=== PATIENT | female | born 1945 | race Caucasian/White ===

== ENCOUNTER → 2018-04-15 08:44 | Outpatient (CLI) | payer MEDICARE, SELFPAY ==
[2018-04-15 10:09] LABS: AST(SGOT) 18 U/L (15-37); Alanine Aminotransfer ALT/SGPT 34 U/L (13-56); Albumin, Serum 3.8 g/dL (3.2-5.0); Alkaline Phosphatase 87 U/L (45-117); Anion Gap 9 (5-15); BUN 21 mg/dL (7-18); Calcium,Total 9.1 mg/dL (8.5-10.1); Chloride 105 mmol/L (98-107); Cholesterol 159 mg/dL (200); Creatinine, Serum 1.05 mg/dL (0.55-1.02); EST Glomerular Filtration Rate 55 mL/min (>60); Est Glom Filt Rate - Afr Amer 66 mL/min (>60); Glucose 161 mg/dL (74-106); High Density Lipoprotein 48 mg/dL; Potassium 4.4 mmol/L (3.5-5.1); Protein, Total 7.8 g/dL (6.4-8.2); Sodium Level 141 mmol/L (136-145); Triglycerides 140 mg/dL; Very Low Density Lipoprotein 28 mg/dL (5-40)
[2018-04-15 10:14] LABS: Microalbumin,Random Urine 51.5 mg/L (NO RANGE EST.); Microalbumin:Creatinine Ratio 32.2 mg/g CRE (<30 mg/g CRE)
== END ==
PROVIDERS: Family Provider Family Medicine; PCP Family Medicine; Visit Provider Family Medicine
DX: E11.9 Type 2 diabetes mellitus without complications (principal)
CPT/HCPCS: 36415; 80048; 80061; 80076; 82043; 82570

== ENCOUNTER → 2018-08-16 10:08 | Outpatient (CLI) | payer MEDICARE, SELFPAY ==
[2018-08-16 12:20] LABS: Anion Gap 8 (5-15); BUN 20 mg/dL (7-18); BUN/Creat Ratio 21.1 RATIO (10-20); Chloride 109 mmol/L (98-107); Creatinine, Serum 0.95 mg/dL (0.55-1.02); EST Glomerular Filtration Rate 62 mL/min (>60); Est Glom Filt Rate - Afr Amer 74 mL/min (>60); Glucose 174 mg/dL (74-106); Potassium 4.5 mmol/L (3.5-5.1); Sodium Level 141 mmol/L (136-145)
[2018-08-16 12:34] LABS: Vitamin D,25 Hydroxy 22.4 ng/mL (29.95-100.01)
== END ==
PROVIDERS: Family Provider Family Medicine; PCP Family Medicine; Visit Provider Family Medicine
DX: E11.9 Type 2 diabetes mellitus without complications (principal); E55.9 Vitamin D deficiency, unspecified
CPT/HCPCS: 36415; 80048; 82306

== ENCOUNTER 2019-01-10 22:03 | Emergency (ER) | payer MEDICARE, SELFPAY ==
[2019-01-10 22:04] VITALS: BP 162/73; PULSE 84; RESP 26; TEMP 36.3; O2SAT 98; BMI 38.7
--- NOTE | 2019-01-10 22:57 | ED.VISSUMM ---
- ER Visit Summary Date of Service: 01/10/19 Chief Complaint: [] Abdominal pain History of Present Illness: The patient is a 73 F complaining of abdominal pain since this afternoon early on. Gradual onset continuous cramping burning occasional sharp pains in her upper abdomen. Current severity is mild to moderate. Worsened by nothing. Relieved by nothing. She tried one [place] that was left over from previous abdominal pain workup at 8 PM. She vomited up however. She had 4 episodes of emesis today. She had a loose bowel movement early this afternoon but nothing since. She saw GI for this in the past remotely 3 years ago. She never had upper GI endoscopy. She did have her gallbladder taken out for similar type pain 2 years ago and has not had much exacerbation since then. She has had remote diverticulitis in 2006 is status post partial sigmoid resection. She has had no problems with this since her surgery. Physical Examination: [] Vital signs reviewed General: Well-nourished well-developed Head: Normocephalic atraumatic Eyes: Pupils equal round and reactive to light extraocular movements intact ENT: TMs clear no hemotympanum no trauma Neck: Nontender full range of motion Cardiovascular: Regular rate rhythm no murmurs normal S1-S2 Respiratory: No distress clear to auscultation bilaterally chest nontender Abdomen: Soft mild upper abdominal tenderness diffusely without guarding or rebound. Nondistended normal bowel sounds no masses Back: Nontender no CVA tenderness Extremities: Nontender active range of motion ?4 extremities no trauma Skin: Normal color no trauma Neuro alert oriented cranial nerves II through XII intact normal strength sensation reflexes Test Results: [] Emergency Department Course and Treatment: [] Patient given IV fluids, morphine Zofran. Lab work obtained. Lab work shows a slight leukocytosis of 15,000. Chemistries normal except glucose 274. Creatinine 1.0. Lipase normal. Liver function tests normal. Urinalysis shows nothing acute. CT abdomen pelvis shows a suspected right periumbilical Alexandre's hernia. This was discussed with the radiologist. However after looking at it closer he thinks there is not actually a hernia. I do not palpate any hernia in the periumbilical region. Patient stated she did have a chronic hernia in her right abdomen which she seen surgery for in the past. They are just watching it. At this time is unclear to me the exact cause of her symptoms. This could be gastritis related. Reevaluation she feels much better and is resting comfortably. She would like to be discharged. She will be given a short course of pain medicine for home as well as nausea medicine. She will follow-up as an outpatient with her family doctor. I do not think she has a surgical emergency or strangulated or incarcerated hernia. Treatment Plan: [] Disposition: [] Impression: [] Abdominal pain Nausea and vomiting This note was generated with [employer] dictation software. It may contain incorrect words, spelling, and punctuation that were not noted in review of the chart prior to signing ED Disposition - Plan for ED Patient: Referrals: Abraham aGlindo MD [Primary Care Provider] -
[2019-01-10 23:05] LABS: Bacteria 0 SEEN /hpf (None Seen)
[2019-01-10 23:09] LABS: Color, Urine Yellow (Yellow); Glucose, Dipstick 250 mg/dl (Normal); Ketone-Dipstick 50 mg/dl (Negative); Leukocyte Esterase-Dipstick 25 /ul (Negative); Nitrite-Dipstick Negative (Negative); Occult Blood-Urine 25 /ul (Negative); Protein-Dipstick 100 mg/dl (Negative); Urine Bilirubin Dipstick Negative (Negative); Urine Clarity Sl. Cloudy (Clear); Urine Urobilinogen Normal (Normal)
[2019-01-10] MEDS: Ondansetron 4 MG/2 ML Vial IV (23:09)
[2019-01-10] MEDS: 0.9% Normal Saline 1,000 ML 1000 ML IV (23:09)
[2019-01-10] MEDS: Morphine 4 MG/ML Syringe IV (23:10)
[2019-01-10 23:12] LABS: Absolute Lymphocyte Count 1.28 X10^3/ul (0.83-4.51); Absolute Neutrophil Count 13.1 X10^3/uL (2.0-7.7); Basophil# 0.03 X10^3/uL; Basophil% 0.2 % (0-1); Eosinophil# 0.05 X10^3/uL; Eosinophils% 0.3 % (0-5); Hematocrit 42.1 % (37-47); Hemoglobin 13.5 g/dl (12.0-15.0); Lymphocyte # 1.28 X10^3/ul (4.0); Lymphocyte % 8.5 % (19-41); Mean Corp Hgb Conc 32.1 g/gl (32-36); Mean Corpuscular Hgb 26.6 pg (27.0-32.0); Mean Platelet Vol. 11.4 fl (6.2-12.0); Monocyte# 0.61 X10^3/uL; Neutrophil # 13.09 X10^3/uL (2.7-7.7); Neutrophil % 86.7 % (47-70); POSITIVE COUNT NO; POSITIVE DIFFERENTIAL NO; POSITIVE MORPHOLOGY NO; Platelet Count 247 K/mm3 (150-450); RBC Distribution Width CV 15.2 % (11.6-14.6); RBC Distribution Width SD 45.7 fl (35.1-43.9); Red Blood Count 5.07 M/mm3 (4.2-5.4); White Blood Count 15.1 K/mm3 (4.4-11.0)
[2019-01-10 23:17] LABS: Mucous, Urine 1+ /hpf (<or=2+); Red Blood Cells-Urine 5-10 SEEN /hpf (0-5); Squamous Epithelial Cells - UA 0-5 SEEN /hpf (5-10); White Blood Cells 0-5 SEEN /hpf (0-5)
[2019-01-10 23:19] LABS: AST(SGOT) 23 U/L (15-37); Alanine Aminotransfer ALT/SGPT 41 U/L (13-56); Albumin, Serum 3.8 g/dL (3.2-5.0); Alkaline Phosphatase 106 U/L (45-117); Anion Gap 11 (5-15); BUN 15 mg/dL (7-18); BUN/Creat Ratio 14.4 RATIO (10-20); Bilirubin, Direct 0.14 mg/dL (0.00-0.30); Chloride 105 mmol/L (98-107); Creatinine, Serum 1.04 mg/dL (0.55-1.02); EST Glomerular Filtration Rate 55 mL/min (>60); Est Glom Filt Rate - Afr Amer 67 mL/min (>60); Estimated Creatinine Clearance 42.22 ml/min; Globulin 4.2 g/dL (2.2-4.2); Glucose 274 mg/dL (74-106); Lipase 90 U/L (73-393); Potassium 3.9 mmol/L (3.5-5.1); Sodium Level 137 mmol/L (136-145)
--- NOTE | 2019-01-10 23:48 | CT_ITS ---
STUDY: CT ABDOMEN AND PELVIS WITHOUT CONTRAST REASON FOR EXAM: Female, 73 years old. Abdominal pain RADIATION DOSAGE (If Supplied By Facility): CTDIvol = ( 20.25 ) mGy, DLP = ( 1017.03 ) mGycm TECHNIQUE: Transaxial images were obtained from the dome of the diaphragm to the symphysis pubis without oral contrast, and without intravenous contrast. Sagittal and coronal images were reconstructed. Individualized dose optimization techniques were used for this CT. COMPARISON: 08/17/2017 FINDINGS: The lung bases are clear. There is fatty infiltration of the liver.. No dilated intrahepatic biliary radicles. Previous cholecystectomy. The spleen is normal. The pancreas is normal. Both adrenals are normal. The kidneys are normal with no masses, calculi or hydronephrosis The stomach is normal. There is no bowel distention, acute appendicitis or diverticulitis. No constricting lesions are seen in large bowel. There is a 4.8 cm right periumbilical Alexandre's hernia 2There is no ascites or any free intraperitoneal air. No indication of epiploic appendagitis The vascular structures in the retroperitoneum are normal. There is no retrocrural, retroperitoneal or mesenteric adenopathy. Spondylolysis of L5 with a first-degree spondylolisthesis of L5 over S1 and intervertebral osteochondrosis at L5-S1 The urinary bladder is normal.--The uterus is normal. There is no inguinal or pelvic adenopathy. There is no inguinal hernia. . CT/Abdomen/Pelvis without Cont IMPRESSION: No acute findings in the abdomen or pelvis. Specifically there is no acute appendicitis or diverticulitis Right periumbilical Alexandre's hernia. Fatty infiltration of the liver with evidence of a previous cholecystectomy. 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 Electronically Signed: Jonathan Mena MD at 0:32 EST Tel , Service support ,
[2019-01-11 00:06] VITALS: BP 148/67; PULSE 78; RESP 16; TEMP 36.8; O2SAT 96
[2019-01-11 00:24] VITALS: RESP 16
--- NOTE | 2019-01-11 01:09 | ED.DEP ---
ED Disposition - Plan for ED Patient: Disposition: Home or Assisted Living Instructions: ED Abdominal Pain Unkn Cause Prescriptions: Ondansetron [Zofran Odt] 4 mg PO Q8H PRN PRN #10 tab PRN Reason: Nausea Referrals: Abraham Galindo MD [Primary Care Provider] -
[2019-01-11] MEDS: HYDROcodone Bitartrate/Apap 5/325 Tablet PO (01:17)
[2019-01-11 01:22] VITALS: BP 142/76; PULSE 76; RESP 16; O2SAT 95
== END 2019-01-11 01:23 | disposition home or self-care (01) ==
PROVIDERS: Emergency Provider Emergency Medicine; Family Provider Family Medicine; PCP Family Medicine
DX: R10.10 Upper abdominal pain, unspecified (principal); R11.2 Nausea with vomiting, unspecified; E66.9 Obesity, unspecified; E11.9 Type 2 diabetes mellitus without complications; I10 Essential (primary) hypertension; Z79.84 Long term (current) use of oral hypoglycemic drugs; Z79.899 Other long term (current) drug therapy
CPT/HCPCS: 74176; 80048; 80076; 81001; 83690; 85025; 96361; 96374; 96375; 99285; J7030; A4216; J2405

== ENCOUNTER → 2019-05-04 | Outpatient (CLI) | payer MEDICARE, SELFPAY | END | disposition home or self-care (01) | PROVIDERS: Family Provider Family Medicine; PCP Family Medicine; Referring Provider Family Medicine; Visit Provider Family Medicine | DX: N39.0 Urinary tract infection, site not specified (principal) | CPT/HCPCS: 87086 ==

== ENCOUNTER → 2019-05-19 | Outpatient (CLI) | payer MEDICARE, SELFPAY ==
[2019-05-19 10:25] LABS: Microalbumin,Random Urine 38.3 mg/L (NO RANGE EST.)
[2019-05-19 10:29] LABS: Anion Gap 5 (5-15); BUN 16 mg/dL (7-18); BUN/Creat Ratio 17.4 RATIO (10-20); Chloride 107 mmol/L (98-107); Cholesterol 174 mg/dL (200); Creatinine, Serum 0.92 mg/dL (0.55-1.02); EST Glomerular Filtration Rate 63 mL/min (>60); Est Glom Filt Rate - Afr Amer 77 mL/min (>60); Glucose 173 mg/dL (74-106); High Density Lipoprotein 48 mg/dL; Potassium 4.1 mmol/L (3.5-5.1); Sodium Level 136 mmol/L (136-145); Triglycerides 115 mg/dL; Very Low Density Lipoprotein 23 mg/dL (5-40)
== END | disposition home or self-care (01) ==
LOC: MFPLAB 09:01
PROVIDERS: Family Provider Family Medicine; PCP Family Medicine; Referring Provider Family Medicine; Visit Provider Family Medicine
DX: E11.65 Type 2 diabetes mellitus with hyperglycemia (principal)
CPT/HCPCS: 36415; 80048; 80061; 82043

== ENCOUNTER → 2019-06-21 | Outpatient (CLI) | payer MEDICARE, SELFPAY ==
[2019-06-21 14:24] VITALS: BMI 38.2
== END | disposition home or self-care (01) ==
LOC: LABSPEC 17:07
PROVIDERS: Family Provider Family Medicine; PCP Family Medicine; Referring Provider Nurse Practitioner Women's Health; Visit Provider Nurse Practitioner Women's Health
DX: N39.0 Urinary tract infection, site not specified (principal); R31.9 Hematuria, unspecified
CPT/HCPCS: 87077; 87086; 87088; 87186

== ENCOUNTER → 2019-06-27 | Outpatient (CLI) | payer MEDICARE, SELFPAY ==
[2019-06-21 14:24] VITALS: BMI 38.2
--- NOTE | 2019-06-27 12:04 | US_ITS ---
STUDY: ULTRASOUND OF THE FEMALE PELVIS - COMPLETE REASON FOR EXAM: Female, 74 years old. Postmenopausal bleeding. LMP: Patient is postmenopausal. TECHNIQUE: Transabdominal and Transvaginal TECHNICAL QUALITY: Adequate. COMPARISON: None. FINDINGS: The uterus is anteverted and is in a midline position. The uterus measures 6.3 cm x 4.5 cm x 3.1 cm. There is a Nabothian cyst of the cervix. The endometrium is thickened and measures 6 mm in thickness, and is fluid distended. The uterus is of heterogeneous echotexture. There is evidence of a fundal fibroid measuring 1.8 cm x 1.77 x 1.3 cm. There is no demonstrated myometrial mass. I.U.D. - The patient does not have an I.U.D. The right ovary is non-visualized. The left ovary is visualized. The left ovary measures 2.1 cm x 1.9 cm x 1.6 cm. There is no left ovarian cyst or ovarian mass. There is no visualized left adnexal mass or complex lesion. There is normal arterial and normal venous vascularity. There is no fluid in the cul-de-sac. The pre void volume of the bladder was 172 ml. Polycystic ovary disease: No. US/Pelvic (Non ) IMPRESSION: Thickened endometrium measuring 6 mm. Fibroid uterus. The patient is status post right oophorectomy. Electronically Signed: Nato Kelsey, at 15:27 EDT , Service support ,
--- NOTE | 2019-06-27 12:04 | US_ITS ---
STUDY: ULTRASOUND OF THE FEMALE PELVIS - COMPLETE REASON FOR EXAM: Female, 74 years old. Postmenopausal bleeding. LMP: Patient is postmenopausal. TECHNIQUE: Transabdominal and Transvaginal TECHNICAL QUALITY: Adequate. COMPARISON: None. FINDINGS: The uterus is anteverted and is in a midline position. The uterus measures 6.3 cm x 4.5 cm x 3.1 cm. There is a Nabothian cyst of the cervix. The endometrium is thickened and measures 6 mm in thickness, and is fluid distended. The uterus is of heterogeneous echotexture. There is evidence of a fundal fibroid measuring 1.8 cm x 1.77 x 1.3 cm. There is no demonstrated myometrial mass. I.U.D. - The patient does not have an I.U.D. The right ovary is non-visualized. The left ovary is visualized. The left ovary measures 2.1 cm x 1.9 cm x 1.6 cm. There is no left ovarian cyst or ovarian mass. There is no visualized left adnexal mass or complex lesion. There is normal arterial and normal venous vascularity. There is no fluid in the cul-de-sac. The pre void volume of the bladder was 172 ml. Polycystic ovary disease: No. US/Transvaginal Non- IMPRESSION: Thickened endometrium measuring 6 mm. Fibroid uterus. The patient is status post right oophorectomy. Electronically Signed: Nato Kelsey, at 15:27 EDT , Service support ,
--- NOTE | 2019-06-27 13:16 | EKG12_ITS ---
Test Reason : PRE-OP Blood Pressure : / mmHG Vent. Rate : 070 BPM Atrial Rate : 070 BPM P-R Int : 166 ms QRS Dur : 110 ms QT Int : 432 ms P-R-T Axes : 031 -26 -17 degrees QTc Int : 466 ms Sinus rhythm with frequent Premature ventricular complexes Incomplete right bundle branch block Moderate voltage criteria for LVH, may be normal variant Nonspecific ST and T wave abnormality Abnormal ECG Confirmed by DAVIN MINER, STARR ([id number]), copy editor BAM PAN ([id number]) on 06/29/2019 10:33:57 AM Referred By: Yu Rolon Confirmed By:STARR JIN MD
[2019-06-27 15:45] LABS: Absolute Lymphocyte Count 2.02 X10^3/uL (0.83-4.51); Absolute Neutrophil Count 5.4 X10^3/uL (2.0-7.7); Basophil# 0.08 X10^3/uL; Eosinophil# 0.05 X10^3/uL; Eosinophils% 0.6 % (0-5); Hematocrit 42.2 % (37-47); Hemoglobin 13.4 g/dL (12.0-15.0); Lymphocyte # 2.02 X10^3/ul (4.0); Lymphocyte % 24.4 % (19-41); Mean Corp Hgb Conc 31.8 g/dL (32-36); Mean Corpuscular Hgb 27.6 pg (27.0-32.0); Mean Corpuscular Volume 86.8 fL (81-99); Mean Platelet Vol. 12.2 fl (6.2-12.0); Monocyte% 8.5 % (0-10); NRBC Flagged by Analyzer 0 % (0-5); Neutrophil % 65.1 % (47-70); Platelet Count 248 K/mm3 (150-450); RBC Distribution Width CV 15.6 % (11.6-14.6); RBC Distribution Width SD 49.6 fl (35.1-43.9); Red Blood Count 4.86 M/mm3 (4.2-5.4); White Blood Count 8.3 K/mm3 (4.4-11.0)
[2019-06-27 16:26] LABS: ALB/GLOB Ratio 0.9 RATIO (0.9-2.4); AST(SGOT) 21 U/L (15-37); Alanine Aminotransfer ALT/SGPT 39 U/L (13-56); Albumin, Serum 3.8 g/dL (3.2-5.0); Alkaline Phosphatase 94 U/L (45-117); Anion Gap 5 (5-15); BUN 19 mg/dL (7-18); BUN/Creat Ratio 18.4 RATIO (10-20); Calcium,Total 9.6 mg/dL (8.5-10.1); Chloride 108 mmol/L (98-107); Creatinine, Serum 1.03 mg/dL (0.55-1.02); EST Glomerular Filtration Rate 56 mL/min (>60); Est Glom Filt Rate - Afr Amer 68 mL/min (>60); Globulin 4.2 g/dL (2.2-4.2); Glucose 73 mg/dL (74-106); Potassium 4.1 mmol/L (3.5-5.1); Sodium Level 138 mmol/L (136-145)
== END | disposition home or self-care (01) ==
PROVIDERS: Obstetrics & Gynecology; Family Provider Family Medicine; PCP Family Medicine; Referring Provider Nurse Practitioner Women's Health; Visit Provider Nurse Practitioner Women's Health
DX: Z01.818 Encounter for other preprocedural examination (principal); N95.0 Postmenopausal bleeding; N84.1 Polyp of cervix uteri
CPT/HCPCS: 36415; 76830; 76856; 80053; 85025; 93005

== ENCOUNTER → 2019-07-07 06:30 | Outpatient (CLI) | payer MEDICARE, SELFPAY ==
[2019-06-21 14:24] VITALS: BMI 38.2
--- NOTE | 2019-07-07 09:31 | STRESSREP_ITS ---
Stress Test Report Date: 07-07-19 Procedure: Exercise tolerance test/imaging study Indications: Shortness of breath/dyspnea; abnormal ECG Consent: Per the patient Procedure: The patient exercised on a Hudson protocol for 4 minutes completing Stage I and 1 minute of Stage II achieving a peak heart rate of 173 bpm (117 % predicted maximal heart rate) with a peak blood pressure 200/70 mmHg and a peak MET capacity of 5 METs. The baseline ECG demonstrated sinus rhythm. The peak exercise ECG demonstrated no obvious ECG changes. There were occasional PVCs pretest, during exercise, and recovery and a rare atrial couplets/ventricular couplet during exercise. The functional capacity was considered average. There was no complaint of chest discomfort during exercise or recovery. The examination was discontinued secondary to dyspnea. Impression: 1. Technically adequate (percent predicted maximal heart rate greater than 85%) exercise tolerance test 2. Peak exercise ECG with no obvious ECG changes 3. There were occasional PVCs pretest, during exercise, in recovery and a rare atrial couplets/ventricular couplet during exercise 4. Nuclear images pending Myocardial perfusion imaging study: Technique: The patient was injected with 12.0 mCi of technetium 99m Cardiolite and subsequently rest SPECT Cardiolite nuclear imaging was obtained in the horizontal long, vertical long, and short axis views. The patient exercised on a Hudson protocol for 4 minutes completing Stage I and 1 minute of Stage II achieving a peak heart rate of 173 bpm (117 % predicted maximal heart rate) with a peak blood pressure 200/70 mmHg and a peak MET capacity of 5 METs. The patient was injected with 35.6 mCi of technetium 99m Cardiolite and subsequently stress SPECT Cardiolite nuclear imaging was obtained in the horizontal long, vertical long, and short axis views. A gated Cardiolite study at peak stress was obtained. Interpretation: Rest and stress SPECT Cardiolite nuclear imaging status post realignment, normalization, and attenuation correction, demonstrates the appearance of relative uniform tracer uptake and myocardial perfusion appearing within normal limits. There is end systolic thickening and brightening. The gated Cardiolite study demonstrates myocardial thickening and inward wall motion. The reported LVEF is 77 %. Impression: 1. Rest and stress SPECT Cardiolite nuclear imaging demonstrate relative uniform tracer uptake and myocardial perfusion appearing within normal limits. 2. The gated Cardiolite study reports an LVEF of 77 %. This note was generated with [employer] software. It may contain incorrect words, spelling, and punctuation that were not noted in checking the note before signing.
== END ==
PROVIDERS: Family Provider Family Medicine; PCP Family Medicine; Referring Provider Family Medicine; Visit Provider Family Medicine
DX: R94.31 Abnormal electrocardiogram [ECG] [EKG] (principal)
CPT/HCPCS: 78452; 93017; A9500; A4216

== ENCOUNTER 2019-08-11 09:07 | Day surgery (SDC) | payer MEDICARE, SELFPAY ==
[2019-06-21 14:24] VITALS: BMI 38.2
[2019-07-27 15:50] VITALS: BMI 38.2
--- NOTE | 2019-08-04 00:50 | HP.PCM_ITS ---
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 Is patient in pain?: No Allergies ciprofloxacin [From Cipro] Allergy (Mild, Verified 07/27/19 15:18) nausea metronidazole [From Flagyl] Allergy (Mild, Verified 07/27/19 15:18) nausea adhesive Allergy (Verified 07/27/19 15:18) Other Iodinated Contrast Media [CONTRASTS] Allergy (Verified 07/27/19 15:18) Hives Medications Amlodipine Besylate/Benazepril [Amlodipine-Benazepril 5-20 mg] 1 ea PO DAILY 07/15/16 [History Confirmed 07/27/19] Bisoprolol Fumarate [Zebeta (Beta Kimberly)] 10 mg PO DAILY 07/15/16 [History Confirmed 07/27/19] Glimepiride [Amaryl] 4 mg PO DAILY 07/15/16 [History Confirmed 07/27/19] metFORMIN HCl [Glucophage] 500 mg PO DAILY 07/15/16 [History Confirmed 07/27/19] aspirin 81 mg tablet,delayed release 81 mg PO DAILY 06/20/19 [History Confirmed 07/27/19] cholecalciferol (vitamin D3) 1,000 unit capsule 1,000 unit PO DAILY 06/20/19 [History Confirmed 07/27/19] docusate sodium 100 mg capsule 100 mg PO DAILY 06/20/19 [History Confirmed 07/27/19] ranitidine 150 mg capsule 150 mg PO DAILY 06/20/19 [History Confirmed 07/27/19] triamcinolone acetonide 0.5 % topical cream 1 applic TOPICAL BID #15 g 06/21/19 [Rx Confirmed 07/27/19] [facility] Medical History (Updated 08/02/19 @ 06:11 by Princess Peterson MD) Hypertension (Chronic) Diabetes mellitus type 2, uncomplicated (Chronic) GERD (gastroesophageal reflux disease) (Chronic) IBS (irritable bowel syndrome) (Chronic) Obesity (Acute) Surgical History (Updated 06/21/19 @ 14:28 by Christiane Naranjo) H/O oophorectomy (Acute) S/P partial colectomy (Acute) Status post left foot surgery (Acute) Social History (Updated 08/02/19 @ 06:12 by Princess Peterson MD) Smoking Status: Never smoker alcohol intake: never substance use type: does not use seatbelt use: always HPI Pre op D&C: Details: JASON JONES is a 74 year old who presents for preop evaluation. she has an endocervical polyp and some postmenopausal bleeding. Pregancy History 2 Elective abortions Hx Para 2 Spontaneous abortions Hx # Term Pregnancies Ectopic pregnancies Hx # Pregnancies Multiple births # of living children 2 Past Pregnancies Del. Date Name GA/Weeks Outcome Route Bth Weight Infant Gen Labor Lgth Anesthesia Del [facility] Provider FOB Unknown 1964- Martha Unknown 1967- Thomas ROS Const Constitutional: Denies fatigue, fever(s), headache(s), increased appetite, poor appetite, weight gain or weight loss Cardio Card: Denies chest pain Resp Resp: Denies cough or dyspnea GI GI: Reports as per HPI; denies abdominal pain, constipation, nausea or vomiting : Reports as per HPI; denies nipple discharge Skin Skin/Breast: Denies change in hair, breast lump, breast pain, breast skin changes or nipple discharge Exam Const General: cooperative, no acute distress Nutritional Appearance: average body habitus Orientation: alert HENWV Head: normal to inspection, normocephalic Neck Neck: normal visual inspection, trachea midline Thyroid: thyroid normal Resp Effort & Inspection: normal respiratory effort GI Inspection: normal to inspection, non-distended Palpation: soft, no hepatosplenomegaly General: bladder normal to palpation External Female Exam: normal appearance of the urethra, erythema, other (excoriations, erythema to rectum, trauma from scratching) Urethra: normal appearance of the urethra Speculum Exam - Vagina: atrophic vaginal mucosa, other (silver whitening inner bilateral labia) Speculum Exam - Cervix: cervical os open (3cm X 1cm cervical protrusion. consistent w fibroid vs polyp. nonfriable) Bimanual Exam- Vagina & Uterus: bladder normal to palpation, uterus non-tender, uterus enlarged (8 wk) Bimanual Exam- Adnexa, other: normal adnexae, no adnexal masses, pelvic support normal, adnexae non-tender Pelvic Support: normal OB/External & Speculum: cervical os open (3cm X 1cm cervical protrusion. consistent w fibroid vs polyp. nonfriable) Speculum Exam: cervical os open (3cm X 1cm cervical protrusion. consistent w fibroid vs polyp. nonfriable) Skin General: no rashes or lesions noted Assessment & Plan Problems 1. Endocervical polyp N84.1 d and c hysteroscopy 2. Hypertension I10 3. Diabetes mellitus type 2, uncomplicated E11.9 Plan plan d and c hysteroscopy. discussed surgical risks including risks of anesthesia, infection, bleeding, injury to bowel, bladder or blood vessels, and patient wishes to proceed with surgery. Coding Level of Care Code No Charge Diagnoses Endocervical polyp N84.1 Hypertension I10 Diabetes mellitus type 2, uncomplicated E11.9
[2019-08-11] VITALS (7 sets, daily range): BP systolic 128–168; BP diastolic 73–90; PULSE 61–78; RESP 16; TEMP 36–36.3; O2SAT 93–99; BMI 38.3
--- NOTE | 2019-08-11 09:21 | EKG12_ITS ---
Test Reason : PREOP Blood Pressure : / mmHG Vent. Rate : 072 BPM Atrial Rate : 072 BPM P-R Int : 162 ms QRS Dur : 112 ms QT Int : 452 ms P-R-T Axes : 028 -25 -14 degrees QTc Int : 494 ms Sinus rhythm with frequent Premature ventricular complexes Prolonged QT Abnormal ECG When compared with ECG of 27-JUN-2019 13:33, No significant change was found Confirmed by JAKE MINER, TRISTA ([id number]), video tape editor FELIPE LYNCH ([id number]) on 08/15/2019 3:48:45 PM Referred By: Princess Peterson Confirmed By:LUIS JOSEPH MD
[2019-08-11 09:40] LABS: Hematocrit 42.4 % (37-47); Hemoglobin 13.5 g/dL (12.0-15.0); Mean Corp Hgb Conc 31.8 g/dL (32-36); Mean Corpuscular Hgb 27.4 pg (27.0-32.0); Mean Platelet Vol. 10.6 fl (6.2-12.0); Platelet Count 220 K/mm3 (150-450); RBC Distribution Width CV 14.8 % (11.6-14.6); RBC Distribution Width SD 46.7 fl (35.1-43.9); Red Blood Count 4.93 M/mm3 (4.2-5.4); White Blood Count 7.1 K/mm3 (4.4-11.0)
[2019-08-11] MEDS: Lactated Ringers 1,000 ML 125 ML IV (09:56)
[2019-08-11 10:01] LABS: Anion Gap 7 (5-15); BUN 16 mg/dL (7-18); BUN/Creat Ratio 19.3 RATIO (10-20); Calcium,Total 8.9 mg/dL (8.5-10.1); Chloride 112 mmol/L (98-107); Creatinine, Serum 0.83 mg/dL (0.55-1.02); EST Glomerular Filtration Rate 72 mL/min (>60); Est Glom Filt Rate - Afr Amer 87 mL/min (>60); Estimated Creatinine Clearance 49.94 ml/min; Glucose 130 mg/dL (74-106); Sodium Level 141 mmol/L (136-145)
[2019-08-11 10:40] LABS: Bedside Glucose 125 mg/dL (70-110)
--- NOTE | 2019-08-11 10:45 | EMB_PTH ---
PATIENT: JASON JONES LOC: [facility] U#:[id number] AGE/SX: 74/F ROOM: RE08/11/[address]: Dr. Princess Peterson MD : [id number] BED: DIS: 08/11/2019 SPEC #: [id number] RECD: 08/11/19 14:46 STATUS: IRAIS REKenneth #: [id number] SONYA: 08/11/19 10:[address]: Princess Peterson DEPT: SURGICAL PATHOLOGY RECD BY: Ab Ayala ENTERED: 08/12/19 08:24 SP TYPE: ENDOM BX/C OTHR DR: Dr. Abraham Galindo MD Tissues: A - Endometrium, NOS B - Vulva, NOS Procedures: Surgery Specimen Level IV HEADER OPERATION: Hysteroscopy, D & C Symphion, vulvar biopsy PRE-OP DIAGNOSIS: Endocervical polyp TISSUE SUBMITTED: A - Endometrial curettings, endometrial polyp, B - Vulvar biopsy MICROSCOPIC DIAGNOSIS A. Endometrial curettings and polyp, excision: Simple hyperplasia without atypia. B. Vulva, biopsy: Ulceration with associated acute and chronic inflammation and granulation. AM:chelle 08/15/19 COMMENT B. Clinical correlation is suggested.. MICROSCOPIC DESCRIPTION Slides are reviewed. GROSS DESCRIPTION A - Received in fixative is one container labeled with the patient's name and designated endometrial curettings, endometrial polyp. The specimen consists of multiple irregular fragments of brar-white soft tissue that in aggregate measure 5 x 3 x 0.3 cm. Also present in the container is a piece of brar-pink polyp measuring 5 x 1.5 x 0.6 cm. The entire specimen is submitted in five cassettes as follows: 1 & 2 - brar-white soft tissue, 3-5 - polyp. B - Received in fixative is one container labeled with the patient's name and designated vulvar biopsy. The specimen consists of a piece of brar-white skin measuring 0.3 x 0.3 x 0.1 cm. The specimen is totally submitted in one cassette. / SJ:chelle 08/12/19 TC:2 CPT: 17529 x2
[2019-08-11] MEDS: Silver Nitrate (BKC) 1 EACH (12:55)
--- NOTE | 2019-08-11 13:08 | PCM.OPRPT ---
Problem List (1) Endocervical polyp Status: Acute Comment: d and c hysteroscopy (2) Diabetes mellitus type 2, uncomplicated Status: Chronic (3) Hypertension Status: Chronic Report of Operation Date of Procedure: 08/11/19 Pre-Operative Diagnosis: vulvar lesions, postmenopausal bleeding Post-Operative Diagnosis: same endometrial and endocervical polyps Surgery/Procedure Performed:: vulvar biopsy d and c hysteroscopy symphion resection Description of Surgical Findings:: bilateral vulvar lichenification and redness Type of Anesthesia:: Local MAC Special Medications: silver nitrate Specimen's removed: [facility] polyp vulvar tissue Drains: none Estimated Blood Loss (mL): 50 Fluids Replaced: crystalloid Description of Procedure: Patient was prepped and draped in a normal sterile fashion under MAC anesthesia. The left vulva was injected with 1% lidocaine and a 3 mm punch used to take a biopsy of the tissue. Silver nitrate and a single stitch of 3-0 Vicryl Rapide was used to obtain hemostasis. A weighted speculum was placed in the vagina and the anterior lip of the cervix was grasped with a single-tooth tenaculum. A paracervical block was placed with 1% lidocaine. Large endocervical polyp was removed with ring forceps and 5 mm hysteroscope introduced into the lining of the uterus. It was difficult to maintain pressure due to the increased dilation of the cervical canal despite attempts to compress down the cervix with 2 tenacula. The lining was fully visualized and noted to have multiple polypoid appearance. Uterine sounded to 9 cm. Using the symphion device, the multiple areas of polypoid appearance and endometrial polyps were progressively removed without complications. Direct visual curettage was performed using the device , and all specimens were sent to pathology. All instruments were removed from the vagina and excellent hemostasis was noted. Patient was awoken and taken to recovery in stable condition. Grafts/Implants Used: none - Complications none
--- NOTE | 2019-08-11 13:12 | DCINST_ITS ---
Discharge Diet: No Restrictions Discharge Activity: Return to Normal Activity, May Shower, May Take a Tub Bath Allergies/Adverse Reactions: Allergies ciprofloxacin [From Cipro] Allergy (Mild, Verified 08/04/19 09:22) nausea metronidazole [From Flagyl] Allergy (Mild, Verified 08/04/19 09:22) nausea adhesive Allergy (Verified 08/04/19 09:22) Other Iodinated Contrast Media [CONTRASTS] Allergy (Verified 08/04/19 09:22) Hives Medications to take at Discharge Amlodipine Besylate/Benazepril [Amlodipine-Benazepril 5-20 mg] 1 ea PO DAILY 07/15/16 Bisoprolol Fumarate [Zebeta (Beta Kimberly)] 10 mg PO DAILY 07/15/16 Glimepiride [Amaryl] 4 mg PO DAILY 07/15/16 metFORMIN HCl [Glucophage] 500 mg PO BID 07/15/16 Empagliflozin [Jardiance] 10 mg PO DAILY 08/04/19 Primary Care Physician: Abraham Galindo MD [Primary Care Provider] - Test Results: Test results from this visit will be discussed in further detail at your follow- up appointment, if applicable. Please Follow Up With: Princess Peterson MD - [phone]
== END 2019-08-11 14:12 | disposition home or self-care (01) ==
LOC: SDC 09:10 → AC 09:11
PROVIDERS: Anesthesiology; Family Provider Family Medicine; PCP Family Medicine; Referring Provider Obstetrics & Gynecology; Visit Provider Obstetrics & Gynecology
PROC: 0UB98ZZ Excision of Uterus, Via Natural or Artificial Opening Endoscopic (ICD-10-PCS; CPT 58558; principal; 2019-08-11 10:30)
DX: N85.00 Endometrial hyperplasia, unspecified (principal); L28.0 Lichen simplex chronicus; I10 Essential (primary) hypertension; E11.9 Type 2 diabetes mellitus without complications; K21.9 Gastro-esophageal reflux disease without esophagitis; E66.9 Obesity, unspecified; Z68.38 Body mass index [BMI] 38.0-38.9, adult; Z79.82 Long term (current) use of aspirin; Z79.84 Long term (current) use of oral hypoglycemic drugs; Z79.899 Other long term (current) drug therapy
CPT/HCPCS: 00952; 56605; 58558; 36415; 80048; 82962; 85027; 86850; 86900; 86901; 88305; 93005; J7120; J2405

== ENCOUNTER 2019-10-13 10:52 | Day surgery (SDC) | payer MEDICARE, SELFPAY ==
[2019-08-25 16:57] VITALS: BMI 38.3
[2019-10-13 11:21] VITALS: BP 131/70; PULSE 66; RESP 15; TEMP 36.2; O2SAT 97; BMI 37.8
[2019-10-13] MEDS: Lactated Ringers 1,000 ML 30 ML IV (11:38)
[2019-10-13] MEDS: Povidone Iodine 30 ML Opthalmic Sol 1 DRP (13:05)
[2019-10-13 13:38] VITALS: BP 117/57; BP 131/70; PULSE 72; RESP 16; TEMP 36.1; O2SAT 95
--- NOTE | 2019-10-13 13:38 | DCINST_ITS ---
Allergies/Adverse Reactions: Allergies ciprofloxacin [From Cipro] Allergy (Mild, Verified 10/13/19 11:20) nausea metronidazole [From Flagyl] Allergy (Mild, Verified 10/13/19 11:20) nausea adhesive Allergy (Verified 10/13/19 11:20) Other Iodinated Contrast Media [CONTRASTS] Allergy (Verified 10/13/19 11:20) Hives Medications to take at Discharge Amlodipine Besylate/Benazepril [Amlodipine-Benazepril 5-20 mg] 1 ea PO DAILY 07/15/16 Bisoprolol Fumarate [Zebeta (Beta Kimberly)] 10 mg PO DAILY 07/15/16 Glimepiride [Amaryl] 4 mg PO DAILY 07/15/16 metFORMIN HCl [Glucophage] 500 mg PO BID 07/15/16 Empagliflozin [Jardiance] 10 mg PO DAILY 08/04/19 hydrocortisone 2.5 % topical ointment 1 applic TOPICAL BID #28.35 g 08/25/19 Magnesium Oxide [Magnesium] 400 mg PO DAILY 10/06/19 Cataract Instructions: -Take a pain reliever such as Tylenol, Aspirin or Ibuprofen if needed for eye aching or pain. If this is not enough relief for you pain, call your doctor (or the doctor otolaryngology surgeon), even at night. -You are scheduled for a follow-up appointment at [facility] the day after surgery. You should have someone drive you. -Transient pain and irritation are due to the incision that was made at the time of surgery and do not indicate any trouble. Our office numbers are . If there is no answer, or if it is after our normal business hours, call your surgeon. My home phone number is: Dr. Merlene Lebron INSTRUCTIONS FOLLOWING TOPICAL ANESTHETIC CATARACT SURGERY Protect operated eye with glasses or metal shield at all times. Instill one drop of Polytrim (or other antibiotic drop), one drop of Prednisolone and one drop of Acular in the operated eye four times a day (breakfast, lunch, dinner, and bedtime) until the doctor tells you to quit or decrease them. Wait 3-5 minutes between each drop. Please begin these immediately upon arriving at home. if your surgery is in t he afternoon, try to use the drops at least three more times the day of surgery and again the following morning before your appointment. INSTRUCTIONS FOLLOWING RETROBULBAR CATARACT SURGERY Keep the eye patch and metal shield on until you see your surgeon the day after surgery - these will be removed in the office that day. Do not drive while the patch is on your eye. You will be instructed about the use of drops for the operated eye at that visit. Primary Care Physician: Abraham Galindo MD [Primary Care Provider] -
--- NOTE | 2019-10-13 13:38 | PCM.OPRPT ---
Report of Operation Date of Procedure: 10/13/19 Pre-Operative Diagnosis: cataract left eye Post-Operative Diagnosis: same Surgery/Procedure Performed:: PEM IOL OS Description of Surgical Findings:: cataract Type of Anesthesia:: MAC and Topical Anesth Estimated Blood Loss (mL): none Description of Procedure: Indications for Procedure: 74 yo female with history of worsening vision in the left eye secondary to cataract. After discussion of the risks, benefit, alternatives, of cataract surgery the patient agreed to proceed. Description of Procedure: The patient was brought to the operating room where a time out was performed prior to the start of the procedure. Anesthesia team induced light sedation. The eye was prepped and draped in the normal sterile fashion for eye surgery. A froylan blade was used to create a paracentesis incision. Preservative free lidocaine, followed by viscoat was instilled into the anterior chamber. A keratome was used to create a clear corneal biplanar incision at the temporal limbus. A cystotome was used to begin the capsulorhexis which was completed in a continuous curvilenear fashion with forceps. BSS on a peña cannula was used to hydrate beneath the lens capsule until the lens was noted to be freely mobile in the capsular bag. Phacoemulsification was used to remove the lens in a divide and conquer technique. The remaining cortical material was removed using irrigation and aspiration. The capsular bag was noted to be intact. provisc was used to inflate the capsular bag and a tecnis 22.5 diopter lens was placed into the capsular bag and adjusted using a justyna hook. The remaining viscoelastic was removed. The wounds were hydrated and noted to be watertight with a weck cell sponge. The patient was taken to the recovery room with instructions to follow up in the clinic the following day. - Complications none - Admit VTE Documentation Reason prophylaxis not ordered:: Procedure Not Indicated - patient able to ambulate
[2019-10-13 13:45] VITALS: BP 115/62; BP 131/70; PULSE 63; RESP 16; O2SAT 93
[2019-10-13 13:50] VITALS: BP 116/61; BP 131/70; PULSE 62; RESP 16; O2SAT 97
[2019-10-13 13:55] VITALS: BP 122/58; BP 131/70; PULSE 68; RESP 16; TEMP 36.4; O2SAT 94
[2019-10-13 14:29] VITALS: BP 131/70
== END 2019-10-13 14:30 | disposition home or self-care (01) ==
LOC: SDC 10:53 → AC 10:54
PROVIDERS: Family Provider Family Medicine; PCP Family Medicine; Referring Provider Ophthalmology; Visit Provider Ophthalmology
PROC: (CPT 66984; principal; 2019-10-13 12:20)
DX: H25.813 Combined forms of age-related cataract, bilateral (principal); E11.9 Type 2 diabetes mellitus without complications; K21.9 Gastro-esophageal reflux disease without esophagitis; I10 Essential (primary) hypertension; Z79.84 Long term (current) use of oral hypoglycemic drugs; Z79.899 Other long term (current) drug therapy
CPT/HCPCS: 00142; 66984; J7120

== ENCOUNTER 2019-11-03 09:47 | Day surgery (SDC) | payer MEDICARE, SELFPAY ==
[2019-11-03] VITALS (7 sets, daily range): BP systolic 116–129; BP diastolic 50–66; PULSE 62–73; RESP 15–16; TEMP 36.1–36.4; O2SAT 92–98; BMI 38.0
[2019-11-03 10:10] LABS: Bedside Glucose 145 mg/dL (70-110)
[2019-11-03] MEDS: Lactated Ringers 1,000 ML 100 ML IV (10:27)
--- NOTE | 2019-11-03 11:32 | OP.PCM_ITS ---
Report of Operation Date of Procedure: 11/03/19 Pre-Operative Diagnosis: Retained Lens Fragment Right Eye Post-Operative Diagnosis: same Surgery/Procedure Performed:: Aspiration of retained lens fragment right eye Description of Surgical Findings:: Indications for procedure: 74 yo female with history of previous cataract surgery, noted to have a retained lens fragment in the anterior chamber post operatively. We attempted to continue topical steroid to dissolve fragment but it persistent. Risks, benefits, alternatives of removal of lens fragment was discussed with patient and she agreed to proceed. Description of procedure: The patient was brought to the operating room where a time out was performed prior to the start of the procedure. The eye was prepped and draped in the usual sterile fashion for eye surgery. The suture from the ma in incision was cut. A cyclodialysis spatula was used to open the main incision and paracentesis. Preservative free lidocaine was instilled into the anterior chamber and the fragment was irrigated from the inferior angle and aspirated. The main incision and paracentesis were hydrated and the main incision was sutured close. She was taken to the recovery room in a stable condition with instructions to follow up in the clinic. Type of Anesthesia:: MAC and Topical Anesth Estimated Blood Loss (mL): none - Complications none - Admit VTE Documentation Reason prophylaxis not ordered:: Treatment Not Indicated - patient can ambulate
[2019-11-03] MEDS: Povidone Iodine 30 ML Opthalmic Sol 1 DRP (11:40)
[2019-11-03] MEDS: Tetracaine 0.5% Ophthalmic Bottle 1 DRP OP (11:45)
--- NOTE | 2019-11-03 12:14 | SUR.OPER ---
PHACO TIME: 17.7@14.8%
--- NOTE | 2019-11-03 12:17 | PCM.DC.CATCL ---
Allergies/Adverse Reactions: Allergies ciprofloxacin [From Cipro] Allergy (Mild, Verified 11/03/19 10:15) nausea metronidazole [From Flagyl] Allergy (Mild, Verified 11/03/19 10:15) nausea adhesive Allergy (Verified 11/03/19 10:15) Other Iodinated Contrast Media [CONTRASTS] Allergy (Verified 11/03/19 10:15) Hives Medications to take at Discharge Amlodipine Besylate/Benazepril [Amlodipine-Benazepril 5-20 mg] 1 ea PO DAILY 07/15/16 Bisoprolol Fumarate [Zebeta (Beta Kimberly)] 10 mg PO DAILY 07/15/16 Glimepiride [Amaryl] 4 mg PO DAILY 07/15/16 metFORMIN HCl [Glucophage] 500 mg PO BID 07/15/16 Empagliflozin [Jardiance] 10 mg PO DAILY 08/04/19 hydrocortisone 2.5 % topical ointment 1 applic TOPICAL BID #28.35 g 08/25/19 Magnesium Oxide [Magnesium] 400 mg PO DAILY 10/06/19 Cataract Instructions: -Take a pain reliever such as Tylenol, Aspirin or Ibuprofen if needed for eye aching or pain. If this is not enough relief for you pain, call your doctor (or the doctor transportation broker), even at night. -You are scheduled for a follow-up appointment at [facility] the day after surgery. You should have someone drive you. -Transient pain and irritation are due to the incision that was made at the time of surgery and do not indicate any trouble. Our office numbers are . If there is no answer, or if it is after our normal business hours, call your surgeon. My home phone number is: Dr. Merlene Lebron INSTRUCTIONS FOLLOWING TOPICAL ANESTHETIC CATARACT SURGERY Protect operated eye with glasses or metal shield at all times. Instill one drop of Polytrim (or other antibiotic drop), one drop of Prednisolone and one drop of Acular in the operated eye four times a day (breakfast, lunch, dinner, and bedtime) until the doctor tells you to quit or decrease them. Wait 3-5 minutes between each drop. Please begin these immediately upon arriving at home. if your surgery is in t he afternoon, try to use the drops at least three more times the day of surgery and again the following morning before your appointment. INSTRUCTIONS FOLLOWING RETROBULBAR CATARACT SURGERY Keep the eye patch and metal shield on until you see your surgeon the day after surgery - these will be removed in the office that day. Do not drive while the patch is on your eye. You will be instructed about the use of drops for the operated eye at that visit. Primary Care Physician: Abraham Galindo MD [Primary Care Provider] -
--- NOTE | 2019-11-03 12:30 | PCM.OPRPT ---
Report of Operation Date of Procedure: 11/03/19 Pre-Operative Diagnosis: Cataract Right Eye Post-Operative Diagnosis: same Surgery/Procedure Performed:: PEM IOL OD Description of Surgical Findings:: Indications for Procedure: This is a 74 yo female with history of worsening vision in the right eye due to cataract. After discussion of risks, benefits, and alternatives of surgery the patient agreed to proceed with cataract extraction with intraocular lens implant. Description of Procedure: The patient was brought to the operating room where a time out was performed prior to the start of the procedure. Anesthesia team induced light sedation. The eye was prepped and draped in the usual sterile fashion for eye surgery. A froylan blade was used to create a paracentesis incision. Preservative free lidocaine, followed by viscoelastic. A keratome was used to create a clear corneal biplanar incision at the temporal limbus. A cystotome was used to begin the capsulorhexis which was completed in a continuous curvilinear fashion with forceps. BSS on peña cannula was used to hydrate beneath the lens capsule until it was noted to be freely mobile. Phacoemulsification was used to remove the lens in a divide and conquer technique. The remaining cortical material was removed using irrigation and aspiration. The capsular bag was intact and inflated with provisc. A tecnis PCBOO 22.5 diopter lens was placed into the capsular bag. The viscoelastic was removed using aspiration. The wounds were hydrated and noted to be watertight at the conclusion of the case. The patient was instructed to follow up in the clinic the following day. Type of Anesthesia:: MAC and Topical Anesth Estimated Blood Loss (mL): none - Complications none - Admit VTE Documentation Reason prophylaxis not ordered:: Treatment Not Indicated - patient able to ambulate
== END 2019-11-03 13:10 | disposition home or self-care (01) ==
LOC: SDC 09:48 → AC 09:49
PROVIDERS: Family Provider Family Medicine; PCP Family Medicine; Referring Provider Ophthalmology; Visit Provider Ophthalmology
PROC: (CPT 66984; principal; 2019-11-03 11:35)
DX: H25.811 Combined forms of age-related cataract, right eye (principal); E11.9 Type 2 diabetes mellitus without complications; I10 Essential (primary) hypertension; Z98.42 Cataract extraction status, left eye; Z79.84 Long term (current) use of oral hypoglycemic drugs; Z79.899 Other long term (current) drug therapy
CPT/HCPCS: 66984; 82962; J7120

== ENCOUNTER → 2020-03-12 | Outpatient (CLI) | payer MEDICARE, SELFPAY ==
[2019-11-03 10:18] VITALS: BMI 38.0
[2020-03-12 12:32] LABS: Anion Gap 6 (5-15); BUN 17 mg/dL (7-18); BUN/Creat Ratio 18.7 RATIO (10-20); Calcium,Total 9.3 mg/dL (8.5-10.1); Chloride 107 mmol/L (98-107); Cholesterol 157 mg/dL (200); Creatinine, Serum 0.91 mg/dL (0.55-1.02); EST Glomerular Filtration Rate 64 mL/min (>60); Est Glom Filt Rate - Afr Amer 78 mL/min (>60); Glucose 128 mg/dL (74-106); High Density Lipoprotein 46 mg/dL; Potassium 3.9 mmol/L (3.5-5.1); Sodium Level 139 mmol/L (136-145); Triglycerides 141 mg/dL; Very Low Density Lipoprotein 28 mg/dL (5-40)
[2020-03-12 12:36] LABS: Vitamin D,25 Hydroxy 18.2 ng/mL
== END | disposition home or self-care (01) ==
LOC: MTLAB 09:20
PROVIDERS: PCP Family Medicine; Referring Provider Family Medicine; Visit Provider Family Medicine
DX: E11.9 Type 2 diabetes mellitus without complications (principal); E55.9 Vitamin D deficiency, unspecified
CPT/HCPCS: 36415; 80048; 80061; 82306

== ENCOUNTER 2020-10-17 02:27 | Inpatient (IN) | payer MEDICARE, SELFPAY ==
[2019-11-03 10:18] VITALS: BMI 38.0
--- NOTE | 2020-10-17 02:22 | HP.PCM_ITS ---
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 use Qualified Code(s): E11.9 - Type 2 diabetes mellitus without complications (4) GERD (gastroesophageal reflux disease) Status: Chronic Qualifiers: Esophagitis presence: esophagitis presence not specified Qualified Code(s): K21.9 - Gastro-esophageal reflux disease without esophagitis (5) IBS (irritable bowel syndrome) Status: Chronic Qualifiers: Irritable bowel syndrome type: unspecified Qualified Code(s): K58.9 - Irritable bowel syndrome without diarrhea (6) Morbid obesity Status: Chronic History of Present Illness Date of Admission: 10/17/20 Chief Complaint: Abdominal pain The patient is a 75 y/o F w/ PMHx: Diabetes mellitus type II, GERD, HTN, HLD, IBS, Morbid Obesity who presents to the [facility] ED on 10/17/20 as a direct admission from OSH ED [place] with history of 2-3 days of abdominal pain primarily upper abdomen with cramping, fatigue, nausea and emesis, noted to be passing gas but no bowel movement x24 hours with last noted to be small and very mushy with prior to that no bowel movement x3 days with also associated abdominal distention. Patient does note that initially pain was 10 out of 10 in severity, improving upon current presentation [facility] following NG tube placement, more soft abdomen, rating discomfort minimally 1-2 out of 10. She denies any recent fever, chills, cough, dyspnea, body aches, alteration to sense of taste or smell. She did have a niece who was diagnosed with COVID. In the ED patient with evidence SBO with eventual NGT placement. ED discussed case also with Dr. Lancaster who was amenable to patient transition to [facility]. Work-up in the OSH ED included: VS: BP 153/70, T 37, HR 83, RR 20, 97% on RA CBC: WBC 13.9, Hgb 13.8, Plts 237 with L shift CMP: Na 135, K 3.7, Chl 97, Bicarb 22, BUN/Cr 12/0.7, glucose 260, CA 7.6, ALT/AST 32/24, lipase 20 CT A/P without contrast (iodine allergy): SBO with transition in the lower abdominal region with panus folded over versus in hernia outpouching, lower suspicion for hernia, mild mesenteric edema around dilated loops of bowel, no free air or free fluid. LA: 2.7 COVID rapid negative Medications: Morphine 2 mg, zofran 4 mg x 1, pepcid 20 mg, 1L NS. Interventions: NGT placement with KUB follow-up pending. Reviewed patient imaging with surgeon, Dr. Lancaster who discussed case and concerns with outside facility and she noted no concerns regarding hernia. Past Medical History Past Medical History (Chronic Problems): Chronic Problems (Last Reviewed 08/25/19 @ 16:33 by Angelina Fields) Morbid obesity (Chronic) Hypertension (Chronic) Diabetes mellitus type 2, uncomplicated (Chronic) GERD (gastroesophageal reflux disease) (Chronic) IBS (irritable bowel syndrome) (Chronic) Medical History: Medical History (Last Reviewed 08/25/19 @ 16:33 by Angelina Fields) Hypertension (Chronic) I10 Diabetes mellitus type 2, uncomplicated (Chronic) E11.9 GERD (gastroesophageal reflux disease) (Chronic) K21.9 IBS (irritable bowel syndrome) (Chronic) K58.9 Obesity E66.9 Allergies ciprofloxacin [From Cipro] Allergy (Mild, Verified 11/03/19 10:15) nausea metronidazole [From Flagyl] Allergy (Mild, Verified 11/03/19 10:15) nausea adhesive Allergy (Verified 11/03/19 10:15) Other Iodinated Contrast Media [CONTRASTS] Allergy (Verified 11/03/19 10:15) Hives Home Medications: Ambulatory Orders Medication Instructions Recorded Amlodipine Besylate/Benazepril 1 ea PO DAILY 07/15/16 [Amlodipine-Benazepril 5-20 mg] Bisoprolol Fumarate [Zebeta (Beta 10 mg PO DAILY 07/15/16 Kimberly)] Glimepiride [Amaryl] 4 mg PO DAILY 07/15/16 metFORMIN HCl [Glucophage] 500 mg PO BID 07/15/16 Empagliflozin [Jardiance] 10 mg PO DAILY 08/04/19 Magnesium Oxide [Magnesium] 400 mg PO DAILY 10/06/19 hydrocortisone 2.5 % topical 1 applic TOPICAL BID #28.35 g 12/08/19 ointment Surgical History: Surgical History (Last Updated 08/25/19 @ 16:33 by Angelina Fields) H/O dilation and curettage Z98.890 H/O oophorectomy Left side- cyst behind ovary. Patient was in her 30's when it was removed. S/P partial colectomy Z90.49 Status post left foot surgery Z98.890 Surgical History: - - Sigmoid colectomy, D&C hysteroscopy, left oophorectomy, left foot surgery, cholecystectomy, bilateral cataract surgery. Psychiatric History: No pertinent psych hx HEALTH CARE AIDE History: No pertinent HEALTH CARE AIDE history Lives: With Family - Patient lives with her daughter and son-in-law. Smoking Status: Never smoker Tobacco Use: Non-smoker Alcohol: None Drugs: None - *Family History Paternal History Items: Heart Disease Maternal History Items: - - Mother with a history of multiple sclerosis. Review of Systems Constitutional: Reports: Anorexia, Malaise, Weakness, Fatigue. Denies: Chills, Fever, Weight Change HEENT: Denies: Head Aches, Sinus Congestion, Sinus Drainage Cardiovascular: Denies: Chest Pain, Palpitations Respiratory: Denies: Cough, Shortness of breath at rest, Sputum production Gastrointestinal: Reports: Abdominal Pain, Constipation, Nausea, Vomiting Genitourinary: Denies: Dysuria Musculoskeletal: Denies: Joint Pain, Joint Tenderness Skin: Denies: Rash, Wounds Neurological: Denies: Numbness, Tingling, Focal weakness Psychiatric: Reports: Anxiety, Depression. Denies: Homicidal Ideations, Suicidal Ideations Hematologic/ Lymphatic: Denies: Easy Bruising, Easy Bleeding VTE Information - Inpt Only VTE Present on Admission: No VTE Mechan Device Prophylaxis: SCD's VTE Pharm Prophylaxis ordered?: Yes Patient Problems: Active and Suspected Problems (Last Reviewed 08/25/19 @ 16:33 by Angelina Fields) SBO (small bowel obstruction) (Acute) Subjective: Patient laying in the medical surgical bed, no acute distress, being hooked up to suction, recent transfer. Objective: Physical Examination: General: awake, alert, oriented x 3 and cooperative, seated upright in the medical surgical bed, notes significantly improved since initial presentation to outside ED, NG tube being placed back to suction. Skin: normal color, turgor, no icterus, cyanosis. HEENT: AT/NC, EOMI, PERRLA, dry MM, NG tube in place, no carotid bruits or JVD noted. Lungs: CTA bilaterally, moderate effort, moderate, decrease BL bases, no rales, ronchi or wheezing. Heart: Regular rate and rhythm; no gallop, rub audible. Abdomen: soft, morbidly obese, mild discomfort with palpation bilateral upper quadrants but significantly likely improved per her report from initial presentation, currently nondistended, still absent bowel sounds BS, no HSM; however, habitus makes examination difficult. Extremities: no cyanosis, clubbing, or edema. Neurological: patient awake, alert, oriented as noted; cognitive function intact; pupils equally reactive to light and accomodation; cranial nerves II-XII grossly normal, moving all 4 extremities, no focal deficits, strength m oderately global decrease secondary to acute presentation. Psychiatric: affect appears mildly fatigued otherwise normal, notes pain significantly improved, no acute evidence of depressive or anxiety feelings. - Physical Exam Vitals/I&O's: Body Mass Index (BMI) 38.0 Finger Stick Blood Glucose 156 Current Medications Acetaminophen (Acetaminophen 650 Mg Suppository) 650 mg RECTAL Q4H PRN PRN PRN Reason: Pain Score 1-10/Temp > 100.7 F Albuterol Sulfate (Albuterol 2.5 Mg/3 Ml Vial.Neb.) 2.5 mg INHALATION Q2H PRN PRN PRN Reason: Dyspnea, wheezing Enoxaparin Sodium (Enoxaparin 40 Mg/0.4 Ml Syringe) 40 mg SC DAILY [facility] Hydralazine HCl (Hydralazine 20 Mg/Ml Vial) 10 mg IV Q4H PRN PRN PRN Reason: SBP > 160 Sodium Chloride () 1,000 mls @ 125 mls/hr IV .Q8H ELIER Famotidine 20 mg/ Sodium (Chloride) 10 mls @ 300 mls/hr IV Q12 [facility] Insulin Human Lispro (Insulin Lispro 100 Unit/Ml Insuln.Pen) 0 unit SC Q6 ELIER; Protocol Morphine Sulfate (Morphine 2 Mg/Ml Syringe) 2 mg IV Q3H PRN PRN PRN Reason: Pain Score 6-10 Ondansetron HCl (Ondansetron 4 Mg/2 Ml Vial) 4 mg IV Q8H PRN PRN PRN Reason: NAUSEA/VOMITING Prochlorperazine Edisylate (Prochlorperazine 10 Mg/2 Ml Vial) 5 mg IV Q4H PRN PRN PRN Reason: Breakthrough nausea/vomiting Assessment/Plan All Active Problems (Last Reviewed 08/25/19 @ 16:33 by Angelina Fields) SBO (small bowel obstruction) (Acute) Simple endometrial hyperplasia without atypia (Acute) Endocervical polyp (Acute) Cholelithiasis and acute cholecystitis without obstruction (Acute) Right upper quadrant abdominal pain (Acute) The patient is a 75 y/o F w/ PMHx: Diabetes mellitus type II, GERD, HTN, HLD, IBS, Morbid Obesity who presents to the [facility] ED on 10/17/20 as a direct admission from OSH ED [place] with history of 2-3 days of abdominal pain primarily upper abdomen with cramping, fatigue, nausea and emesis, noted to be passing gas but no bowel movement over the last 24 hours. 1. Abdominal pain, nausea, emesis w/ SBO: In the ED work-up included CT A/P w/ evidence of SBO with noted transition in the lower abdomen however surgery review of imaging and prior images with noted patient to have a folded over pannus thus likely not a component in a hernia per discussions with Dr. Lancaster. Will admit to [facility], maintain on IVFs, continue NGT to suction, strict I&Os, IV pain/anti-emetics PRN, serial KUB as needed to montior bowel function, Famotidine IV, maintain NPO on bowel rest. General surgery Dr. Lancaster following. 2. Diabetes mellitus type II: Hold oral home regimen, n.p.o. status, will maintain on every 6 hour accu checks w/ ISS. 3. Hypertension: Holding patient amlodipine, benazepril, bisoprolol while n.p.o. status, will have as needed IV hydralazine and may add labetalol additionally if ongoing difficulty controlling pressures, add back oral regimen once resolved SBO. 4. Hyperlipidemia: Not on regimen, defer to outpatient especially given acute presentation. 5. Morbid Obesity: Weight loss and lifestyle changes encouraged, nutrition consulted. 6. IBS: Noted history, not on regimen, given acute presentation defer any addition. Dominantly constipation. Given SBO may require bowel regimen at discharge but will defer to general surgery pending their further evaluation but likely would benefit from bowel regiment discharge. 7. GERD: We will maintain on IV famotidine. 8. DVT prophylaxis: SCDs, Lovenox. 9. CODE status: Patient does not have healthcare power of prosecuting attorney nor living will set up. Encouraged her to do so and discussed the benefits of arranging this in advance. Noted if she was interested she could discuss obtaining information with case management. Discussed CODE status at length including difference between FULL code, DNR-CCA and DNR-CC status. Following discussions about the differences in these status, requested Full Code status. Advanced Care Planning Face to Face Time: 16 minutes. Inpatient E&M: 38221 Init Hosp L3 Procedures: 53744 Advncd Care Plan 30 Min
[2020-10-17 02:29] VITALS: BMI 39.3
[2020-10-17 02:30] VITALS: BP 163/66; PULSE 84; RESP 16; TEMP 35.8; O2SAT 96
[2020-10-17 02:42] VITALS: BMI 39.4
[2020-10-17] MEDS: 0.9% Normal Saline 1,000 ML 125 ML IV (02:55)
[2020-10-17] MEDS: Famotidine 200 MG/20 ML MDV 20 MG in 0.9% Normal Saline (Pres. free 8 ML 300 MG IV ×2 (03:07→10:21)
[2020-10-17 03:29] LABS: Absolute Lymphocyte Count 1.01 X10^3/uL (0.83-4.51); Basophil# 0.03 X10^3/uL; Basophil% 0.3 % (0-1); Eosinophil# 0.01 X10^3/uL; Eosinophils% 0.1 % (0-5); Hematocrit 39.2 % (37-47); Hemoglobin 12.1 g/dL (12.0-15.0); Lymphocyte # 1.01 X10^3/ul (4.0); Lymphocyte % 9.3 % (19-41); Mean Corp Hgb Conc 30.9 g/dL (32-36); Mean Corpuscular Hgb 30.2 pg (27.0-32.0); Mean Corpuscular Volume 97.8 fL (81-99); Mean Platelet Vol. 9.9 fl (6.2-12.0); Monocyte# 0.73 X10^3/uL; Monocyte% 6.7 % (0-10); NRBC Flagged by Analyzer 0 % (0-5); Neutrophil # 9.04 X10^3/uL (2.7-7.7); Neutrophil % 83.1 % (47-70); POSITIVE MORPHOLOGY YES; Platelet Count 199 K/mm3 (150-450); RBC Distribution Width CV 18.8 % (11.6-14.6); RBC Distribution Width SD 66.8 fl (35.1-43.9); Red Blood Count 4.01 M/mm3 (4.2-5.4); White Blood Count 10.9 K/mm3 (4.4-11.0)
[2020-10-17 03:30] LABS: Differential Indicated SCAN CRITERIA MET
[2020-10-17 03:45] LABS: Differential Comment SCANNED; Polychromasia RARE
[2020-10-17 03:46] LABS: Ovalocyte RARE
[2020-10-17 03:57] LABS: AST(SGOT) 22 U/L (15-37); Alanine Aminotransfer ALT/SGPT 38 U/L (13-56); Albumin, Serum 3.3 g/dL (3.2-5.0); Alkaline Phosphatase 84 U/L (45-117); Anion Gap 10 (5-15); BUN 12 mg/dL (7-18); BUN/Creat Ratio 14.5 RATIO (10-20); Calcium,Total 8.7 mg/dL (8.5-10.1); Chloride 106 mmol/L (98-107); Creatinine, Serum 0.83 mg/dL (0.55-1.02); EST Glomerular Filtration Rate 72 mL/min (>60); Est Glom Filt Rate - Afr Amer 87 mL/min (>60); Estimated Creatinine Clearance 49.19 ml/min; Globulin 3.3 g/dL (2.2-4.2); Glucose 206 mg/dL (74-106); Protein, Total 6.6 g/dL (6.4-8.2); Sodium Level 136 mmol/L (136-145)
[2020-10-17] MEDS: Insulin Lispro 100 UNIT/ML INSULN.PEN SC ×2 (05:41→12:11)
--- NOTE | 2020-10-17 05:55 | RAD_ITS ---
HISTORY: Small bowel obstruction. Most recent comparison study is a CT scan of the abdomen and pelvis from January 11, 2019 Exam is for images of the abdomen. Findings: Esophagogastric tube tip and its proximalmost side hole both terminate below the diaphragm within the left upper quadrant, likely within the stomach. Bowel gas pattern is normal. Multilevel degenerative disc disease. Facet arthritis. Hip arthritis. No pneumatosis. No free air. Lung bases are clear. RAD/Abd Decub and/or Erect(Portabl IMPRESSION: Adequate position of esophagogastric tube. No acute intra-abdominal disease perceived. at 0554 Reported and signed by: Shaw Wyatt MD Electronically Signed: Shaw Wyatt MD at 5:53 EST Tel , Service support ,
[2020-10-17 06:05] LABS: Bedside Glucose 185 mg/dL (70-110)
--- NOTE | 2020-10-17 06:55 | PCM.CONS.GEN ---
Reason for Consult Date of Consultation: 10/17/20 History of Present Illness: The patient is a 75 year old F presents to the [place] ER due to abdominal pain nausea and vomiting. Patient states the pain is across her upper abdomen started about 1 PM yesterday. Prior to that states she has been eating normally. Patient states she had a small bowel movement yesterday and did have some gas decrease gas this morning but she does have some burping. Patient states her abdominal pain has resolved after NG was placed in ER. Patient's previous abdominal surgeries include a laparoscopic cholecystectomy by Dr. Nicholson in 2016, sigmoidectomy for diverticulitis in [place] previously. Patient states her last colonoscopy was 5-10 years ago in [place]. Patient only has about 200 cc in the canister this morning. Patient states she previously had a small bowel obstruction in 2016 and was sent to [facility], [place] and it resolved with conservative management and NG. Past Medical History Past Medical History (Chronic Problems): Chronic Problems (Last Reviewed 08/25/19 @ 16:33 by Angelina Fields) Morbid obesity (Chronic) Hypertension (Chronic) Diabetes mellitus type 2, uncomplicated (Chronic) GERD (gastroesophageal reflux disease) (Chronic) IBS (irritable bowel syndrome) (Chronic) Medical History: Medical History (Last Reviewed 08/25/19 @ 16:33 by Angelina Fields) Hypertension (Chronic) I10 Diabetes mellitus type 2, uncomplicated (Chronic) E11.9 GERD (gastroesophageal reflux disease) (Chronic) K21.9 IBS (irritable bowel syndrome) (Chronic) K58.9 Obesity E66.9 Allergies ciprofloxacin [From Cipro] Allergy (Mild, Verified 10/17/20 02:35) nausea metronidazole [From Flagyl] Allergy (Mild, Verified 10/17/20 02:35) nausea adhesive Allergy (Verified 10/17/20 02:35) Other Iodinated Contrast Media [CONTRASTS] Allergy (Verified 10/17/20 02:35) Hives Home Medications: Ambulatory Orders Medication Instructions Recorded Amlodipine Besylate/Benazepril 1 ea PO DAILY 07/15/16 [Amlodipine-Benazepril 5-20 mg] Bisoprolol Fumarate [Zebeta (Beta 10 mg PO DAILY 07/15/16 Kimberly)] Glimepiride [Amaryl] 4 mg PO DAILY 07/15/16 metFORMIN HCl [Glucophage] 500 mg PO BID 07/15/16 Empagliflozin [Jardiance] 10 mg PO DAILY 08/04/19 Magnesium Oxide [Magnesium] 400 mg PO DAILY 10/06/19 Cholecalciferol (Vitamin D3) 2,000 unit PO DAILY 10/17/20 [Vitamin D3] Surgical History: Surgical History (Last Updated 08/25/19 @ 16:33 by Angelina Fields) H/O dilation and curettage Z98.890 H/O oophorectomy Left side- cyst behind ovary. Patient was in her 30's when it was removed. S/P partial colectomy Z90.49 Status post left foot surgery Z98.890 Surgical History: - - Sigmoid colectomy, D&C hysteroscopy, left oophorectomy, left foot surgery, cholecystectomy, bilateral cataract surgery. Psychiatric History: No pertinent psych hx CHART CALCULATOR History: No pertinent CHART CALCULATOR history Lives: With Family - Patient lives with her daughter and son-in-law. Smoking Status: Never smoker Tobacco Use: Non-smoker Alcohol: None Drugs: None - *Family History Paternal History Items: Heart Disease Maternal History Items: - - Mother with a history of multiple sclerosis. Review of Systems Constitutional: Reports: Anorexia Eyes: Denies: Blurred vision HEENT: Denies: Difficulty Swallowing Cardiovascular: Denies: Chest Pain Respiratory: Denies: Cough Gastrointestinal: Reports: Abdominal Pain, Nausea, Vomiting. Denies: Diarrhea Genitourinary: Denies: Dysuria Skin: Denies: Jaundice Neurological: Denies: Balance problems Psychiatric: Denies: Depression Hematologic/ Lymphatic: Denies: Easy Bruising Patient Problems: Active and Suspected Problems (Last Reviewed 08/25/19 @ 16:33 by Angelina Fields) SBO (small bowel obstruction) (Acute) - Physical Exam Vitals/I&O's: Vital Signs Temp Pulse Resp BP Pulse Ox 96.4 F L 84 16 163/66 H 96 10/17/20 02:30 10/17/20 02:30 10/17/20 02:30 10/17/20 02:30 10/17/20 02:30 Oxygen Delivery Method Room Air Weight: 221 lb 12.56 oz Body Mass Index (BMI) 39.3 Finger Stick Blood Glucose 156 Intake and Output for Last 24 Hours 10/15/20 10/16/20 10/17/20 23:59 23:59 23:59 Intake Total 260 / 260 Output Total 100 / 100 Balance 160 / 160 General: Alert, Oriented x3, Cooperative, No apparent distress HEENT: Atraumatic Lungs: Normal air movement Cardiovascular: Regular rate Abdomen: Soft, Non Tender, Non-Distended Extremities: No clubbing, No cyanosis, No edema Neurological: Cranial nerves II-XII grossly intact Psych/Mental Status: Normal Affect Laboratory Results 10/17/20 03:12: WBC 10.9, RBC 4.01 L, Hgb 12.1, Hct 39.2, MCV 97.8, MCH 30.2, MCHC 30.9 L, RDW Std Deviation 66.8 H, RDW Coeff of Raf 18.8 H, Plt Count 199, MPV 9.9, Immature Gran % (Auto) 0.500, Neut % (Auto) 83.1 H, Lymph % (Auto) 9.3 L, Coles % (Auto) 6.7, Eos % (Auto) 0.1, Baso % (Auto) 0.3, Absolute Neuts (auto) 9.0 H, Absolute Lymphs (auto) 1.01, Nucleated RBC % 0, Differential Comment SCANNED, Polychromasia RARE, Ovalocytes RARE 10/17/20 03:12: Sodium 136, Potassium 4.0, Chloride 106, Carbon Dioxide 20.0 L, Anion Gap 10, BUN 12, Creatinine 0.83, Estim Creat Clear Calc 49.19, Est GFR (MDRD) Af Amer 87, Est GFR (MDRD) Non-Af 72, BUN/Creatinine Ratio 14.5, Glucose 206 H, Calcium 8.7, Magnesium 2.0, Total Bilirubin 0.50, AST 22, ALT 38, Alkaline Phosphatase 84, Total Protein 6.6, Albumin 3.3, Globulin 3.3, Albumin/Globulin Ratio 1.0 10/17/20 05:38: POC Glucose 185 H Current Medications Acetaminophen (Acetaminophen 650 Mg Suppository) 650 mg RECTAL Q4H PRN PRN PRN Reason: Pain Score 1-10/Temp > 100.7 F Albuterol Sulfate (Albuterol 2.5 Mg/3 Ml Vial.Neb.) 2.5 mg INHALATION Q2H PRN PRN PRN Reason: Dyspnea, wheezing Enoxaparin Sodium (Enoxaparin 40 Mg/0.4 Ml Syringe) 40 mg SC DAILY [facility] Hydralazine HCl (Hydralazine 20 Mg/Ml Vial) 10 mg IV Q4H PRN PRN PRN Reason: SBP > 160 Sodium Chloride () 1,000 mls @ 125 mls/hr IV .Q8H [facility] Last Admin: 10/17/20 02:55 Dose: 125 mls/hr Documented by: Famotidine 20 mg/ Sodium (Chloride) 10 mls @ 300 mls/hr IV Q12 [facility] Last Infusion: 10/17/20 03:10 Dose: Infused Documented by: Insulin Human Lispro (Insulin Lispro 100 Unit/Ml Insuln.Pen) 0 unit SC Q6 [facility]; Protocol Last Admin: 10/17/20 05:41 Dose: 1 u Documented by: Morphine Sulfate (Morphine 2 Mg/Ml Syringe) 2 mg IV Q3H PRN PRN PRN Reason: Pain Score 6-10 Ondansetron HCl (Ondansetron 4 Mg/2 Ml Vial) 4 mg IV Q8H PRN PRN PRN Reason: NAUSEA/VOMITING Prochlorperazine Edisylate (Prochlorperazine 10 Mg/2 Ml Vial) 5 mg IV Q4H PRN PRN PRN Reason: Breakthrough nausea/vomiting Assessment/Plan All Active Problems (Last Reviewed 08/25/19 @ 16:33 by Angelina Fields) SBO (small bowel obstruction) (Acute) Simple endometrial hyperplasia without atypia (Acute) Endocervical polyp (Acute) Cholelithiasis and acute cholecystitis without obstruction (Acute) Right upper quadrant abdominal pain (Acute) 75-year-old female with partial small bowel obstruction 1. We will reviewed the CT from [place] as well as acute abdominal series from this morning pending. Continue NG to low intermittent suction. Will get small bowel follow-through with Gastrografin this morning. Addendum: Patient small bowel follow-through showed contrast in the colon under an hour, patient did have multiple bowel movements. NG was removed patient was started on diet able to be DC'd home. Oma Lancaster M.D. Pager: [phone] [facility] [address] [place] [address], Outpatient [facility], [address] [place] [address] Office: [phone] Inpatient E&M: 34347 Init Hosp L3
--- NOTE | 2020-10-17 07:35 | RAD_ITS ---
PROCEDURE: SMALL BOWEL SERIES DATE OF EXAMINATION: 10/17/2020. INDICATION: Female, 75 years old. Possible small bowel obstruction. PHYSICIAN: Nato Kelsey M.D. TECHNIQUE: Radiographic and fluoroscopic images were taken of the small intestine following the ingestion of barium through the NG tube. COMPARISON: None. FINDINGS: A preliminary supine KUB was obtained. There is an unremarkable bowel gas pattern. Fecal material is present throughout the colon. Phleboliths are present within the pelvis. The lung bases are unremarkable. A nasogastric tube is seen with the tip in the body of the stomach. Degenerative changes are seen in the lumbar spine. 120 mL of GASTROGRAFIN was inserted into the indwelling nasogastric tube. Normal visualized fundus, body, and antrum of the stomach. There is evidence of a 2.9 cm x 3.3 cm diverticulum in the third portion of the duodenum. Normal visualized mucosal folds of the jejunum and ileum. There are no demonstrated dilatations, strictures, or masses of the small intestine. There is no mass displacement of the loops of small intestine. There is a normal motor pattern with barium reaching the colon within approximately 30 minutes. Spot films under fluoroscopic observation demonstrated a normal terminal ileum and ileocecal valve. RAD/Small Bowel Series Only IMPRESSION: No evidence of a small bowel obstruction. 2.9 cm x 3.3 cm diverticulum in the third portion of the duodenum. Electronically Signed: Nato Kelsey, at 9:38 EST , Service support ,
[2020-10-17 07:55] VITALS: O2SAT 94
--- NOTE | 2020-10-17 08:08 | PN_ITS ---
Patient Problems: Active and Suspected Problems (Last Reviewed 08/25/19 @ 16:33 by Angelina Fields) SBO (small bowel obstruction) (Acute) Reason for Visit: Admitted for small bowel obstruction. Objective: No fever or chills. No tachycardia. Blood pressure is controlled. No hypoxia. NG aspirate 100 mL milliliter bilious Patient had small bowel series with Gastrografin. Patient moved semisolid brownish stool in the radiology while having x-ray series. She also passed gas. Small bowel series independently reviewed and Gastrografin seen in jejunum and ileum all the way up to transverse colon, 30 minutes post contrast. Fecal matter present throughout the colon. Physical exam General: Alert, Oriented x3, Cooperative HEENT: Atraumatic, PERRLA, EOMI, Normocephalic Oral: No Gingival or Mucosal Lesions/ Ulcerations Neck: Supple, No JVD, Negative Carotid Bruits Lungs: Air entry diminished in bilateral lung bases. No crepitation/rhonchi. No hypoxia Cardiovascular: Regular rate, Regular Rhythm, Normal S1, Normal S2, No murmurs Abdomen: NG tube bowel Sounds Present, Soft, Non Tender, Non-Distended. : No renal angle tenderness. No suprapubic tenderness. Extremities: No edema, Capillary Refill Less than 3 Seconds Skin: No rashes, No breakdown Musculoskeletal: No Tenderness to Palpation of Joints or Extremities Neurological: Cranial nerves II-XII grossly intact, Deep Tendon Reflexes 2+/4 and Symmetrical, Neuro grossly intact Psych/Mental Status: Normal Affect, Appropriate. Vitals/I&O's: Vital Signs Temp Pulse Resp BP Pulse Ox 96.4 F L 84 16 163/66 H 96 10/17/20 02:30 10/17/20 02:30 10/17/20 02:30 10/17/20 02:30 10/17/20 02:30 Oxygen Delivery Method Room Air Weight: 221 lb 12.56 oz Body Mass Index (BMI) 39.3 Finger Stick Blood Glucose 156 Intake and Output for Last 24 Hours 10/15/20 10/16/20 10/17/20 23:59 23:59 23:59 Intake Total 260 / 260 Output Total 100 / 100 Balance 160 / 160 Laboratory Results 10/17/20 03:12: WBC 10.9, RBC 4.01 L, Hgb 12.1, Hct 39.2, MCV 97.8, MCH 30.2, MCHC 30.9 L, RDW Std Deviation 66.8 H, RDW Coeff of Raf 18.8 H, Plt Count 199, MPV 9.9, Immature Gran % (Auto) 0.500, Neut % (Auto) 83.1 H, Lymph % (Auto) 9.3 L, Pettis % (Auto) 6.7, Eos % (Auto) 0.1, Baso % (Auto) 0.3, Absolute Neuts (auto) 9.0 H, Absolute Lymphs (auto) 1.01, Nucleated RBC % 0, Differential Comment SCANNED, Polychromasia RARE, Ovalocytes RARE 10/17/20 03:12: Sodium 136, Potassium 4.0, Chloride 106, Carbon Dioxide 20.0 L, Anion Gap 10, BUN 12, Creatinine 0.83, Estim Creat Clear Calc 49.19, Est GFR (MDRD) Af Amer 87, Est GFR (MDRD) Non-Af 72, BUN/Creatinine Ratio 14.5, Glucose 206 H, Calcium 8.7, Magnesium 2.0, Total Bilirubin 0.50, AST 22, ALT 38, Alkaline Phosphatase 84, Total Protein 6.6, Albumin 3.3, Globulin 3.3, Albumin/Globulin Ratio 1.0 10/17/20 05:38: POC Glucose 185 H Current Medications Acetaminophen (Acetaminophen 650 Mg Suppository) 650 mg RECTAL Q4H PRN PRN PRN Reason: Pain Score 1-10/Temp > 100.7 F Albuterol Sulfate (Albuterol 2.5 Mg/3 Ml Vial.Neb.) 2.5 mg INHALATION Q2H PRN PRN PRN Reason: Dyspnea, wheezing Enoxaparin Sodium (Enoxaparin 40 Mg/0.4 Ml Syringe) 40 mg SC DAILY [facility] Hydralazine HCl (Hydralazine 20 Mg/Ml Vial) 10 mg IV Q4H PRN PRN PRN Reason: SBP > 160 Sodium Chloride () 1,000 mls @ 125 mls/hr IV .Q8H [facility] Last Admin: 10/17/20 02:55 Dose: 125 mls/hr Documented by: Famotidine 20 mg/ Sodium (Chloride) 10 mls @ 300 mls/hr IV Q12 [facility] Last Infusion: 10/17/20 03:10 Dose: Infused Documented by: Insulin Human Lispro (Insulin Lispro 100 Unit/Ml Insuln.Pen) 0 unit SC Q6 [facility]; Protocol Last Admin: 10/17/20 05:41 Dose: 1 u Documented by: Morphine Sulfate (Morphine 2 Mg/Ml Syringe) 2 mg IV Q3H PRN PRN PRN Reason: Pain Score 6-10 Ondansetron HCl (Ondansetron 4 Mg/2 Ml Vial) 4 mg IV Q8H PRN PRN PRN Reason: NAUSEA/VOMITING Prochlorperazine Edisylate (Prochlorperazine 10 Mg/2 Ml Vial) 5 mg IV Q4H PRN PRN PRN Reason: Breakthrough nausea/vomiting Throat Lozenges (Benzocaine/Menthol 1 Lozenge) 1 - 2 lozenge MUCOUS MEM Q2H PRN PRN PRN Reason: SORE THROAT Medical Necessity - Tobacco Use Smoking Status: Never smoker Tobacco Use: Non-smoker Assessment/Plan All Active Problems (Last Reviewed 08/25/19 @ 16:33 by Angelina Fields) SBO (small bowel obstruction) (Acute) Simple endometrial hyperplasia without atypia (Acute) Endocervical polyp (Acute) Cholelithiasis and acute cholecystitis without obstruction (Acute) Right upper quadrant abdominal pain (Acute) The patient is a 75 y/o F history of diabetes mellitus type 2 and other comorbidities was admitted from [place] ER for 2 to 3 days abdominal pain, cramping in nature with fatigue, nausea and vomiting and no bowel movement for more than 24 hours. Patient passing small amount of flatus. Clinical diagnosis partial small bowel obstruction 1. Partial small bowel obstruction: [facility] NG aspirate about 100 mL bilious.Patient had small bowel series with Gastrografin. Small bowel series independently reviewed and Gastrografin seen in jejunum and ileum all the way up to transverse colon, 30 minutes post contrast. Fecal matter present throughout the colon. Clear liquid diet started. NG tube out. 2- 3 bowel movements on the floor. Patient had last colonoscopy about 5 to 10 years ago in [place]. Patient had small bowel obstruction 2015 and resolved by conservative management then. Continue IV fluid. Other supportive medications as needed antiemetics. 2. Diabetes mellitus type II: Accu-Cheks before meals and at bedtime and cover with Humalog sliding scale 3. Hypertension: Continue patient home medications; amlodipine, benazepril, bisoprolol 4. Hyperlipidemia: Outpatient evaluation with fasting profile with PCP. 5. Morbid Obesity: Weight loss and lifestyle changes encouraged, nutrition consulted. 6. IBS: It is predominantly constipation type. Small bowel series x-ray also shows colonic feces. 7. GERD: on IV famotidine. 8. DVT prophylaxis: SCDs, Lovenox. Inpatient E&M: 72526 Subs Hosp L2
[2020-10-17 08:30] VITALS: BP 147/79; PULSE 80; RESP 18; TEMP 36.8; O2SAT 98
[2020-10-17 08:50] VITALS: RESP 18
--- NOTE | 2020-10-17 09:55 | CASEMGMT ---
RN DAVIDE Face to Face with patient for initial transition planning/care coordination assessment. RN CM introduced self and role at [facility]. Patient lying in bed, alert and oriented. Patient willing to participate in assessment and is able to answer all questions appropriately. Care providers, pharmacy, and demographics verified. Patient wishes to discharge home, denies need for home health at this time. Patient states she has no further needs or concerns at this time. CM to follow for discharge planning needs that may arise. PCP: Mateo Specialists: ARCELIA Seay Preferred Pharmacy: [facility] Insurance: [employer] Prescription Benefit: yes Living Will/HPOA: none LNOK: daughter Living Arrangements: Patient lives with daughter in 2 story home with bed and bath on first floor. Patient has 4-6 steps with railing to enter the home. Patient states she is independent at home. Transportation: self/daughter DME/HHC: Patient denies DME or previous HHC Disposition Plan: Patient to discharge home with family support and follow-up plans in place. Birdie HAAS, RN, CM
[2020-10-17] MEDS: Enoxaparin 40 MG/0.4 ML Syringe SC (10:24)
[2020-10-17 11:45] LABS: Bedside Glucose 174 mg/dL (70-110)
[2020-10-17] MEDS: 0.9% Normal Saline 1,000 ML 75 ML IV (12:13)
--- NOTE | 2020-10-17 12:58 | DCINST_ITS ---
- Discharge Diagnoses Current Active Problems: Current Active and Chronic Problems (Last Reviewed 08/25/19 @ 16:33 by Angelina Fields) SBO (small bowel obstruction) (Acute) Morbid obesity (Chronic) Hypertension (Chronic) Diabetes mellitus type 2, uncomplicated (Chronic) GERD (gastroesophageal reflux disease) (Chronic) IBS (irritable bowel syndrome) (Chronic) You will use the following diet at home:: Calorie/Carbohydrate Controlled (specify 1200, 1400, etc) - Carb controlled soft diet for next 3 days like mashed potato, rice, soft chicken and boiled vegetables. Your food should be the consistency of: Regular Discharge Activity: May Not Drive Call your doctor if you observe: Fever of 101 or Higher, Coldness, Increased Pain, Numbness or Tingling, Change in Color, Inability to urinate, Inability to have a bowel movement, Shortness of breath, Dizziness, Fainting spells, Swelling in the ankles, Chest pain, Prolonged hiccoughing, Increased palpitations (irregular heartbeat), Calf discomfort, Uncontrolled pain Allergies/Adverse Reactions: Allergies ciprofloxacin [From Cipro] Allergy (Mild, Verified 10/17/20 02:35) nausea metronidazole [From Flagyl] Allergy (Mild, Verified 10/17/20 02:35) nausea adhesive Allergy (Verified 10/17/20 02:35) Other Iodinated Contrast Media [CONTRASTS] Allergy (Verified 10/17/20 02:35) Hives Medications to take at Discharge Amlodipine Besylate/Benazepril [Amlodipine-Benazepril 5-20 mg] 1 ea PO DAILY 07/15/16 Bisoprolol Fumarate [Zebeta (Beta Kimberly)] 10 mg PO DAILY 07/15/16 Glimepiride [Amaryl] 4 mg PO DAILY 07/15/16 metFORMIN HCl [Glucophage] 500 mg PO BID 07/15/16 Empagliflozin [Jardiance] 10 mg PO DAILY 08/04/19 Magnesium Oxide [Magnesium] 400 mg PO DAILY 10/06/19 Cholecalciferol (Vitamin D3) [Vitamin D3] 2,000 unit PO DAILY 10/17/20 Primary Care Physician: Abraham Galindo MD [Primary Care Provider] - Please follow up with your Primary Care Physician in: in 2 weeks Test Results: Test results from this visit will be discussed in further detail at your follow- up appointment, if applicable. Please Follow Up With: Oma Lancaster MD When: Due for colonoscopy this year. Partial SBO. in 4-6 weeks
--- NOTE | 2020-10-17 13:01 | DS.PCM_ITS ---
Discharge Date and Diagnosis - Problem List Patient Problems: Active and Suspected Problems (Last Reviewed 08/25/19 @ 16:33 by Angelina Fields) SBO (small bowel obstruction) (Acute) Date of Admission: 10/17/20 Date of Discharge: 10/17/20 - Primary Discharge Diagnosis Acute Problems: Active Problems (Last Reviewed 08/25/19 @ 16:33 by Angelina Fields) Partial SBO (small bowel obstruction) (Acute) - Secondary Discharge Diagnosis Chronic Problems: Chronic Problems (Last Reviewed 08/25/19 @ 16:33 by Angelina Fields) Morbid obesity (Chronic) Hypertension (Chronic) Diabetes mellitus type 2, uncomplicated (Chronic) GERD (gastroesophageal reflux disease) (Chronic) IBS (irritable bowel syndrome) (Chronic) Hospital Course and Treatment Imaging Results: 10/17/20 05:55 KUB [Abd Decub and/or Erect(Portabl] [RAD] AM (NON MEDS) 10/17/20 07:35 Small Bowel Series Only [RAD] Timed 10/18/20 05:55 KUB [Abd Decub and/or Erect(Portabl] [RAD] AM (NON MEDS) Operations: cholecystecomy Summary of Care Provided: [] The patient is a 75 y/o F history of diabetes mellitus type 2 and other comorbidities was admitted from [facility] for 2 to 3 days abdominal pain, cramping in nature with fatigue, nausea and vomiting and no bowel movement for more than 24 hours. Patient passing small amount of flatus. Clinical diagnosis partial small bowel obstruction. Patient was managed conservatively with NG tube aspiration. She had Gastrografin small bowel series which showed Gastrografin in jejunum and ileum all the way up to transverse colon, 30 minutes post contrast. Fecal matter present throughout the colon. Patient was started on clear liquid diet which advanced to regular soft consistency carb controlled diet and she tolerated. Patient had last colonoscopy about 5 to 10 years ago in [place]. Patient had small bowel obstruction 2015 and resolved by conservative management then. Rest of the comorbidities: Diabetes mellitus type 2, hypertension, dyslipidemia managed as mentioned in progress note on the same date. Discharge medication reconciliation done. Discharge follow-up instructions completed. Discharge process discussed with the patient and all questions were answered to patient's satisfaction. Total time spent, exact 35 minutes on discharge meds reconciliation, examination, coordination of care with nurses and ancillary staff, review of imaging and blood test and discussion with the patient on follow-up instructions Patient Problems: Active and Suspected Problems (Last Reviewed 08/25/19 @ 16:33 by Angelina Fields) SBO (small bowel obstruction) (Acute) Objective: Patient further had to 3 bowel movements on the floor. Discussed with the surgeon Dr. Lancaster. Her abdomen is soft, nontender. She advised to advance her diet to regular consistency, carb controlled diet. She recommended discharge. Rest of physical finding as mentioned in progress note today. - Physical Exam Vitals/I&O's: Vital Signs Temp Pulse Resp BP Pulse Ox 98.3 F 80 18 147/79 H 98 10/17/20 08:30 10/17/20 08:30 10/17/20 08:50 10/17/20 08:30 10/17/20 08:30 Oxygen Delivery Method Room Air Weight: 221 lb 12.56 oz Body Mass Index (BMI) 39.3 Finger Stick Blood Glucose 156 Intake and Output for Last 24 Hours 10/15/20 10/16/20 10/17/20 23:59 23:59 23:59 Intake Total 1395.00 / 1395.00 Output Total 100 / 100 Balance 1295.00 / 1295.00 Laboratory Results 10/17/20 03:12: WBC 10.9, RBC 4.01 L, Hgb 12.1, Hct 39.2, MCV 97.8, MCH 30.2, MCHC 30.9 L, RDW Std Deviation 66.8 H, RDW Coeff of Raf 18.8 H, Plt Count 199, MPV 9.9, Immature Gran % (Auto) 0.500, Neut % (Auto) 83.1 H, Lymph % (Auto) 9.3 L, Garrett % (Auto) 6.7, Eos % (Auto) 0.1, Baso % (Auto) 0.3, Absolute Neuts (auto) 9.0 H, Absolute Lymphs (auto) 1.01, Nucleated RBC % 0, Differential Comment SCANNED, Polychromasia RARE, Ovalocytes RARE 10/17/20 03:12: Sodium 136, Potassium 4.0, Chloride 106, Carbon Dioxide 20.0 L, Anion Gap 10, BUN 12, Creatinine 0.83, Estim Creat Clear Calc 49.19, Est GFR (MDRD) Af Amer 87, Est GFR (MDRD) Non-Af 72, BUN/Creatinine Ratio 14.5, Glucose 206 H, Calcium 8.7, Magnesium 2.0, Total Bilirubin 0.50, AST 22, ALT 38, Alkaline Phosphatase 84, Total Protein 6.6, Albumin 3.3, Globulin 3.3, Albumin/Globulin Ratio 1.0 10/17/20 05:38: POC Glucose 185 H 10/17/20 11:35: POC Glucose 174 H Current Medications Acetaminophen (Acetaminophen 650 Mg Suppository) 650 mg RECTAL Q4H PRN PRN PRN Reason: Pain Score 1-10/Temp > 100.7 F Albuterol Sulfate (Albuterol 2.5 Mg/3 Ml Vial.Neb.) 2.5 mg INHALATION Q2H PRN PRN PRN Reason: Dyspnea, wheezing Enoxaparin Sodium (Enoxaparin 40 Mg/0.4 Ml Syringe) 40 mg SC DAILY [facility] Last Admin: 10/17/20 10:24 Dose: 40 mg Documented by: Hydralazine HCl (Hydralazine 20 Mg/Ml Vial) 10 mg IV Q4H PRN PRN PRN Reason: SBP > 180 Famotidine 20 mg/ Sodium (Chloride) 10 mls @ 300 mls/hr IV Q12 [facility] Last Infusion: 10/17/20 10:23 Dose: Infused Documented by: Sodium Chloride () 1,000 mls @ 75 mls/hr IV .[id number] [facility] Last Admin: 10/17/20 12:13 Dose: 75 mls/hr Documented by: Insulin Human Lispro (Insulin Lispro 100 Unit/Ml Insuln.Pen) 0 unit SC Q6 [facility]; Protocol Last Admin: 10/17/20 12:11 Dose: 1 u Documented by: Morphine Sulfate (Morphine 2 Mg/Ml Syringe) 2 mg IV Q3H PRN PRN PRN Reason: Pain Score 6-10 Ondansetron HCl (Ondansetron 4 Mg/2 Ml Vial) 4 mg IV Q8H PRN PRN PRN Reason: NAUSEA/VOMITING Prochlorperazine Edisylate (Prochlorperazine 10 Mg/2 Ml Vial) 5 mg IV Q4H PRN PRN PRN Reason: Breakthrough nausea/vomiting Throat Lozenges (Benzocaine/Menthol 1 Lozenge) 1 - 2 lozenge MUCOUS MEM Q2H PRN PRN PRN Reason: SORE THROAT Discharge Activity: May Not Drive Call your doctor if you observe: Fever of 101 or Higher, Coldness, Increased Pain, Numbness or Tingling, Change in Color, Inability to urinate, Inability to have a bowel movement, Shortness of breath, Dizziness, Fainting spells, Swelling in the ankles, Chest pain, Prolonged hiccoughing, Increased palpitations (irregular heartbeat), Calf discomfort, Uncontrolled pain Home Medications: Medications to take at Discharge Amlodipine Besylate/Benazepril [Amlodipine-Benazepril 5-20 mg] 1 ea PO DAILY 07/15/16 Bisoprolol Fumarate [Zebeta (Beta Kimberly)] 10 mg PO DAILY 07/15/16 Glimepiride [Amaryl] 4 mg PO DAILY 07/15/16 metFORMIN HCl [Glucophage] 500 mg PO BID 07/15/16 Empagliflozin [Jardiance] 10 mg PO DAILY 08/04/19 Magnesium Oxide [Magnesium] 400 mg PO DAILY 10/06/19 Cholecalciferol (Vitamin D3) [Vitamin D3] 2,000 unit PO DAILY 10/17/20 Primary Care Physician: Abraham Galindo MD [Primary Care Provider] - Please follow up with your Primary Care Physician in: in 2 weeks Please Follow Up With: Oma Lancaster MD When: Due for colonoscopy this year. Partial SBO. in 4-6 weeks Medical Necessity - Tobacco Use Smoking Status: Never smoker Tobacco Use: Non-smoker Meaningful Use Info Meaningful Use Diagnoses (Choose all that apply): None applicable Please cancel the billing charge of progress note on the same date. Inpatient E&M: [id number] Disch Hosp
--- NOTE | 2020-10-17 13:09 | CHAPLAIN ---
Type of Pastoral Visit _x__ Initial Visit ___ Follow-up Visit ___ On-call Visit ___ General Patient Visit ___ Spiritual Assessment ___ Family Conference ___ Bereavement ___ Rapid Response ___ Code Blue ___ Other (describe below) Pastoral Care Referral From _x__ Patient ___ Family ___ Nurse ___ Physician ___ Hot Header Operator ___ Container Washer ___ Other (describe below) Sacrament/Intervention _x__ Active listening ___ Anointing ___ Congregation ___ Bereavement ___ Communion ___ Stephanie exploration ___ _x__ Life review _x__ Prayer ___ Reconciliation ___ Sacrament of Sick _x__ Supportive presence ___ Wedding ___ Other (describe below) Pastoral Comments patient reports a difficult year with a few family deaths, the Virus, etc.; pt daughter and family live with her; pt is of the Judaism stephanie but is not currently active in services
--- NOTE | 2020-10-17 14:43 | PHA.DC.MR ---
Pharmacy Service has performed discharge medication reconciliation for this patient. The patient's discharge medication list was reviewed for discrepancies and discrepancies were resolved. Home Medications Amlodipine Besylate/Benazepril [Amlodipine-Benazepril 5-20 mg] 1 ea PO DAILY 07/15/16 Bisoprolol Fumarate [Zebeta (Beta Kimberly)] 10 mg PO DAILY 07/15/16 Glimepiride [Amaryl] 4 mg PO DAILY 07/15/16 metFORMIN HCl [Glucophage] 500 mg PO BID 07/15/16 Empagliflozin [Jardiance] 10 mg PO DAILY 08/04/19 Magnesium Oxide [Magnesium] 400 mg PO DAILY 10/06/19 Cholecalciferol (Vitamin D3) [Vitamin D3] 2,000 unit PO DAILY 10/17/20
[2020-10-17 15:40] VITALS: BP 149/69; PULSE 74; RESP 18; TEMP 36.8; O2SAT 98
== END 2020-10-17 16:00 | disposition home or self-care (01) | DRG 389 ==
PROVIDERS: Admitting Provider Family Medicine; PCP Family Medicine; Visit Provider Internal Medicine
DX: K56.600 Partial intestinal obstruction, unspecified as to cause (principal); K80.00 Calculus of gallbladder with acute cholecystitis without obstruction; E66.01 Morbid (severe) obesity due to excess calories; I10 Essential (primary) hypertension; E78.5 Hyperlipidemia, unspecified; K21.9 Gastro-esophageal reflux disease without esophagitis; K58.9 Irritable bowel syndrome, unspecified; E11.9 Type 2 diabetes mellitus without complications; Z68.39 Body mass index [BMI] 39.0-39.9, adult; Z90.49 Acquired absence of other specified parts of digestive tract; Z87.19 Personal history of other diseases of the digestive system; Z79.84 Long term (current) use of oral hypoglycemic drugs; Z79.899 Other long term (current) drug therapy
CPT/HCPCS: 74019; 74250; 80053; 82962; 83735; 85025; 97802; J7030; J3490

== ENCOUNTER → 2020-12-10 08:47 | Outpatient (CLI) | payer MEDICARE, SELFPAY ==
[2020-12-10 10:08] LABS: Erythrocyte Sedimentation Rate 16 mm/hr (0-30)
[2020-12-10 10:12] LABS: Anion Gap 5 (5-15); BUN 14 mg/dL (7-18); Chloride 111 mmol/L (98-107); Cholesterol 155 mg/dL (200); Creatinine, Serum 0.87 mg/dL (0.55-1.02); EST Glomerular Filtration Rate 67 mL/min (>60); Est Glom Filt Rate - Afr Amer 81 mL/min (>60); Glucose 175 mg/dL (74-106); High Density Lipoprotein 49 mg/dL; Potassium 4.1 mmol/L (3.5-5.1); Sodium Level 140 mmol/L (136-145); Triglycerides 107 mg/dL; Very Low Density Lipoprotein 21 mg/dL (5-40)
[2020-12-11 15:20] LABS: ANTINUCLEAR ANTIBODIES DIRECT Negative (Negative)
== END ==
PROVIDERS: PCP Family Medicine; Referring Provider Family Medicine; Visit Provider Family Medicine
DX: E11.65 Type 2 diabetes mellitus with hyperglycemia (principal); M19.90 Unspecified osteoarthritis, unspecified site
CPT/HCPCS: 36415; 80048; 80061; 85652; 86038

== ENCOUNTER → 2021-02-08 16:02 | Outpatient (CLI) | payer MEDICARE, SELFPAY ==
--- NOTE | 2021-02-08 16:05 | RAD_ITS ---
STUDY: X-RAY - LEFT KNEE REASON FOR EXAM: Female, 75 years old. KNEE PAIN TECHNIQUE: 5 view(s) of the knee. COMPARISON: None. FINDINGS: Normal visualized distal femur. Normal visualized proximal tibia and fibula. Normal proximal tibiofibular articulation. There is mild degenerative arthrosis of the medial femorotibial compartment. There is mild degenerative arthrosis of the lateral femorotibial compartment. There is mild degenerative arthrosis of the patellofemoral articulation. The soft tissue structures are unremarkable. RAD/Knee 4 or More Views IMPRESSION: Degenerative arthrosis. Electronically Signed: Isaias Drake MD at 7:00 EST Tel , Service support ,
--- NOTE | 2021-02-08 16:05 | RAD_ITS ---
STUDY: X-RAY - RIGHT KNEE REASON FOR EXAM: Female, 75 years old. KNEE PAIN TECHNIQUE: 4 view(s) of the knee. COMPARISON: None. FINDINGS: Normal visualized distal femur. Normal visualized proximal tibia and fibula. Normal proximal tibiofibular articulation. There is no demonstrated fracture. There is moderate to severe degenerative arthrosis of the medial femorotibial compartment with moderate joint space narrowing. Normal lateral femorotibial compartment. There is mild degenerative arthrosis of the patellofemoral articulation. The soft tissue structures are unremarkable. RAD/Knee 4 or More Views IMPRESSION: Moderate to severe narrowing in the medial compartment Electronically Signed: Michael Johnson MD at 20:54 EST , Service support ,
== END ==
LOC: MTRAD 16:03
PROVIDERS: PCP Family Medicine; Referring Provider Family Medicine; Visit Provider Family Medicine
DX: M25.561 Pain in right knee (principal); M25.562 Pain in left knee
CPT/HCPCS: 73564

== ENCOUNTER → 2021-04-23 11:53 | Outpatient (CLI) | payer MEDICARE, SELFPAY ==
[2021-04-23 16:17] LABS: Absolute Lymphocyte Count 1.19 X10^3/uL (0.83-4.51); Absolute Neutrophil Count 8.1 X10^3/uL (2.0-7.7); Basophil# 0.06 X10^3/uL; Basophil% 0.6 % (0-1); Eosinophil# 0.02 X10^3/uL; Eosinophils% 0.2 % (0-5); Hematocrit 42.2 % (37-47); Hemoglobin 13.5 g/dL (12.0-15.0); Lymphocyte # 1.19 X10^3/ul (0.83-4.51); Lymphocyte % 11.6 % (19-41); Mean Corpuscular Hgb 26.7 pg (27.0-32.0); Mean Corpuscular Volume 83.6 fL (81-99); Mean Platelet Vol. 13.2 fl (6.2-12.0); Monocyte% 7.8 % (0-10); NRBC Flagged by Analyzer 0 % (0-5); Neutrophil # 8.12 X10^3/uL (2.7-7.7); Neutrophil % 79.5 % (47-70); Platelet Count 247 K/mm3 (150-450); RBC Distribution Width CV 15.3 % (11.6-14.6); RBC Distribution Width SD 45.8 fl (35.1-43.9); Red Blood Count 5.05 M/mm3 (4.2-5.4); White Blood Count 10.2 K/mm3 (4.4-11.0)
[2021-04-23 16:24] LABS: ALB/GLOB Ratio 0.9 RATIO (0.9-2.4); AST(SGOT) 42 U/L (15-37); Alanine Aminotransfer ALT/SGPT 75 U/L (13-56); Albumin, Serum 3.5 g/dL (3.2-5.0); Alkaline Phosphatase 79 U/L (45-117); Amylase 27 U/L (25-115); Anion Gap 7 (5-15); BUN 13 mg/dL (7-18); BUN/Creat Ratio 12.6 RATIO (10-20); CRP 8.03 mg/L (0.0-3.0); Calcium,Total 9.2 mg/dL (8.5-10.1); Chloride 105 mmol/L (98-107); Creatinine, Serum 1.03 mg/dL (0.55-1.02); EST Glomerular Filtration Rate 56 mL/min (>60); Est Glom Filt Rate - Afr Amer 67 mL/min (>60); Globulin 3.8 g/dL (2.2-4.2); Glucose 233 mg/dL (74-106); Lipase 77 U/L (73-393); Potassium 3.9 mmol/L (3.5-5.1); Protein, Total 7.3 g/dL (6.4-8.2); Sodium Level 135 mmol/L (136-145)
[2021-04-23 16:37] LABS: Erythrocyte Sedimentation Rate 24 mm/hr (0-30)
== END ==
PROVIDERS: PCP Family Medicine; Referring Provider Family Medicine; Visit Provider Registered Nurse
DX: R10.9 Unspecified abdominal pain (principal)
CPT/HCPCS: 36415; 80053; 82150; 83690; 85025; 85652; 86140

== ENCOUNTER 2021-05-29 04:34 | Inpatient (IN) | payer MEDICARE, SELFPAY ==
[2021-05-29] VITALS (8 sets, daily range): BP systolic 153–182; BP diastolic 65–89; PULSE 79–97; RESP 18; TEMP 36–36.7; O2SAT 94–97; BMI 39.2; BMI 38.6
--- NOTE | 2021-05-29 04:51 | CT_ITS ---
We are attempting to reach an attending provider to discuss findings. An addendum with communication details will be sent when the communication is complete. STUDY: CT ABDOMEN AND PELVIS WITHOUT CONTRAST REASON FOR EXAM: Female, 76 years old. Pain RADIATION DOSAGE (If Supplied By Facility): CTDIvol = ( 19.65 ) mGy, DLP = ( 1006.53 ) mGycm TECHNIQUE: Transaxial images were obtained from the dome of the diaphragm to the symphysis pubis without oral contrast, and without intravenous contrast. Sagittal and coronal images were reconstructed. Individualized dose optimization techniques were used for this CT. COMPARISON: 01/11/2019 CT scan abdomen and pelvis FINDINGS: The visualized lung bases are unremarkable. The visualized portions of the heart are within normal limits. The liver is borderline enlarged fatty infiltrated. The liver is mildly lobulated within the right hepatic lobe. Normal gallbladder and extrahepatic biliary system. Normal spleen. Normal pancreas. Normal bilateral adrenal glands. Normal right kidney. Normal left kidney. There is a small hiatal hernia. There are distended loops of small bowel measuring up to 3.8 cm greater than the prior study. These bowel loops are extending into the midline lower abdominal wall herniation extending down the anterior aspect of the abdomen within the pannus. This is similar to prior study there is greater distention. There is a decompressed appearance of the distal small bowel there are a few diverticula present without visualized diverticulitis. There is non-visualization of the appendix. There is diffuse atherosclerotic calcification of the abdominal aorta, without a demonstrated aneurysm. Normal inferior vena cava. Normal retroperitoneum. Normal urinary bladder. Normal visualized uterus. There is a lower midline diastases of the rectus muscle below the pelvis into which fat and small bowel herniate. This is worsening in distention over time. The distended small bowel loops within this herniation measure up to 3.3 cm. The focal area measures approximately 6 x 14.6 x 6.5 cm per there is anterolisthesis of L4-L5 with spondylolisthesis. There is disc space narrowing and vacuum phenomenon. Moderate neural foramina narrowing mild central stenosis. CT/Abdomen/Pelvis without Cont IMPRESSION: Worsening distended small bowel loops associated with a large lower abdominal wall hernia consider partial versus small bowel obstruction secondary to a large abdominal wall hernia. Enlarged multilobulated fatty infiltrated liver consider cirrhosis. No visualized hydronephrosis. Electronically Signed: Mary Thomas MD at 5:44 EDT Tel , Service support ,
[2021-05-29 04:57] LABS: Absolute Neutrophil Count 8.6 X10^3/uL (2.0-7.7); Basophil# 0.06 X10^3/uL; Basophil% 0.5 % (0-1); Eosinophil# 0.62 X10^3/uL; Eosinophils% 5.6 % (0-5); Hemoglobin 14.7 g/dL (12.0-15.0); Lymphocyte % 11.6 % (19-41); Mean Corp Hgb Conc 32.7 g/dL (32-36); Mean Corpuscular Hgb 26.7 pg (27.0-32.0); Mean Corpuscular Volume 81.8 fL (81-99); Mean Platelet Vol. 11.2 fl (6.2-12.0); Monocyte# 0.51 X10^3/uL; Monocyte% 4.6 % (0-10); NRBC Flagged by Analyzer 0 % (0-5); POSITIVE MORPHOLOGY YES; Platelet Count 237 K/mm3 (150-450); RBC Distribution Width CV 14.6 % (11.6-14.6); RBC Distribution Width SD 43.9 fl (35.1-43.9); White Blood Count 11.2 K/mm3 (4.4-11.0)
[2021-05-29 04:58] LABS: Differential Indicated SCAN CRITERIA MET
--- NOTE | 2021-05-29 05:02 | EDS_ITS ---
HPI HPI - GI History of Present Illness Chief Complaint: Abd Pain Narrative Narrative: Patient complaining of upper abdominal pain. It started this evening. She has had multiple episodes of emesis. She describes a burning sensation. History of frequent pain in the past per patient and family member. She has a history of small bowel obstruction remotely as well as diverticulitis. She stated she was feeling well up until just recently this evening when it came on. She had a small bowel movement yesterday. She is only had 1 partial small bowel obstruction that was relieved with NG tube. History of cholecystectomy. History of abdominal hernia. No home treatment [facility] Medical History Diabetes mellitus type 2, uncomplicated GERD (gastroesophageal reflux disease) Hypertension IBS (irritable bowel syndrome) Obesity Home Medications amlodipine-benazepril 1 ea PO DAILY 07/15/16 [History Last Taken 10/16/20] bisoprolol fumarate 10 mg PO DAILY 07/15/16 [History Last Taken 10/16/20] glimepiride 4 mg PO DAILY 07/15/16 [History Last Taken 10/16/20] metformin 500 mg PO BID 07/15/16 [History Last Taken 10/16/20] empagliflozin 10 mg PO DAILY 08/04/19 [History Last Taken 10/16/20] magnesium oxide 400 mg PO DAILY 10/06/19 [History Last Taken 10/16/20] cholecalciferol (vitamin D3) 2,000 unit PO DAILY 10/17/20 [History Last Taken 10/16/20] Allergy/AdvReac Type Severity Reaction Status Date / Time ciprofloxacin [From Cipro] Allergy Mild nausea Verified 10/17/20 02:35 metronidazole [From Flagyl] Allergy Mild nausea Verified 10/17/20 02:35 adhesive Allergy Other Verified 10/17/20 02:35 Iodinated Contrast Media Allergy Hives Verified 10/17/20 02:35 [CONTRASTS] Surgical History H/O dilation and curettage H/O oophorectomy S/P partial colectomy Status post left foot surgery Social History Smoking Status: Never smoker alcohol intake: never substance use type: does not use seatbelt use: always ROS ROS ED ROS Narrative ROS General: Denies fever, chills, sweats Eyes: Denies visual changes, blurred vision, double vision ENT: Denies ear pain, rhinorrhea, sore throat Cardiovascular: Denies chest pain, palpitations, heart racing Respiratory: Denies dyspnea, cough, sputum, dyspnea on exertion, orthopnea,PND GI: See HPI : Denies dysuria, hematuria, frequency Musculoskeletal: Denies myalgias, arthralgias, neck pain, back pain Skin: Denies rash, abscess, abrasions Neuro: Denies headache, weakness, paresthesia Psych: Denies depression, anxiety Endo: Denies polyuria, polydipsia, polyphagia Heme: Denies easy bruising, easy bleeding, lymphadenopathy Allergy: Denies hives, swelling EXAM Physical Exam Narrative Exam Narrative: Vital signs reviewed General: Well-nourished well-developed Head: Normocephalic atraumatic Eyes: Pupils equal round and reactive to light extraocular movements intact ENT: TMs clear no hemotympanum no trauma Neck: Nontender full range of motion Cardiovascular: Regular rate rhythm no murmurs normal S1-S2 Respiratory: No distress clear to auscultation bilaterally chest nontender Abdomen: Soft mild diffuse upper abdominal tenderness nondistended normal bowel sounds no masses Back: Nontender no CVA tenderness Extremities: Nontender active range of motion ?4 extremities no trauma Skin: Normal color no trauma Neuro alert oriented cranial nerves II through XII intact normal strength sensation reflexes Const Vital Signs: 05/29/21 04:34 Temperature 96.8 F L Temperature Source Temporal Pulse Rate 90 Respiratory Rate 18 Blood Pressure 182/84 H Blood Pressure Mean 116 Pulse Ox 97 Oxygen Delivery Method Room Air MDM MDM MDM Narrative Medical decision making narrative: Given morphine Zofran IV fluids. Lab work CT abdomen pelvis obtained. Lab work shows a leukocytosis of 11.2. Creatinine 1.2. Liver function test show a AST and ALT mildly elevated unchanged from prior. CT abdomen pelvis shows what appears to be a small bowel obstruction. This was discussed with surgery Dr. Lancaster. She feels this is not a complete obstruction. The patient has a chronic hernia and there is no transition point. Recommends NG tube placement. This was done. Discussed with the hospitalist at the request of surgery for a medical admission Lab Data Labs: Laboratory Results - last 24 hr 05/29/21 05/29/21 04:45 04:45 WBC 11.2 H RBC 5.50 H Hgb 14.7 Hct 45.0 MCV 81.8 MCH 26.7 L MCHC 32.7 RDW Std Deviation 43.9 RDW Coeff of Raf 14.6 Plt Count 237 MPV 11.2 Immature Gran % (Auto) 0.700 Neut % (Auto) 77.0 H Lymph % (Auto) 11.6 L Antelope % (Auto) 4.6 Eos % (Auto) 5.6 H Baso % (Auto) 0.5 Absolute Neuts (auto) 8.6 H Absolute Lymphs (auto) 1.30 Nucleated RBC % 0 Sodium 136 Potassium 4.1 Chloride 101 Carbon Dioxide 22.0 Anion Gap 13 BUN 15 Creatinine 1.20 H Estim Creat Clear Calc 33.51 Est GFR (MDRD) Af Amer 56 L Est GFR (MDRD) Non-Af 47 L BUN/Creatinine Ratio 12.5 Glucose 340 H Calcium 9.5 Total Bilirubin 0.60 AST 45 H ALT 87 H Alkaline Phosphatase 116 Total Protein 7.9 Albumin 3.8 Globulin 4.1 Albumin/Globulin Ratio 0.9 Lipase 76 Radiography Diagnostic Testing: Radiology Impression Abdomen/Pelvis CT 05/29/21 04:51 IMPRESSION: Worsening distended small bowel loops associated with a large lower abdominal wall hernia consider partial versus small bowel obstruction secondary to a large abdominal wall hernia. Enlarged multilobulated fatty infiltrated liver consider cirrhosis. No visualized hydronephrosis. Electronically Signed: Mary Thomas MD at 5:44 EDT Tel , Service support , ADDENDUM: 05/29/21 0554 IMPRESSION: Worsening distended small bowel loops associated with a large lower abdominal wall hernia consider partial versus small bowel obstruction secondary to a large abdominal wall hernia. Enlarged multilobulated fatty infiltrated liver consider cirrhosis. No visualized hydronephrosis. N.B. : The above Results were Read Back by Mary Thomas MD to Aj Dykes MD, and understanding confirmed on 05/29/2021 05:47:54 (ET). Electronically Signed: Mary Thomas MD at 5:44 EDT Tel , Service support , Discharge Plan Triage Chief Complaint: Abd Pain ED Provider: Aj Dykes Dx/Rx/DC Orders Clinical Impression: Partial small bowel obstruction Prescriptions: No Action metformin 500 MG tablet 500 mg PO BID RF: 0 glimepiride 2 MG tablet 4 mg PO DAILY RF: 0 bisoprolol fumarate 10 MG tablet 10 mg PO DAILY RF: 0 amlodipine-benazepril 1 EACH capsule 1 ea PO DAILY RF: 0 empagliflozin 10 MG tablet 10 mg PO DAILY RF: 0 magnesium oxide 400 MG tablet 400 mg PO DAILY RF: 0 cholecalciferol (vitamin D3) 2,000 UNIT capsule 2,000 unit PO DAILY RF: 0 Primary Care Provider: Abraham Galindo Referrals: Abraham Galindo MD [Primary Care Provider] - Disposition Disposition: Acute Care Hospital [facility]
[2021-05-29] MEDS: Ondansetron 4 MG/2 ML Vial IV ×2 (05:03→06:57)
[2021-05-29] MEDS: 0.9% Normal Saline 1,000 ML 1000 ML IV (05:03)
[2021-05-29] MEDS: Morphine 4 MG/ML Syringe IV (05:03)
[2021-05-29 05:10] LABS: ALB/GLOB Ratio 0.9 RATIO (0.9-2.4); AST(SGOT) 45 U/L (15-37); Alanine Aminotransfer ALT/SGPT 87 U/L (13-56); Albumin, Serum 3.8 g/dL (3.2-5.0); Alkaline Phosphatase 116 U/L (45-117); Anion Gap 13 (5-15); BUN 15 mg/dL (7-18); BUN/Creat Ratio 12.5 RATIO (10-20); Calcium,Total 9.5 mg/dL (8.5-10.1); Chloride 101 mmol/L (98-107); EST Glomerular Filtration Rate 47 mL/min (>60); Est Glom Filt Rate - Afr Amer 56 mL/min (>60); Estimated Creatinine Clearance 33.51 ml/min; Globulin 4.1 g/dL (2.2-4.2); Glucose 340 mg/dL (74-106); Lipase 76 U/L (73-393); Potassium 4.1 mmol/L (3.5-5.1); Protein, Total 7.9 g/dL (6.4-8.2); Sodium Level 136 mmol/L (136-145)
--- NOTE | 2021-05-29 05:48 | RAD_ITS ---
STUDY: X-RAY - ABDOMEN/PELVIS REASON FOR EXAM: Female, 76 years old. NG Insertion TECHNIQUE: Single AP view of the upper abdomen COMPARISON: None. FINDINGS: There is an NG tube present the tip is in the stomach. There is mild cardiac enlargement. The partially visualized is mildly distended loops of small bowel. There is degenerative change of the thoracolumbar spine. RAD/Abdomen Single View (Portable) IMPRESSION: NG tube tip in satisfactory position. Electronically Signed: Mary Thomas MD at 6:54 EDT Tel , Service support ,
--- NOTE | 2021-05-29 06:16 | HP.PCM.HOS_ITS ---
HPI - General General Date of Service: 05/29/21 Chief Complaint: Abdominal pain, nausea, emesis. HPI Narrative The patient is a 76 y/o F w/ PMHx: HTN, HLD, Morbid Obesity, Hx SBO, GERD, Hx Diverticulitis s/p partial colectomy who presents to the [facility] ED on 05/29/21 with history of onset abdominal discomfort with last bowel movement the day prior with onset at ~ 11 pm the evening prior onset abdominal distention, pain described as a burning sensation, rated 8-10 out of 10 in severity at its worse as well as nausea and emesis with dyspepsia prompting ED evaluation. Patient noted that prior small bowel obstruction resolved with NG tube placement with conservative intervention. She notes this is similar to her prior SBO presentation. Patient currently having NG tube placed in the ED. Work-up in the ED included T 96.8, heart rate 90, BP 182/84, respiratory rate 18, 97% on room air, CBC with WC 11.2, hemoglobin 14.7, platelet 237 with left shift, CMP with BUN/creatinine 15/1.20, glucose 340, AST/ALT 45/87, lipase 76, CT abdomen pelvis without contrast with worsening distended small bowel loops associate with a large lower abdominal wall hernia consistent with partial versus small bowel obstruction secondary to the large abdominal wall hernia, enlarged multilobulated fatty liver. [facility] Medical History Diabetes mellitus type 2, uncomplicated GERD (gastroesophageal reflux disease) Hypertension IBS (irritable bowel syndrome) Obesity Home Medications amlodipine-benazepril 1 ea PO DAILY 07/15/16 [History Last Taken 10/16/20] bisoprolol fumarate 10 mg PO DAILY 07/15/16 [History Last Taken 10/16/20] glimepiride 4 mg PO DAILY 07/15/16 [History Last Taken 10/16/20] metformin 500 mg PO BID 07/15/16 [History Last Taken 10/16/20] empagliflozin 10 mg PO DAILY 08/04/19 [History Last Taken 10/16/20] magnesium oxide 400 mg PO DAILY 10/06/19 [History Last Taken 10/16/20] cholecalciferol (vitamin D3) 2,000 unit PO DAILY 10/17/20 [History Last Taken 10/16/20] Allergy/AdvReac Type Severity Reaction Status Date / Time ciprofloxacin [From Cipro] Allergy Mild nausea Verified 10/17/20 02:35 metronidazole [From Flagyl] Allergy Mild nausea Verified 10/17/20 02:35 adhesive Allergy Other Verified 10/17/20 02:35 Iodinated Contrast Media Allergy Hives Verified 10/17/20 02:35 [CONTRASTS] Family History (Updated 05/29/21 @ 06:[address] Manaas Lima MD) Mother Multiple sclerosis Father Heart disease Diabetes Surgical History H/O dilation and curettage H/O oophorectomy S/P partial colectomy Status post left foot surgery Social History (Updated 05/29/21 @ 06:[address] Manasa Lima MD) household members: family and other details: Patient lives with her daughter, son in law. Smoking Status: Never smoker alcohol intake: never substance use type: does not use seatbelt use: always ROS ROS Narrative Admission Review of Systems: CONSTITUTIONAL: No weight loss, fever, chills, + weakness or fatigue. HEENT: Eyes: No visual loss, blurred vision, double vision or yellow sclerae. Ears, Nose, Throat: No hearing loss, sneezing, congestion, runny nose or sore throat. SKIN: No rash or itching, lesions, wounds. CARDIOVASCULAR: No chest pain, chest pressure or chest discomfort, palpitations, edema, orthopnea, syncopal events. RESPIRATORY: No shortness of breath, cough or sputum, wheezing, hemoptysis. GASTROINTESTINAL: + anorexia, nausea, vomiting, abdominal pain, No diarrhea, melena, BRBPR. GENITOURINARY: No dysuria, frequency, urgency or retention. NEUROLOGICAL: No headache, dizziness, syncope, paralysis, ataxia, numbness or tingling in the extremities, focal weakness, change in bowel or bladder control, seizure. MUSCULOSKELETAL: + muscle, back pain, joint pain or stiffness. HEMATOLOGIC: No anemia, bleeding or bruising. LYMPHATICS: No enlarged nodes. No history of splenectomy. PSYCHIATRIC: No history of depression or anxiety. ENDOCRINOLOGIC: No reports of sweating, cold or heat intolerance. No polyuria or polydipsia. ALLERGIES: No history of asthma, hives, eczema or rhinitis. Vital Signs Vital Signs Vital Signs: 05/29/21 04:34 Temperature 96.8 F L Temperature Source Temporal Pulse Rate 90 Respiratory Rate 18 Blood Pressure 182/84 H Blood Pressure Mean 116 Pulse Ox 97 Oxygen Delivery Method Room Air Weight Weight: 221 lb 12.56 oz Body Mass Index (BMI) 39.2 Physical Exam Narrative Physical Examination: General: Awake, alert, oriented x 3 and cooperative, seated upright in the ED bed, uncomfortable appearing, NG tube being placed. Skin: Normal color, normal turgor, no icterus, no cyanosis. HEENT: AT/NC, EOMI, PERRLA, dry MM, NG tube being placed, no carotid bruits or JVD noted. Lungs: CTA bilaterally, moderate effort, mild decrease BL bases, no rales, ronchi or wheezing. Heart: Regular rate and rhythm; no gallop, rub audible. Abdomen: Soft, obese, generalized discomfort with palpation, mildly distended, absent bowel sounds, no obvious HSM but difficult exam given acute presentation. Extremities: No cyanosis, clubbing, or edema. Neurological: Patient awake, alert, oriented as noted, cognitive function intact; pupils equally reactive to light and accommodation, cranial nerves II- XII grossly normal, moving all 4 extremities, no focal deficits, strength moderately to severely global decrease secondary to acute presentation and complaints. Psychiatric: Affect appears fatigued, uncomfortable, no acute evidence of de pressive or anxiety feelings. Results Lab / Micro Data Result Diagrams: 05/29/21 04:45 05/29/21 04:45 Labs: Laboratory Results - last 24 hr 05/29/21 05/29/21 04:45 04:45 WBC 11.2 H RBC 5.50 H Hgb 14.7 Hct 45.0 MCV 81.8 MCH 26.7 L MCHC 32.7 RDW Std Deviation 43.9 RDW Coeff of Raf 14.6 Plt Count 237 MPV 11.2 Immature Gran % (Auto) 0.700 Neut % (Auto) 77.0 H Lymph % (Auto) 11.6 L [place] % (Auto) 4.6 Eos % (Auto) 5.6 H Baso % (Auto) 0.5 Absolute Neuts (auto) 8.6 H Absolute Lymphs (auto) 1.30 Nucleated RBC % 0 Sodium 136 Potassium 4.1 Chloride 101 Carbon Dioxide 22.0 Anion Gap 13 BUN 15 Creatinine 1.20 H Estim Creat Clear Calc 33.51 Est GFR (MDRD) Af Amer 56 L Est GFR (MDRD) Non-Af 47 L BUN/Creatinine Ratio 12.5 Glucose 340 H Calcium 9.5 Total Bilirubin 0.60 AST 45 H ALT 87 H Alkaline Phosphatase 116 Total Protein 7.9 Albumin 3.8 Globulin 4.1 Albumin/Globulin Ratio 0.9 Lipase 76 Radiology Impression Abdomen/Pelvis CT 05/29/21 04:51 IMPRESSION: Worsening distended small bowel loops associated with a large lower abdominal wall hernia consider partial versus small bowel obstruction secondary to a large abdominal wall hernia. Enlarged multilobulated fatty infiltrated liver consider cirrhosis. No visualized hydronephrosis. Electronically Signed: Mary Thomas MD at 5:44 EDT Tel , Service support , ADDENDUM: 05/29/21 0554 IMPRESSION: Worsening distended small bowel loops associated with a large lower abdominal wall hernia consider partial versus small bowel obstruction secondary to a large abdominal wall hernia. Enlarged multilobulated fatty infiltrated liver consider cirrhosis. No visualized hydronephrosis. N.B. : The above Results were Read Back by Mary Thomas MD to Aj Dykes MD, and understanding confirmed on 05/29/2021 05:47:54 (ET). Electronically Signed: Mary Thomas MD at 5:44 EDT Tel , Service support , Assessment & Plan Assessment/Plan (1) SBO (small bowel obstruction): PLAN: The patient is a 76 y/o F w/ PMHx: HTN, HLD, Morbid Obesity, Hx SBO, GERD who presents to the [facility] ED on 05/29/21 with history of onset abdominal discomfort with last bowel movement the day prior with abdominal distention, pain as well as nausea and emesis with dyspepsia prompting ED evaluation. 1. Abdominal pain, nausea, emesis w/ SBO: Will admit to MS, maintain on IVFs, continue NGT to suction, strict I&Os, IV pain/anti-emetics PRN, serial KUB as needed to monitor bowel function, Protonix IV, maintain NPO on bowel rest. General surgery consulted and will evaluate. 2. Diabetes mellitus type II: Hold oral home regimen, n.p.o. status, maintain on every 6 hours accu checks w/ ISS. 3. Hypertension: Holding oral regimen, as needed IV hydralazine in interim. 4. Hyperlipidemia: Not on statin therapy, defer to outpatient. 5. Morbid Obesity: Weight loss and lifestyle changes encouraged. 6. GERD: Maintained on IV PPI as noted. 7. History of diverticulitis: Patient with significant partial colectomy secondary to recurrent diverticulitis episodes. 8. DVT prophylaxis: SCDs, Lovenox. 9. CODE status: Patient does not have healthcare power of housesmith nor living will set up but it is interested in discussions with case management/social work for assistance in setting up. Discussed CODE status at length including differ ence between FULL code, DNR-CCA and DNR-CC status. Following discussions about the differences in these status, requested Full Code. Advanced Care Planning Face to Face Time: 16 minutes. Charges/Coding Visit Charges Inpatient E&M: 28870 Init Hosp L3 Procedures Hospitalists Procedures: 07539 Advncd Care Plan 30 Min
[2021-05-29] MEDS: Oxymetazoline 0.05% 1 SPRAY SPRAY.BTL 2 SPRAY NASAL (06:36)
[2021-05-29] MEDS: Lidocaine 4% 5 ML Ampul 2 ML INHALATION (06:36)
[2021-05-29 06:38] LABS: Magnesium 1.8 mg/dL (1.6-2.6)
--- NOTE | 2021-05-29 06:40 | NURSING ---
med surg agustina sbo
--- NOTE | 2021-05-29 07:26 | NURSING ---
PT DOES NOT KNOW HOME MEDICATION LIST. RECOMMENDS CONTACTING DR WEBER'S OFFICE TO OBTAIN A CURRENT LIST.
[2021-05-29 07:36] LABS: Bedside Glucose 306 mg/dL (70-110)
--- NOTE | 2021-05-29 07:48 | CON.PCM_ITS ---
Assessment & Plan Assessment/Plan (1) Partial small bowel obstruction: PLAN: Patient's NG only has about 200 in the canister. We will plan for small bowel follow-through today. Oma Lancaster M.D. Pager: [phone] [facility] [address] [place] [address], Outpatient Pavilion, [address] [place] [address] Office: [phone] HPI Consult Data Date of Consult: 05/30/21 HPI Narrative HPI Narrative: JASON JONES, is a 76 F who presents due to abdominal pain starting last night about 11 PM. Patient states she was having a lot of flatus and burping last night denies any flatus this morning. Patient states her abdominal pain is improved since NG was placed unsure exactly how much was out initially. Patient CT abdomen pelvis show some dilated small bowel consistent with small bowel obstruction. Last September patient was seen with similar picture small bowel follow-through showed contrast in the colon and 30 minutes. Patient does have a large chronic inferior abdominal wall hernia however does not appear to be causing obstruction at is quite broad-based. [facility] Medical History (Updated 05/29/21 @ 07:21 by Martha Graves) Asthma Diabetes mellitus type 2, uncomplicated GERD (gastroesophageal reflux disease) Hypertension IBS (irritable bowel syndrome) Non-smoker Obesity Home Medications amlodipine-benazepril 5 - 20 ea PO DAILY 07/15/16 [History Last Taken 10/16/20] bisoprolol fumarate 10 mg PO DAILY 07/15/16 [History Last Taken 10/16/20] glimepiride 4 mg PO BID 07/15/16 [History Last Taken 10/16/20] metformin 750 mg PO DAILY 07/15/16 [History Last Taken 10/16/20] magnesium oxide 400 mg PO DAILY 10/06/19 [History Last Taken 10/16/20] cholecalciferol (vitamin D3) 2,000 unit PO DAILY 10/17/20 [History Last Taken 10/16/20] sitagliptin [Januvia] 100 mg PO 05/29/21 [History Last Taken Unknown] Allergy/AdvReac Type Severity Reaction Status Date / Time ciprofloxacin [From Cipro] Allergy Mild nausea Verified 10/17/20 02:35 metronidazole [From Flagyl] Allergy Mild nausea Verified 10/17/20 02:35 adhesive Allergy Other Verified 10/17/20 02:35 Iodinated Contrast Media Allergy Hives Verified 10/17/20 02:35 [CONTRASTS] Family History (Updated 05/29/21 @ 06:[address] Manasa Lima MD) Mother Multiple sclerosis Father Heart disease Diabetes Surgical History (Updated 05/29/21 @ 07:21 by Martha Graves) H/O dilation and curettage H/O oophorectomy History of cholecystectomy S/P partial colectomy Status post left foot surgery Social History (Updated 05/29/21 @ 06:[address] Manasa Lima MD) household members: family and other details: Patient lives with her daughter, son in law. Smoking Status: Never smoker alcohol intake: never substance use type: does not use seatbelt use: always ROS Constitutional Constitutional: Reports anorexia; Denies fever(s) ENT HEENT: Denies dizziness Cardiovascular Cardiovascular: Denies chest pain Respiratory/Chest Respiratory/Chest: Denies shortness of breath at rest Gastrointestinal Gastrointestinal: Reports abdominal pain and vomiting; Denies diarrhea, heartburn or hematemesis Genitourinary Genitourinary: Denies burning urination Musculoskeletal Musculoskeletal: Denies joint pain Integumentary Integumentary: Denies rash Neurologic Neurologic: Denies focal weakness Endocrine Endocrinology: Denies palpitations Hematologic/Lymphatic Hematologic/Lymphatic: Reports easy bruising; Denies easy bleeding Physical Exam Const alert, oriented x3 and no apparent distress HEENT normocephalic and head/scalp atraumatic Resp normal respiratory effort Cardio regular rate GI soft to palpation and non-distended Palpation: tender RUQ (No rebound) and hernia other (Chronic lower midline incisional hernia unable to appreciate well exam due to body habitus seen in CT); Negative for guarding Extremity General Extremity: Negative for clubbing or cyanosis Neuro CN's II-XII intact bilaterally Psych mental status grossly normal Lab / Micro Data Result Diagrams: 05/30/21 05:45 05/30/21 05:45 Labs: Laboratory Results - last 24 hr 05/29/21 05/29/21 05/29/21 04:45 04:45 04:45 WBC 11.2 H RBC 5.50 H Hgb 14.7 Hct 45.0 MCV 81.8 MCH 26.7 L MCHC 32.7 RDW Std Deviation 43.9 RDW Coeff of Raf 14.6 Plt Count 237 MPV 11.2 Immature Gran % (Auto) 0.700 Neut % (Auto) 77.0 H Lymph % (Auto) 11.6 L [place] % (Auto) 4.6 Eos % (Auto) 5.6 H Baso % (Auto) 0.5 Absolute Neuts (auto) 8.6 H Absolute Lymphs (auto) 1.30 Nucleated RBC % 0 Sodium 136 Potassium 4.1 Chloride 101 Carbon Dioxide 22.0 Anion Gap 13 BUN 15 Creatinine 1.20 H Estim Creat Clear Calc 33.51 Est GFR (MDRD) Af Amer 56 L Est GFR (MDRD) Non-Af 47 L BUN/Creatinine Ratio 12.5 Glucose 340 H Calcium 9.5 Magnesium 1.8 Total Bilirubin 0.60 AST 45 H ALT 87 H Alkaline Phosphatase 116 Total Protein 7.9 Albumin 3.8 Globulin 4.1 Albumin/Globulin Ratio 0.9 Lipase 76 POC Glucose 05/29/21 07:30 WBC RBC Hgb Hct MCV MCH MCHC RDW Std Deviation RDW Coeff of Raf Plt Count MPV Immature Gran % (Auto) Neut % (Auto) Lymph % (Auto) [place] % (Auto) Eos % (Auto) Baso % (Auto) Absolute Neuts (auto) Absolute Lymphs (auto) Nucleated RBC % Sodium Potassium Chloride Carbon Dioxide Anion Gap BUN Creatinine Estim Creat Clear Calc Est GFR (MDRD) Af Amer Est GFR (MDRD) Non-Af BUN/Creatinine Ratio Glucose Calcium Magnesium Total Bilirubin AST ALT Alkaline Phosphatase Total Protein Albumin Globulin Albumin/Globulin Ratio Lipase POC Glucose 306 H Radiology Impression Abdomen/Pelvis CT 05/29/21 04:51 IMPRESSION: Worsening distended small bowel loops associated with a large lower abdominal wall hernia consider partial versus small bowel obstruction secondary to a large abdominal wall hernia. Enlarged multilobulated fatty infiltrated liver consider cirrhosis. No visualized hydronephrosis. Electronically Signed: Mary Thomas MD at 5:44 EDT Tel , Service support , ADDENDUM: 05/29/21 0548 IMPRESSION: Worsening distended small bowel loops associated with a large lower abdominal wall hernia consider partial versus small bowel obstruction secondary to a large abdominal wall hernia. Enlarged multilobulated fatty infiltrated liver consider cirrhosis. No visualized hydronephrosis. N.B. : The above Results were Read Back by Mary Thomas MD to Aj Dykes MD, and understanding confirmed on 05/29/2021 05:47:54 (ET). Electronically Signed: Mary Thomas MD at 5:44 EDT Tel , Service support , KUB X-Ray 05/29/21 05:48 IMPRESSION: NG tube tip in satisfactory position. Electronically Signed: Mary Thomas MD at 6:54 EDT Tel , Service support , Charges/Coding Visit Charges Inpatient E&M: 76089 Init Hosp L3
--- NOTE | 2021-05-29 08:01 | RAD_ITS ---
STUDY: GASTROGRAFIN SMALL BOWEL FOLLOW-THROUGH EXAMINATION. REASON FOR EXAM: Female, 76 years old. psbo -- Gastrografin down NG. Prior localized on the resection due to diverticulitis. FLUOROSCOPY TIME (if supplied): ( 1 second ) minutes/seconds. 14 images were obtained. TECHNIQUE: Dilute GASTROGRAFIN was introduced through the indwelling nasogastric tube. Imaging was obtained. COMPARISON: Comparison is made with prior study dated 10/17/2020. FINDINGS: On the hospitality housekeeper film, there is evidence of a mild degree of small bowel dilatation. Fecal material is seen in the colon. Contrast is seen within the colon at 150 minutes following the introduction of GASTROGRAFIN. Mild residual dilated small bowel loops. This may represent either a partial small bowel obstruction or ileus. Once again, there is a 2.97 x 3.3 cm diverticulum in the third portion of the duodenum. RAD/Small Bowel Series Only IMPRESSION: Findings suggestive of partial small bowel obstruction. Electronically Signed: Nato Kelsey MD at 12:28 EDT , Service support ,
[2021-05-29] MEDS: 0.9% Normal Saline 1,000 ML 100 ML IV ×2 (08:05→21:33)
--- NOTE | 2021-05-29 08:12 | NURSING ---
to x ray via bed for small bowel follow thru
[2021-05-29] MEDS: proCHLORPERazine 10 MG/2 ML Vial 5 MG IV (08:58)
[2021-05-29] MEDS: Morphine 2 MG/ML Syringe IV (08:59)
--- NOTE | 2021-05-29 09:06 | NURSING ---
pt meedicated in x ray for sharp, burning abdominal pain and dry heaves-see mar
--- NOTE | 2021-05-29 09:26 | NURSING ---
pt remains off unit for testing
--- NOTE | 2021-05-29 10:29 | NURSING ---
pt remains off unit in radiology
[2021-05-29] MEDS: Enoxaparin 40 MG/0.4 ML Syringe SC (11:47)
[2021-05-29 13:41] LABS: Bedside Glucose 310 mg/dL (70-110)
--- NOTE | 2021-05-29 14:23 | CASEMGMT ---
Social Work Note SW reviewed H+P that pt wanted to complete advanced directives. SW in to speak with pt. SW introduced self and role at [facility]. Pt states she doesn't want complete documents at this time, asked for SW to check back in at a later time. SW informed pt that this worker will check back in tomorrow. Pt states understanding. Birdie Loaiza NURSERY TECHNICIAN, [employer]
[2021-05-29] MEDS: Insulin Lispro 100 UNIT/ML INSULN.PEN SC ×3 (14:24→22:32)
--- NOTE | 2021-05-29 15:21 | CASEMGMT ---
JUDE AUGUSTINE Assessment: Face to Face with pt for initial transition planning/care coordination assessment. RN DAVIDE introduced self and role at [facility], pt voices understanding and consents to assessment. Pt is A/O x4 and answers all questions appropriately at this time. Pt lying in bed with NG in place in no distress. Care providers, pharmacy, and demographics verified/updated. Admitting Dx: SBO PCP: Mateo Specialists: ARCELIA Peterson Preferred Pharmacy: [facility] Ever Insurance: [facility] Prescription Benefit: yes LW/HPOA: Pt state she does not have a LW/DPOA. She would be interested in completing these forms but not today. Araceli WYATT made aware. LNOK: Martha Theresa, dtr Living Arrangements: Pt lives with dtr in a two story home with bedroom and bathroom on the main floor. Pt has 4 steps to enter with a rail. Pt reports being I with ADL's and denies concerns at home. Transportation: Pt states she drives self and her dtr is also able to transport to medical appts. DME/HHC/SNF: Pt denies DME at home, denies hx of HHC or SNF stays. Pt states no concerns with going home at time of dc. Currently pt states she does not feel she would need any therapy as she feels she has good strength. Pt states no further concerns/needs. CM to follow. Advised pt to ask CM if any further question/concerns/needs arise, voices understanding. Pt Goal: Home Plan: Home with dtr support.
--- NOTE | 2021-05-29 17:46 | PCM.HOSP.N ---
Hospitalist Note Patient was seen and examined briefly, she has no bowel sounds on auscultation today, patient underwent a small bowel series today but the results are not back at the time of this dictation. General surgery is participating in her care.
[2021-05-29 19:01] LABS: Bedside Glucose 295 mg/dL (70-110)
--- NOTE | 2021-05-29 19:49 | NURSING ---
Dr Baum called and asked about NG residual, day shift had 15 cc residual and no N/V. Remove NG and advance to clears.
[2021-05-29] MEDS: Pantoprazole Sodium 20 MG Tablet PO (22:29)
[2021-05-29 22:45] LABS: Bedside Glucose 191 mg/dL (70-110)
[2021-05-30 02:43] VITALS: BP 127/66; PULSE 76; RESP 18; TEMP 36.9; O2SAT 98
--- NOTE | 2021-05-30 05:55 | RAD_ITS ---
STUDY: X-RAY - ABDOMEN/PELVIS REASON FOR EXAM: Female, 76 years old. SBO TECHNIQUE: Two AP supine views of the abdomen and pelvis. COMPARISON: 05/29/2021 KUB FINDINGS: Normal visualized lung bases. There is a normal contrasted appearance of the large bowel. the liver spleen and kidneys are obscured. There is mild degenerative change in the thoracolumbar spine. RAD/Abdomen Single View (Portable) IMPRESSION: Normal contrasted appearance of the large bowel. Electronically Signed: Mary Thomas MD at 5:30 EDT Tel , Service support ,
[2021-05-30] MEDS: Insulin Lispro 100 UNIT/ML INSULN.PEN SC ×2 (06:39→11:27)
[2021-05-30 06:45] LABS: Bedside Glucose 163 mg/dL (70-110)
[2021-05-30 06:55] LABS: Absolute Lymphocyte Count 1.48 X10^3/uL (0.83-4.51); Absolute Neutrophil Count 3.9 X10^3/uL (2.0-7.7); Basophil# 0.05 X10^3/uL; Basophil% 0.8 % (0-1); Eosinophil# 0.05 X10^3/uL; Eosinophils% 0.8 % (0-5); Hematocrit 38.9 % (37-47); Hemoglobin 12.2 g/dL (12.0-15.0); Lymphocyte # 1.48 X10^3/ul (0.83-4.51); Lymphocyte % 24.1 % (19-41); Mean Corp Hgb Conc 31.4 g/dL (32-36); Mean Corpuscular Hgb 26.7 pg (27.0-32.0); Mean Corpuscular Volume 85.1 fL (81-99); Mean Platelet Vol. 12.2 fl (6.2-12.0); Monocyte# 0.66 X10^3/uL; Monocyte% 10.7 % (0-10); NRBC Flagged by Analyzer 0 % (0-5); Neutrophil # 3.89 X10^3/uL (2.7-7.7); Neutrophil % 63.4 % (47-70); Platelet Count 200 K/mm3 (150-450); RBC Distribution Width CV 15.2 % (11.6-14.6); RBC Distribution Width SD 46.7 fl (35.1-43.9); Red Blood Count 4.57 M/mm3 (4.2-5.4); White Blood Count 6.1 K/mm3 (4.4-11.0)
[2021-05-30 07:15] VITALS: O2SAT 92
[2021-05-30 07:32] LABS: AST(SGOT) 37 U/L (15-37); Alanine Aminotransfer ALT/SGPT 70 U/L (13-56); Alkaline Phosphatase 69 U/L (45-117); Anion Gap 5 (5-15); BUN 12 mg/dL (7-18); BUN/Creat Ratio 14.4 RATIO (10-20); Calcium,Total 8.3 mg/dL (8.5-10.1); Chloride 110 mmol/L (98-107); Creatinine, Serum 0.83 mg/dL (0.55-1.02); EST Glomerular Filtration Rate 71 mL/min (>60); Est Glom Filt Rate - Afr Amer 86 mL/min (>60); Estimated Creatinine Clearance 48.45 ml/min; Globulin 3.1 g/dL (2.2-4.2); Glucose 158 mg/dL (74-106); Potassium 3.3 mmol/L (3.5-5.1); Protein, Total 6.1 g/dL (6.4-8.2); Sodium Level 139 mmol/L (136-145)
[2021-05-30] MEDS: 0.9% Normal Saline 1,000 ML 100 ML IV (08:32)
[2021-05-30 08:34] VITALS: BP 147/82; PULSE 75; RESP 18; TEMP 36.3; O2SAT 94
[2021-05-30] MEDS: Enoxaparin 40 MG/0.4 ML Syringe SC (08:44)
[2021-05-30] MEDS: amLODIPine 5 MG Tablet PO (08:45)
[2021-05-30] MEDS: Lisinopril 20 MG Tablet PO (08:45)
[2021-05-30] MEDS: Bisoprolol Fumarate 5 MG Tablet 10 MG PO (08:45)
[2021-05-30] MEDS: Pantoprazole Sodium 20 MG Tablet PO (08:48)
--- NOTE | 2021-05-30 08:53 | PCM.PN.SRG ---
Subjective Subjective Patient small bowel follow-through did did make it to the colon. Patient did have multiple bowel movements yesterday. Denies any abdominal pain, tolerated clears no nausea or vomiting. Objective Data Objective Data Vital Signs: Vital Signs Temp Pulse Resp BP Pulse Ox 97.4 F L 75 18 147/82 H 94 05/30/21 08:34 05/30/21 08:34 05/30/21 08:34 05/30/21 08:34 05/30/21 08:34 Oxygen Delivery Method Room Air Weight: 220 lb 0.341 oz Body Mass Index (BMI) 38.6 Intake & Output: Intake and Output for Last 24 Hours 05/28/21 05/29/21 05/30/21 23:59 23:59 23:59 Intake Total 2681.67 / 2681.67 1228.33 / 1228.33 Output Total 800 / 800 400 / 400 Balance 1881.67 / 1881.67 828.33 / 828.33 Lab / Micro Data Result Diagrams: 05/30/21 05:45 05/30/21 05:45 Labs: Laboratory Results - last 24 hr 05/29/21 05/29/21 05/29/21 13:34 17:57 22:31 WBC RBC Hgb Hct MCV MCH MCHC RDW Std Deviation RDW Coeff of Raf Plt Count MPV Immature Gran % (Auto) Neut % (Auto) Lymph % (Auto) [place] % (Auto) Eos % (Auto) Baso % (Auto) Absolute Neuts (auto) Absolute Lymphs (auto) Nucleated RBC % Sodium Potassium Chloride Carbon Dioxide Anion Gap BUN Creatinine Estim Creat Clear Calc Est GFR (MDRD) Af Amer Est GFR (MDRD) Non-Af BUN/Creatinine Ratio Glucose Calcium Total Bilirubin AST ALT Alkaline Phosphatase Total Protein Albumin Globulin Albumin/Globulin Ratio POC Glucose 310 H 295 H 191 H 05/30/21 05/30/21 05/30/21 05:45 05:45 06:38 WBC 6.1 RBC 4.57 Hgb 12.2 Hct 38.9 MCV 85.1 MCH 26.7 L MCHC 31.4 L RDW Std Deviation 46.7 H RDW Coeff of Raf 15.2 H Plt Count 200 MPV 12.2 H Immature Gran % (Auto) 0.200 Neut % (Auto) 63.4 Lymph % (Auto) 24.1 [place] % (Auto) 10.7 H Eos % (Auto) 0.8 Baso % (Auto) 0.8 Absolute Neuts (auto) 3.9 Absolute Lymphs (auto) 1.48 Nucleated RBC % 0 Sodium 139 Potassium 3.3 L Chloride 110 H Carbon Dioxide 24.0 Anion Gap 5 BUN 12 Creatinine 0.83 Estim Creat Clear Calc 48.45 Est GFR (MDRD) Af Amer 86 Est GFR (MDRD) Non-Af 71 BUN/Creatinine Ratio 14.4 Glucose 158 H Calcium 8.3 L Total Bilirubin 0.60 AST 37 ALT 70 H Alkaline Phosphatase 69 Total Protein 6.1 L Albumin 3.0 L Globulin 3.1 Albumin/Globulin Ratio 1.0 POC Glucose 163 H Radiography Diagnostic Testing: Radiology Impression KUB X-Ray 05/30/21 05:55 IMPRESSION: Normal contrasted appearance of the large bowel. Electronically Signed: Mary Thomas MD at 5:30 EDT Tel , Service support , Physical Exam GI GI Narrative: Abdomen: Soft, nondistended, nontender, no peritoneal signs. Assessment & Plan Assessment/Plan (1) Partial small bowel obstruction: PLAN: Patient's contrast did make it to the colon. Patient's had multiple bowel movements does tolerate clears. Will advance to regular diabetic diet if tolerating okay to DC Oma Lancaster M.D. Pager: [phone] [facility] [address] [place] [address], Outpatient [place], [address] [place] [id number] Office: [phone] Charges/Coding Visit Charges Inpatient E&M: 56793 Subs Hosp L2
--- NOTE | 2021-05-30 10:52 | CASEMGMT ---
SW assisted pt in completing LW/POA forms, SW gave pt originals and copies, and copies placed on the chart. JOZEF Hyatt
[2021-05-30 13:49] VITALS: BP 149/79; PULSE 76; RESP 18; TEMP 36.4; O2SAT 94
--- NOTE | 2021-05-30 14:07 | PCM.DC ---
Discharge Instructions Diet Discharge Diet: 1800 Calorie Control Diet Activity Discharge Activity: Return to Normal Activity Weight Bearing Status: Full weight bearing Follow Up Care Test Results: Test results from this visit will be discussed in further detail at your follow-up appointment, if applicable. Discharge Plan Admission Admit Date/Time: 05/29/21 06:24 Primary Reason for Your Visit: small bowel obstruction Attending Provider: Jose Massey Primary Care Provider: Abraham Galindo Consulting Providers: Oma Lancaster Discharge Orders/Prescriptions Prescriptions: Continued metformin 500 MG tablet 750 mg PO DAILY RF: 0 glimepiride 2 MG tablet 4 mg PO BID RF: 0 bisoprolol fumarate 10 MG tablet 10 mg PO DAILY RF: 0 amlodipine-benazepril 1 EACH capsule 5 - 20 ea PO DAILY RF: 0 magnesium oxide 400 MG tablet 400 mg PO DAILY RF: 0 cholecalciferol (vitamin D3) 2,000 UNIT capsule 2,000 unit PO DAILY RF: 0 Januvia 100 mg Tablet 100 mg PO RF: 0 Referrals / Follow Up: Abraham Galindo MD [Primary Care Provider] - Within 2 Weeks Oma Lancaster MD [STAFF PHYSICIAN] - Within 2 Weeks Disposition Disposition (needs filled in before D/C Order can be placed): Home, Self Care
[2021-05-30 22:55] LABS: Bedside Glucose 254 mg/dL (70-110)
--- NOTE | 2021-05-31 08:23 | DS.PCM_ITS ---
Providers Date of Admission: 05/29/21 Date of Discharge: 05/30/21 Primary Care Physician: Dr. Abraham Galindo MD Consultations 05/29/21 07:08 Consult: General Surgery Routine Consulting Provider: Oma Lancaster Reason for Consult: ? SBO EMERGENT Consult: No MD Notified: Yes Date Notified: 05/29/21 Time Notified: 06:21 Method of Notification: called per ED. Reason For Visit: SBO Diagnosis Discharge Diagnosis (1) Partial small bowel obstruction: Status: Acute Code(s): K56.600 - Partial intestinal obstruction, unspecified as to cause Plan: Discharge diagnosis: #1 partial small bowel obstruction #2 type 2 diabetes #3 essential hypertension #4 GERD #5 hypokalemia Medications at Discharge Home Medications amlodipine-benazepril 5 - 20 ea PO DAILY 07/15/16 bisoprolol fumarate 10 mg PO DAILY 07/15/16 glimepiride 4 mg PO BID 07/15/16 metformin 750 mg PO DAILY 07/15/16 magnesium oxide 400 mg PO DAILY 10/06/19 cholecalciferol (vitamin D3) 2,000 unit PO DAILY 10/17/20 Januvia 100 mg PO 05/29/21 Hospital Course Operations None Procedures None Summary of Care Provided Minutes Spent on Discharge: 31 Hospital Course: This 76-year-old white female was seen in the emergency room at [facility] with complaints of upper abdominal pain, she also had multiple episodes of emesis. Work-up in the emergency room included a CT of the abdomen and pelvis which showed a partial small bowel obstruction, labs were remarkable for a potassium of 3.3. Patient was admitted to [place] [address], and NG tu be was inserted and she was seen in consultation by general surgery. Her hospital stay was uneventful however and the NG was able to be removed and she was able to tolerate a diet. On 05/30/2021, patient was seen and examined: On examination she appeared in good health and spirits, she does not appear to be in any distress. Vital signs as documented. Skin warm and dry and without overt rashes. Neck without JVD, thyroid appears normal, trachea is midline, neck is supple. Lungs clear, normal air movement was noted. Heart exam notable for regular rhythm, normal sounds and absence of murmurs, rubs or gallops. Abdomen unremarkable and without evidence of organomegaly, masses, or abdominal aortic enlargement, bowel sounds are present in all 4 quadrants, no abdominal tenderness was noted. Extremities nonedematous, no cyanosis was noted, no clubbing was noted. Neuro: Cranial nerves II through XII are grossly intact, no focal motor deficits were noted, sensation to light touch and pinprick is intact, motor exam 5/5 throughout. Psych: Patient is alert and oriented x3, she does not appear anxious or depressed, she does not appear agitated. Patient was felt to be in stable condition for discharge home on 05/30/2021. Weight / BMI Weight Weight: 99.8 kg Body Mass Index (BMI) 38.6 ABG / Lab / Microbiology Data Result Diagrams: 05/30/21 05:45 05/30/21 05:45 Laboratory: Laboratory Results - last 24 hr 05/30/21 11:26 POC Glucose 254 H Radiography Diagnostic Testing: Radiology Impression Small Bowel X-Ray 05/29/21 08:01 IMPRESSION: Findings suggestive of partial small bowel obstruction. Electronically Signed: Nato Kelsey MD at 12:28 EDT , Service support , D/C Instructions Discharge Diet: 1800 Calorie Control Diet Weight Bearing Status: Full weight bearing Meaningful Use Info Meaningful Use Diagnoses (Choose all that apply): None applicable Discharge Plan Admission Admit Date/Time: 05/29/21 06:24 Primary Reason for Your Visit: small bowel obstruction Attending Provider: Jose Massey Primary Care Provider: Abraham Galindo Consulting Providers: Oma Lancaster Discharge Orders/Prescriptions Prescriptions: Continued metformin 500 MG tablet 750 mg PO DAILY RF: 0 glimepiride 2 MG tablet 4 mg PO BID RF: 0 bisoprolol fumarate 10 MG tablet 10 mg PO DAILY RF: 0 amlodipine-benazepril 1 EACH capsule 5 - 20 ea PO DAILY RF: 0 magnesium oxide 400 MG tablet 400 mg PO DAILY RF: 0 cholecalciferol (vitamin D3) 2,000 UNIT capsule 2,000 unit PO DAILY RF: 0 Januvia 100 mg Tablet 100 mg PO RF: 0 Referrals / Follow Up: Abraham Galindo MD [Primary Care Provider] - Within 2 Weeks Oma Lancaster MD [STAFF PHYSICIAN] - Within 2 Weeks Disposition Disposition (needs filled in before D/C Order can be placed): Home, Self Care Charges/Coding Visit Charges Inpatient E&M: 88086 Disch Hosp
== END 2021-05-30 14:45 | disposition home or self-care (01) | DRG 390 ==
LOC: ED 06:15 → MS3 07:09
PROVIDERS: Admitting Provider Family Medicine; Emergency Provider Emergency Medicine; PCP Family Medicine; Visit Provider Internal Medicine
DX: K56.600 Partial intestinal obstruction, unspecified as to cause (principal); E11.9 Type 2 diabetes mellitus without complications; I10 Essential (primary) hypertension; K21.9 Gastro-esophageal reflux disease without esophagitis; E87.6 Hypokalemia; Z79.84 Long term (current) use of oral hypoglycemic drugs; Z79.899 Other long term (current) drug therapy; K76.0 Fatty (change of) liver, not elsewhere classified; E78.5 Hyperlipidemia, unspecified; E66.01 Morbid (severe) obesity due to excess calories; Z90.49 Acquired absence of other specified parts of digestive tract; Z68.39 Body mass index [BMI] 39.0-39.9, adult
CPT/HCPCS: 36415; 74018; 74176; 74250; 80053; 82962; 83690; 83735; 85025; 99251; 99284; J7030; A4216; G0463; J2405

== ENCOUNTER 2021-06-12 08:51 | Inpatient (IN) | payer MEDICARE, SELFPAY ==
[2021-05-29 07:16] VITALS: BMI 38.6
[2021-06-12] VITALS (14 sets, daily range): BP systolic 139–181; BP diastolic 71–127; PULSE 65–94; RESP 14–22; TEMP 36.1–36.6; O2SAT 9–99; BMI 38.2
--- NOTE | 2021-06-12 09:16 | CT_ITS ---
STUDY: CT ABDOMEN AND PELVIS WITHOUT CONTRAST REASON FOR EXAM: Female, 76 years old. Abdominal pain. RADIATION DOSAGE (If Supplied By Facility): CTDIvol = ( 21.42 ) mGy, DLP = ( 1123.70 ) mGycm TECHNIQUE: Transaxial images were obtained from the dome of the diaphragm to the symphysis pubis without oral contrast, and without intravenous contrast. Sagittal and coronal images were reconstructed. Individualized dose optimization techniques were used for this CT. COMPARISON: Comparison is made with prior study dated 05/29/2021. FINDINGS: The visualized lung bases are unremarkable. The visualized portions of the heart are within normal limits. There is decreased attenuation of the liver consistent with steatosis. Mild hepatomegaly. The patient is status post cholecystectomy. Normal spleen. Normal pancreas. Normal bilateral adrenal glands. Normal right kidney. Normal left kidney. Normal visualized stomach. Normal small intestine. There are scattered colonic diverticula consistent with diverticulosis. The appendix is visualized and appears normal. There is diffuse atherosclerotic calcification of the abdominal aorta and its major visceral branches, without a demonstrated aneurysm. Normal inferior vena cava. Normal retroperitoneum. Normal urinary bladder. There is a right-sided paraumbilical hernia containing fat. The neck of the hernia measures 5.2 cm. Once again, there is evidence of a diastases of the rectus muscles along the anterior lower pelvis containing fatThere are diffuse degenerative changes of the visualized lumbar spine. Grade 1 anterolisthesis of L5 on S1 with spondylolysis of the pars interarticularis of the L5 vertebrae. CT/Abdomen/Pelvis without Cont IMPRESSION: Stable diastases of the rectus muscles in the lower abdomen and upper pelvis containing small bowel loops with air-fluid levels. Increased markings are seen within the mesenteric fat. Early entrapment should be ruled out. Electronically Signed: Nato Kelsey MD at 10:26 EDT , Service support ,
[2021-06-12 09:38] LABS: Absolute Lymphocyte Count 1.49 X10^3/uL (0.83-4.51); Absolute Neutrophil Count 4.7 X10^3/uL (2.0-7.7); Basophil# 0.04 X10^3/uL; Basophil% 0.6 % (0-1); Eosinophil# 0.05 X10^3/uL; Eosinophils% 0.7 % (0-5); Hematocrit 43.9 % (37-47); Hemoglobin 14.2 g/dL (12.0-15.0); Lymphocyte # 1.49 X10^3/ul (0.83-4.51); Lymphocyte % 21.7 % (19-41); Mean Corp Hgb Conc 32.3 g/dL (32-36); Mean Corpuscular Hgb 26.2 pg (27.0-32.0); Mean Platelet Vol. 10.8 fl (6.2-12.0); Monocyte# 0.54 X10^3/uL; Monocyte% 7.9 % (0-10); NRBC Flagged by Analyzer 0 % (0-5); Neutrophil # 4.73 X10^3/uL (2.7-7.7); Platelet Count 238 K/mm3 (150-450); RBC Distribution Width CV 15.3 % (11.6-14.6); RBC Distribution Width SD 44.4 fl (35.1-43.9); Red Blood Count 5.42 M/mm3 (4.2-5.4); White Blood Count 6.9 K/mm3 (4.4-11.0)
[2021-06-12 09:39] LABS: Bacteria 0 SEEN /hpf (None Seen); Mucous, Urine 0 SEEN /hpf (<or=2+); Red Blood Cells-Urine 0 SEEN /hpf (0-5); White Blood Cells 0 SEEN /hpf (0-5)
[2021-06-12] MEDS: Ondansetron 4 MG/2 ML Vial IV (09:47)
[2021-06-12] MEDS: Morphine 4 MG/ML Syringe IV ×2 (09:47→12:26)
[2021-06-12] MEDS: 0.9% Normal Saline 1,000 ML 1000 ML IV (09:47)
[2021-06-12 09:56] LABS: ALB/GLOB Ratio 0.9 RATIO (0.9-2.4); AST(SGOT) 75 U/L (15-37); Alanine Aminotransfer ALT/SGPT 95 U/L (13-56); Albumin, Serum 3.5 g/dL (3.2-5.0); Alkaline Phosphatase 89 U/L (45-117); Anion Gap 8 (5-15); BUN 13 mg/dL (7-18); Calcium,Total 9.5 mg/dL (8.5-10.1); Chloride 99 mmol/L (98-107); Creatinine, Serum 1.18 mg/dL (0.55-1.02); EST Glomerular Filtration Rate 47 mL/min (>60); Est Glom Filt Rate - Afr Amer 57 mL/min (>60); Estimated Creatinine Clearance 34.08 ml/min; Globulin 3.9 g/dL (2.2-4.2); Glucose 290 mg/dL (74-106); Lipase 92 U/L (73-393); Potassium 3.9 mmol/L (3.5-5.1); Protein, Total 7.4 g/dL (6.4-8.2); Sodium Level 134 mmol/L (136-145)
[2021-06-12 09:58] LABS: Color, Urine Yellow (Yellow); Glucose, Dipstick 250 mg/dl (Normal); Ketone-Dipstick Negative (Negative); Leukocyte Esterase-Dipstick Negative /ul (Negative); Nitrite-Dipstick Negative (Negative); Occult Blood-Urine Negative /ul (Negative); Protein-Dipstick Negative (Negative); Urine Bilirubin Dipstick Negative (Negative); Urine Clarity Clear (Clear); Urine Urobilinogen 1 mg/dl (Normal)
[2021-06-12 10:11] LABS: Squamous Epithelial Cells - UA 0-5 SEEN /hpf (5-10)
[2021-06-12] MEDS: Lidocaine 4% 5 ML Ampul 2 ML INHALATION (11:57)
[2021-06-12] MEDS: Oxymetazoline 0.05% 1 SPRAY SPRAY.BTL 2 SPRAY NASAL (12:26)
--- NOTE | 2021-06-12 13:27 | NURSING ---
OR BETSY SMALL BOWEL OBSTRUCTION
--- NOTE | 2021-06-12 13:46 | EDS_ITS ---
HPI HPI - GI History of Present Illness Chief Complaint: Abd Pain Informant: patient Abdominal Pain/Flank Pain Onset: Weeks (2) Context: Gradual Onset Timing: Waxes and wanes Quality: Burning and Cramping Location: Epigastric, RUQ and LUQ Nausea/Vomiting/Emesis GI Symptom: Positive for Nausea and Vomiting Diarrhea/Melena/Hematochezia GI Symptom: Negative for Diarrhea, Melena and Hematochezia Associated Symptoms Associated Symptoms: Negative for Dysuria and Hematuria Narrative Narrative: Patient presents with nausea and vomiting that became worse today. Patient states she was recently admitted for bowel obstruction but did not have surgery. Patient states she was feeling better once discharged home. Patient states that her nausea and vomiting has been getting worse over the past couple days. Patient admits to some abdominal pain that is worse today. Patient st ates the pain is worse over her upper abdomen. Patient describes it as aching and burning. Patient saw her primary care physician today who referred her to the emergency department for evaluation of possible bowel obstruction. [facility] Medical History Asthma Diabetes mellitus type 2, uncomplicated GERD (gastroesophageal reflux disease) Hypertension IBS (irritable bowel syndrome) Non-smoker Obesity Home Medications amlodipine-benazepril 1 cap PO DAILY 07/15/16 [History Last Taken 06/12/21] bisoprolol fumarate 10 mg PO DAILY 07/15/16 [History Last Taken 06/12/21] Januvia 100 mg PO DAILY 05/29/21 [History Last Taken 06/12/21] dicyclomine 20 mg PO BID 06/12/21 [History Last Taken 06/12/21] glimepiride 4 mg PO BID 06/12/21 [History Last Taken 06/12/21] metformin 750 mg PO BID 06/12/21 [History Last Taken 06/12/21] omeprazole 20 mg PO DAILY 06/12/21 [History Last Taken 06/12/21] Allergy/AdvReac Type Severity Reaction Status Date / Time ciprofloxacin [From Cipro] Allergy Mild nausea Verified 06/12/21 08:52 metronidazole [From Flagyl] Allergy Mild nausea Verified 06/12/21 08:52 adhesive Allergy Other Verified 06/12/21 08:52 Iodinated Contrast Media Allergy Hives Verified 06/12/21 08:52 [CONTRASTS] Family History (Updated 05/29/21 @ 06:[address] Manasa Lima MD) Mother Multiple sclerosis Father Heart disease Diabetes Surgical History H/O dilation and curettage H/O oophorectomy History of cholecystectomy S/P partial colectomy Status post left foot surgery Social History household members: family and other details: Patient lives with her daughter, son in law. Smoking Status: Never smoker alcohol intake: never substance use type: does not use seatbelt use: always ROS ROS ED Constitutional Constitutional ED: Denies chills or fever(s) Eyes Eyes: Denies blurry vision or change in vision ENT ENT ED: Denies rhinorrhea or sore throat Cardiovascular Cardiovascular: Denies chest pain or palpitations Respiratory/Chest Respiratory/Chest: Denies cough or dyspnea Gastrointestinal Gastrointestinal: Reports abdominal pain, nausea and vomiting Genitourinary Genitourinary ED: Denies dysuria or hematuria Musculoskeletal Musculoskeletal: Denies back pain or neck pain Integumentary Denies abscess or rash Neurologic Neurologic: Denies headache(s) or weakness Allergic/Immunologic Allergic/Immunologic ED: Denies mouth swelling or urticaria EXAM Physical Exam Const Vital Signs: 06/12/21 08:53 06/12/21 11:07 06/12/21 13:38 Temperature 96.9 F L 97.8 F Temperature Source Temporal Oral Pulse Rate 76 68 65 Respiratory Rate 14 16 22 H Blood Pressure 161/81 H 158/72 H 142/127 H Blood Pressure Mean 107 100 132 Pulse Ox 98 98 99 Oxygen Delivery Method Room Air Room Air Room Air Positive well nourished and well developed General Appearance ED: well developed HEENT Reports moist mucous membranes Neck supple and no JVD Resp normal respiratory effort and clear to auscultation bilaterally Cardio regular rate, regular rhythm and no murmurs GI normal to inspection, nondistended, normoactive bowel sounds Auscultation: hypoactive bowel sounds Palpation: soft and tender epigastric, LLQ, RLQ, LUQ, RUQ, periumbilical and suprapubic; Negative for guarding or rebound tenderness present Extremity normal to inspection General Extremety ED: Negative for edema or tenderness General Extremity: Negative for edema Neuro oriented x3, CN's II-XII intact bilaterally and no sensory deficits noted Sensorium / Orientation: alert Motor Exam: strength 5/5 throughout Psych mental status grossly normal Skin no rashes or lesions noted MDM MDM MDM Narrative Medical decision making narrative: Patient was given IV fluids and morphine. CBC and comprehensive metabolic profile were obtained and were essentially within normal limits. Urinalysis does not show any evidence of urinary tract infection. CT scan of the abdomen and pelvis was obtained. There is stable diastases of the rectus muscles in the lower abdomen and upper pelvis containing small bowel loops with air-fluid levels. There are increased markings seen within the mesenteric fat. This was interpreted by the radiologist and reviewed by myself. Case was discussed with Dr. Luque. He was in to evaluate the patient he will take the patient to the operating room today. Patient and family understood and were agreeable with the plan. All questions were answered. Lab Data Attestation: I reviewed the patient's lab results. Labs: Laboratory Results - last 24 hr 06/12/21 06/12/21 06/12/21 09:30 09:30 09:33 WBC 6.9 RBC 5.42 H Hgb 14.2 Hct 43.9 MCV 81.0 MCH 26.2 L MCHC 32.3 RDW Std Deviation 44.4 H RDW Coeff of Raf 15.3 H Plt Count 238 MPV 10.8 Immature Gran % (Auto) 0.100 Neut % (Auto) 69.0 Lymph % (Auto) 21.7 Taliaferro % (Auto) 7.9 Eos % (Auto) 0.7 Baso % (Auto) 0.6 Absolute Neuts (auto) 4.7 Absolute Lymphs (auto) 1.49 Nucleated RBC % 0 Sodium 134 L Potassium 3.9 Chloride 99 Carbon Dioxide 27.0 Anion Gap 8 BUN 13 Creatinine 1.18 H Estim Creat Clear Calc 34.08 Est GFR (MDRD) Af Amer 57 L Est GFR (MDRD) Non-Af 47 L BUN/Creatinine Ratio 11.0 Glucose 290 H Calcium 9.5 Total Bilirubin 0.90 AST 75 H ALT 95 H Alkaline Phosphatase 89 Total Protein 7.4 Albumin 3.5 Globulin 3.9 Albumin/Globulin Ratio 0.9 Lipase 92 Urine Color Yellow Urine Clarity Clear Urine pH 7.0 Ur Specific [place] 1.010 Urine Protein Negative Urine Glucose (UA) 250 H Urine Ketones Negative Urine Occult Blood Negative Urine Nitrite Negative Urine Bilirubin Negative Urine Urobilinogen 1 H Ur Leukocyte Esterase Negative Urine RBC 0 SEEN Urine WBC 0 SEEN Ur Squamous Epith Cells 0-5 SEEN Urine Bacteria 0 SEEN Urine Mucus 0 SEEN Radiography Diagnostic Testing: Radiology Impression Abdomen/Pelvis CT 06/12/21 09:16 IMPRESSION: Stable diastases of the rectus muscles in the lower abdomen and upper pelvis containing small bowel loops with air-fluid levels. Increased markings are seen within the mesenteric fat. Early entrapment should be ruled out. Electronically Signed: Nato Kelsey MD at 10:26 EDT , Service support , Treatment and Re-Evaluation Vital Sign Attestation:: Vital signs were reviewed prior to admission. They are stable. Discharge Plan Dx/Rx/DC Orders Clinical Impression: SBO (small bowel obstruction) Disposition Disposition: Acute Care Hospital [facility] Discharge Date/Time: 06/12/21 13:54
--- NOTE | 2021-06-12 13:50 | LIVB_PTH ---
PATIENT: JASON JONES LOC: MS3 U#:[id number] AGE/SX: 76/F [place] [facility] [place]: Dr. Mychal Luque MD : 1945 BED: 1 DIS: 06/14/2021 SPEC #: [id number] RECD: 06/13/21 06:33 STATUS: IRAIS MARSHALL #: [id number] SONYA: 06/12/21 13:[address]: Mychal Luque DEPT: SURGICAL PATHOLOGY RECD BY: Fern Olivera ENTERED: 06/13/21 08:28 SP TYPE: LIVER BX OTHR DR: Dr. Abraham Galindo MD Tissues: Liver, NOS Procedures: PAS with Diastase (control) Trichrome (control) Special Stain Group II PAS Stain (control) Surgery Specimen Level V Retic (control) Iron Stain (control) HEADER OPERATION: Exploratory laparoscopy, lysis of adhesions, Ham-Cut liver biopsy PRE-OP DIAGNOSIS: Small bowel obstruction TISSUE SUBMITTED: Ham-Cut liver biopsy MICROSCOPIC DIAGNOSIS Ham-Cut liver, core biopsy: Liver parenchymal tissue with extensive macro- and microvascular steatosis. See microscopic description and comment. SJ:chelle 06/14/2021 COMMENT Changes consistent with cirrhosis are not seen. Correlation with clinical findings and appropriate follow up are necessary. Case has been reviewed in consultation with Dr. Nguyen who concurs with the above diagnosis. IDC:BOSSMAN MICROSCOPIC DESCRIPTION Slides are reviewed. The specimen shows fragments of liver parenchymal tissue. The hepatocytes show extensive macro- and microvascular steatosis. Significant lobular inflammation is not seen. Portal area shows mild chronic inflammation. Focal mild to moderate chronic inflammation is noted underneath the capsular surface. Trichrome stain does not show increase of portal, periportal fibrosis or nodule formation. Iron stain shows absent iron. PAS stain with and without diastase and reticulin stain are also used in the evaluation of the specimen. All stains are performed with appropriate matched control. GROSS DESCRIPTION Received in fixative is one container labeled with the patient's name and designated Ham-Cut liver biopsy. The specimen consists of multiple irregular fragments of brar soft tissue that in aggregate measure 1 x 0.1 x 0.1 cm. The specimen is totally submitted in one cassette. / LUCY:chelle 06/13/21 TC:5 CPT: 14982, 67235 x5
--- NOTE | 2021-06-12 13:57 | HP.PCM_ITS ---
HPI - General HPI Narrative JASON JONES, is a 76 F who presents with abdominal pain, nausea, vomiting. She noted her abdominal pain started approximately 2 nights ago. She denies diet change. She notes chronic history of loose stools and constipation. She notes nausea, vomiting started yesterday. She noted she was hospitalized for a small bowel obstruction approximately 2 weeks ago. She started she is unsure if the previous bowel obstruction has ever resolved. Patient notes having these symptoms for approximately 5 years intermittently. She notes her daughter has had colon cancer approximately at the age of 3535 years old. She has never had a colonoscopy. She notes a history of bowel resection for diverticulitis in [address] Stevens in [place]. She notes her bowel changes were since that time. She denies cardiac history. She notes a history of asthma however this is well controlled. She denies history of smoking or alcohol consumption. Patient has completed her COVID vaccines in January. CT scan of the abdomen/pelvis was completed and demonstrated Stable diastases of the rectus muscles in the lower abdomen and upper pelvis containing small bowel loops with air-fluid levels. Increased markings are seen within the me senteric fat. Early entrapment should be ruled out. [facility] Medical History Asthma Diabetes mellitus type 2, uncomplicated GERD (gastroesophageal reflux disease) Hypertension IBS (irritable bowel syndrome) Non-smoker Obesity Home Medications amlodipine-benazepril 1 cap PO DAILY 07/15/16 [History Last Taken 06/12/21] bisoprolol fumarate 10 mg PO DAILY 07/15/16 [History Last Taken 06/12/21] Januvia 100 mg PO DAILY 05/29/21 [History Last Taken 06/12/21] dicyclomine 20 mg PO BID 06/12/21 [History Last Taken 06/12/21] glimepiride 4 mg PO BID 06/12/21 [History Last Taken 06/12/21] metformin 750 mg PO BID 06/12/21 [History Last Taken 06/12/21] omeprazole 20 mg PO DAILY 06/12/21 [History Last Taken 06/12/21] Allergy/AdvReac Type Severity Reaction Status Date / Time ciprofloxacin [From Cipro] Allergy Mild nausea Verified 06/12/21 08:52 metronidazole [From Flagyl] Allergy Mild nausea Verified 06/12/21 08:52 adhesive Allergy Other Verified 06/12/21 08:52 Iodinated Contrast Media Allergy Hives Verified 06/12/21 08:52 [CONTRASTS] Family History (Updated 05/29/21 @ 06:[address] Manasa Lima MD) Mother Multiple sclerosis Father Heart disease Diabetes Surgical History H/O dilation and curettage H/O oophorectomy History of cholecystectomy S/P partial colectomy Status post left foot surgery Social History household members: family and other details: Patient lives with her daughter, son in law. Smoking Status: Never smoker alcohol intake: never substance use type: does not use seatbelt use: always ROS Constitutional Constitutional: Reports systems reviewed and no addt'l complaints, except as documented Eyes Eyes: Reports systems reviewed and no addt'l complaints, except as documented ENT HEENT: Reports systems reviewed and no addt'l complaints, except as documented Cardiovascular Cardiovascular: Reports systems reviewed and no addt'l complaints, except as documented Respiratory/Chest Respiratory/Chest: Reports systems reviewed and no addt'l complaints, except as documented Gastrointestinal Gastrointestinal: Reports systems reviewed and no addt'l complaints, except as documented Genitourinary Genitourinary: Reports systems reviewed and no addt'l complaints, except as documented Musculoskeletal Musculoskeletal: Reports systems reviewed and no addt'l complaints, except as documented Integumentary Integumentary: Reports systems reviewed and no addt'l complaints, except as documented Neurologic Neurologic: Reports systems reviewed and no addt'l complaints, except as documented Psychiatric Psychiatric: Reports systems reviewed and no addt'l complaints, except as documented Endocrine Endocrinology: Reports systems reviewed and no addt'l complaints, except as documented Hematologic/Lymphatic Hematologic/Lymphatic: Reports systems reviewed and no addt'l complaints, except as documented Allergic/Immunologic Allergic/Immunologic: Reports systems reviewed and no addt'l complaints, except as documented Vital Signs Vital Signs Vital Signs: 06/12/21 08:53 06/12/21 11:07 06/12/21 13:38 Temperature 96.9 F L 97.8 F Temperature Source Temporal Oral Pulse Rate 76 68 65 Respiratory Rate 14 16 22 H Blood Pressure 161/81 H 158/72 H 142/127 H Blood Pressure Mean 107 100 132 Pulse Ox 98 98 99 Oxygen Delivery Method Room Air Room Air Room Air Weight Weight: 216 lb Body Mass Index (BMI) 38.2 Physical Exam Const alert and oriented x3 General Appearance: anxious HEENT normocephalic and head/scalp atraumatic Eyes PERRL and EOMs intact bilaterally Neck full ROM Lymph Lymphatic: no lymphadenopathy noted Chest inspection of chest normal Resp normal respiratory effort and normal air movement Cardio regular rate and regular rhythm GI Auscultation: hypoactive bowel sounds Palpation: tender other (generalized) and guarding no CVA tenderness Back/Spine no CVA tenderness and normal ROM Extremity normal to inspection Skin no rashes or lesions noted Skin Narrative: Nicely healed abdominal incision Neuro oriented x3 and CN's II-XII intact bilaterally Psych mental status grossly normal Results Lab / Micro Data Result Diagrams: 06/12/21 09:30 06/12/21 09:30 Labs: Laboratory Results - last 24 hr 06/12/21 09:30: WBC 6.9, RBC 5.42 H, Hgb 14.2, Hct 43.9, MCV 81.0, MCH 26.2 L, MCHC 32.3, RDW Std Deviation 44.4 H, RDW Coeff of Raf 15.3 H, Plt Count 238, MPV 10.8, Immature Gran % (Auto) 0.100, Neut % (Auto) 69.0, Lymph % (Auto) 21.7, [place] % (Auto) 7.9, Eos % (Auto) 0.7, Baso % (Auto) 0.6, Absolute Neuts (auto) 4.7, Absolute Lymphs (auto) 1.49, Nucleated RBC % 0 06/12/21 09:30: Sodium 134 L, Potassium 3.9, Chloride 99, Carbon Dioxide 27.0, Anion Gap 8, BUN 13, Creatinine 1.18 H, Estim Creat Clear Calc 34.08, Est GFR (MDRD) Af Amer 57 L, Est GFR (MDRD) Non-Af 47 L, BUN/Creatinine Ratio 11.0, Glucose 290 H, Calcium 9.5, Total Bilirubin 0.90, AST 75 H, ALT 95 H, Alkaline Phosphatase 89, Total Protein 7.4, Albumin 3.5, Globulin 3.9, Albumin/Globulin Ratio 0.9, Lipase 92 06/12/21 09:33: Urine Color Yellow, Urine Clarity Clear, Urine pH 7.0, Ur Specific [place] 1.010, Urine Protein Negative, Urine Glucose (UA) 250 H, Urine Ketones Negative, Urine Occult Blood Negative, Urine Nitrite Negative, Urine Bilirubin Negative, Urine Urobilinogen 1 H, Ur Leukocyte Esterase Negative, Urine RBC 0 SEEN, Urine WBC 0 SEEN, Ur Squamous Epith Cells 0-5 SEEN, Urine Bacteria 0 SEEN, Urine Mucus 0 SEEN Radiology Impression Abdomen/Pelvis CT 06/12/21 09:16 IMPRESSION: Stable diastases of the rectus muscles in the lower abdomen and upper pelvis containing small bowel loops with air-fluid levels. Increased markings are seen within the mesenteric fat. Early entrapment should be ruled out. Electronically Signed: Nato Kelsey MD at 10:26 EDT , Service support , Assessment & Plan Assessment/Plan (1) SBO (small bowel obstruction): PLAN: I have discussed this patient in conjunction with Dr. Luque. Dr. Luque will plan to perform an exploratory laparoscopy, possible conversion to laparotomy, possible bowel resection, possible lysis of adhesions. Procedure details, risks and benefits have been explained to the patient and daughter. Patient and her daughter have had the opportunity to ask and have questions answered. Patient verbally understands and agrees with the plan. Patient will plan to proceed to the operating room today pending timing. Thank you for allowing us to participate in this patient's care. Charges/Coding Visit Charges Office Visits / Consults: [id number] IP Consult L3
[2021-06-12] MEDS: Bupivacaine Mpf 0.5% 30 ML VIAL (15:50)
--- NOTE | 2021-06-12 16:48 | PCM.OPRPT ---
Problems Associated Problem List Diagnoses (1) Partial small bowel obstruction: Report of Operation Date of Procedure: 06/12/21 Pre-Operative Diagnosis: Partial small bowel obstruction Post-Operative Diagnosis: Same Surgery/Procedure Performed:: 1. Exploratory laparoscopy with lysis of adhesions 2. Liver biopsy Specimen's removed: Liver biopsy Description of Procedure: Patient was brought back to the operating room and general anesthesia was induced. A Joseph catheter was placed into the bladder. The abdomen was prepped and draped in usual sterile fashion. A small midline incision was made superior to the umbilicus deep to the fascia. The fascia was elevated and incised. Port was placed into the abdomen is insufflated 15 mmHg. The abdomen was inspected and the omentum was adherent to the anterior abdominal wall. Left lower quadrant and left upper quadrant 5 mm ports were placed under direct visualization. The omentum was taken down off of the anterior abdominal wall using Enseal. Next the omentum was reflected anteriorly and the patient was placed in Trendelenburg position. The ileocecal valve was identified and appeared decompressed. This was traced back to the right lower quadrant where there were adhesions causing partial obstruction of the small bowel. The small bowel was dilated proximal to this. Using scissors the adhesions were taken down in the right lower quadrant and freeing up the distal small bowel. The bowel was then run from distal to proximal and was completely free of adhesions. The omentum was draped over the small bowel and the abdomen was inspected. The liver appeared possibly cirrhotic and a Ham-Cut biopsy was taken of the liver tissue and hemostasis was obtained using electrocautery. Next the ports were removed and the air was allowed to desufflate from the abdomen. The midline fascia was closed with a [id number] 0 Vicryl suture. The skin incisions were injected with local anesthetic and closed with interrupted 4-0 Monocryl suture and Steri-Strips and bandages. Patient tolerated the procedure well was brought to PACU with Joseph catheter in place for urine output monitoring. Admit VTE Documentation VTE Mechan Device Prophylaxis: SCD's
[2021-06-12] MEDS: Insulin Lispro 100 UNIT/ML INSULN.PEN SC ×2 (18:38→23:04)
[2021-06-12 18:41] LABS: Bedside Glucose 211 mg/dL (70-110)
[2021-06-12] MEDS: Morphine 2 MG/ML Syringe IV (20:26)
[2021-06-12] MEDS: 0.9% Normal Saline 1,000 ML 100 ML IV (23:04)
[2021-06-12 23:16] LABS: Bedside Glucose 214 mg/dL (70-110)
[2021-06-13] VITALS (8 sets, daily range): BP systolic 136–158; BP diastolic 64–97; PULSE 60–83; RESP 16–18; TEMP 36.5–37.2; O2SAT 93–95
[2021-06-13 05:58] LABS: Absolute Lymphocyte Count 1.03 X10^3/uL (0.83-4.51); Absolute Neutrophil Count 5.4 X10^3/uL (2.0-7.7); Basophil# 0.03 X10^3/uL; Basophil% 0.4 % (0-1); Eosinophil# 0.03 X10^3/uL; Eosinophils% 0.4 % (0-5); Hematocrit 40.1 % (37-47); Hemoglobin 12.6 g/dL (12.0-15.0); Lymphocyte # 1.03 X10^3/ul (0.83-4.51); Lymphocyte % 14.1 % (19-41); Mean Corp Hgb Conc 31.4 g/dL (32-36); Mean Corpuscular Hgb 26.6 pg (27.0-32.0); Mean Corpuscular Volume 84.6 fL (81-99); Mean Platelet Vol. 10.8 fl (6.2-12.0); Monocyte# 0.79 X10^3/uL; Monocyte% 10.9 % (0-10); NRBC Flagged by Analyzer 0 % (0-5); Neutrophil # 5.37 X10^3/uL (2.7-7.7); Neutrophil % 73.8 % (47-70); Platelet Count 209 K/mm3 (150-450); RBC Distribution Width CV 15.3 % (11.6-14.6); Red Blood Count 4.74 M/mm3 (4.2-5.4); White Blood Count 7.3 K/mm3 (4.4-11.0)
[2021-06-13] MEDS: Dicyclomine 10 MG Capsule 20 MG PO ×2 (05:59→16:14)
[2021-06-13] MEDS: Morphine 2 MG/ML Syringe IV (06:09)
[2021-06-13] MEDS: Insulin Lispro 100 UNIT/ML INSULN.PEN SC ×3 (06:12→17:02)
[2021-06-13 06:21] LABS: Bedside Glucose 207 mg/dL (70-110)
[2021-06-13 06:46] LABS: Anion Gap 7 (5-15); BUN 8 mg/dL (7-18); BUN/Creat Ratio 7.6 RATIO (10-20); Calcium,Total 8.1 mg/dL (8.5-10.1); Chloride 108 mmol/L (98-107); Creatinine, Serum 1.05 mg/dL (0.55-1.02); EST Glomerular Filtration Rate 54 mL/min (>60); Est Glom Filt Rate - Afr Amer 66 mL/min (>60); Estimated Creatinine Clearance 38.29 ml/min; Glucose 208 mg/dL (74-106); Potassium 4.2 mmol/L (3.5-5.1); Sodium Level 140 mmol/L (136-145)
--- NOTE | 2021-06-13 07:37 | PCM.PN.SRG ---
Subjective Subjective Patient has been belching but not really having any flatus yet. Abdominal pain is well controlled and she is in less abdominal pain now than before surgery. No nausea or vomiting. Objective Data Objective Data Vital Signs: Vital Signs Temp Pulse Resp BP Pulse Ox 97.9 F 69 18 147/64 H 94 06/13/21 03:40 06/13/21 03:40 06/13/21 03:40 06/13/21 03:40 06/13/21 06:56 Oxygen Flow Rate (L/min) 1 Oxygen Delivery Method Room Air Weight: 216 lb Body Mass Index (BMI) 38.2 Intake & Output: Intake and Output for Last 24 Hours 06/11/21 06/12/21 06/13/21 23:59 23:59 23:59 Intake Total 1100 / 1100 0 / 0 Output Total 180 / 430 650 / 650 Balance 920 / 670 -650 / -650 Lab / Micro Data Result Diagrams: 06/13/21 05:41 06/13/21 05:41 Labs: Laboratory Results - last 24 hr 06/12/21 09:30: WBC 6.9, RBC 5.42 H, Hgb 14.2, Hct 43.9, MCV 81.0, MCH 26.2 L, MCHC 32.3, RDW Std Deviation 44.4 H, RDW Coeff of Raf 15.3 H, Plt Count 238, MPV 10.8, Immature Gran % (Auto) 0.100, Neut % (Auto) 69.0, Lymph % (Auto) 21.7, [place] % (Auto) 7.9, Eos % (Auto) 0.7, Baso % (Auto) 0.6, Absolute Neuts (auto) 4.7, Absolute Lymphs (auto) 1.49, Nucleated RBC % 0 06/12/21 09:30: Sodium 134 L, Potassium 3.9, Chloride 99, Carbon Dioxide 27.0, Anion Gap 8, BUN 13, Creatinine 1.18 H, Estim Creat Clear Calc 34.08, Est GFR (MDRD) Af Amer 57 L, Est GFR (MDRD) Non-Af 47 L, BUN/Creatinine Ratio 11.0, Glucose 290 H, Calcium 9.5, Total Bilirubin 0.90, AST 75 H, ALT 95 H, Alkaline Phosphatase 89, Total Protein 7.4, Albumin 3.5, Globulin 3.9, Albumin/Globulin Ratio 0.9, Lipase 92 06/12/21 09:33: Urine Color Yellow, Urine Clarity Clear, Urine pH 7.0, Ur Specific [place] 1.010, Urine Protein Negative, Urine Glucose (UA) 250 H, Urine Ketones Negative, Urine Occult Blood Negative, Urine Nitrite Negative, Urine Bilirubin Negative, Urine Urobilinogen 1 H, Ur Leukocyte Esterase Negative, Urine RBC 0 SEEN, Urine WBC 0 SEEN, Ur Squamous Epith Cells 0-5 SEEN, Urine Bacteria 0 SEEN, Urine Mucus 0 SEEN 06/12/21 18:33: POC Glucose 211 H 06/12/21 23:01: POC Glucose 214 H 06/13/21 05:41: WBC 7.3, RBC 4.74, Hgb 12.6, Hct 40.1, MCV 84.6, MCH 26.6 L, MCHC 31.4 L, RDW Std Deviation 46.0 H, RDW Coeff of Raf 15.3 H, Plt Count 209, MPV 10.8, Immature Gran % (Auto) 0.400, Neut % (Auto) 73.8 H, Lymph % (Auto) 14.1 L, [place] % (Auto) 10.9 H, Eos % (Auto) 0.4, Baso % (Auto) 0.4, Absolute Neuts (auto) 5.4, Absolute Lymphs (auto) 1.03, Nucleated RBC % 0 06/13/21 05:41: Sodium 140, Potassium 4.2, Chloride 108 H, Carbon Dioxide 25.0, Anion Gap 7, BUN 8, Creatinine 1.05 H, Estim Creat Clear Calc 38.29, Est GFR (MDRD) Af Amer 66, Est GFR (MDRD) Non-Af 54 L, BUN/Creatinine Ratio 7.6 L, Glucose 208 H, Calcium 8.1 L 06/13/21 05:58: POC Glucose 207 H Radiography Diagnostic Testing: Radiology Impression Abdomen/Pelvis CT 06/12/21 09:16 IMPRESSION: Stable diastases of the rectus muscles in the lower abdomen and upper pelvis containing small bowel loops with air-fluid levels. Increased markings are seen within the mesenteric fat. Early entrapment should be ruled out. Electronically Signed: Nato Kelsey MD at 10:26 EDT , Service support , Physical Exam Const oriented x3 and no apparent distress Resp normal respiratory effort Cardio regular rate and regular rhythm GI soft to palpation Inspection: Negative for abdominal distention Palpation: tender RLQ Assessment & Plan Assessment/Plan (1) Partial small bowel obstruction: PLAN: Patient is not passing flatus yet. I recommend that she chew gum and ambulate and use incentive spirometer. Once the patient starts passing flatus I will start her diet. Pain is well controlled. I have ordered a PPI and Lovenox. Mychal Luque MD Pager: [facility] [address] [place] [address], [address] [place] [address] Office:
[2021-06-13] MEDS: 0.9% Normal Saline 1,000 ML 100 ML IV ×2 (08:10→17:58)
[2021-06-13] MEDS: Lisinopril 20 MG Tablet PO (09:03)
[2021-06-13] MEDS: Pantoprazole Sodium 20 MG Tablet PO (09:03)
[2021-06-13] MEDS: amLODIPine 5 MG Tablet PO (09:03)
[2021-06-13] MEDS: Bisoprolol Fumarate 5 MG Tablet 10 MG PO (09:03)
--- NOTE | 2021-06-13 10:35 | NURSING ---
Pt wanted to perform hygiene protocol after nap.
[2021-06-13 12:10] LABS: Bedside Glucose 165 mg/dL (70-110)
--- NOTE | 2021-06-13 12:10 | CASEMGMT ---
RN CM Face to Face with patient for initial transition planning/care coordination assessment. RN CM introduced self and role at [facility]. Patient lying in bed, alert and oriented. Patient willing to participate in assessment and is able to answer all questions appropriately. Care providers, pharmacy, and demographics verified. Patient wishes to discharge home, denies need for home health at this time. Patient states she has no further needs or concerns at this time. CM to follow for discharge planning needs that may arise. PCP: aMteo Specialists: none Preferred Pharmacy: [facility] Insurance: [employer] [facility] Prescription Benefit: yes Living Will/HPOA: yes, daughter Martha Cardenas LNOK: daughter Living Arrangements: Patient lives with daughter in a 2 story home with bed and bath on first floor. 6 steps and railing to enter the home. Patient states she is independent at home. Transportation: self/daughter DME/HHC: Patient denies DME at home. Patient denies previous HHC or SNF. Disposition Plan: Patient to discharge home with family support and follow-up plans in place. Birdie HAAS, RN, CM
--- NOTE | 2021-06-13 13:31 | NURSING ---
Upon palpation of LLQ patient was able to pass a small flatulent. Notified RN.
--- NOTE | 2021-06-13 15:51 | CHAPLAIN ---
Type of Pastoral Visit _x__ Initial Visit ___ Follow-up Visit ___ On-call Visit ___ General Patient Visit ___ Spiritual Assessment ___ Family Conference ___ Bereavement ___ Rapid Response ___ Code Blue ___ Other (describe below) Pastoral Care Referral From _x__ Patient ___ Family ___ Nurse ___ Physician ___ Lingo Cleaner ___ Customer Advisor ___ Other (describe below) Sacrament/Intervention _x__ Active listening ___ Anointing ___ Islam ___ Bereavement ___ Communion ___ Stephanie exploration ___ ___ Life review _x__ Prayer ___ Reconciliation ___ Sacrament of Sick _x__ Supportive presence ___ Wedding ___ Other (describe below) Pastoral Comments
--- NOTE | 2021-06-13 16:08 | NURSING ---
This RN reviewed SN charting
[2021-06-13 17:40] LABS: Bedside Glucose 178 mg/dL (70-110)
[2021-06-14 00:05] LABS: Bedside Glucose 129 mg/dL (70-110)
[2021-06-14 02:27] VITALS: BP 160/69; PULSE 79; RESP 16; TEMP 36.9; O2SAT 95
[2021-06-14] MEDS: 0.9% Normal Saline 1,000 ML 100 ML IV (03:48)
--- NOTE | 2021-06-14 06:22 | NURSING ---
Pt ambulated in hallway x3 laps around unit.
[2021-06-14] MEDS: Dicyclomine 10 MG Capsule 20 MG PO (06:23)
[2021-06-14] MEDS: Insulin Lispro 100 UNIT/ML INSULN.PEN SC (06:24)
[2021-06-14 06:56] LABS: Bedside Glucose 155 mg/dL (70-110)
--- NOTE | 2021-06-14 07:41 | PCM.PN.SRG ---
Subjective Subjective Patient reports she is passing flatus. Abdominal pain is well controlled. Patient tolerated clears. Objective Data Objective Data Vital Signs: Vital Signs Temp Pulse Resp BP Pulse Ox 98.4 F 79 16 160/69 H 95 06/14/21 02:27 06/14/21 02:27 06/14/21 02:27 06/14/21 02:27 06/14/21 02:27 Oxygen Flow Rate (L/min) 1 Oxygen Delivery Method Room Air Weight: 216 lb 0.002 oz Body Mass Index (BMI) 38.2 Intake & Output: Intake and Output for Last 24 Hours 06/12/21 06/13/21 06/14/21 23:59 23:59 23:59 Intake Total 1100 / 1100 2810 / 2810 1283.33 / 1283.33 Output Total 180 / 430 1900 / 1900 1350 / 1350 Balance 920 / 670 910 / 910 -66.67 / -66.67 Lab / Micro Data Result Diagrams: 06/13/21 05:41 06/13/21 05:41 Labs: Laboratory Results - last 24 hr 06/13/21 11:59: POC Glucose 165 H 06/13/21 17:00: POC Glucose 178 H 06/14/21 00:00: POC Glucose 129 H 06/14/21 06:24: POC Glucose 155 H Physical Exam Const oriented x3 and no apparent distress Cardio regular rate and regular rhythm GI soft to palpation Inspection: Negative for abdominal distention Assessment & Plan Assessment/Plan (1) Partial small bowel obstruction: PLAN: Patient is doing well this morning. She is tolerating clears and passing flatus. I will advance her diet. If she tolerates a diet and her pain is well controlled she may be discharged this afternoon. Mychal Luque MD Pager: [facility] [address] [place] [address], [address] [place] [address] Office:
--- NOTE | 2021-06-14 07:43 | DS.PCM_ITS ---
Providers Date of Admission: 06/12/21 Primary Care Physician: Dr. Abraham Galindo MD Reason For Visit: SMALL BOWEL OBSTRUCTION Diagnosis Discharge Diagnosis (1) Partial small bowel obstruction: Status: Acute Code(s): K56.600 - Partial intestinal obstruction, unspecified as to cause Medications at Discharge Home Medications amlodipine-benazepril 1 cap PO DAILY 07/15/16 bisoprolol fumarate 10 mg PO DAILY 07/15/16 Januvia 100 mg PO DAILY 05/29/21 dicyclomine 20 mg PO BID 06/12/21 glimepiride 4 mg PO BID 06/12/21 metformin 750 mg PO BID 06/12/21 omeprazole 20 mg PO DAILY 06/12/21 acetaminophen [Tylenol] 650 mg PO Q4H PRN PRN #0 tab 06/14/21 oxycodone 5 - 10 mg PO Q4H PRN PRN 5 Days #20 tab 06/14/21 Hospital Course Operations - (Laparoscopic lysis of adhesions) Summary of Care Provided Hospital Course: Patient was admitted to the hospital with a partial small bowel obstruction. She has had multiple partial bowel obstructions in the past. She was taken for laparoscopic lysis of adhesions. Following day she started passing flatus and was started on a clear liquid diet. She was advanced to regular diet once tolerating she was discharged home. Weight / BMI Weight Weight: 216 lb 0.002 oz Body Mass Index (BMI) 38.2 ABG / Lab / Microbiology Data Result Diagrams: 06/13/21 05:41 06/13/21 05:41 Laboratory: Laboratory Results - last 24 hr 06/13/21 11:59: POC Glucose 165 H 06/13/21 17:00: POC Glucose 178 H 06/14/21 00:00: POC Glucose 129 H 06/14/21 06:24: POC Glucose 155 H D/C Instructions Discharge Diet: Light diet - advance as tolerated Discharge Activity: May Shower Lifting Restrictions: 20 lbs for 2 weeks Call your doctor if your incision/area has: Continuous Slow Oozing, Sudden Incre ased Bleeding, Increased Pain/ Swelling, Increased Redness, Foul Smelling Discharge and Swelling at the incision site Call your doctor if you observe: Fever of 101 or Higher Cleanse incision/area with: Soap & Water Additional Dressing/Incision Instructions: Remove clear dressings tomorrow. Remove steri strips in 7-10 days Please Follow Up With: Mychal Luque MD When: Please call to schedule 2 week follow up appointment. [phone] Meaningful Use Info Meaningful Use Diagnoses (Choose all that apply): None applicable Discharge Plan Admission Admit Date/Time: 06/12/21 16:58 Attending Provider: Mychal Luque Primary Care Provider: Abraham Galindo Discharge Orders/Prescriptions Prescriptions: New acetaminophen [Tylenol] 325 mg Tablet 650 mg PO Q4H PRN PRN (Reason: PAIN 1-10/ FEVER) Qty: 0 RF: 0 oxycodone 5 mg Tablet 5 - 10 mg PO Q4H PRN PRN (Reason: Pain Score 4-10) 5 Days Qty: 20 RF: 0 Continued bisoprolol fumarate 10 MG tablet 10 mg PO DAILY RF: 0 amlodipine-benazepril 1 EACH capsule 1 cap PO DAILY RF: 0 Januvia 100 mg Tablet 100 mg PO DAILY RF: 0 dicyclomine 20 mg tablet 20 mg PO BID RF: 0 glimepiride 4 mg tablet 4 mg PO BID RF: 0 omeprazole 20 mg capsule,delayed release(DR/EC) 20 mg PO DAILY RF: 0 metformin 750 mg tablet extended release 24 hr 750 mg PO BID RF: 0 Referrals / Follow Up: Abraham Galindo MD [Primary Care Provider] - Disposition Disposition (needs filled in before D/C Order can be placed): Home, Self Care
[2021-06-14 08:30] VITALS: BP 133/69; PULSE 78; RESP 16; TEMP 36.4; O2SAT 95
[2021-06-14] MEDS: Bisoprolol Fumarate 5 MG Tablet 10 MG PO (10:10)
[2021-06-14] MEDS: Lisinopril 20 MG Tablet PO (10:11)
[2021-06-14] MEDS: amLODIPine 5 MG Tablet PO (10:11)
[2021-06-14] MEDS: Pantoprazole Sodium 20 MG Tablet PO (10:11)
[2021-06-14] MEDS: Enoxaparin 40 MG/0.4 ML Syringe SC (10:11)
[2021-06-14] MEDS: Docusate Sodium 100 MG Capsule PO (10:22)
--- NOTE | 2021-06-14 11:00 | CASEMGMT ---
Palliative screening tool completed for L[facility]/Str[facility] 3. Patient does not qualify for palliative consult.
[2021-06-14 12:46] LABS: Bedside Glucose 183 mg/dL (70-110)
--- NOTE | 2021-06-14 12:46 | PHA.DC.MC ---
Pharmacy Service has performed discharge medication reconciliation and counseling for this patient. 1. OXYCODONE 5-10MG PO Q4H PRN PAIN X 5 DAYS The patient's discharge medication list was reviewed for discrepancies and discrepancies were resolved. Patient would like medication delivered to her room. Spoke with retail, they will deliver. Home Medications amlodipine-benazepril 1 cap PO DAILY 07/15/16 bisoprolol fumarate 10 mg PO DAILY 07/15/16 Januvia 100 mg PO DAILY 05/29/21 dicyclomine 20 mg PO BID 06/12/21 glimepiride 4 mg PO BID 06/12/21 metformin 750 mg PO BID 06/12/21 omeprazole 20 mg PO DAILY 06/12/21 acetaminophen [Tylenol] 650 mg PO Q4H PRN PRN #0 tab 06/14/21 oxycodone 5 - 10 mg PO Q4H PRN PRN 5 Days #20 tab 06/14/21 The patient was counseled on the following discharge medications and changes in medications for homegoing were reviewed. The Reason for Use, instructions for use, and potential side effects were reviewed for all new medications. The patient's questions regarding all of their medications were answered. The patient was able to verbally demonstrate an understanding of their discharge medications.
--- NOTE | 2021-06-17 15:40 | CASEMGMT ---
JUDE AUGUSTINE Discharge Follow Up Phone Call: ALEN: Isaias Strata: 3 Call Date: 06/17/21 Discharge Date: 06/14/21 Time of Call:1540 Duration:<1 min Admitting Dx:SBO JUDE AUGUSTINE attempted to complete follow up phone call after recent hospitalization. No answer and reveiced an unidentified voicemail. No message left.
== END 2021-06-14 13:42 | disposition home or self-care (01) | DRG 337 ==
LOC: ED 13:26 → SDC 13:32 → MS3 17:50
PROVIDERS: Admitting Provider Surgery; Emergency Provider Emergency Medicine; PCP Family Medicine; Visit Provider Surgery
PROC: 0DN84ZZ Release Small Intestine, Percutaneous Endoscopic Approach (ICD-10-PCS; CPT 44202; principal; 2021-06-12 13:30)
DX: K56.600 Partial intestinal obstruction, unspecified as to cause (principal)
CPT/HCPCS: 36415; 74176; 80048; 80053; 81001; 82962; 83690; 85025; 88307; 88313; 94640; 99251; 99283; J7030; A4216; C1760; G0463; J2405

== ENCOUNTER → 2021-09-25 10:22 | Outpatient (CLI) | payer MEDICARE, SELFPAY ==
[2021-09-25 12:01] LABS: Absolute Lymphocyte Count 0.88 X10^3/uL (0.83-4.51); Absolute Neutrophil Count 3.5 X10^3/uL (2.0-7.7); Basophil# 0.07 X10^3/uL; Basophil% 1.4 % (0-1); Eosinophil# 0.07 X10^3/uL; Eosinophils% 1.4 % (0-5); Hematocrit 41.2 % (37-47); Hemoglobin 13.2 g/dL (12.0-15.0); Lymphocyte # 0.88 X10^3/ul (0.83-4.51); Lymphocyte % 17.9 % (19-41); Mean Corpuscular Hgb 26.8 pg (27.0-32.0); Mean Corpuscular Volume 83.6 fL (81-99); Mean Platelet Vol. 12.4 fl (6.2-12.0); Monocyte# 0.38 X10^3/uL; Monocyte% 7.7 % (0-10); NRBC Flagged by Analyzer 0 % (0-5); Neutrophil # 3.49 X10^3/uL (2.7-7.7); Neutrophil % 71.2 % (47-70); Platelet Count 195 K/mm3 (150-450); RBC Distribution Width CV 15.6 % (11.6-14.6); RBC Distribution Width SD 47.2 fl (35.1-43.9); Red Blood Count 4.93 M/mm3 (4.2-5.4); White Blood Count 4.9 K/mm3 (4.4-11.0)
[2021-09-25 13:13] LABS: AST(SGOT) 122 U/L (15-37); Alanine Aminotransfer ALT/SGPT 134 U/L (13-56); Albumin, Serum 3.1 g/dL (3.2-5.0); Alkaline Phosphatase 113 U/L (45-117); Anion Gap 10 (5-15); BUN 15 mg/dL (7-18); BUN/Creat Ratio 15.5 RATIO (10-20); Bilirubin, Direct 0.17 mg/dL (0.00-0.30); CPK Total, Creatine Kinase 160 U/L (26-192); Calcium,Total 9.1 mg/dL (8.5-10.1); Chloride 105 mmol/L (98-107); Cholesterol 150 mg/dL (200); Creatinine, Serum 0.97 mg/dL (0.55-1.02); EST Glomerular Filtration Rate 59 mL/min (>60); Est Glom Filt Rate - Afr Amer 72 mL/min (>60); Globulin 4.2 g/dL (2.2-4.2); Glucose 257 mg/dL (74-106); High Density Lipoprotein 45 mg/dL; Protein, Total 7.3 g/dL (6.4-8.2); Sodium Level 137 mmol/L (136-145); Triglycerides 128 mg/dL; Very Low Density Lipoprotein 26 mg/dL (5-40)
[2021-09-25 13:24] LABS: Microalbumin,Random Urine 12.3 mg/L (NO RANGE EST.); Microalbumin:Creatinine Ratio 8.6 mg/g CRE (<30 mg/g CRE)
== END ==
PROVIDERS: PCP Family Medicine; Referring Provider Family Medicine; Visit Provider Family Medicine
DX: E11.9 Type 2 diabetes mellitus without complications (principal); R25.2 Cramp and spasm
CPT/HCPCS: 36415; 80048; 80061; 80076; 82043; 82550; 82570; 85025

== ENCOUNTER 2021-11-19 11:53 | Emergency (ER) | payer MEDICARE, SELFPAY ==
[2021-11-19 11:53] VITALS: BP 172/84; PULSE 82; RESP 28; TEMP 36.9; O2SAT 98; BMI 37.3
--- NOTE | 2021-11-19 12:15 | CT_ITS ---
STUDY: CT ABDOMEN AND PELVIS WITHOUT CONTRAST REASON FOR EXAM: Female, 76 years old. Lower abdominal pain. History of diverticulitis. Prior partial colonic resection. RADIATION DOSAGE (If Supplied By Facility): CTDIvol = ( 19.82 ) mGy, DLP = ( 1014.99 ) mGycm TECHNIQUE: Transaxial images were obtained from the dome of the diaphragm to the symphysis pubis without oral contrast, and without intravenous contrast. Sagittal and coronal images were reconstructed. Individualized dose optimization techniques were used for this CT. COMPARISON: Comparison is made with prior study dated 06/12/2021. FINDINGS: The visualized lung bases are unremarkable. Coronary artery calcification. There is decreased attenuation of the liver consistent with steatosis. The patient is status post cholecystectomy. Normal spleen. Normal pancreas. Normal bilateral adrenal glands. Normal right kidney. Normal left kidney. Normal visualized stomach. Normal small intestine. Surgical anastomosis at the rectosigmoid junction. The appendix is visualized and appears normal. There is diffuse atherosclerotic calcification of the abdominal aorta and its major visceral branches, without a demonstrated aneurysm. Normal inferior vena cava. Normal retroperitoneum. Normal urinary bladder. There is a small umbilical hernia containing fat. Once again, there is evidence of a diastases of the rectus abdominal musculature along the anterior lower pelvis containing fat. There are diffuse degenerative changes of the visualized lumbar spine. Grade 1 anterolisthesis of L5 on S1 with spondylolysis of the pars interarticularis of the L5 vertebrae. CT/Abdomen/Pelvis without Cont IMPRESSION: Stable examination. No acute abnormality is seen. Electronically Signed: Nato Kelsey MD at 13:12 EST , Service support ,
[2021-11-19 12:22] VITALS: BP 159/96; PULSE 61; RESP 24; O2SAT 97
[2021-11-19 12:25] LABS: Absolute Lymphocyte Count 0.57 X10^3/uL (0.83-4.51); Absolute Neutrophil Count 4.8 X10^3/uL (2.0-7.7); Basophil# 0.04 X10^3/uL; Basophil% 0.7 % (0-1); Eosinophil# 0.02 X10^3/uL; Eosinophils% 0.3 % (0-5); Hematocrit 42.9 % (37-47); Lymphocyte # 0.57 X10^3/ul (0.83-4.51); Lymphocyte % 9.8 % (19-41); Mean Corp Hgb Conc 32.6 g/dL (32-36); Mean Corpuscular Hgb 26.9 pg (27.0-32.0); Mean Corpuscular Volume 82.3 fL (81-99); Mean Platelet Vol. 11.3 fl (6.2-12.0); Monocyte# 0.38 X10^3/uL; Monocyte% 6.5 % (0-10); NRBC Flagged by Analyzer 0 % (0-5); Neutrophil # 4.81 X10^3/uL (2.7-7.7); Neutrophil % 82.4 % (47-70); POSITIVE DIFFERENTIAL YES; Platelet Count 196 K/mm3 (150-450); RBC Distribution Width CV 14.8 % (11.6-14.6); RBC Distribution Width SD 44.4 fl (35.1-43.9); Red Blood Count 5.21 M/mm3 (4.2-5.4); White Blood Count 5.8 K/mm3 (4.4-11.0)
[2021-11-19 12:26] LABS: Differential Indicated SCAN CRITERIA MET
[2021-11-19] MEDS: Morphine 4 MG/ML Syringe IV (12:30)
[2021-11-19] MEDS: 0.9% Normal Saline 1,000 ML 1000 ML IV (12:30)
[2021-11-19] MEDS: Ondansetron 4 MG/2 ML Vial IV (12:30)
[2021-11-19 12:41] LABS: ALB/GLOB Ratio 0.8 RATIO (0.9-2.4); AST(SGOT) 197 U/L (15-37); Alanine Aminotransfer ALT/SGPT 192 U/L (13-56); Albumin, Serum 3.3 g/dL (3.2-5.0); Alkaline Phosphatase 106 U/L (45-117); Anion Gap 9 (5-15); BUN 13 mg/dL (7-18); BUN/Creat Ratio 11.6 RATIO (10-20); Calcium,Total 9.3 mg/dL (8.5-10.1); Chloride 100 mmol/L (98-107); Creatinine, Serum 1.12 mg/dL (0.55-1.02); EST Glomerular Filtration Rate 50 mL/min (>60); Est Glom Filt Rate - Afr Amer 61 mL/min (>60); Globulin 4.1 g/dL (2.2-4.2); Glucose 298 mg/dL (74-106); Potassium 3.4 mmol/L (3.5-5.1); Protein, Total 7.4 g/dL (6.4-8.2); Sodium Level 133 mmol/L (136-145)
[2021-11-19 12:46] LABS: Differential Comment SCANNED
--- NOTE | 2021-11-19 13:23 | ED.VIS.GI ---
HPI HPI - GI History of Present Illness Chief Complaint: Abd Pain Informant: patient Abdominal Pain/Flank Pain Onset: Days (3) Context: Gradual Onset Timing: Continuous Quality: Aching and Sharp Location: LLQ Worsened by: Nothing Relieved by: Nothing Nausea/Vomiting/Emesis GI Symptom: Positive for Nausea and Vomiting Quality: Negative for Coffee ground and Hematemesis Diarrhea/Melena/Hematochezia GI Symptom: Positive for Diarrhea; Negative for Melena and Hematochezia Stool Quality: Positive for Loose; Negative for Black, Maroon and BRB per rectum Associated Symptoms Associated Symptoms: Negative for Dysuria, Frequency and Hematuria Narrative Narrative: Patient presents with left-sided abdominal pain that has been getting worse over the last 3 days. Patient states it has been constant. Patient states it is sharp and aching. Patient states it feels similar to prior episodes of diverticulitis. Patient states nothing makes it better nothing makes it worse. Patient states it is worse over the left lower quadrant. Patient admits to some nausea and vomiting. Patient denies any hematemesis or coffee-ground emesis. Patient admits to some loose diarrhea. Patient denies any melena or hematochezia. Patient denies any dysuria or frequency or hematuria. [facility] Medical History Asthma Cholelithiasis and acute cholecystitis without obstruction Diabetes mellitus type 2, uncomplicated GERD (gastroesophageal reflux disease) Hypertension IBS (irritable bowel syndrome) Non-smoker Obesity Small bowel obstruction due to postoperative adhesions Home Medications amlodipine-benazepril 1 cap PO DAILY 07/15/16 [History Last Taken 06/12/21] bisoprolol fumarate 10 mg PO DAILY 07/15/16 [History Last Taken 06/12/21] Januvia 100 mg PO DAILY 05/29/21 [History Last Taken 06/12/21] dicyclomine 20 mg PO BID 06/12/21 [History Last Taken 06/12/21] glimepiride 4 mg PO BID 06/12/21 [History Last Taken 06/12/21] metformin 750 mg PO BID 06/12/21 [History Last Taken 06/12/21] omeprazole 20 mg PO DAILY 06/12/21 [History Last Taken 06/12/21] acetaminophen [Tylenol] 650 mg PO Q4H PRN PRN #0 tab 06/14/21 [Rx Last Taken Unknown] oxycodone 5 - 10 mg PO Q4H PRN PRN 5 Days #20 tab 06/14/21 [Rx Last Taken Unknown] hydrocodone-acetaminophen 1 tab PO Q6H PRN PRN 3 Days #10 tablet 11/19/21 [Rx Last Taken Unknown] ondansetron 4 mg PO Q8H PRN PRN #10 tab 11/19/21 [Rx Last Taken Unknown] Allergy/AdvReac Type Severity Reaction Status Date / Time adhesive Allergy Other Verified 11/19/21 12:24 Iodinated Contrast Media Allergy Hives Verified 11/19/21 12:24 [CONTRASTS] ciprofloxacin [From Cipro] AdvReac Mild nausea Verified 11/19/21 12:24 metronidazole [From Flagyl] AdvReac Mild nausea Verified 11/19/21 12:24 Family History Mother Multiple sclerosis Father Heart disease Diabetes Surgical History H/O dilation and curettage H/O oophorectomy History of cholecystectomy S/P partial colectomy Status post left foot surgery Social History household members: family and other details: Patient lives with her daughter, son in law. Smoking Status: Never smoker alcohol intake: never substance use type: does not use seatbelt use: always ROS ROS ED Constitutional Constitutional ED: Denies chills or fever(s) Eyes Eyes: Denies blurry vision or change in vision ENT ENT ED: Denies rhinorrhea or sore throat Cardiovascular Cardiovascular: Denies chest pain or palpitations Respiratory/Chest Respiratory/Chest: Reports cough; Denies dyspnea Gastrointestinal Gastrointestinal: Reports abdominal pain, diarrhea, nausea and vomiting; Denies melena Genitourinary Genitourinary ED: Denies dysuria or hematuria Musculoskeletal Musculoskeletal: Reports back pain; Denies neck pain Integumentary Denies abscess or rash Neurologic Neurologic: Denies headache(s) or weakness Allergic/Immunologic Allergic/Immunologic ED: Denies mouth swelling or urticaria EXAM Physical Exam Const Vital Signs: 11/19/21 11:53 11/19/21 12:22 11/19/21 13:56 Temperature 98.4 F Temperature Source Temporal Pulse Rate 82 61 89 Respiratory Rate 28 H 24 H 24 H Blood Pressure 172/84 H 159/96 H 175/86 H Blood Pressure Mean 113 117 115 Pulse Ox 98 97 96 Oxygen Delivery Method Room Air Room Air Room Air Positive well nourished and well developed General Appearance ED: well developed HEENT Reports moist mucous membranes Neck supple and no JVD Resp normal respiratory effort and clear to auscultation bilaterally Cardio regular rate, regular rhythm and no murmurs GI normal to inspection, nondistended, normoactive bowel sounds and non-distended Palpation: soft and tender LLQ; Negative for guarding or rebound tenderness present Extremity normal to inspection General Extremety ED: Negative for edema or tenderness General Extremity: Negative for edema Neuro oriented x3, CN's II-XII intact bilaterally and no sensory deficits noted Sensorium / Orientation: alert Motor Exam: strength 5/5 throughout Psych mental status grossly normal Skin no rashes or lesions noted MDM MDM MDM Narrative Medical decision making narrative: Patient was given IV fluids, morphine, and Zofran here. CBC was normal. Comprehensive metabolic profile showed an elevated glucose of 298. Anion gap was normal. CO2 was normal. CT scan of the abdomen and pelvis was obtained. There is no evidence of diverticulitis. There is no acute abnormality noted. This was interpreted by the radiologist and reviewed by myself. Patient was advised of her findings. Patient was given prescriptions for Zofran and [place]. Patient was instructed to follow-up with her primary care physician in 3 to 5 days. Patient understood and was agreeable with the plan. All questions were answered. Lab Data Attestation: I reviewed the patient's lab results. Labs: Laboratory Results - last 24 hr 11/19/21 11/19/21 12:19 12:19 WBC 5.8 RBC 5.21 Hgb 14.0 Hct 42.9 MCV 82.3 MCH 26.9 L MCHC 32.6 RDW Std Deviation 44.4 H RDW Coeff of Raf 14.8 H Plt Count 196 MPV 11.3 Immature Gran % (Auto) 0.300 Neut % (Auto) 82.4 H Lymph % (Auto) 9.8 L [place] % (Auto) 6.5 Eos % (Auto) 0.3 Baso % (Auto) 0.7 Absolute Neuts (auto) 4.8 Absolute Lymphs (auto) 0.57 L Nucleated RBC % 0 Differential Comment SCANNED Sodium 133 L Potassium 3.4 L Chloride 100 Carbon Dioxide 24.0 Anion Gap 9 BUN 13 Creatinine 1.12 H Estim Creat Clear Calc 35.90 Est GFR (MDRD) Af Amer 61 Est GFR (MDRD) Non-Af 50 L BUN/Creatinine Ratio 11.6 Glucose 298 H Calcium 9.3 Total Bilirubin 1.10 H AST 197 H ALT 192 H Alkaline Phosphatase 106 Total Protein 7.4 Albumin 3.3 Globulin 4.1 Albumin/Globulin Ratio 0.8 L Radiography Diagnostic Testing: Clinical Impression(s) from Imaging Studies Abdomen/Pelvis CT 11/19/21 12:15 IMPRESSION: Stable examination. No acute abnormality is seen. Electronically Signed: Nato Kelsey MD at 13:12 EST , Service support , Discharge Plan Triage Chief Complaint: Abd Pain ED Provider: Bill Aguilar Dx/Rx/DC Orders Clinical Impression: Abdominal pain Instructions: ED Abdominal Pain Unkn Cause Fem Prescriptions: New hydrocodone-acetaminophen [hydrocodone-acetaminophen] 1 TABLET tablet 1 tab PO Q6H PRN PRN (Reason: Pain) 3 Days Qty: 10 RF: 0 ondansetron [ondansetron] 4 MG tablet 4 mg PO Q8H PRN PRN (Reason: Nausea) Qty: 10 RF: 0 No Action bisoprolol fumarate 10 MG tablet 10 mg PO DAILY RF: 0 amlodipine-benazepril 1 EACH capsule 1 cap PO DAILY RF: 0 Januvia 100 mg Tablet 100 mg PO DAILY RF: 0 dicyclomine 20 mg tablet 20 mg PO BID RF: 0 glimepiride 4 mg tablet 4 mg PO BID RF: 0 omeprazole 20 mg capsule,delayed release(DR/EC) 20 mg PO DAILY RF: 0 metformin 750 mg tablet extended release 24 hr 750 mg PO BID RF: 0 acetaminophen [Tylenol] 325 mg Tablet 650 mg PO Q4H PRN PRN (Reason: PAIN 1-10/ FEVER) Qty: 0 RF: 0 oxycodone 5 mg Tablet 5 - 10 mg PO Q4H PRN PRN (Reason: Pain Score 4-10) 5 Days Qty: 20 RF: 0 Primary Care Provider: Abraham Galindo Referrals: Abraham Galindo MD [Primary Care Provider] - 3-5 Days Disposition Disposition: Home, Self Care
[2021-11-19 13:56] VITALS: BP 175/86; PULSE 89; RESP 24; O2SAT 96
[2021-11-19 15:19] VITALS: BP 162/57; PULSE 82; RESP 16; O2SAT 95
== END 2021-11-19 15:29 | disposition home or self-care (01) ==
PROVIDERS: Emergency Provider Emergency Medicine; PCP Family Medicine
DX: R10.9 Unspecified abdominal pain (principal); R11.2 Nausea with vomiting, unspecified; R19.7 Diarrhea, unspecified; E11.65 Type 2 diabetes mellitus with hyperglycemia; I10 Essential (primary) hypertension; K58.9 Irritable bowel syndrome, unspecified; J45.909 Unspecified asthma, uncomplicated; K21.9 Gastro-esophageal reflux disease without esophagitis; E66.9 Obesity, unspecified; Z79.84 Long term (current) use of oral hypoglycemic drugs; Z79.899 Other long term (current) drug therapy; Z87.19 Personal history of other diseases of the digestive system; Z90.49 Acquired absence of other specified parts of digestive tract
CPT/HCPCS: 74176; 80053; 85025; 96361; 96374; 96375; 99283; J7030; A4216; J2405

== ENCOUNTER 2021-12-31 22:22 | Inpatient (IN) | payer MEDICARE, SELFPAY ==
[2021-12-31 21:05] VITALS: BMI 34.6
[2021-12-31 21:41] VITALS: BP 148/94; PULSE 94; RESP 18; TEMP 36.4; O2SAT 96
--- NOTE | 2021-12-31 21:49 | RAD_ITS ---
STUDY: X-RAY - ABDOMEN/PELVIS REASON FOR EXAM: Female, 76 years old. Confirm NG placement TECHNIQUE: Two AP supine views of the abdomen and pelvis. COMPARISON: 11/19/2021 CT FINDINGS: There is an unremarkable bowel gas pattern. There is no demonstrated free abdominal air. The visualized liver, spleen and kidneys are grossly normal in size and morphology. Splenic artery calcifications redemonstrated. There are calcified phleboliths in the pelvis. RAD/Abdomen Single View IMPRESSION: NG tube terminates over the gastric body with sidehole below the diaphragm. Nonobstructive bowel gas pattern. Electronically Signed: Abraham Negrete MD at 23:18 EST ,
[2021-12-31] MEDS: HYDROmorphone 1 MG/ML Syringe IV (22:12)
--- NOTE | 2021-12-31 22:15 | EX.PCM.CON.S ---
Assessment & Plan Assessment/Plan (1) Partial small bowel obstruction: PLAN: Plan we will keep the NG tube start IV hydration. HPI Consult Data Date of Consult: 12/31/21 HPI Narrative HPI Narrative: JASON JONES, Patient is a 76-year-old female presenting today with complaint of nausea vomiting abdominal pain. Patient states that she woke up about 1 AM this morning. She had abdominal pain described as a pressure sensation in her epigastrium. States she went to the bathroom and urinated normally without any issues of distress. About an hour later she started having nausea and vomited. She vomited several times throughout the day. The pain in her abdomen has increased. She states it now feels like it is a cramping sensation along with the pressure. She feels as if she could just vomits she would feel better but states that when she is vomiting is mostly just bile and dry heaves. She has not eaten anything all day. No fevers or chills. She does feel as if her abdomen is distended. She had a history of similar symptoms in the past and was diagnosed with a small bowel obstruction. She has had cholecystectomy, a right hemicolectomy, oophorectomy, hysterectomy, and 4 months ago had a exploratory laparotomy to take down adhesions. Currently rates her pain an 8 out of 10 on the pain scale. She describes nausea. She denies fevers or chills. She did have a bowel movement early this morning and states initially started off as solid but ended up being slightly soft towards the end. She does take MiraLAX daily to help keep her regular. She has not passed gas since the onset of symptoms. COUNTS INCLUDE 234 BEDS AT THE [facility] Medical History Asthma Cholelithiasis and acute cholecystitis without obstruction Diabetes mellitus type 2, uncomplicated GERD (gastroesophageal reflux disease) Hypertension IBS (irritable bowel syndrome) Non-smoker Obesity Small bowel obstruction due to postoperative adhesions Home Medications amlodipine-benazepril 1 cap PO DAILY 07/15/16 [History Last Taken 06/12/21] bisoprolol fumarate 10 mg PO DAILY 07/15/16 [History Last Taken 06/12/21] glimepiride 4 mg PO BID 06/12/21 [History Last Taken 06/12/21] metformin 750 mg PO BID 06/12/21 [History Last Taken 06/12/21] omeprazole 20 mg PO DAILY 06/12/21 [History Last Taken 06/12/21] acetaminophen [Tylenol] 650 mg PO Q4H PRN PRN #0 tab 06/14/21 [Rx Last Taken Unknown] ondansetron 4 mg PO Q8H PRN PRN #10 tab 11/19/21 [Rx Last Taken Unknown] cholecalciferol (vitamin D3) [Vitamin D3] 50 mcg PO DAILY PRN PRN 12/31/21 [History Last Taken Unknown] empagliflozin [Jardiance] 10 mg PO DAILY 12/31/21 [History Last Taken Unknown] magnesium oxide 400 mg PO DAILY 12/31/21 [History Last Taken Unknown] Allergy/AdvReac Type Severity Reaction Status Date / Time adhesive Allergy Other Verified 11/21/21 07:50 Iodinated Contrast Media Allergy Hives Verified 11/21/21 07:50 [CONTRASTS] ciprofloxacin [From Cipro] AdvReac Mild nausea Verified 11/21/21 07:50 metronidazole [From Flagyl] AdvReac Mild nausea Verified 11/21/21 07:50 Family History Mother Multiple sclerosis Father Heart disease Diabetes Surgical History H/O dilation and curettage H/O oophorectomy History of cholecystectomy S/P partial colectomy Status post left foot surgery Social History household members: family and other details: Patient lives with her daughter, son in law. Smoking Status: Never smoker alcohol intake: never substance use type: does not use seatbelt use: always ROS Constitutional Constitutional: Denies chills, fatigue or fever(s) Cardiovascular Cardiovascular: Denies chest pain Respiratory/Chest Respiratory/Chest: Denies shortness of breath at rest Gastrointestinal Gastrointestinal: Reports abdominal pain, bloating, nausea and vomiting Physical Exam Const alert, oriented x3 and no apparent distress General Appearance: cooperative HEENT normocephalic and head/scalp atraumatic Eyes PERRL and EOMs intact bilaterally Resp clear to auscultation bilaterally Cardio Rate: regular rate Rhythm: regular rhythm GI soft to palpation Inspection: abdominal distention Auscultation: hypoactive bowel sounds Palpation: tender White count at [facility] was 7.2 hemoglobin was 14.6 hematocrit 44.1 platelet count was 286,000 Lipase was normal AST elevated at 155, ALT elevated at 202, alkaline phosphatase normal at 99 total bilirubin was 1 BUN 13 creatinine 8.71 sodium 137 potassium 4.3 chloride 97 CO2 at 19 Covid test was negative
[2021-12-31 22:54] VITALS: O2SAT 96
[2021-12-31] MEDS: 0.9% Normal Saline 1,000 ML 85 ML IV (23:10)
--- NOTE | 2021-12-31 23:18 | PCM.PN.HOSP ---
Documented by User: DANIEL Ware 01/01/22 00:40 Subjective Subjective Patient seen and examined. Patient lying in bed no distress noted. NG intact and draining. Requested by Dr. Nicholson of general surgery to be on consult for medical management of patient. Patient admitted with small bowel obstruction. Patient reports a medical history that includes hypertension, diabetes, GERD. Objective Data Objective Data Vital Signs: Vital Signs Temp Pulse Resp BP Pulse Ox 97.5 F L 94 18 148/94 H 96 12/31/21 21:41 12/31/21 21:41 12/31/21 21:41 12/31/21 21:41 12/31/21 21:41 Oxygen Flow Rate (L/min) 1.5 Weight: 202 lb 13.204 oz Body Mass Index (BMI) 34.6 Physical Exam Const alert, oriented x3 and no apparent distress HEENT head/scalp atraumatic Head and Scalp: normocephalic Eyes conjunctivae normal and no scleral icterus Neck full ROM, no lymphadenopathy and supple Resp normal respiratory effort, normal air movement and clear to auscultation bilaterally Effort and Inspection: able to speak in complete sentences and symmetric chest movement Cardio regular rate, regular rhythm, S1 normal heart sound, S2 normal heart sound and peripheral pulses 2+ throughout GI soft to palpation Inspection: abdominal distention Auscultation: hypoactive bowel sounds Palpation: tender Extremity normal to inspection, full ROM and no clubbing, cyanosis or edema Peripheral Pulses: Yes pulses 2+ throughout Skin no rashes or lesions noted, no wounds and skin turgor normal Neuro oriented x3, moves all extremities, no focal motor deficits and no sensory deficits noted Sensorium / Orientation: awake and alert Speech: speech normal Psych affect normal Assessment & Plan Assessment/Plan (1) Partial small bowel obstruction: (2) GERD (gastroesophageal reflux disease): QUALIFIERS: Esophagitis presence: esophagitis presence not specified Qualified Code(s): K21.9 - Gastro-esophageal reflux disease without esophagitis (3) Diabetes mellitus type 2, uncomplicated: QUALIFIERS: Diabetes mellitus mcfp insulin use: without intermediate designer use Qualified Code(s): E11.9 - Type 2 diabetes mellitus without complications (4) Hypertension: QUALIFIERS: Hypertension type: essential hypertension Qualified Code(s): I10 - Essential (primary) hypertension PLAN: 1. Partial small bowel obstruction -NG tube in place -General surgery to manage, admitted by Dr. Nicholson -Pain management and antiemetics ordered per surgery 2. Diabetes mellitus type 2 -Due to patient small bowel obstruction we will hold all p.o. medications at this time -Every 6 hours blood sugars with sliding scale insulin ordered -Hypoglycemia protocol ordered 3. Elevated AST, ALT -BMP ordered daily -Reviewed patient's past labs, appears patient has chronically elevated AST and ALT. 4. Hypertension -Due to patient small bowel obstruction we will hold all p.o. medications at this time -Metoprolol 5 mg IV every 6 hours scheduled -Vital signs per protocol, currently stable 5. GERD -Patient on omeprazole at home, will transition to IV pantoprazole while n.p.o. DVT prophylaxis-SCDs This patient was seen by DANIEL Ware under the supervision of Dr. Adan. 14 minutes spent in clinical coordination of patient's plan of care. Documented by User: Dr. Julius Guallpa MD 01/01/22 01:12 Charges/Coding Addendum Addendum: Patient was seen and examined independently. I agree with assessment and plan by DANIEL Ware In summary patient is 76-year-old lady that internal medicine service has been consulted for management of chronic medical conditions which include hypertension and diabetes in the setting of small bowel obstruction. Consulting physician is Dr. Nicholson, general surgery. Patient is alert and oriented x3. Heart sounds S1-S2 present. Abdomen soft nontender nondistended. NG tube present. Extremities no edema. Hypertension Blood pressure is not within goal Patient is n.p.o. with G-tube. Hold home p.o. antihypertensive medication. Scheduled metoprolol IV ordered. As needed hydralazine IV ordered. Trend blood pressure and adjust blood pressure medications. Diabetes mellitus Review of Accu-Chek showed blood glucose of 163, mild hyperglycemia. Patient is currently n.p.o. because of partial small bowel obstruction. Hold home Jardiance; glimepiride and Metformin. Accu-Chek with correction scale insulin ordered. Partial small bowel obstruction: KUB was independently visualized. NG tube in the gastric body. Management by primary. DVT Prophylaxis: SCD Visit Charges Inpatient E&M: 58850 Subs Hosp L2
[2021-12-31 23:30] VITALS: PULSE 94
[2021-12-31 23:31] LABS: Bedside Glucose 163 mg/dL (70-110)
[2021-12-31 23:35] VITALS: BP 148/94; PULSE 94
[2021-12-31] MEDS: Metoprolol Tartrate 5 MG/5 ML Vial IV (23:35)
[2021-12-31] MEDS: Insulin Lispro 100 UNIT/ML INSULN.PEN SC (23:35)
[2022-01-01] VITALS (16 sets, daily range): BP systolic 147–163; BP diastolic 71–84; PULSE 60–91; RESP 16–18; TEMP 36.2–36.9; O2SAT 95–97
--- NOTE | 2022-01-01 00:19 | PCS.PANDOC ---
PANDEMIC DOCUMENTATION INITIATED: Date: 12/31/2020 Time: 2300
--- NOTE | 2022-01-01 05:55 | RAD_ITS ---
STUDY: X-RAY - ABDOMEN/PELVIS REASON FOR EXAM: Female, 76 years old. Partial small bowel obstruction TECHNIQUE: Two AP supine views of the abdomen and pelvis. COMPARISON: 12/31/2021 FINDINGS: Enteric catheter again terminates over the gastric body. There is a nonobstructive bowel gas pattern. There is no demonstrated free abdominal air. The visualized liver, spleen and kidneys are grossly normal in size and morphology. Normal soft tissue structures. RAD/Abdomen Single View (Portable) IMPRESSION: No acute abnormal finding in the abdomen or pelvis. Electronically Signed: Abraham Negrete MD at 7:41 EST ,
[2022-01-01] MEDS: Insulin Lispro 100 UNIT/ML INSULN.PEN SC ×2 (06:13→21:43)
[2022-01-01] MEDS: Metoprolol Tartrate 5 MG/5 ML Vial IV ×2 (06:13→11:45)
[2022-01-01 06:21] LABS: Bedside Glucose 156 mg/dL (70-110)
[2022-01-01 06:26] LABS: Absolute Lymphocyte Count 1.25 X10^3/uL (0.83-4.51); Basophil# 0.06 X10^3/uL; Eosinophil# 0.03 X10^3/uL; Eosinophils% 0.5 % (0-5); Hematocrit 41.1 % (37-47); Hemoglobin 13.5 g/dL (12.0-15.0); Lymphocyte # 1.25 X10^3/ul (0.83-4.51); Lymphocyte % 20.6 % (19-41); Mean Corp Hgb Conc 32.8 g/dL (32-36); Mean Corpuscular Hgb 28.6 pg (27.0-32.0); Mean Corpuscular Volume 87.1 fL (81-99); Mean Platelet Vol. 11.6 fl (6.2-12.0); Monocyte# 0.71 X10^3/uL; Monocyte% 11.7 % (0-10); NRBC Flagged by Analyzer 0 % (0-5); Neutrophil # 4.01 X10^3/uL (2.7-7.7); Neutrophil % 65.9 % (47-70); Platelet Count 246 K/mm3 (150-450); RBC Distribution Width CV 17.2 % (11.6-14.6); RBC Distribution Width SD 54.5 fl (35.1-43.9); Red Blood Count 4.72 M/mm3 (4.2-5.4); White Blood Count 6.1 K/mm3 (4.4-11.0)
[2022-01-01 06:45] LABS: Anion Gap 7 (5-15); BUN 16 mg/dL (7-18); BUN/Creat Ratio 18.9 RATIO (10-20); Chloride 108 mmol/L (98-107); Creatinine, Serum 0.85 mg/dL (0.55-1.02); EST Glomerular Filtration Rate 69 mL/min (>60); Est Glom Filt Rate - Afr Amer 84 mL/min (>60); Estimated Creatinine Clearance 49.38 ml/min; Glucose 159 mg/dL (74-106); Potassium 3.8 mmol/L (3.5-5.1); Sodium Level 140 mmol/L (136-145)
--- NOTE | 2022-01-01 07:39 | RAD_ITS ---
CLINICAL HISTORY: Female, 76 years old. Partial small bowel obstruction. PROCEDURE: GASTROGRAFIN small bowel follow-through examination. TECHNIQUE: (All elements of maximal sterile barrier technique followed, including US elements as applicable) A mixture of 120 cc of GASTROGRAFIN with the 120 cc of water was injected through the indwelling nasogastric tube. A small bowel follow-through examination was then obtained. 14 images were obtained. Gas and moderate amount of fecal material are seen throughout the colon. The gas pattern is otherwise unremarkable. GASTROGRAFIN was introduced through the indwelling nasogastric tube. There is no evidence of small bowel obstruction. Findings suggestive of a 4.5 cm x 4.6 cm diverticulum in the medial aspect of the second portion of the duodenum. RAD/Small Bowel Series Only IMPRESSION: No evidence of a small bowel obstruction. Findings suggestive of a diverticulum in the medial second portion of the duodenum. Electronically Signed: Nato Kelsey MD at 12:20 EST ,
--- NOTE | 2022-01-01 07:42 | PCM.PN.SRG ---
Subjective Subjective Patient by having abdominal pain this morning. She does report a small amount of flatus. Objective Data Objective Data Vital Signs: Vital Signs Temp Pulse Resp BP Pulse Ox 97.9 F 73 18 159/76 H 95 01/01/22 07:38 01/01/22 07:38 01/01/22 07:38 01/01/22 07:38 01/01/22 07:38 Oxygen Flow Rate (L/min) 2 Oxygen Delivery Method Room Air Weight: 202 lb 13.204 oz Body Mass Index (BMI) 34.6 Intake & Output: Intake and Output for Last 24 Hours 12/30/21 12/31/21 01/01/22 23:59 23:59 23:59 Intake Total 70 / 70 Output Total 600 / 600 Balance -530 / -530 Lab / Micro Data Result Diagrams: 01/01/22 05:35 01/01/22 05:35 Labs: Laboratory Results - last 24 hr 12/31/21 23:24: POC Glucose 163 H 01/01/22 05:35: WBC 6.1, RBC 4.72, Hgb 13.5, Hct 41.1, MCV 87.1, MCH 28.6, MCHC 32.8, RDW Std Deviation 54.5 H, RDW Coeff of Raf 17.2 H, Plt Count 246, MPV 11.6, Immature Gran % (Auto) 0.300, Neut % (Auto) 65.9, Lymph % (Auto) 20.6, Green % (Auto) 11.7 H, Eos % (Auto) 0.5, Baso % (Auto) 1.0, Absolute Neuts (auto) 4.0, Absolute Lymphs (auto) 1.25, Nucleated RBC % 0 01/01/22 05:35: Sodium 140, Potassium 3.8, Chloride 108 H, Carbon Dioxide 25.0, Anion Gap 7, BUN 16, Creatinine 0.85, Estim Creat Clear Calc 49.38, Est GFR (MDRD) Af Amer 84, Est GFR (MDRD) Non-Af 69, BUN/Creatinine Ratio 18.9, Glucose 159 H, Calcium 9.0 01/01/22 06:12: POC Glucose 156 H Radiography Diagnostic Testing: Radiology Impression KUB X-Ray 12/31/21 21:49 IMPRESSION: NG tube terminates over the gastric body with sidehole below the diaphragm. Nonobstructive bowel gas pattern. Electronically Signed: Abraham Negrete MD at 23:18 EST , Physical Exam Const oriented x3 and no apparent distress Resp normal respiratory effort GI soft to palpation Inspection: Negative for abdominal distention Assessment & Plan Assessment/Plan (1) Partial small bowel obstruction: PLAN: The patient has NG tube in which is having a large amount of bilious drainage. He does report a small bowel flatus and her x-ray this morning shows a nonobstructive pattern. I will order a small bowel follow-through with Gastrografin today. Mychal Luque MD Pager: [facility] [address] [place] [address], [address] [place] [address] Office:
--- NOTE | 2022-01-01 08:29 | NURSING ---
Pt ambulatory to the restroom independently. Pt reports urine output and flatulence. Primary RN notified.
[2022-01-01] MEDS: NYSTATIN 500,000 UNIT/5 ML UDC 500000 UNIT PO ×4 (10:04→21:43)
[2022-01-01] MEDS: Ondansetron 4 MG/2 ML Vial IV (10:07)
[2022-01-01] MEDS: 0.9% Saline Lock 10 ML Syringe IV ×2 (10:07→11:45)
--- NOTE | 2022-01-01 12:49 | CHAPLAIN ---
Type of Pastoral Visit _x__ Initial Visit ___ Follow-up Visit ___ On-call Visit ___ General Patient Visit ___ Spiritual Assessment ___ Family Conference ___ Bereavement ___ Rapid Response ___ Code Blue ___ Other (describe below) Pastoral Care Referral From _x__ Patient ___ Family ___ Nurse ___ Physician ___ Masking Machine Operator ___ Buffing Machine Operator Semiautomatic ___ Other (describe below) Sacrament/Intervention _x__ Active listening ___ Anointing ___ Alevism ___ Bereavement ___ Communion ___ Stephanie exploration ___ _x__ Life review _x__ Prayer ___ Reconciliation ___ Sacrament of Sick _x__ Supportive presence ___ Wedding ___ Other (describe below) Pastoral Comments patient remembers this cell tuber hand from a previous admission; pt reports improvement this morning and hopeful; pt family is out of town but she states that she feels safe and well cared for at the hospital
--- NOTE | 2022-01-01 13:15 | CASEMGMT ---
RN CM INSPECTOR EXHAUST EMISSIONS CM to room to meet with patient for initial transition planning/care coordination assessment. JUDE AUGUSTINE introduced self and role at [facility]. Pt voices understanding and consents to assessment at this time. Pt resting in bed in no distress at this time. Pt is A/O at this time and answers all questions appropriately. Care providers, pharmacy, and demographics verified/updated at this time. PCP: Dr Galindo Specialists:none Preferred Pharmacy: [facility] Retail Insurance: [employer] Prescription Benefit: Yes Living Will/HPOA: Pt does not currently have LW/HCPOA and declines info at this time. LNOK: Daughter, Martha. Son who lives in [place] Living Arrangements: Lives w/dtr, Martha, and son-in-law in 2-story home w/5-6 steps to enter. FFSU. Independent w/ADL's and IADL's. Transportation: Pt states drives self and states no transportation concerns at this time. Dtr and BRIAN also drive. Dtr and BRIAN are in [place] currently and will be returning home Thursday. Pt has 2 granddaughters that live in [place], [place], and can take pt home when d/c'd from the hospital if it is before Thursday. DME: Has a functioning glucometer and supplies. Pt states no need for further DME at this time. HHC/SNF: No hx of either. Denies need of HHC. Pt wishes to return home and states has no concerns with going home at time of discharge. CM to follow for any discharge planning/needs. Pt voices no concerns/needs at this time. Advised pt to ask for CM if any questions/concerns/needs arise. Voices understanding. PLAN: Home w/family support and discharge plans in place. Reina HAAS RN, CM
[2022-01-01] MEDS: 0.9% Normal Saline 1,000 ML 85 ML IV (13:22)
--- NOTE | 2022-01-01 13:22 | PCM.PN.HOSP ---
Documented by User: Shaina Mitchell NP, MATERIAL YARD CLERK-C 01/01/22 13:29 Subjective Subjective Patient seen and examined. NG in place. Denies further abdominal pain. Reports 3 episodes of stool. Requesting water. Objective Data Objective Data Vital Signs: Vital Signs Temp Pulse Resp BP Pulse Ox 97.2 F L 80 18 156/75 H 97 01/01/22 11:44 01/01/22 11:45 01/01/22 11:44 01/01/22 11:44 01/01/22 11:44 Oxygen Flow Rate (L/min) 2 Oxygen Delivery Method Room Air Weight: 202 lb 13.204 oz Body Mass Index (BMI) 34.6 Intake & Output: Intake and Output for Last 24 Hours 12/30/21 12/31/21 01/01/22 23:59 23:59 23:59 Intake Total 310 / 310 Output Total 1000 / 1000 Balance -690 / -690 Lab / Micro Data Result Diagrams: 01/01/22 05:35 01/01/22 05:35 Labs: Laboratory Results - last 24 hr 12/31/21 23:24: POC Glucose 163 H 01/01/22 05:35: WBC 6.1, RBC 4.72, Hgb 13.5, Hct 41.1, MCV 87.1, MCH 28.6, MCHC 32.8, RDW Std Deviation 54.5 H, RDW Coeff of Raf 17.2 H, Plt Count 246, MPV 11.6, Immature Gran % (Auto) 0.300, Neut % (Auto) 65.9, Lymph % (Auto) 20.6, [place] % (Auto) 11.7 H, Eos % (Auto) 0.5, Baso % (Auto) 1.0, Absolute Neuts (auto) 4.0, Absolute Lymphs (auto) 1.25, Nucleated RBC % 0 01/01/22 05:35: Sodium 140, Potassium 3.8, Chloride 108 H, Carbon Dioxide 25.0, Anion Gap 7, BUN 16, Creatinine 0.85, Estim Creat Clear Calc 49.38, Est GFR (MDRD) Af Amer 84, Est GFR (MDRD) Non-Af 69, BUN/Creatinine Ratio 18.9, Glucose 159 H, Calcium 9.0 01/01/22 06:12: POC Glucose 156 H Radiography Diagnostic Testing: Radiology Impression KUB X-Ray 12/31/21 21:49 IMPRESSION: NG tube terminates over the gastric body with sidehole below the diaphragm. Nonobstructive bowel gas pattern. Electronically Signed: Abraham Negrete MD at 23:18 EST , KUB X-Ray 01/01/22 05:55 IMPRESSION: No acute abnormal finding in the abdomen or pelvis. Electronically Signed: Abraham Negrete MD at 7:41 EST , Small Bowel X-Ray 01/01/22 07:39 IMPRESSION: No evidence of a small bowel obstruction. Findings suggestive of a diverticulum in the medial second portion of the duodenum. Electronically Signed: Nato Kelsey MD at 12:20 EST , Physical Exam Const alert, oriented x3 and no apparent distress Orientation / Consciousness: awake, oriented to person, oriented to place and oriented to time HEENT normocephalic Mouth: dry mucous membranes Eyes PERRL, EOMs intact bilaterally and conjunctivae normal Neck no lymphadenopathy Resp normal respiratory effort and clear to auscultation bilaterally Cardio regular rate, regular rhythm and no murmurs Peripheral Pulses: pulses 2+ throughout GI normal to inspection, nondistended, normoactive bowel sounds, non-tender and non-distended Extremity normal to inspection Skin no rashes or lesions noted Lesions: no lesions Rashes: no rashes Trauma: no lacerations or abrasions Neuro CN's II-XII intact bilaterally, no focal motor deficits, no sensory deficits noted and deep tendon reflexes 2+ bilaterally Psych mental status grossly normal and affect normal Assessment & Plan Assessment/Plan (1) Partial small bowel obstruction: PLAN: 1. Partial small bowel obstruction-management per surgery. NG in place. Patient has had several bowel movements. Denies nausea, vomiting, abdominal pain. Repeat x-ray this morning showed no bowel obstruction. 2. Type 2 diabetes mellitus-oral regimen on hold. Accu-Cheks with sliding scale insulin. 3. Hypertension-stable, continue home regimen. 4. GERD-continue PPI. DVT prophylaxis- SCDs This patient was seen by DANIEL Escalante under the supervision of Dr. Escobedo. Time spent examining patient, reviewing data and subsequent management of care: 11 Minutes Documented by User: Dr. Aj Escobedo MD 01/01/22 17:02 Objective Data Lab / Micro Data Result Diagrams: 01/01/22 05:35 01/01/22 05:35 Charges/Coding Addendum Addendum: Dr. Escobedo: I personally reviewed the chart and examined the patient, and agree with the above findings. 76-year-old female with a history of a cholecystectomy and new neurectomy presents with recurrent small bowel obstruction. She states that she had a small bowel obstruction back in May and had an exploratory laparotomy with lysis of adhesions. This time around it appears that her small bowel obstruction is resolving with conservative management she says that she has had 3 bowel movements. General surgery was removed her NG tube and she is currently on a clear liquid diet. Small bowel follow-through obtained today does not show any signs of a small bowel obstruction. Would recommend advancing diet as able and plan for possible discharge in the next 24 to hours. From a medical standpoint is when she is able to eat and drink she can resume her home blood pressure medications. Would hold her diabetic medications until discharge and would continue with a sliding scale insulin. Clinical care time and all aspects patient care: 15 minutes Visit Charges Inpatient E&M: 72586 [facility] Hosp L2
[2022-01-01 14:01] LABS: Bedside Glucose 137 mg/dL (70-110)
[2022-01-01] MEDS: BENZOCAINE/MENTHOL 1 LOZENGE MUCOUS MEM (14:59)
[2022-01-01 15:16] LABS: Bacteria 0 SEEN /hpf (None Seen); Mucous, Urine 0 SEEN /hpf (<or=2+); Red Blood Cells-Urine 0 SEEN /hpf (0-5)
[2022-01-01 15:54] LABS: Color, Urine Yellow (Yellow); Glucose, Dipstick 1000 mg/dl (Normal); Leukocyte Esterase-Dipstick 25 /ul (Negative); Nitrite-Dipstick Negative (Negative); Occult Blood-Urine Negative /ul (Negative); Protein-Dipstick Negative (Negative); Specific Gravity, Urine 1.025 (1.002-1.030); Urine Bilirubin Dipstick Negative (Negative); Urine Clarity Clear (Clear); Urine Urobilinogen Normal (Normal)
[2022-01-01 16:22] LABS: Ketone-Dipstick 150 mg/dl (Negative)
[2022-01-01 16:26] LABS: Squamous Epithelial Cells - UA 0-5 SEEN /hpf (5-10); White Blood Cells 0-5 SEEN /hpf (0-5)
[2022-01-01 17:16] LABS: Bedside Glucose 115 mg/dL (70-110)
[2022-01-01] MEDS: Bisoprolol Fumarate 5 MG Tablet 10 MG PO (18:17)
[2022-01-01 23:40] LABS: Bedside Glucose 150 mg/dL (70-110)
[2022-01-02 02:02] VITALS: PULSE 66
[2022-01-02 02:20] VITALS: BP 116/68; PULSE 66; RESP 16; TEMP 36.6; O2SAT 96
[2022-01-02 05:04] VITALS: PULSE 68
[2022-01-02] MEDS: Insulin Lispro 100 UNIT/ML INSULN.PEN SC (06:28)
--- NOTE | 2022-01-02 06:40 | DS.PCM_ITS ---
Providers Date of Admission: 12/31/21 Primary Care Physician: Dr. Abraham Galindo MD Reason For Visit: SMALL BOWEL OBSTRUCTION Diagnosis Discharge Diagnosis (1) Partial small bowel obstruction: Status: Acute Code(s): K56.600 - Partial intestinal obstruction, unspecified as to cause Medications at Discharge Home Medications amlodipine-benazepril 1 cap PO DAILY 07/15/16 bisoprolol fumarate 10 mg PO DAILY 07/15/16 glimepiride 4 mg PO BID 06/12/21 metformin 750 mg PO BID 06/12/21 omeprazole 20 mg PO DAILY 06/12/21 acetaminophen [Tylenol] 650 mg PO Q4H PRN PRN #0 tab 06/14/21 ondansetron 4 mg PO Q8H PRN PRN #10 tab 11/19/21 Jardiance 10 mg PO DAILY 12/31/21 cholecalciferol (vitamin D3) [Vitamin D3] 50 mcg PO DAILY PRN PRN 12/31/21 magnesium oxide 400 mg PO DAILY 12/31/21 Hospital Course Summary of Care Provided Hospital Course: patient was admitted with partial bowel obstruction which resolved quickly with NG decompression. Patient had small bowel follow though which showed passage of conrast to colon. following morning after tolerating clears her diet was advanced Physical Exam Const no apparent distress Resp normal respiratory effort Cardio regular rate and regular rhythm GI soft to palpation and non-tender Weight / BMI Weight Weight: 202 lb 13.204 oz Body Mass Index (BMI) 34.6 ABG / Lab / Microbiology Data Result Diagrams: 01/01/22 05:35 01/01/22 05:35 Laboratory: Laboratory Results - last 24 hr 01/01/22 05:35: Sodium 140, Potassium 3.8, Chloride 108 H, Carbon Dioxide 25.0, Anion Gap 7, BUN 16, Creatinine 0.85, Estim Creat Clear Calc 49.38, Est GFR (MDR D) Af Amer 84, Est GFR (MDRD) Non-Af 69, BUN/Creatinine Ratio 18.9, Glucose 159 H, Calcium 9.0 01/01/22 11:37: POC Glucose 137 H 01/01/22 15:00: Urine Color Yellow, Urine Clarity Clear, Urine pH 5.0, Ur Speci fic [place] 1.025, Urine Protein Negative, Urine Glucose (UA) 1000 H, Urine Ketones 150 A*, Urine Occult Blood Negative, Urine Nitrite Negative, Urine Dereck irubin Negative, Urine Urobilinogen Normal, Ur Leukocyte Esterase 25 H, Urine RBC 0 SEEN, Urine WBC 0-5 SEEN, Ur Squamous Epith Cells 0-5 SEEN, Urine Bacteria 0 SEEN, Urine Mucus 0 SEEN 01/01/22 16:40: POC Glucose 115 H 01/01/22 21:42: POC Glucose 150 H Radiography Diagnostic Testing: Radiology Impression KUB X-Ray 01/01/22 05:55 IMPRESSION: No acute abnormal finding in the abdomen or pelvis. Electronically Signed: Abraham Negrete MD at 7:41 EST , Small Bowel X-Ray 01/01/22 07:39 IMPRESSION: No evidence of a small bowel obstruction. Findings suggestive of a diverticulum in the medial second portion of the duodenum. Electronically Signed: Nato Kelsey MD at 12:20 EST , D/C Instructions Discharge Diet: Light diet - advance as tolerated Discharge Activity: Return to Normal Activity Call your doctor if you observe: Fever of 101 or Higher Please Follow Up With: Mychal Luque MD When: as needed, call for appt if abdominal pain returns [phone] Meaningful Use Info Meaningful Use Diagnoses (Choose all that apply): None applicable Discharge Plan Admission Admit Date/Time: 12/31/21 22:22 Attending Provider: Aj Escobedo Primary Care Provider: Abraham Galindo Discharge Orders/Prescriptions Prescriptions: Continued bisoprolol fumarate 10 MG tablet 10 mg PO DAILY RF: 0 amlodipine-benazepril 1 EACH capsule 1 cap PO DAILY RF: 0 glimepiride 4 mg tablet 4 mg PO BID RF: 0 omeprazole 20 mg capsule,delayed release(DR/EC) 20 mg PO DAILY RF: 0 metformin 750 mg tablet extended release 24 hr 750 mg PO BID RF: 0 acetaminophen [Tylenol] 325 mg Tablet 650 mg PO Q4H PRN PRN (Reason: PAIN 1-10/ FEVER) Qty: 0 RF: 0 ondansetron 4 MG tablet 4 mg PO Q8H PRN PRN (Reason: Nausea) Qty: 10 RF: 0 Jardiance 10 mg tablet 10 mg PO DAILY RF: 0 cholecalciferol (vitamin D3) [Vitamin D3] 50 mcg (2,000 unit) Capsule 50 mcg PO DAILY PRN PRN (Reason: supplement) RF: 0 magnesium oxide 400 mg magnesium Capsule 400 mg PO DAILY RF: 0 Referrals / Follow Up: Abraham Galindo MD [Primary Care Provider] - Disposition Disposition (needs filled in before D/C Order can be placed): Home, Self Care
[2022-01-02 06:50] LABS: Bedside Glucose 163 mg/dL (70-110)
[2022-01-02 07:46] VITALS: O2SAT 95
[2022-01-02 08:01] VITALS: PULSE 80
[2022-01-02 08:05] VITALS: BP 135/70; PULSE 80; RESP 16; TEMP 36.4; O2SAT 95
[2022-01-02] MEDS: Bisoprolol Fumarate 5 MG Tablet 10 MG PO (08:06)
[2022-01-02] MEDS: Lisinopril 20 MG Tablet PO (08:06)
[2022-01-02] MEDS: NYSTATIN 500,000 UNIT/5 ML UDC 500000 UNIT PO (08:06)
[2022-01-02] MEDS: amLODIPine 5 MG Tablet PO (08:06)
[2022-01-02] MEDS: Glimepiride 4 MG Tablet PO (08:10)
[2022-01-02] MEDS: Magnesium Chloride 64 MG Delay Rel.Tablet 128 MG PO (08:10)
[2022-01-02] MEDS: Pantoprazole Sodium 20 MG Tablet PO (09:10)
[2022-01-02] MEDS: Empagliflozin 10 MG Tablet PO (09:10)
[2022-01-02] MEDS: METFORMIN HCL 750 MG TAB.ER.24H PO (09:17)
--- NOTE | 2022-01-02 09:31 | PN.HOSP_ITS ---
Subjective Subjective Feels much better today, still having bowel movements and denies any nausea or abdominal pain. She did tolerate a regular breakfast. She will need to continue to advance her diet slowly at home and have outpatient follow-up with general surgery Objective Data Objective Data Vital Signs: Vital Signs Temp Pulse Resp BP Pulse Ox 97.8 F 68 16 116/68 95 01/02/22 02:20 01/02/22 05:04 01/02/22 02:20 01/02/22 02:20 01/02/22 07:46 Oxygen Flow Rate (L/min) 2 Oxygen Delivery Method Room Air Weight: 202 lb 13.204 oz Body Mass Index (BMI) 34.6 Intake & Output: Intake and Output for Last 24 Hours 01/01/22 01/02/22 01/03/22 03:59 03:59 03:59 Intake Total 1896.17 / 1896.17 Output Total 1000 / 1000 Balance 896.17 / 896.17 Lab / Micro Data Result Diagrams: 01/01/22 05:35 01/01/22 05:35 Labs: Laboratory Results - last 24 hr 01/01/22 11:37: POC Glucose 137 H 01/01/22 15:00: Urine Color Yellow, Urine Clarity Clear, Urine pH 5.0, Ur Specific [place] 1.025, Urine Protein Negative, Urine Glucose (UA) 1000 H, Urine Ketones 150 A*, Urine Occult Blood Negative, Urine Nitrite Negative, Urine Bilirubin Negative, Urine Urobilinogen Normal, Ur Leukocyte Esterase 25 H, Urine RBC 0 SEEN, Urine WBC 0-5 SEEN, Ur Squamous Epith Cells 0-5 SEEN, Urine Bacteria 0 SEEN, Urine Mucus 0 SEEN 01/01/22 16:40: POC Glucose 115 H 01/01/22 21:42: POC Glucose 150 H 01/02/22 06:26: POC Glucose 163 H Radiography Diagnostic Testing: Radiology Impression Small Bowel X-Ray 01/01/22 07:39 IMPRESSION: No evidence of a small bowel obstruction. Findings suggestive of a diverticulum in the medial second portion of the duodenum. Electronically Signed: Nato Kelsey MD at 12:20 EST , Physical Exam Const alert, oriented x3 and no apparent distress General Appearance: cooperative HEENT normocephalic and moist oral mucous membranes Eyes PERRL, EOMs intact bilaterally and conjunctivae normal Neck supple and no JVD Resp normal respiratory effort, no retractions, no use of accessory muscles and clear to auscultation bilaterally Auscultation: Negative for crackles, rales, rhonchi or wheezes Cardio regular rate, regular rhythm, S1 normal heart sound, S2 normal heart sound and no murmurs GI soft to palpation, non-tender and non-distended; Negative for hepatosplenomegaly Extremity no clubbing, cyanosis or edema Skin no rashes or lesions noted Neuro no focal motor deficits and no sensory deficits noted Psych affect normal Appearance: appropriate Assessment & Plan Assessment/Plan (1) Partial small bowel obstruction: PLAN: 1. Partial small bowel obstruction -management per surgery. ?NG has been removed and she was advancing her diet. ?She is had bowel movements today and is tolerating regular diet ?From medical standpoint she is okay for discharge ?Small bowel follow-through did not show any obstruction 2. Type 2 diabetes mellitus ?Renal function is stable, she can resume her home diabetic medications on discharge ?I did discuss with her the need to check her blood sugars as her diet will be modified she may be running a little bit low at which point I do recommend that she talk to her PCP as an outpatient for management 3. Hypertension ?Blood pressures are stable ?Continue with her home blood pressure medications 4. GERD ?Stable -continue PPI. DVT: SCDs Charges/Coding Visit Charges Inpatient E&M: 55733 Subs Hosp L2
== END 2022-01-02 09:20 | disposition home or self-care (01) | DRG 390 ==
PROVIDERS: Surgery; Admitting Provider Surgery; PCP Family Medicine; Visit Provider Family Medicine
DX: K56.600 Partial intestinal obstruction, unspecified as to cause (principal); E11.65 Type 2 diabetes mellitus with hyperglycemia; Z93.1 Gastrostomy status; I10 Essential (primary) hypertension; K21.9 Gastro-esophageal reflux disease without esophagitis; J45.909 Unspecified asthma, uncomplicated; K58.9 Irritable bowel syndrome, unspecified; Z79.84 Long term (current) use of oral hypoglycemic drugs; Z90.49 Acquired absence of other specified parts of digestive tract; E66.9 Obesity, unspecified; Z79.899 Other long term (current) drug therapy; Z68.34 Body mass index [BMI] 34.0-34.9, adult
CPT/HCPCS: 36415; 74018; 74250; 80048; 81001; 82962; 85025; 99251; J7030; A4216; G0463; J2405

== ENCOUNTER 2022-01-22 11:59 | Outpatient (CLI) | payer MEDICARE, SELFPAY ==
[2022-01-22 12:30] LABS: Erythrocyte Sedimentation Rate 34 mm/hr (0-30)
[2022-01-22 12:34] LABS: International Normalized Ratio 1.1; Prothrombin Time (Protime)PT. 13.6 SECONDS (11.7-14.9)
[2022-01-22 12:40] LABS: Absolute Lymphocyte Count 1.37 X10^3/uL (0.83-4.51); Absolute Neutrophil Count 4.2 X10^3/uL (2.0-7.7); Basophil# 0.07 X10^3/uL; Basophil% 1.1 % (0-1); Eosinophil# 0.14 X10^3/uL; Eosinophils% 2.2 % (0-5); Hematocrit 42.9 % (37-47); Hemoglobin 13.8 g/dL (12.0-15.0); Lymphocyte # 1.37 X10^3/ul (0.83-4.51); Lymphocyte % 21.7 % (19-41); Mean Corp Hgb Conc 32.2 g/dL (32-36); Mean Corpuscular Hgb 27.7 pg (27.0-32.0); Mean Corpuscular Volume 86.1 fL (81-99); Mean Platelet Vol. 11.8 fl (6.2-12.0); Monocyte# 0.53 X10^3/uL; Monocyte% 8.4 % (0-10); NRBC Flagged by Analyzer 0 % (0-5); Neutrophil # 4.17 X10^3/uL (2.7-7.7); Neutrophil % 66.3 % (47-70); Platelet Count 227 K/mm3 (150-450); RBC Distribution Width CV 15.9 % (11.6-14.6); RBC Distribution Width SD 50.2 fl (35.1-43.9); Red Blood Count 4.98 M/mm3 (4.2-5.4); White Blood Count 6.3 K/mm3 (4.4-11.0)
[2022-01-22 12:56] LABS: ALB/GLOB Ratio 0.8 RATIO (0.9-2.4); AST(SGOT) 106 U/L (15-37); Alanine Aminotransfer ALT/SGPT 165 U/L (13-56); Albumin, Serum 3.5 g/dL (3.2-5.0); Alkaline Phosphatase 90 U/L (45-117); Anion Gap 7 (5-15); BUN 13 mg/dL (7-18); BUN/Creat Ratio 14.1 RATIO (10-20); Calcium,Total 9.1 mg/dL (8.5-10.1); Chloride 107 mmol/L (98-107); Creatinine, Serum 0.92 mg/dL (0.55-1.02); EST Glomerular Filtration Rate 63 mL/min (>60); Est Glom Filt Rate - Afr Amer 76 mL/min (>60); Ferritin 54 ng/mL (8-252); Globulin 4.4 g/dL (2.2-4.2); Glucose 138 mg/dL (74-106); LDH 207 U/L (84-246); Potassium 3.7 mmol/L (3.5-5.1); Protein, Total 7.9 g/dL (6.4-8.2); Sodium Level 138 mmol/L (136-145)
[2022-01-22 12:59] LABS: Hemoglobin A1c 8.5 % (3.8-5.6)
[2022-01-23 16:09] LABS: Anti-Centromere B Ab <0.2 AI (0.0-0.9); Anti-Chromatin <0.2 AI (0.0-0.9); Anti-Jo <0.2 AI (0.0-0.9); Anti-Scleroderma-70 AB <0.2 AI (0.0-0.9); Anti-ribosomal P Antibodies <0.2 AI (0.0-0.9); RNP Ab <0.2 AI (0.0-0.9); SJOGREN'S Anti-SS-A test < 0.2 AI (0.0-0.9); SJOGREN'S Anti-SS-B test < 0.2 AI (0.0-0.9); Smith Ab <0.2 AI (0.0-0.9); Smith/RNP Ab <0.2 AI (0.0-0.9)
[2022-01-24 07:08] LABS: Angiotensin Convert Enzyme < 15 U/L (14-82); Ceruloplasmin 26.4 mg/dL (19.0-39.0); Cytoplasmic Ab (C-ANCA) <1:20 titer (Neg:<1:20)
[2022-01-24 11:25] LABS: Anti-Smooth Muscle ABS 8 Units (0-19); Copper, Serum or Plasma 119 ug/dL (80-158); Haptoglobin 134 mg/dL (42-346); Perinuclear Ab (P-ANCA) <1:20 titer (Neg:<1:20)
[2022-01-24 12:42] LABS: Anti-Mitochondrial AB <20.0 Units (0.0-20.0); Anti-dsDNA Ab 2 IU/mL (0-9)
== END 2022-01-22 23:59 | disposition home or self-care (01) ==
LOC: LAB 12:01
PROVIDERS: PCP Family Medicine; Visit Provider Internal Medicine Gastroenterology
DX: K76.0 Fatty (change of) liver, not elsewhere classified (principal); E11.9 Type 2 diabetes mellitus without complications; K80.00 Calculus of gallbladder with acute cholecystitis without obstruction; K91.30 Postprocedural intestinal obstruction, unspecified as to partial versus complete
CPT/HCPCS: 80053; 82164; 82390; 82525; 82728; 83010; 83036; 83516; 83615; 85025; 85610; 85652; 86038; 86140; 86225; 86235; 86256

== ENCOUNTER 2022-02-03 08:07 | Outpatient (CLI) | payer MEDICARE, SELFPAY ==
--- NOTE | 2022-02-03 08:09 | US_ITS ---
STUDY: ABDOMINAL ULTRASOUND - RIGHT UPPER QUADRANT REASON FOR VISIT: Female, 76 years old liver steatosis TECHNIQUE: Ultrasound evaluation of the right upper quadrant was performed with real-time and static borjas-scale imaging. TECHNICAL QUALITY: Adequate. COMPARISON: None. FINDINGS: Liver: The liver is enlarged and measures 18.6 cm. There is increased echogenicity consistent with fatty infiltration. The bile ducts are within normal limits. There is hepatic color flow. The direction of portal flow is hepatopetal. There is no demonstrated mass lesion. Gallbladder: The patient is status post cholecystectomy. Common Bile Duct (C.B.D.): The common bile duct measures 8 mm. Pancreas: Normal size of the head, body and tail of the pancreas. There is increased echogenicity of the pancreas. There is no demonstrated pancreatic mass or cyst. Right Kidney: Normal size of the right kidney. The right kidney measures 10.8 cm x 5.5 cm x 4.5 cm. Normal renal cortex. The right cortex measures 1.2 cm. There is no demonstrated renal mass or cyst. There is no right hydronephrosis. US/Abdomen Limited IMPRESSION: Mild hepatomegaly and fatty infiltration of the liver. Electronically Signed: Nato Kelsey MD at 15:24 EST ,
--- NOTE | 2022-02-03 08:09 | US_ITS ---
STUDY: ABDOMINAL ULTRASOUND - ELASTOGRAPHY REASON FOR VISIT: Female, 76 years old. Fatty infiltration of the liver. TECHNIQUE: Liver stiffness measurements were obtained on a [employer] RS 85 ultrasound machine using a [place] 1-7 probe following the SRU guidelines. 3 measurements were obtained using a 2-D-SWE method. The IQR/M was 118% suggesting a quality data set. TECHNICAL QUALITY: Adequate. COMPARISON: None. FINDINGS: Liver: Fatty infiltration of the liver. Median liver stiffness measured 9 kPa. US/Elastography Parenchyma/Organ IMPRESSION: Liver stiffness measures 9 kPa compatible with F2-F3 (Mild to moderate liver fibrosis) Metavir score. Electronically Signed: Nato Kelsey MD at 9:50 EST ,
== END 2022-02-03 23:59 | disposition home or self-care (01) ==
LOC: US 08:08
PROVIDERS: PCP Family Medicine; Referring Provider Internal Medicine Gastroenterology; Visit Provider Internal Medicine Gastroenterology
DX: K76.0 Fatty (change of) liver, not elsewhere classified (principal)
CPT/HCPCS: 76705; 76981

== ENCOUNTER 2022-02-12 05:56 | Day surgery (SDC) | payer MEDICARE, SELFPAY ==
--- NOTE | 2022-02-12 | COLBX_PTH ---
PATIENT: JASON JONES LOC: EN U#:[id number] AGE/SX: 76/F ROOM: RE02/12/[address]: Dr. Josh Patel DO : 1945 BED: DIS: 02/12/2022 SPEC #: [id number] RECD: 02/12/22 12:35 STATUS: IRAIS REKenneth #: [id number] SONYA: 02/12/22 00:[address]: Josh Patel DEPT: SURGICAL PATHOLOGY RECD BY: Mark Garcia ENTERED: 02/12/22 12:35 SP TYPE: COLON BX OTHR DR: Dr. Abraham Galindo MD Tissues: A - Duodenum, NOS B - Gastric mucous membrane Procedures: Surgery Specimen Level IV HEADER OPERATION: EGD ([facility] [place]) PRE-OP DIAGNOSIS: Liver steatosis, abdominal pain TISSUE SUBMITTED: A ? Duodenum biopsy, B ? Gastric body biopsy MICROSCOPIC DIAGNOSIS A. Duodenum, biopsy: Gastric metaplasia and mild chronic inflammation. B. Gastric body, biopsy: Chronic gastritis. See comment. AM:chelle 02/13/2022 COMMENT B. The results of immunohistochemistry for Helicobacter pylori will be reported separately ([id number]). MICROSCOPIC DESCRIPTION Slides are reviewed. GROSS DESCRIPTION A - Received in fixative is one container labeled with the patient's name and designated duodenum biopsy. The specimen consists of multiple irregular fragments of light brar soft tissue that in aggregate measure 1.5 x 0.5 x 0.1 cm. The specimen is totally submitted in one cassette. B - Received in fixative is one container labeled with the patient's name and designated gastric body biopsy. The specimen consists of multiple irregular fragments of light brar soft tissue that in aggregate measure 1 x 0.8 x 0.1 cm. The specimen is totally submitted in one cassette. / AM:chelle 02/12/2022 TC:3 CPT: 74600 x2
[2022-02-12 06:23] VITALS: BP 160/71; PULSE 67; RESP 16; O2SAT 95; BMI 35.4
[2022-02-12] MEDS: Lactated Ringers 1,000 ML 30 ML IV (06:42)
[2022-02-12 06:51] LABS: Bedside Glucose 135 mg/dL (74-106)
--- NOTE | 2022-02-12 07:00 | IMM_PTH ---
PATIENT: JASON JONES LOC: EN U#:[id number] AGE/SX: 76/F ROOM: RE02/12/[address]: Dr. Josh Patel DO : 1945 BED: DIS: 02/12/2022 SPEC #: [id number] RECD: 02/12/22 14:08 STATUS: IRAIS REKenneth #: [id number] SONYA: 02/12/22 07:[address]: Josh Patel DEPT: IMMUNOHISTOCHEMISTRY RECD BY: Marsha Drew ENTERED: 02/12/22 14:09 SP TYPE: IMMUNO OTHR DR: Dr. Abraham Galindo MD Tissues: B - Stomach, NOS Procedures: H Pylori (initial) PHYSICIAN & INSTITUTION [place] [id number] SPECIMEN INFORMATION: Tissue Source: B ? Gastric body biopsy Clinical Info: Liver steatosis, abdominal pain Specimen Number: [id number] CPT code: 13654 METHODOLOGY: Deparaffinized sections of prefer/formalin-fixed tissue or PAP/DQ stained slides are incubated with monoclonal/polyclonal antibodies/oligonucleotide probes. Localization is made via biotin free immunoperoxidase method. Appropriate controls are performed and reacted as expected. Results on target cell population are indicated in the following table: RESULTS: ANTIBODY / CLONE RESULT Block B H Pylori (polyclonal) negative These tests were developed and their performance characteristics determined by [facility]. They may not have been cleared or approved by the U.S. Food and Drug Administration. The FDA has determined that such clearance or approval is not necessary. INTERPRETATION: B. Gastric body, biopsy: Negative for Helicobacter pylori organisms. AM:chelle 02/14/2022
--- NOTE | 2022-02-12 07:12 | HP.PCM_ITS ---
History and Physical Date of Admission: 02/12/22 76 F who presents to the office today for For evaluation of history of small bowel obstruction and IBS diagnoses from PCP. [facility] ED presentation 05.29.21 for upper abdominal pain with emesis. She was admitted and resolution of issue without surgical intervention with discharge 05.30.21. She presented to [facility] ED06/12/21 with nausea and vomiting and was again admitted. With surgery performed to remove scar tissue. Presented to [facility] ED 11.19.21 for left abdominal pain and was discharged with Zofran and pain medication following imaging and biochemical workup. She was again admitted .01.21 ? 01.02.22 for small bowel obstruction. Liver biopsy 06.12.21 finding extensive macro and microvascular steatosis not consistent with cirrhosis. CT abd/pel 11.19.21 finding liver steatosis; surgical anastomosis at rectosigmoid junction; atherosclerotic calcification of abdominal aorta; small umbilical hernia; evidence of diastases of rectus abdominal musculature along anterior lower pelvic containing fat. Small bowel Xray 01.01.22 gas and moderate amount of fecal material seen throughout colon without finding of small bowel obstruction; suggestive of diverticulum in medial second portion of duodenum. 2006 she had an additional 18 inches of her colon removed r/t bowel obstruction. She is having issues with constipation alternating with diarrhea. Constipation is worse than the loose stool with stomach cramps; averages about 3 bowel movements a week. Currently taking miralax QD and this is helpful. Additional medical history includes DM II, diverticulitis. ROS Const Constitutional: No anorexia, fatigue, fever(s), weight change or sleep problems Eyes Eyes: No change in vision ENT ENT: No abnormal hearing, difficulty swallowing, mouth lesions, tongue swelling or throat swelling Resp Respiratory: No cough or shortness of breath Cardio Cardiology: No chest pain at rest, chest pain with exertion, shortness of breath or dyspnea on exertion Gastro GI: No difficulty swallowing Genitourinary-Female: No difficulty urinating or burning urination Musc Musculoskeletal: No joint pain, joint swelling, muscle weakness or decreased muscle mass Skin Skin: No hair loss in leg, yellowing of the eye, itchy eyes, rash, skin ulcer or skin swelling Neuro Neurology: No abnormal hearing, abnormal movements, confusion, unsteady gait/balance or memory loss Psych Psychiatric: No anxiety, No confusion and No memory loss Endo Endocrine: No fatigue or weight change Aller/Imm Allergy/Immunologic: No itchy eyes, throat swelling or tongue swelling Alexys/Lymp Hematologic/Lymphatic: No easy bleeding, easy bruising or enlarged lymph nodes Exam Const General: cooperative and comfortable Nutritional Appearance: average body habitus and well nourished [facility] Head: normal to inspection Ears: hearing grossly normal bilaterally Nose: external nose normal Face and sinus: normal facial exam Mouth: oral mucosae normal Throat: posterior oropharynx normal Eyes General: appearance normal, both eyes and all related structures Neck Neck: normal visual inspection Chest Chest palpation & inspection: normal inspection of the chest and normal palpation of entire chest wall Resp Effort & Inspection: normal respiratory effort Auscultation: Bilateral: Clear to Auscultation Cardio Palpation: normal PMI Rate: regular rate Rhythm: regular rhythm GI Inspection: normal to inspection Auscultation: normal bowel sounds Percussion: normal to percussion Palpation: no hepatosplenomegaly Skin General: no rashes or lesions noted Neuro General: patient alert Extrem General: normal to inspection Psych Affect: normal affect Quality Reporting Tobacco Screening ([facility] 138) Smoking Status: Never smoker Assessment and Plan Assessment and Plan (1) Steatosis, liver: Status: Acute Orders: Orders: Comprehensive Metabolic Profil Today CRP Today CBC W/Diff, Automated Today Erythrocyte Sed Rate Today Anti-Mitochondrial AB Today Angiotensin Convert Enzyme Today ANCA Today Anti-Smooth Muscle ABS Today Ceruloplasmin Today Copper, Serum or Plasma Today Ferritin Today LDH Today Hemoglobin A1c Today Prothrombin Time w/INR Today Haptoglobin Today Abdomen Limited Today Elastography Parenchyma/Organ Today Plan - Dr. Moreno Friend, DO: She was identified as having steatosis in the liver. Her risk factors are obesity, diabetes and lack of estrogen. We will get a biochemical work-up including LFTs, antibodies for autoimmune hepatitis, antibodies for copper abundance, hemochromatosis, hemoglobin A1c and we will get an elastography to evaluate her liver for liver scarring. (2) Abdominal pain: Status: Acute Plan - Dr. Moreno Friend, DO: We will also evaluate her upper GI tract for any cause of abdominal pain including peptic ulcer disease, gastritis, duodenitis, functional disease of the duodenum. I have re-examined the patient. There are no clinical changes since date of exam.
[2022-02-12 07:30] VITALS: BP 158/95; BP 160/71; PULSE 81; RESP 15; TEMP 36.3; O2SAT 90
[2022-02-12 07:35] VITALS: BP 160/71; BP 170/73; PULSE 88; RESP 16; O2SAT 92
--- NOTE | 2022-02-12 07:36 | OP.EGD_ITS ---
Patient Name: Dasia Osborne Procedure Date: 02/12/2022 7:07 AM Date of : 1945 Age: 76 Procedure: Upper GI endoscopy Indications: Epigastric abdominal pain Providers: Josh Patel DO Medicines: See the Anesthesia note for documentation of the administered medications Patient Profile: This is a 76 year old female. Refer to note in patient chart for documentation of history and physical. Patient has symptoms of acute abdominal cramping, chronic abdominal distention and chronic epigastric abdominal pain. Complications: No immediate complications. Procedure: Pre-Anesthesia Assessment: - Prior to the procedure, a History and Physical was performed, and patient medications and allergies were reviewed. The patient is competent. The risks and benefits of the procedure and the sedation options and risks were discussed with the patient. All questions were answered and informed consent was obtained. Patient identification and proposed procedure were verified by the physician in the pre-procedure area. Mental Status Examination: alert and oriented. Airway Examination: normal oropharyngeal airway and neck mobility. Respiratory Examination: clear to auscultation. CV Examination: normal. Prophylactic Antibiotics: The patient does not require prophylactic antibiotics. Prior Anticoagulants: The patient has taken no previous anticoagulant or antiplatelet agents. ASA Grade Assessment: II - A patient with mild systemic disease. After reviewing the risks and benefits, the patient was deemed in satisfactory condition to undergo the procedure. The anesthesia plan was to use moderate sedation / analgesia (conscious sedation). Immediately prior to administration of medications, the patient was re-assessed for adequacy to receive sedatives. The heart rate, respiratory rate, oxygen saturations, blood pressure, adequacy of pulmonary ventilation, and response to care were monitored throughout the procedure. The physical status of the patient was re-assessed after the procedure. After obtaining informed consent, the endoscope was passed under direct vision. Throughout the procedure, the patient's blood pressure, pulse, and oxygen saturations were monitored continuously. The gastroscope was introduced through the mouth, and advanced to the second part of duodenum. The upper GI endoscopy was accomplished without difficulty. The patient tolerated the procedure well. Moderate Sedation: Moderate (conscious) sedation was administered by the endoscopy nurse and supervised by the endoscopist. The patient's oxygen saturation, heart rate, blood pressure and response to care were monitored. Total physician intraservice time was 15 minutes. Scope In: 7:19:03 AM Scope Out: 7:26:49 AM Total Procedure Duration Time 0 hours 7 minutes 46 seconds Findings: Grade I varices were found in the upper third of the esophagus. They were 5 mm in largest diameter. There was also a small 5 mm isolated gastric inlet patch in the proximal esophagus Diffuse severely erythematous mucosa with stigmata of recent bleeding was found in the entire examined stomach. Biopsies were taken with a cold forceps for histology. Verification of patient identification for the specimen was done. Estimated blood loss was minimal. Few oozing cratered duodenal ulcers were found in the duodenal bulb, in the first portion of the duodenum and in the second portion of the duodenum. The largest lesion was 6 mm in largest dimension. Biopsies were taken with a cold forceps for histology. Verification of patient identification for the specimen was done. A medium-sized hiatal hernia was present. Impression: - Grade I esophageal varices. Likely secondary to cardiopulmonary disease. - Erythematous mucosa in the stomach. Biopsied. - Multiple oozing duodenal ulcers. Biopsied. - Medium-sized hiatal hernia. -Severe duodenal gastric reflux possibly secondary to underlying motility disorder causing ulcerations in the duodenum and stomach. Recommendation: - Await pathology results. - Use Protonix (pantoprazole) 40 mg PO BID for 8 days. - Use sucralfate suspension 1 gram PO QID for 4 weeks. - Continue present medications. Procedure Code(s): --- Professional --- 88869, Esophagogastroduodenoscopy, flexible, transoral; with biopsy, single or multiple 78199, 59, Moderate sedation services provided by the same physician or other qualified health child care performing the diagnostic or therapeutic service that the sedation supports, requiring the presence of an independent trained observer to assist in the monitoring of the patient's level of consciousness and physiological status; initial 15 minutes of intraservice time, patient age 5 years or older CPT copyright 2017 [employer] [employer]. All rights reserved. The codes documented in this report are preliminary and upon cash accounting clerk review may be revised to meet current compliance requirements. Josh Patel DO 02/12/2022 7:36:00 AM This report has been signed electronically. Number of Addenda: 1 Note Initiated On: 02/12/2022 7:07 AM Addendum Number: 1 Addendum Date: 08/27/2022 6:28:54 AM MAC was used as sedation for this procedure. Josh Patel DO 08/27/2022 6:28:59 AM This report has been signed electronically.
--- NOTE | 2022-02-12 07:37 | OP.CCLET_ITS ---
08/27/2022 Abraham Galindo MD [address] [place] [address] Re : Upper GI endoscopy procedure for Dasia Osborne Dear Dr. Galindo This procedure was performed on Saturday, February 12, 2022. My impressions and recommendations are as follows: Impressions : - Grade I esophageal varices. Likely secondary to cardiopulmonary disease. - Erythematous mucosa in the stomach. Biopsied. - Multiple oozing duodenal ulcers. Biopsied. - Medium-sized hiatal hernia. -Severe duodenal gastric reflux possibly secondary to underlying motility disorder causing ulcerations in the duodenum and stomach. Recommendations : - Await pathology results. - Use Protonix (pantoprazole) 40 mg PO BID for 8 days. - Use sucralfate suspension 1 gram PO QID for 4 weeks. - Continue present medications. My findings are described in the full procedure note, which is enclosed. If I can be of further assistance, please feel free to contact me at . Sincerely, Josh Patel, 02/12/2022 7:36:00 AM This report has been signed electronically.
[2022-02-12 07:40] VITALS: BP 143/69; BP 160/71; PULSE 78; RESP 18; O2SAT 91
[2022-02-12 07:45] VITALS: BP 138/63; BP 160/71; PULSE 75; RESP 18; TEMP 36.6; O2SAT 92
[2022-02-12 08:00] VITALS: BP 160/71
== END 2022-02-12 23:59 | disposition home or self-care (01) ==
LOC: EN 05:58 → AC 05:58
PROVIDERS: PCP Family Medicine; Referring Provider Family Medicine; Visit Provider Internal Medicine Gastroenterology
PROC: 0DJ08ZZ Inspection of Upper Intestinal Tract, Via Natural or Artificial Opening Endoscopic (ICD-10-PCS; CPT 43235; principal; 2022-02-12 06:55)
DX: K29.50 Unspecified chronic gastritis without bleeding (principal); I85.00 Esophageal varices without bleeding; E11.9 Type 2 diabetes mellitus without complications; K26.9 Duodenal ulcer, unspecified as acute or chronic, without hemorrhage or perforation; K21.00 Gastro-esophageal reflux disease with esophagitis, without bleeding; K44.9 Diaphragmatic hernia without obstruction or gangrene; K58.9 Irritable bowel syndrome, unspecified; K76.0 Fatty (change of) liver, not elsewhere classified; I10 Essential (primary) hypertension; E66.9 Obesity, unspecified; Z79.84 Long term (current) use of oral hypoglycemic drugs; Z79.899 Other long term (current) drug therapy
CPT/HCPCS: 43239; 82962; 88305; 88342; J7120; J2405

== ENCOUNTER 2022-02-22 17:01 | Inpatient (IN) | payer MEDICARE, SELFPAY ==
[2022-02-22 17:03] VITALS: BP 156/72; PULSE 73; RESP 14; TEMP 36.1; O2SAT 99; BMI 36.3
--- NOTE | 2022-02-22 17:23 | CT_ITS ---
STUDY: CT ABDOMEN AND PELVIS WITHOUT CONTRAST REASON FOR EXAM: Female, 76 years old. ABD PAIN,N/V HX-PARTIAL COLON RESECTION S/T DIVERTICULITIS, SBO,IBS,DIAB,HTN, LEFT OOPHRECTOMY RADIATION DOSAGE (If Supplied By Facility): CTDIvol = ( 18.06 ) mGy, DLP = ( 915.98 ) mGycm TECHNIQUE: Transaxial images were obtained from the dome of the diaphragm to the symphysis pubis without oral contrast, and without intravenous contrast. Sagittal and coronal images were reconstructed. Individualized dose optimization techniques were used for this CT. COMPARISON: 11/19/2021 FINDINGS: The visualized lung bases are unremarkable. The visualized portions of the heart are within normal limits. Normal liver. Normal gallbladder and extrahepatic biliary system. Normal spleen. Normal pancreas. Normal bilateral adrenal glands. Normal right kidney. Normal left kidney. Normal visualized stomach. Dilated small bowel in the lower abdomen extending into anterior abdominal wall eventration (image 100 series 602). There is transition point in the left lower quadrant (image 56 series 601, image 121 series 2). Partial colectomy. There is fecal residue in the colon. The appendix is visualized and appears normal. There is diffuse atherosclerotic calcification of the abdominal aorta, without a demonstrated aneurysm. Normal inferior vena cava. Normal retroperitoneum. Normal urinary bladder. Small right paracentral fat containing hernia, stable. Normal osseous structures. CT/Abdomen/Pelvis without Cont IMPRESSION: Early or partial small bowel obstruction with transition point in the left lower quadrant. Electronically Signed: Mehdi Slaughter MD ([place]) at 18:01 EDT ,
--- NOTE | 2022-02-22 17:23 | ED.VIS.GI ---
HPI HPI - GI History of Present Illness Chief Complaint: Abd Pain Narrative Narrative: 76-year-old female with abdominal pain for a day or so. Patient describes it is all over. Patient states the worst of it is in the epigastric region in the left lower quadrant. Patient admits to vomiting. She is not had a fever. She denies urinary or vaginal complaints. Patient states she has history of small bowel obstructions and partial small bowel obstructions. Patient did have a bowel movement that was small today. Patient does state that she has been a little bit constipated. She is taking laxatives. [facility] Medical History Arthritis Asthma Cholelithiasis and acute cholecystitis without obstruction Diabetes Diabetes mellitus type 2, uncomplicated Gastric reflux GERD (gastroesophageal reflux disease) History of diverticulitis History of steroid therapy History of stress test Hypertension IBS (irritable bowel syndrome) Leg cramps Non-smoker Obesity Small bowel obstruction due to postoperative adhesions Wears contact lenses Wears glasses Home Medications amlodipine-benazepril 1 cap PO DAILY 07/15/16 [History Last Taken 02/12/22] bisoprolol fumarate 10 mg PO DAILY 07/15/16 [History Last Taken 06/12/21] glimepiride 4 mg PO BID 06/12/21 [History Last Taken 06/12/21] metformin 750 mg PO BID 06/12/21 [History Last Taken 06/12/21] acetaminophen [Tylenol] 650 mg PO Q4H PRN PRN #0 tab 06/14/21 [Rx Last Taken Unknown] ondansetron 4 mg PO Q8H PRN PRN #10 tab 11/19/21 [Rx Last Taken Unknown] Jardiance 10 mg PO DAILY 12/31/21 [History Last Taken Unknown] cholecalciferol (vitamin D3) [Vitamin D3] 50 mcg PO DAILY 12/31/21 [History Last Taken Unknown] Lactobacillus acidophilus [Probiotic] 10,000 mmu cells PO DAILY 02/07/22 [History Last Taken Unknown] dicyclomine 20 mg PO DAILY 02/07/22 [History Last Taken Unknown] pantoprazole 40 mg tablet,delayed release 40 mg PO DAILY #60 tab 02/12/22 [Rx Last Taken Unknown] sucralfate 1 gram tablet 1 g PO Q6H 30 Days #120 tab 02/12/22 [Rx Last Taken Unknown] ursodiol 300 mg capsule 300 mg PO BID #60 cap 02/13/22 [Rx Last Taken Unknown] vitamin E 400 unit capsule 800 unit PO DAILY #60 cap 02/13/22 [Rx Last Taken Unknown] Allergy/AdvReac Type Severity Reaction Status Date / Time adhesive Allergy Other Verified 02/22/22 17:03 Iodinated Contrast Media Allergy Hives Verified 02/22/22 17:03 [CONTRASTS] ciprofloxacin [From Cipro] AdvReac Mild nausea Verified 02/22/22 17:03 metronidazole [From Flagyl] AdvReac Mild nausea Verified 02/22/22 17:03 IVORY SOAP Allergy Rash Uncoded 02/22/22 17:03 Family History Mother Multiple sclerosis Father Heart disease Diabetes Surgical History H/O dilation and curettage H/O oophorectomy History of cardiac catheterization History of cholecystectomy S/P partial colectomy Status post left foot surgery Social History household members: family and other details: Patient lives with her daughter, son in law. Smoking Status: Never smoker alcohol intake: never substance use type: does not use seatbelt use: always ROS ROS ED Constitutional Constitutional ED: Denies chills, fever(s) or sweats ENT ENT ED: Denies rhinorrhea or sore throat Cardiovascular Cardiovascular: Denies chest pain or palpitations Respiratory/Chest Respiratory/Chest: Denies dyspnea Gastrointestinal Gastrointestinal: Reports abdominal pain, constipation, nausea and vomiting Genitourinary Genitourinary ED: Denies dysuria or hematuria Musculoskeletal Musculoskeletal: Denies myalgias Integumentary Denies rash Neurologic Neurologic: Denies headache(s) or paresthesias Psychiatric Psychiatric: Denies anxiety or depression EXAM Physical Exam Const Vital Signs: 02/22/22 17:03 Temperature 96.9 F L Temperature Source Temporal Pulse Rate 73 Respiratory Rate 14 Blood Pressure 156/72 H Blood Pressure Mean 100 Pulse Ox 99 Oxygen Delivery Method Room Air Positive well nourished General Appearance ED: NAD; Negative for pallor HEENT Reports moist mucous membranes normocephalic Eyes PERRL and EOMs intact bilaterally General Eye ED: Negative for pale conjunctiva or scleral icterus Resp normal respiratory effort and clear to auscultation bilaterally Cardio regular rate and regular rhythm GI Palpation: tender epigastric and LLQ Back/Spine no CVA tenderness Neuro Sensorium / Orientation: alert, oriented to person, oriented to place and oriented to time Psych mental status grossly normal and thought process normal Skin General Skin Exam: Negative for jaundice or pallor Lesions: no lesions Rashes: no rashes MDM MDM MDM Narrative Medical decision making narrative: Patient presenting for abdominal pain. She has a history of bowel obstruction in the past. She previously had adhesion lysis distantly. She was admitted last month for a partial small bowel obstruction and was able to be discharged home. She did require an NG tube at that time. Patient's pain does appear to be improved with morphine and Zofran. She is having some burning epigastrically and I do believe this is likely from her gastric and duodenal ulcers she was given IV Pepcid. She takes Protonix at home. She feels much better currently. CBC shows a slight leukocytosis of 11.6, hemoglobin 15, platelets 240. Renal function electrolytes within normal limits. AST slightly elevated at 111 and ALT slightly elevated at 148 otherwise liver function testing is normal. Urinalysis negative for infection. CT of the abdomen pelvis without contrast does show early small bowel obstruction/partial small bowel obstruction. Patient was discussed with Dr. Lancaster who felt that since the patient had significant improvement with medication we can hold off on NG tube currently. Patient will be admitted to medicine. Patient stable on transfer. Impression: 1. Nausea/vomiting 2. History of gastric/duodenal ulcers 3. Possible small bowel obstruction 4. Abdominal pain 5. Leukocytosis Lab Data Attestation: I reviewed the patient's lab results. Labs: Laboratory Results - last 24 hr 02/22/22 02/22/22 02/22/22 17:20 17:20 18:19 WBC 11.6 H RBC 5.23 Hgb 15.0 Hct 44.8 MCV 85.7 MCH 28.7 MCHC 33.5 RDW Std Deviation 45.3 H RDW Coeff of Raf 14.6 Plt Count 240 MPV 11.2 Immature Gran % (Auto) 0.600 Neut % (Auto) 87.6 H Lymph % (Auto) 7.4 L Burt % (Auto) 3.7 Eos % (Auto) 0.1 Baso % (Auto) 0.6 Absolute Neuts (auto) 10.1 H Absolute Lymphs (auto) 0.85 Nucleated RBC % 0 Sodium 139 Potassium 3.7 Chloride 107 Carbon Dioxide 21.0 Anion Gap 11 BUN 15 Creatinine 1.00 Estim Creat Clear Calc 40.21 Est GFR (MDRD) Af Amer 69 Est GFR (MDRD) Non-Af 57 L BUN/Creatinine Ratio 15.0 Glucose 194 H Calcium 9.7 Total Bilirubin 0.60 AST 111 H ALT 148 H Alkaline Phosphatase 99 Total Protein 7.7 Albumin 3.6 Globulin 4.1 Albumin/Globulin Ratio 0.9 Lipase 77 Urine Color Yellow Urine Clarity Clear Urine pH 5.0 Ur Specific [place] 1.015 Urine Protein Negative Urine Glucose (UA) 1000 H Urine Ketones 50 H Urine Occult Blood Negative Urine Nitrite Negative Urine Bilirubin Negative Urine Urobilinogen Normal Ur Leukocyte Esterase Negative Urine RBC 0 SEEN Urine WBC 0 SEEN Ur Squamous Epith Cells 0-5 SEEN Urine Bacteria 0 SEEN Urine Mucus 0 SEEN Radiography Diagnostic Testing: Clinical Impression(s) from Imaging Studies Abdomen/Pelvis CT 02/22/22 17:23 IMPRESSION: Early or partial small bowel obstruction with transition point in the left lower quadrant. Electronically Signed: Mehdi Slaughter MD ([place]) at 18:01 EDT , Discharge Plan Triage Chief Complaint: Abd Pain ED Provider: Tres Mejía Dx/Rx/DC Orders Prescriptions: No Action bisoprolol fumarate 10 MG tablet 10 mg PO DAILY RF: 0 amlodipine-benazepril 1 EACH capsule 1 cap PO DAILY RF: 0 glimepiride 4 mg tablet 4 mg PO BID RF: 0 metformin 750 mg tablet extended release 24 hr 750 mg PO BID RF: 0 acetaminophen [Tylenol] 325 mg Tablet 650 mg PO Q4H PRN PRN (Reason: PAIN 1-10/ FEVER) Qty: 0 RF: 0 ondansetron 4 MG tablet 4 mg PO Q8H PRN PRN (Reason: Nausea) Qty: 10 RF: 0 Jardiance 10 mg tablet 10 mg PO DAILY RF: 0 cholecalciferol (vitamin D3) [Vitamin D3] 50 mcg (2,000 unit) Capsule 50 mcg PO DAILY RF: 0 dicyclomine 20 mg tablet 20 mg PO DAILY RF: 0 Probiotic 10 billion cell Capsule 10,000 mmu cells PO DAILY RF: 0 sucralfate 1 gram tablet 1 g PO Q6H 30 Days Qty: 120 RF: 0 pantoprazole 40 mg tablet,delayed release (DR/EC) 40 mg PO DAILY Qty: 60 RF: 3 vitamin E 400 unit capsule 800 unit PO DAILY Qty: 60 RF: 6 ursodiol 300 mg capsule 300 mg PO BID Qty: 60 RF: 5 Primary Care Provider: Abraham Galindo
[2022-02-22] MEDS: Morphine 4 MG/ML Syringe IV (17:42)
[2022-02-22] MEDS: Ondansetron 4 MG/2 ML Vial IV (17:42)
[2022-02-22] MEDS: 0.9% Normal Saline 1,000 ML 1000 ML IV (17:43)
[2022-02-22 17:48] LABS: Absolute Lymphocyte Count 0.85 X10^3/uL (0.83-4.51); Absolute Neutrophil Count 10.1 X10^3/uL (2.0-7.7); Basophil# 0.07 X10^3/uL; Basophil% 0.6 % (0-1); Eosinophil# 0.01 X10^3/uL; Eosinophils% 0.1 % (0-5); Hematocrit 44.8 % (37-47); Lymphocyte # 0.85 X10^3/ul (0.83-4.51); Lymphocyte % 7.4 % (19-41); Mean Corp Hgb Conc 33.5 g/dL (32-36); Mean Corpuscular Hgb 28.7 pg (27.0-32.0); Mean Corpuscular Volume 85.7 fL (81-99); Mean Platelet Vol. 11.2 fl (6.2-12.0); Monocyte# 0.43 X10^3/uL; Monocyte% 3.7 % (0-10); NRBC Flagged by Analyzer 0 % (0-5); Neutrophil # 10.12 X10^3/uL (2.7-7.7); Neutrophil % 87.6 % (47-70); Platelet Count 240 K/mm3 (150-450); RBC Distribution Width CV 14.6 % (11.6-14.6); RBC Distribution Width SD 45.3 fl (35.1-43.9); Red Blood Count 5.23 M/mm3 (4.2-5.4); White Blood Count 11.6 K/mm3 (4.4-11.0)
[2022-02-22 18:07] LABS: ALB/GLOB Ratio 0.9 RATIO (0.9-2.4); AST(SGOT) 111 U/L (15-37); Alanine Aminotransfer ALT/SGPT 148 U/L (13-56); Albumin, Serum 3.6 g/dL (3.2-5.0); Alkaline Phosphatase 99 U/L (45-117); Anion Gap 11 (5-15); BUN 15 mg/dL (7-18); Calcium,Total 9.7 mg/dL (8.5-10.1); Chloride 107 mmol/L (98-107); EST Glomerular Filtration Rate 57 mL/min (>60); Est Glom Filt Rate - Afr Amer 69 mL/min (>60); Estimated Creatinine Clearance 40.21 ml/min; Globulin 4.1 g/dL (2.2-4.2); Glucose 194 mg/dL (74-106); Lipase 77 U/L (73-393); Potassium 3.7 mmol/L (3.5-5.1); Protein, Total 7.7 g/dL (6.4-8.2); Sodium Level 139 mmol/L (136-145)
[2022-02-22] MEDS: Famotidine 200 MG/20 ML MDV 20 MG in 0.9% Normal Saline (Pres. free 8 ML 300 MG IV (18:26)
[2022-02-22 18:30] LABS: Bacteria 0 SEEN /hpf (None Seen); Mucous, Urine 0 SEEN /hpf (<or=2+); Red Blood Cells-Urine 0 SEEN /hpf (0-5); White Blood Cells 0 SEEN /hpf (0-5)
[2022-02-22 18:32] LABS: Color, Urine Yellow (Yellow); Glucose, Dipstick 1000 mg/dl (Normal); Ketone-Dipstick 50 mg/dl (Negative); Leukocyte Esterase-Dipstick Negative /ul (Negative); Nitrite-Dipstick Negative (Negative); Occult Blood-Urine Negative /ul (Negative); Protein-Dipstick Negative (Negative); Specific Gravity, Urine 1.015 (1.002-1.030); Urine Bilirubin Dipstick Negative (Negative); Urine Clarity Clear (Clear); Urine Urobilinogen Normal (Normal)
[2022-02-22 18:43] LABS: Squamous Epithelial Cells - UA 0-5 SEEN /hpf (5-10)
--- NOTE | 2022-02-22 19:34 | HP.PCM.HOS_ITS ---
HPI - General General Date of Admission: 02/22/22 Date of Service: 02/22/22 Chief Complaint: Nausea, vomiting and constipation started today HPI Narrative JASON JONES, is a 76 F with history of small bowel obstruction, last 3 admissions , April 2021, May 2021 and December 2021, IBS came to ER for nausea, vomiting and constipation that started today. Patient had 18 inches of colon removed due to diverticulitis causing bowel obstruction in 2006. Recently she had laparoscopic lysis of adhesions and liver biopsy in May [address] Dr. Jeffry rodriguez. Last 2 times patient was admitted and surgical service Dr. MEYER. Patient also saw Dr. Patel in January 2022 and had EGD on February 12, 2022. This time her abdominal pain is started epigastric umbilical region and became generalized, burning in nature, initially intermittent and then constant 10/10 intensity associated with nausea and vomiting. Vomitus was mainly last food eaten and bilious in nature. No hematemesis melena or hematochezia. No fever. Denies burning micturition or new lower intact symptoms. No vaginal discharge or bleeding. She further added that she had a bowel movement, small soft in consistency with no blood. She is on MiraLAX at home. In ED vitals are in acceptable limit, BP 136/72. Afebrile heart rate 73/min. Labs reviewed. Mild leukocytosis 11.6 thousand. UA negative except glucosuria and ketones. CT abdomen pelvis shows angularis partial small bowel possible transition point in the left lower quadrant [facility] Medical History Arthritis Asthma Cholelithiasis and acute cholecystitis without obstruction Diabetes Diabetes mellitus type 2, uncomplicated Gastric reflux GERD (gastroesophageal reflux disease) History of diverticulitis History of steroid therapy History of stress test Hypertension IBS (irritable bowel syndrome) Leg cramps Non-smoker Obesity Small bowel obstruction due to postoperative adhesions Wears contact lenses Wears glasses Home Medications amlodipine-benazepril 1 cap PO DAILY 07/15/16 [History Last Taken 02/12/22] bisoprolol fumarate 10 mg PO DAILY 07/15/16 [History Last Taken 06/12/21] glimepiride 4 mg PO BID 06/12/21 [History Last Taken 06/12/21] metformin 750 mg PO BID 06/12/21 [History Last Taken 06/12/21] acetaminophen [Tylenol] 650 mg PO Q4H PRN PRN #0 tab 06/14/21 [Rx Last Taken Unknown] ondansetron 4 mg PO Q8H PRN PRN #10 tab 11/19/21 [Rx Last Taken Unknown] Jardiance 10 mg PO DAILY 12/31/21 [History Last Taken Unknown] cholecalciferol (vitamin D3) [Vitamin D3] 50 mcg PO DAILY 12/31/21 [History Last Taken Unknown] Lactobacillus acidophilus [Probiotic] 10,000 mmu cells PO DAILY 02/07/22 [History Last Taken Unknown] dicyclomine 20 mg PO DAILY 02/07/22 [History Last Taken Unknown] pantoprazole 40 mg tablet,delayed release 40 mg PO DAILY #60 tab 02/12/22 [Rx Last Taken Unknown] sucralfate 1 gram tablet 1 g PO Q6H 30 Days #120 tab 02/12/22 [Rx Last Taken Unknown] ursodiol 300 mg capsule 300 mg PO BID #60 cap 02/13/22 [Rx Last Taken Unknown] vitamin E 400 unit capsule 800 unit PO DAILY #60 cap 02/13/22 [Rx Last Taken Unknown] Allergy/AdvReac Type Severity Reaction Status Date / Time adhesive Allergy Other Verified 02/22/22 17:03 Iodinated Contrast Media Allergy Hives Verified 02/22/22 17:03 [CONTRASTS] ciprofloxacin [From Cipro] AdvReac Mild nausea Verified 02/22/22 17:03 metronidazole [From Flagyl] AdvReac Mild nausea Verified 02/22/22 17:03 IVORY SOAP Allergy Rash Uncoded 02/22/22 17:03 Family History Mother Multiple sclerosis Father Heart disease Diabetes Surgical History H/O dilation and curettage H/O oophorectomy History of cardiac catheterization History of cholecystectomy S/P partial colectomy Status post left foot surgery Social History household members: family and other details: Patient lives with her daughter, son in law. Smoking Status: Never smoker alcohol intake: never substance use type: does not use seatbelt use: always ROS ROS Narrative Constitutional: Reports fatigue and generalized weakness HEENT: Reports systems reviewed and no addt'l complaints, except as documented Respiratory/Chest:denies chest pain, shortness of breath at rest or with exertion Gastrointestinal: Nausea vomiting abdominal pain admission in HPI. No GI bleed Genitourinary: Denies burning urination or new urinary tract symptoms Musculoskeletal: Reports joint pain and limited range of motion. Bilateral knee arthritis Neurologic: Denies seizure-like activity skin: No ulcer. No rash Endocrinology: Diabetes mellitus type 2 reports systems reviewed and no addt'l complaints, except as documented Hematologic/Lymphatic: Reports systems reviewed and no addt'l complaints, except as documented Rest 14 ROS are negative except as mentioned in HPI Vital Signs Vital Signs Vital Signs: 02/22/22 17:03 Temperature 96.9 F L Temperature Source Temporal Pulse Rate 73 Respiratory Rate 14 Blood Pressure 156/72 H Blood Pressure Mean 100 Pulse Ox 99 Oxygen Delivery Method Room Air Weight Weight: 205 lb Body Mass Index (BMI) 36.3 Physical Exam Narrative General: Alert, Oriented x3, Cooperative HEENT: Atraumatic, PERRLA, EOMI, Normocephalic Oral: No Gingival or Mucosal Lesions/ Ulcerations Neck: Supple, No JVD, Negative Carotid Bruits Lungs: Air entry diminished in bilateral lung bases. No crepitation/rhonchi Cardiovascular: Regular rate, Regular Rhythm, Normal S1, Normal S2, No murmurs Abdomen: Bowel Sounds Present, high-pitched. Soft, mild tender over epigastric, umbilical, right and left lower quadrants. Mild generalized distention : No renal angle tenderness. No suprapubic tenderness. Extremities: No edema, Capillary Refill Less than 3 Seconds Skin: No rashes, No breakdown Musculoskeletal: Bilateral knee arthritis, bony prominences. No Tenderness to Palpation of Joints or Extremities Neurological: Cranial nerves II-XII grossly intact, DTR 2+/4 and Symmetrical, Neuro grossly intact Psych/Mental Status: Normal Affect, Appropriate Results Lab / Micro Data Result Diagrams: 02/22/22 17:20 02/22/22 17:20 Labs: Laboratory Results - last 24 hr 02/22/22 17:20: WBC 11.6 H, RBC 5.23, Hgb 15.0, Hct 44.8, MCV 85.7, MCH 28.7, MCHC 33.5, RDW Std Deviation 45.3 H, RDW Coeff of Raf 14.6, Plt Count 240, MPV 11.2, Immature Gran % (Auto) 0.600, Neut % (Auto) 87.6 H, Lymph % (Auto) 7.4 L, [place] % (Auto) 3.7, Eos % (Auto) 0.1, Baso % (Auto) 0.6, Absolute Neuts (auto) 10.1 H, Absolute Lymphs (auto) 0.85, Nucleated RBC % 0 02/22/22 17:20: Sodium 139, Potassium 3.7, Chloride 107, Carbon Dioxide 21.0, Anion Gap 11, BUN 15, Creatinine 1.00, Estim Creat Clear Calc 40.21, Est GFR (MDRD) Af Amer 69, Est GFR (MDRD) Non-Af 57 L, BUN/Creatinine Ratio 15.0, Glucose 194 H, Calcium 9.7, Total Bilirubin 0.60, AST 111 H, ALT 148 H, Alkaline Phosphatase 99, Total Protein 7.7, Albumin 3.6, Globulin 4.1, Albumin/Globulin Ratio 0.9, Lipase 77 02/22/22 18:19: Urine Color Yellow, Urine Clarity Clear, Urine pH 5.0, Ur Specific [place] 1.015, Urine Protein Negative, Urine Glucose (UA) 1000 H, Urine Ketones 50 H, Urine Occult Blood Negative, Urine Nitrite Negative, Urine Bilirubin Negative, Urine Urobilinogen Normal, Ur Leukocyte Esterase Negative, Urine RBC 0 SEEN, Urine WBC 0 SEEN, Ur Squamous Epith Cells 0-5 SEEN, Urine Bacteria 0 SEEN, Urine Mucus 0 SEEN Radiology Impression Abdomen/Pelvis CT 02/22/22 17:23 IMPRESSION: Early or partial small bowel obstruction with transition point in the left lower quadrant. Electronically Signed: Mehdi Slaughter MD ([place]) at 18:01 EDT Reading Location ID and State: [facility] / [place] , Service support , Assessment & Plan Assessment/Plan (1) Partial small bowel obstruction: PLAN: 1. Partial small bowel obstruction with transition point in left lower quadrant: Patient had a history of partial colectomy with anastomosis at rectosigmoid level in 2006 and then laparoscopic adhesiolysis in June 18, 2021. CT abdomen individually reviewed. Small bowel distended with multiple fluid air level and fecal residue in colon. Stomach is not distended. No indication for NG tube and vomiting is resolved. N.p.o. IV fluid Ringer lactate.Surgeon consulted from ER physician. Senna-S, 2 tablet twice daily and Dulcolax suppository to relieve fecal residue in colon. KUB ordered for tomorrow a.m. 2 Diabetes mellitus type 2: Accu-Chek insulin every 6 hourly coverage Humalog sliding scale with hypoglycemia protocol. Hold p.o. medications while patient is n.p.o. status. 3. Nonalcoholic steatohepatitis. Liver chemistry shows elevated ALT more than AST. Total bilirubin normal. Normal alkaline phosphatase. Liver biopsy May 2021 shows extensive macro and microvesicular steatosis not consistent with cirrhosis. Monitor liver profile daily. Will resume ursodiol when patient is allowed oral. 4. Hypertension: Blood pressure in acceptable limit. Metoprolol 5. GERD, gastritis, duodenal ulcer with duodenal gastric reflux, medium-sized hiatus hernia: Patient had EGD in January [address] Patel reported grade 1 esophageal varices likely secondary to cardiopulmonary disease, multiple oozing duodenal ulcers, medium-sized hiatus hernia, severe duodenal gastric reflux and erythematous mucosa in the stomach. She is on Protonix 40 mg once daily after she completed twice daily. Also on sucralfate. Protonix 40 mg IV daily. 6. Bilateral knee arthritis: Patient is planning ED placement with her o rthopedic surgeon. DVT prophylaxis, high risk : Lovenox 40 mg subcu daily. Bilateral SCDs. Disc ontinue if platelet count drops less than 50,000 or hemoglobin less than 8 g% Charges/Coding Visit Charges Inpatient E&M: 62038 Init Hosp L3 Procedures Hospitalists Procedures: 62503 Advncd Care Plan 30 Min
[2022-02-22 19:45] VITALS: BP 150/78; PULSE 78; RESP 18; TEMP 36.1; O2SAT 93
[2022-02-22 19:55] VITALS: BMI 35.9
[2022-02-22 19:58] VITALS: BP 150/71; PULSE 75; RESP 18; TEMP 36.6; O2SAT 95
[2022-02-22 20:15] LABS: Magnesium 1.8 mg/dL (1.6-2.6); Phosphorus 3.4 mg/dL (2.5-4.9)
[2022-02-22] MEDS: Bisacodyl 10 MG Suppository RC (20:28)
--- NOTE | 2022-02-22 20:46 | EX.PCM.CON.S ---
Assessment & Plan Assessment/Plan (1) Partial small bowel obstruction: (2) GERD (gastroesophageal reflux disease): QUALIFIERS: Esophagitis presence: esophagitis presence not specified Qualified Code(s): K21.9 - Gastro-esophageal reflux disease without esophagitis PLAN: Did review patient's CT abdomen pelvis patient does have dilation of some lower a little bit of small bowel in the pelvis. Patient currently denies any nausea or vomiting. Currently we will forego an NG unless patient starts to have nausea or vomiting. Patient is currently getting a suppository. We will plan for a modified small bowel follow-through with Gastrografin in the a.m. Discussed plan with patient she was agreeable with plan. Oma Lancaster M.D. Pager: [phone] [facility] [address] [place] [address], [facility], [address] [place] [address] Office: [phone] HPI Consult Data Date of Consult: 02/24/22 HPI Narrative HPI Narrative: JASON JONES, is a 76 F who presents to the ER due to upper abdominal pain which started about 1 PM patient rated a 9/10 at that time she did state that she did have some burning when she came into the ER currently denies any burning and states her pains as 3/10. Patient did get IV PPI. Patient was recently scoped by Dr. Patel found gastric ulcers patient has been on Protonix as well as Carafate. Patient states that she was unaware of having the ulcers prior to the scope. But admits it was burning with that and did state that did improve with the medications. Patient also previously had diagnostic laparoscopy, lysis of adhesion by Dr. Luque in May 2021 due to a bowel obstruction. Patient states she did have a small bowel movement this morning as well as some flatus. Currently denies flatus or nausea and vomiting in the hospital. Patient states he would prefer not to have anymore surgery. [facility] Medical History Arthritis Asthma Cholelithiasis and acute cholecystitis without obstruction Diabetes Diabetes mellitus type 2, uncomplicated Gastric reflux GERD (gastroesophageal reflux disease) History of diverticulitis History of steroid therapy History of stress test Hypertension IBS (irritable bowel syndrome) Leg cramps Non-smoker Obesity Small bowel obstruction due to postoperative adhesions Wears contact lenses Wears glasses Home Medications amlodipine-benazepril 1 cap PO DAILY 07/15/16 [History Last Taken 02/22/22] bisoprolol fumarate 10 mg PO DAILY 07/15/16 [History Last Taken 02/22/22] glimepiride 4 mg PO BID 06/12/21 [History Last Taken 02/22/22] metformin 750 mg PO BID 06/12/21 [History Last Taken 02/22/22] acetaminophen [Tylenol] 650 mg PO Q4H PRN PRN #0 tab 06/14/21 [Rx Last Taken Unknown] ondansetron 4 mg PO Q8H PRN PRN #10 tab 11/19/21 [Rx Last Taken Unknown] Jardiance 10 mg PO DAILY 12/31/21 [History Last Taken 02/22/22] cholecalciferol (vitamin D3) [Vitamin D3] 50 mcg PO DAILY 12/31/21 [History Last Taken 02/22/22] Probiotic 10,000 mmu cells PO DAILY 02/07/22 [History Last Taken 02/22/22] dicyclomine 20 mg PO DAILY 02/07/22 [History Last Taken 02/22/22] pantoprazole 40 mg PO DAILY 02/22/22 [History Last Taken 02/22/22] sucralfate 1 g PO Q6H 02/22/22 [History Last Taken 02/22/22] ursodiol 300 mg PO BID 02/22/22 [History Last Taken 02/22/22] vitamin E 800 unit PO DAILY 02/22/22 [History Last Taken 02/22/22] Allergy/AdvReac Type Severity Reaction Status Date / Time adhesive Allergy Other Verified 02/22/22 17:03 Iodinated Contrast Media Allergy Hives Verified 02/22/22 17:03 [CONTRASTS] ciprofloxacin [From Cipro] AdvReac Mild nausea Verified 02/22/22 17:03 metronidazole [From Flagyl] AdvReac Mild nausea Verified 02/22/22 17:03 IVORY SOAP Allergy Rash Uncoded 02/22/22 17:03 Family History Mother Multiple sclerosis Father Heart disease Diabetes Surgical History H/O dilation and curettage H/O oophorectomy History of cardiac catheterization History of cholecystectomy S/P partial colectomy Status post left foot surgery Social History household members: family and other details: Patient lives with her daughter, son in law. Smoking Status: Never smoker alcohol intake: never substance use type: does not use seatbelt use: always ROS ROS Narrative Constitutional: Reports fatigue HEENT: denies blurry vision Respiratory/Chest:denies chest pain, shortness of breath at rest Gastrointestinal: +N/V, abd pain, denies diarrhea Genitourinary: Denies burning urination Musculoskeletal: Reports joint pain Neurologic: Denies seizure-like activity skin: No rash Hematologic/Lymphatic: denies easy bleeding Physical Exam Const alert, oriented x3 and no apparent distress HEENT normocephalic and head/scalp atraumatic Eyes conjunctivae normal Resp normal respiratory effort Cardio regular rate Rate: regular rate GI soft to palpation; Negative for non-distended Palpation: tender epigastric, LUQ and RUQ; Negative for guarding Extremity normal to inspection and no clubbing, cyanosis or edema Skin no rashes or lesions noted Neuro CN's II-XII intact bilaterally Psych mental status grossly normal Lab / Micro Data Result Diagrams: 02/23/22 06:56 02/23/22 06:56 Labs: Laboratory Results - last 24 hr 02/22/22 17:20: WBC 11.6 H, RBC 5.23, Hgb 15.0, Hct 44.8, MCV 85.7, MCH 28.7, MCHC 33.5, RDW Std Deviation 45.3 H, RDW Coeff of Raf 14.6, Plt Count 240, MPV 11.2, Immature Gran % (Auto) 0.600, Neut % (Auto) 87.6 H, Lymph % (Auto) 7.4 L, [place] % (Auto) 3.7, Eos % (Auto) 0.1, Baso % (Auto) 0.6, Absolute Neuts (auto) 10.1 H, Absolute Lymphs (auto) 0.85, Nucleated RBC % 0 02/22/22 17:20: Sodium 139, Potassium 3.7, Chloride 107, Carbon Dioxide 21.0, Anion Gap 11, BUN 15, Creatinine 1.00, Estim Creat Clear Calc 40.21, Est GFR (MDRD) Af Amer 69, Est GFR (MDRD) Non-Af 57 L, BUN/Creatinine Ratio 15.0, Glucose 194 H, Calcium 9.7, Total Bilirubin 0.60, AST 111 H, ALT 148 H, Alkaline Phosphatase 99, Total Protein 7.7, Albumin 3.6, Globulin 4.1, Albumin/Globulin Ratio 0.9, Lipase 77 02/22/22 17:20: Phosphorus 3.4, Magnesium 1.8 02/22/22 18:19: Urine Color Yellow, Urine Clarity Clear, Urine pH 5.0, Ur Specific [place] 1.015, Urine Protein Negative, Urine Glucose (UA) 1000 H, Urine Ketones 50 H, Urine Occult Blood Negative, Urine Nitrite Negative, Urine Bilirubin Negative, Urine Urobilinogen Normal, Ur Leukocyte Esterase Negative, Urine RBC 0 SEEN, Urine WBC 0 SEEN, Ur Squamous Epith Cells 0-5 SEEN, Urine Bacteria 0 SEEN, Urine Mucus 0 SEEN Radiology Impression Abdomen/Pelvis CT 02/22/22 17:23 IMPRESSION: Early or partial small bowel obstruction with transition point in the left lower quadrant. Electronically Signed: Mehdi Slaughter MD ([place]) at 18:01 EDT Reading Location ID and State: [facility] / [place] , Service support , Charges/Coding Visit Charges Inpatient E&M: 10655 Init Hosp L3
[2022-02-22] MEDS: Lactated Ringers 1,000 ML 75 ML IV (20:50)
[2022-02-22] MEDS: Senna/Docusate Sodium 1 Tablet 2 TABLET PO (20:51)
[2022-02-22] MEDS: Enoxaparin 40 MG/0.4 ML Syringe SC (20:54)
[2022-02-22] MEDS: 0.9% Saline Lock 10 ML Syringe IV (20:56)
[2022-02-22] MEDS: Acetaminophen 325 MG Tablet 650 MG PO (21:02)
[2022-02-23 02:00] VITALS: BP 138/80; PULSE 69; RESP 18; TEMP 36.1; O2SAT 94
--- NOTE | 2022-02-23 05:55 | RAD_ITS ---
STUDY: X-RAY - ABDOMEN/PELVIS REASON FOR EXAM: Female, 76 years old. psbo -- gastrografin- KUB at 1 hr TECHNIQUE: Single AP view of the abdomen / pelvis. COMPARISON: 01/01/2022 FINDINGS: Normal visualized lung bases. There is an unremarkable bowel gas pattern. Oral contrast within the stomach, small bowel, and descending colon. The visualized liver, spleen and kidneys are grossly normal in size and morphology. Normal soft tissue structures. Normal visualized osseous structures. RAD/Abdomen Single View IMPRESSION: Normal x-ray examination of the abdomen and pelvis. Electronically Signed: Isaias Drake MD at 9:41 EDT ,
--- NOTE | 2022-02-23 06:48 | PN.HOSP_ITS ---
Subjective Subjective Patient with no acute events overnight since initial presentation. She does note that she had a large bowel movement and is passing flatus. Patient evaluated by general surgery and small bowel follow-through obtained and from ongoing films contrast is passed all the way through to the colon. Patient amenable to initiating clear liquid diet with advance diet as tolerated per general surgery clearance. Patient denies fevers, chills, nausea, emesis, recurrent or worsening abdominal pain, chest pain or dyspnea. Objective Data Objective Data Vital Signs: Vital Signs Temp Pulse Resp BP Pulse Ox 97 F L 69 18 138/80 H 94 02/23/22 02:00 02/23/22 02:00 02/23/22 02:00 02/23/22 02:00 02/23/22 02:00 Oxygen Delivery Method Room Air Weight: 206 lb 9.17 oz Body Mass Index (BMI) 35.9 Intake & Output: Intake and Output for Last 24 Hours 02/21/22 02/22/22 02/23/22 23:59 23:59 23:59 Intake Total 1010 / 1010 110 / 110 Output Total 0 / 0 Balance 1010 / 1010 110 / 110 Lab / Micro Data Result Diagrams: 02/23/22 06:56 02/23/22 06:56 Labs: Laboratory Results - last 24 hr 02/22/22 17:20: WBC 11.6 H, RBC 5.23, Hgb 15.0, Hct 44.8, MCV 85.7, MCH 28.7, MCHC 33.5, RDW Std Deviation 45.3 H, RDW Coeff of Raf 14.6, Plt Count 240, MPV 11.2, Immature Gran % (Auto) 0.600, Neut % (Auto) 87.6 H, Lymph % (Auto) 7.4 L, [place] % (Auto) 3.7, Eos % (Auto) 0.1, Baso % (Auto) 0.6, Absolute Neuts (auto) 10.1 H, Absolute Lymphs (auto) 0.85, Nucleated RBC % 0 02/22/22 17:20: Sodium 139, Potassium 3.7, Chloride 107, Carbon Dioxide 21.0, Anion Gap 11, BUN 15, Creatinine 1.00, Estim Creat Clear Calc 40.21, Est GFR (MDRD) Af Amer 69, Est GFR (MDRD) Non-Af 57 L, BUN/Creatinine Ratio 15.0, Glucose 194 H, Calcium 9.7, Total Bilirubin 0.60, AST 111 H, ALT 148 H, Alkaline Phosphatase 99, Total Protein 7.7, Albumin 3.6, Globulin 4.1, Albumin/Globulin Ratio 0.9, Lipase 77 02/22/22 17:20: Phosphorus 3.4, Magnesium 1.8 02/22/22 18:19: Urine Color Yellow, Urine Clarity Clear, Urine pH 5.0, Ur Specific [place] 1.015, Urine Protein Negative, Urine Glucose (UA) 1000 H, Urine Ketones 50 H, Urine Occult Blood Negative, Urine Nitrite Negative, Urine Bilirubin Negative, Urine Urobilinogen Normal, Ur Leukocyte Esterase Negative, Urine RBC 0 SEEN, Urine WBC 0 SEEN, Ur Squamous Epith Cells 0-5 SEEN, Urine Bacteria 0 SEEN, Urine Mucus 0 SEEN Radiography Diagnostic Testing: Radiology Impression Abdomen/Pelvis CT 02/22/22 17:23 IMPRESSION: Early or partial small bowel obstruction with transition point in the left lower quadrant. Electronically Signed: Mehdi Slaughter MD ([place]) at 18:01 EDT Reading Location ID and State: [facility] / [place] , Service support , Physical Exam Narrative Physical Examination: General: Awake, alert, oriented x 3 and cooperative, seated upright in MedSur bed, feeling improved Skin: Normal color, normal turgor, no icterus, no cyanosis. HEENT: AT/NC, EOMI, PERRLA, mildly dry MM. Lungs: Diminished, greater bases, poor effort, no rales, ronchi or wheezing. Heart: Regular rate and rhythm; no gallop, rub audible. Abdomen: Soft, obese, NTTP, no obvious distention, decent bowel sounds. Extremities: No cyanosis, clubbing, or edema. Neurological: Patient awake, alert, oriented x 3, cognitive function intact; pupils equally reactive to light and accommodation, cranial nerves II-XII grossly normal, moving all 4 extremities, no focal deficits, strength improved, mildly global decreased. Psychiatric: Affect appears mildly fatigued otherwise normal, no acute evidence of depressive or anxiety feelings. Assessment & Plan Assessment/Plan (1) Partial small bowel obstruction: PLAN: The patient is a 76 y/o F w/ PMHx: IBS, HTN, HLD, GERD w/ Esophageal varices, Diabetes mellitus type II, Asthma, OA, Hx SBO who presents to the [facility] ED on 02/23/22 with nausea, emesis and abdominal pain w/ diagnosis SBO. #1. Abdominal pain, nausea, emesis w/ SBO: Admitted to [place], maintained on IVFs, per Surgeon NGT currently deferred until N/V intractable with ongoing TN suppositories per their direction, patient with overnight BM and flatus onset, 02/23/22 SBFT with noted contrast passing through the entire colon, strict I&Os, initially maintained on famotidine IV with transition to oral PPI. Given patient's clinical improvement per clearance per general surgery will initiate clear liquids and advance diet as tolerated. If patient does tolerate her meals will plan discharge to home. #2. Esophageal varices, severe duodenal gastric reflux: Patient with recent 02/12/2022 EGD with grade 1 esophageal varices likely secondary to cardiopulmonary disease, erythematous mucosa in the stomach, multiple oozing duodenal ulcers, severe duodenal gastric reflux with biopsies obtained per gastroenterology with recommendation at that time for sucralfate and Protonix. Given improvement transition patient back to oral sucralfate and PPI. #3. Diabetes mellitus type II: Hold oral home regimen, given clinical improvement will transition back to ACHS accu checks w/ ISS with initially clears and advance diet as tolerated to ADA. #4. Hypertension: Given improvement will resume patient's oral hypertensive regimen, PRN IV hydrlaazine in interim. #5. Nonalcoholic state hepatitis with chronically elevated LFTs: Patient status post prior liver biopsy 05/2021 with extensive macro and microvascular steatosis not consistent with cirrhosis, will continue to monitor LFTs, resume ursodiol once patient is allowed oral intake. #6. Obesity: Weight loss and lifestyle changes encouraged. #7. DVT prophylaxis: SCDs, Lovenox. Charges/Coding Visit Charges Inpatient E&M: 09960 Subs Hosp L2
[2022-02-23 07:21] LABS: Absolute Neutrophil Count 4.3 X10^3/uL (2.0-7.7); Basophil# 0.08 X10^3/uL; Basophil% 1.2 % (0-1); Eosinophil# 0.09 X10^3/uL; Eosinophils% 1.4 % (0-5); Hematocrit 39.4 % (37-47); Hemoglobin 12.5 g/dL (12.0-15.0); Lymphocyte % 23.3 % (19-41); Mean Corp Hgb Conc 31.7 g/dL (32-36); Mean Corpuscular Hgb 27.5 pg (27.0-32.0); Mean Corpuscular Volume 86.8 fL (81-99); Mean Platelet Vol. 11.6 fl (6.2-12.0); Monocyte# 0.49 X10^3/uL; Monocyte% 7.6 % (0-10); NRBC Flagged by Analyzer 0 % (0-5); Neutrophil # 4.27 X10^3/uL (2.7-7.7); Neutrophil % 66.2 % (47-70); Platelet Count 210 K/mm3 (150-450); RBC Distribution Width CV 14.8 % (11.6-14.6); RBC Distribution Width SD 47.4 fl (35.1-43.9); Red Blood Count 4.54 M/mm3 (4.2-5.4); White Blood Count 6.5 K/mm3 (4.4-11.0)
[2022-02-23 07:33] LABS: AST(SGOT) 67 U/L (15-37); Alanine Aminotransfer ALT/SGPT 112 U/L (13-56); Albumin, Serum 3.1 g/dL (3.2-5.0); Alkaline Phosphatase 70 U/L (45-117); Anion Gap 5 (5-15); BUN 11 mg/dL (7-18); BUN/Creat Ratio 13.6 RATIO (10-20); Bilirubin, Direct 0.21 mg/dL (0.00-0.30); Calcium,Total 8.8 mg/dL (8.5-10.1); Chloride 111 mmol/L (98-107); Creatinine, Serum 0.81 mg/dL (0.55-1.02); EST Glomerular Filtration Rate 74 mL/min (>60); Est Glom Filt Rate - Afr Amer 89 mL/min (>60); Estimated Creatinine Clearance 49.64 ml/min; Globulin 3.5 g/dL (2.2-4.2); Glucose 103 mg/dL (74-106); Potassium 3.5 mmol/L (3.5-5.1); Protein, Total 6.6 g/dL (6.4-8.2); Sodium Level 141 mmol/L (136-145)
[2022-02-23] MEDS: proCHLORPERazine 10 MG/2 ML Vial 5 MG IV (07:56)
[2022-02-23 08:15] VITALS: O2SAT 95
[2022-02-23 08:53] VITALS: BP 166/78; PULSE 69; RESP 16; TEMP 36.4; O2SAT 97
--- NOTE | 2022-02-23 08:53 | PCM.PN.SRG ---
Subjective Subjective Patient states she had bowel movements last night and this morning. Denies any abdominal pain Objective Data Objective Data Vital Signs: Vital Signs Temp Pulse Resp BP Pulse Ox 97 F L 69 18 138/80 H 94 02/23/22 02:00 02/23/22 02:00 02/23/22 02:00 02/23/22 02:00 02/23/22 02:00 Oxygen Delivery Method Room Air Weight: 206 lb 9.17 oz Body Mass Index (BMI) 35.9 Intake & Output: Intake and Output for Last 24 Hours 02/21/22 02/22/22 02/23/22 23:59 23:59 23:59 Intake Total 1010 / 1010 110 / 110 Output Total 0 / 0 Balance 1010 / 1010 110 / 110 Lab / Micro Data Result Diagrams: 02/23/22 06:56 02/23/22 06:56 Labs: Laboratory Results - last 24 hr 02/22/22 17:20: WBC 11.6 H, RBC 5.23, Hgb 15.0, Hct 44.8, MCV 85.7, MCH 28.7, MCHC 33.5, RDW Std Deviation 45.3 H, RDW Coeff of Raf 14.6, Plt Count 240, MPV 11.2, Immature Gran % (Auto) 0.600, Neut % (Auto) 87.6 H, Lymph % (Auto) 7.4 L, [place] % (Auto) 3.7, Eos % (Auto) 0.1, Baso % (Auto) 0.6, Absolute Neuts (auto) 10.1 H, Absolute Lymphs (auto) 0.85, Nucleated RBC % 0 02/22/22 17:20: Sodium 139, Potassium 3.7, Chloride 107, Carbon Dioxide 21.0, Anion Gap 11, BUN 15, Creatinine 1.00, Estim Creat Clear Calc 40.21, Est GFR (MDRD) Af Amer 69, Est GFR (MDRD) Non-Af 57 L, BUN/Creatinine Ratio 15.0, Glucose 194 H, Calcium 9.7, Total Bilirubin 0.60, AST 111 H, ALT 148 H, Alkaline Phosphatase 99, Total Protein 7.7, Albumin 3.6, Globulin 4.1, Albumin/Globulin Ratio 0.9, Lipase 77 02/22/22 17:20: Phosphorus 3.4, Magnesium 1.8 02/22/22 18:19: Urine Color Yellow, Urine Clarity Clear, Urine pH 5.0, Ur Specific [place] 1.015, Urine Protein Negative, Urine Glucose (UA) 1000 H, Urine Ketones 50 H, Urine Occult Blood Negative, Urine Nitrite Negative, Urine Bilirubin Negative, Urine Urobilinogen Normal, Ur Leukocyte Esterase Negative, Urine RBC 0 SEEN, Urine WBC 0 SEEN, Ur Squamous Epith Cells 0-5 SEEN, Urine Bacteria 0 SEEN, Urine Mucus 0 SEEN 02/23/22 06:56: WBC 6.5, RBC 4.54, Hgb 12.5, Hct 39.4, MCV 86.8, MCH 27.5, MCHC 31.7 L D, RDW Std Deviation 47.4 H, RDW Coeff of Raf 14.8 H, Plt Count 210, MPV 11.6, Immature Gran % (Auto) 0.300, Neut % (Auto) 66.2, Lymph % (Auto) 23.3, [place] % (Auto) 7.6, Eos % (Auto) 1.4, Baso % (Auto) 1.2 H, Absolute Neuts (auto) 4.3, Absolute Lymphs (auto) 1.50, Nucleated RBC % 0 02/23/22 06:56: Sodium 141, Potassium 3.5, Chloride 111 H, Carbon Dioxide 25.0, Anion Gap 5, BUN 11, Creatinine 0.81, Estim Creat Clear Calc 49.64, Est GFR (MDRD) Af Amer 89, Est GFR (MDRD) Non-Af 74, BUN/Creatinine Ratio 13.6, Glucose 103, Calcium 8.8, Total Bilirubin 0.50, Direct Bilirubin 0.21, AST 67 H, ALT 112 H, Alkaline Phosphatase 70, Total Protein 6.6, Albumin 3.1 L, Globulin 3.5 Radiography Diagnostic Testing: Radiology Impression Abdomen/Pelvis CT 02/22/22 17:23 IMPRESSION: Early or partial small bowel obstruction with transition point in the left lower quadrant. Electronically Signed: Mehdi Slaughter MD ([place]) at 18:01 EDT Reading Location ID and State: [facility] / [place] , Service support , Physical Exam Const oriented x3 and no apparent distress Resp normal respiratory effort Cardio regular rate GI soft to palpation and non-tender Inspection: abdominal distention Assessment & Plan Assessment/Plan (1) Partial small bowel obstruction: PLAN: Patient is getting a modified small bowel follow-through with Gastrografin. She has drank the Gastrografin will get an x-ray in 1 hour and then 2 hours if needed. If this shows no evidence of obstruction okay for patient to start clears and advance to regular diet. Discussed with Dr. Clarence Lancaster M.D. Pager: [phone] [facility] [address] [place] [address], [facility], [address] [place] [address] Office: [phone] Charges/Coding Visit Charges Inpatient E&M: 22542 Subs Hosp L2
[2022-02-23] MEDS: Lactated Ringers 1,000 ML 75 ML IV (10:01)
[2022-02-23] MEDS: Enoxaparin 40 MG/0.4 ML Syringe SC (10:02)
--- NOTE | 2022-02-23 11:05 | DS.PCM_ITS ---
Providers Date of Admission: 02/22/22 Primary Care Physician: Dr. Abraham Galindo MD Consultations 02/22/22 20:15 Consult: General Surgery Routine Consulting Provider: Oma Lancaster Reason for Consult: partial SB obstruction EMERGENT Consult: No MD Notified: Yes Date Notified: 02/22/22 Time Notified: 19:00 Method of Notification: Verbal Reason For Visit: ABDOMINAL PAIN Diagnosis Discharge Diagnosis (1) Partial small bowel obstruction: Status: Acute Code(s): K56.600 - Partial intestinal obstruction, unspecified as to cause Medications at Discharge Home Medications amlodipine-benazepril 1 cap PO DAILY 07/15/16 bisoprolol fumarate 10 mg PO DAILY 07/15/16 glimepiride 4 mg PO BID 06/12/21 metformin 750 mg PO BID 06/12/21 acetaminophen [Tylenol] 650 mg PO Q4H PRN PRN #0 tab 06/14/21 ondansetron 4 mg PO Q8H PRN PRN #10 tab 11/19/21 Jardiance 10 mg PO DAILY 12/31/21 cholecalciferol (vitamin D3) [Vitamin D3] 50 mcg PO DAILY 12/31/21 Probiotic 10,000 mmu cells PO DAILY 02/07/22 dicyclomine 20 mg PO DAILY 02/07/22 pantoprazole 40 mg PO DAILY 02/22/22 sucralfate 1 g PO Q6H 02/22/22 ursodiol 300 mg PO BID 02/22/22 vitamin E 800 unit PO DAILY 02/22/22 Hospital Course Operations None Procedures None Summary of Care Provided Minutes Spent on Discharge: 35 Hospital Course: Discharge Diagnoses: #1. Abdominal pain, nausea, emesis w/ partial SBO #2. Esophageal varices, severe duodenal gastric reflux #3. Diabetes mellitus type II #4. Hypertension #5. Nonalcoholic state hepatitis with chronically elevated LFTs #6. Obesity Discharge Summary: The patient is a 76 y/o F w/ PMHx: IBS, HTN, HLD, GERD w/ Esophageal varices, Diabetes mellitus type II, Asthma, OA, Hx SBO who presented to the [facility] ED on 02/23/22 with nausea, emesis and abdominal pain w/ diagnosis SBO. Admitted to [place], maintained on IVFs, per Surgeon NGT currently deferred until N/V intractable with ongoing RI suppositories per their direction, patient with overnight BM and flatus onset, 02/23/22 SBFT with noted contrast passing through the entire colon, strict I&Os, initially maintained on famotidine IV with transition to oral PPI. Given patient's clinical improvement per clearance per general surgery will initiate clear liquids and advance diet as tolerated. Patient with recent 02/12/2022 EGD with grade 1 esophageal varices likely secondary to cardiopulmonary disease, erythematous mucosa in the stomach, mul tiple oozing duodenal ulcers, severe duodenal gastric reflux with biopsies obtained per gastroenterology with recommendation at that time for sucralfate and Protonix. Given improvement transitioned patient back to oral sucralfate and PPI. Patient tolerated her oral intake given clinical stability and quicker resolution of bowel obstruction than expected, patient was discharged to home in stable condition with recommended PCP follow-up and General surgery follow-up as needed or if concerns. Discharge Time: > 35 Minutes Weight / BMI Weight Weight: 206 lb 9.17 oz Body Mass Index (BMI) 35.9 ABG / Lab / Microbiology Data Result Diagrams: 02/23/22 06:56 02/23/22 06:56 Laboratory: Laboratory Results - last 24 hr 02/22/22 17:20: WBC 11.6 H, RBC 5.23, Hgb 15.0, Hct 44.8, MCV 85.7, MCH 28.7, MCHC 33.5, RDW Std Deviation 45.3 H, RDW Coeff of [place] 14.6, Plt Count 240, MPV 11.2, Immature Gran % (Auto) 0.600, Neut % (Auto) 87.6 H, Lymph % (Auto) 7.4 L, [place] % (Auto) 3.7, Eos % (Auto) 0.1, Baso % (Auto) 0.6, Absolute Neuts (auto) 10.1 H, Absolute Lymphs (auto) 0.85, Nucleated RBC % 0 02/22/22 17:20: Sodium 139, Potassium 3.7, Chloride 107, Carbon Dioxide 21.0, Anion Gap 11, BUN 15, Creatinine 1.00, Estim Creat Clear Calc 40.21, Est GFR (MDRD) Af Amer 69, Est GFR (MDRD) Non-Af 57 L, BUN/Creatinine Ratio 15.0, Glucose 194 H, Calcium 9.7, Total Bilirubin 0.60, AST 111 H, ALT 148 H, Alkaline Phosphatase 99, Total Protein 7.7, Albumin 3.6, Globulin 4.1, Albumin/Globulin R atio 0.9, Lipase 77 02/22/22 17:20: Phosphorus 3.4, Magnesium 1.8 02/22/22 18:19: Urine Color Yellow, Urine Clarity Clear, Urine pH 5.0, Ur Specific [place] 1.015, Urine Protein Negative, Urine Glucose (UA) 1000 H, Urine Ketones 50 H, Urine Occult Blood Negative, Urine Nitrite Negative, Urine Bilirubin Negative, Urine Urobilinogen Normal, Ur Leukocyte Esterase Negative, Urine RBC 0 SEEN, Urine WBC 0 SEEN, Ur Squamous Epith Cells 0-5 SEEN, Urine Bacteria 0 SEEN, Urine Mucus 0 SEEN 02/23/22 06:56: WBC 6.5, RBC 4.54, Hgb 12.5, Hct 39.4, MCV 86.8, MCH 27.5, MCHC 31.7 L D, RDW Std Deviation 47.4 H, RDW Coeff of Raf 14.8 H, Plt Count 210, MPV 11.6, Immature Gran % (Auto) 0.300, Neut % (Auto) 66.2, Lymph % (Auto) 23.3, [place] % (Auto) 7.6, Eos % (Auto) 1.4, Baso % (Auto) 1.2 H, Absolute Neuts (auto) 4.3, Absolute Lymphs (auto) 1.50, Nucleated RBC % 0 02/23/22 06:56: Sodium 141, Potassium 3.5, Chloride 111 H, Carbon Dioxide 25.0, Anion Gap 5, BUN 11, Creatinine 0.81, Estim Creat Clear Calc 49.64, Est GFR (MDRD) Af Amer 89, Est GFR (MDRD) Non-Af 74, BUN/Creatinine Ratio 13.6, Glucose 103, Calcium 8.8, Total Bilirubin 0.50, Direct Bilirubin 0.21, AST 67 H, ALT 112 H, Alkaline Phosphatase 70, Total Protein 6.6, Albumin 3.1 L, Globulin 3.5 Radiography Diagnostic Testing: Radiology Impression Abdomen/Pelvis CT 02/22/22 17:23 IMPRESSION: Early or partial small bowel obstruction with transition point in the left lower quadrant. Electronically Signed: Mehdi Slaughter MD ([place]) at 18:01 EDT , KUB X-Ray 02/23/22 05:55 IMPRESSION: Normal x-ray examination of the abdomen and pelvis. Electronically Signed: Isaias Drake MD at 9:41 EDT , D/C Instructions Discharge Diet: 1800 Calorie Control Diet Call your doctor if you observe: Fever of 101 or Higher, Inability to have a bowel movement, Shortness of breath, Dizziness, Fainting spells, Chest pain, Increased palpitations (irregular heartbeat) and Uncontrolled pain Meaningful Use Info Meaningful Use Diagnoses (Choose all that apply): None applicable Discharge Plan Admission Admit Date/Time: 02/22/22 19:12 Primary Reason for Your Visit: Partial SBO Attending Provider: Manasa Lima Primary Care Provider: Abraham Galindo Consulting Providers: Oma Lancaster Instructions Patient Instructions: Small Bowel Obstruction, Bowel Obstruction Discharge Orders/Prescriptions Prescriptions: Continued bisoprolol fumarate 10 MG tablet 10 mg PO DAILY RF: 0 amlodipine-benazepril 1 EACH capsule 1 cap PO DAILY RF: 0 glimepiride 4 mg tablet 4 mg PO BID RF: 0 metformin 750 mg tablet extended release 24 hr 750 mg PO BID RF: 0 acetaminophen [Tylenol] 325 mg Tablet 650 mg PO Q4H PRN PRN (Reason: PAIN 1-10/ FEVER) Qty: 0 RF: 0 ondansetron 4 MG tablet 4 mg PO Q8H PRN PRN (Reason: Nausea) Qty: 10 RF: 0 Jardiance 10 mg tablet 10 mg PO DAILY RF: 0 cholecalciferol (vitamin D3) [Vitamin D3] 50 mcg (2,000 unit) Capsule 50 mcg PO DAILY RF: 0 dicyclomine 20 mg tablet 20 mg PO DAILY RF: 0 Probiotic 10 billion cell Capsule 10,000 mmu cells PO DAILY RF: 0 sucralfate 1 gram tablet 1 g PO Q6H RF: 0 pantoprazole 40 mg tablet,delayed release (DR/EC) 40 mg PO DAILY RF: 0 ursodiol 300 mg capsule 300 mg PO BID RF: 0 vitamin E 400 unit capsule 800 unit PO DAILY RF: 0 Referrals / Follow Up: Abraham Galindo MD [Primary Care Provider] - (Follow-up within 1-2 weeks to review admission.) Oma Lancaster MD [STAFF PHYSICIAN] - (Follow-up as needed for concerns or may contact office if recurrent abdominal discomfort, bloating with concerns for recurrent partial obstruction.) Disposition Disposition (needs filled in before D/C Order can be placed): Home, Self Care Charges/Coding Visit Charges Inpatient E&M: 12791 Disch Hosp
[2022-02-23] MEDS: amLODIPine 5 MG Tablet PO (11:28)
[2022-02-23] MEDS: Lisinopril 20 MG Tablet PO (11:28)
[2022-02-23] MEDS: Bisoprolol Fumarate 5 MG Tablet 10 MG PO (11:28)
[2022-02-23] MEDS: Sucralfate 1 GM Tablet PO (11:29)
[2022-02-23 11:30] LABS: Bedside Glucose 128 mg/dL (74-106)
[2022-02-23 11:37] VITALS: BP 143/69; PULSE 62; RESP 16; TEMP 36.6; O2SAT 95
--- NOTE | 2022-02-23 14:13 | NURSING ---
pt tylor chicken noodle soup, broth, jello, and tea with no c/o pain or nausea
== END 2022-02-23 15:01 | disposition home or self-care (01) | DRG 389 ==
LOC: ED 19:09 → MS3 19:26
PROVIDERS: Admitting Provider Internal Medicine; Emergency Provider Student in an Organized Health Care Education/Training Program; PCP Family Medicine; Visit Provider Family Medicine
DX: K56.600 Partial intestinal obstruction, unspecified as to cause (principal); I85.00 Esophageal varices without bleeding; K75.81 Nonalcoholic steatohepatitis (NASH); E11.9 Type 2 diabetes mellitus without complications; K44.9 Diaphragmatic hernia without obstruction or gangrene; K21.9 Gastro-esophageal reflux disease without esophagitis; E78.5 Hyperlipidemia, unspecified; M17.0 Bilateral primary osteoarthritis of knee; I10 Essential (primary) hypertension; K29.70 Gastritis, unspecified, without bleeding; J45.909 Unspecified asthma, uncomplicated; K58.9 Irritable bowel syndrome, unspecified; Z79.84 Long term (current) use of oral hypoglycemic drugs; K26.9 Duodenal ulcer, unspecified as acute or chronic, without hemorrhage or perforation; Z79.899 Other long term (current) drug therapy; E66.9 Obesity, unspecified; Z68.36 Body mass index [BMI] 36.0-36.9, adult
CPT/HCPCS: 36415; 74018; 74176; 80048; 80053; 80076; 81001; 82962; 83690; 83735; 84100; 85025; 99251; 99285; J7120; A4216; G0463; J2405; J3490

== ENCOUNTER 2022-03-07 19:17 | Inpatient (IN) | payer MEDICARE, SELFPAY ==
[2022-03-07 19:18] VITALS: BP 161/90; PULSE 90; RESP 18; TEMP 36.1; O2SAT 98; BMI 36.3
--- NOTE | 2022-03-07 19:52 | CT_ITS ---
STUDY: CT ABDOMEN AND PELVIS WITHOUT CONTRAST REASON FOR EXAM: Female, 76 years old. Pain RADIATION DOSAGE (If Supplied By Facility): CTDIvol = ( 21.71 ) mGy, DLP = ( 1060.37 ) mGycm TECHNIQUE: Transaxial images were obtained from the dome of the diaphragm to the symphysis pubis without oral contrast, and without intravenous contrast. Sagittal and coronal images were reconstructed. Individualized dose optimization techniques were used for this CT. COMPARISON: CT abdomen pelvis 02/22/2022. FINDINGS: LOWER CHEST: Included lung bases are clear. Coronary artery calcifications. LIVER: Heterogeneous. Fatty infiltration. Slightly nodular contour.. GALLBLADDER AND BILIARY TREE: Gallbladder surgically absent. PANCREAS: Grossly unremarkable. SPLEEN: Grossly unremarkable. ADRENAL GLANDS: Grossly unremarkable. KIDNEYS AND URETERS: No calculi demonstrated. No hydronephrosis. PERITONEUM: No free air. No free fluid. BOWEL: Surgical clips in the rectosigmoid region. Mildly dilated small bowel. Distal small bowel decreased caliber. Abrupt transition located in the right lower abdomen. The transition on the prior was on the left lower abdomen, otherwise degree of bowel dilatation is similar. There is mild stranding adjacent to the small bowel at and just distal to the transition point.. APPENDIX: Visualized and unremarkable. No evidence of acute appendicitis. VESSELS: Abdominal aorta is normal caliber. REPRODUCTIVE ORGANS: Grossly unremarkable URINARY BLADDER: Grossly unremarkable. ABDOMINAL WALL: Diastases of the abdominal rectus muscles. Small right periumbilical hernia containing fat, no bowel.. BONES: Bilateral pars defects at L5 with grade 1-2 spondylolisthesis at L5-S1, and degenerative changes. No acute abnormalities. CT/Abdomen/Pelvis without Cont IMPRESSION: Distal small bowel obstruction. Etiology uncertain possibly adhesions. Stranding adjacent to the small bowel in the region of the transition zone may reflect enteritis. Electronically Signed: Connie Wray MD at 20:50 EDT ,
[2022-03-07 20:03] LABS: Bacteria 0 SEEN /hpf (None Seen); Mucous, Urine 0 SEEN /hpf (<or=2+); Red Blood Cells-Urine 0 SEEN /hpf (0-5); Squamous Epithelial Cells - UA 0 SEEN /hpf (5-10)
[2022-03-07 20:05] LABS: Color, Urine Yellow (Yellow); Glucose, Dipstick 1000 mg/dl (Normal); Ketone-Dipstick 5 mg/dl (Negative); Leukocyte Esterase-Dipstick 25 /ul (Negative); Nitrite-Dipstick Negative (Negative); Occult Blood-Urine Negative /ul (Negative); Protein-Dipstick Negative (Negative); Urine Bilirubin Dipstick Negative (Negative); Urine Clarity Clear (Clear); Urine Urobilinogen Normal (Normal)
[2022-03-07] MEDS: Morphine 4 MG/ML Syringe IV ×2 (20:06→23:34)
[2022-03-07] MEDS: 0.9% Normal Saline 1,000 ML 1000 ML IV (20:06)
[2022-03-07] MEDS: Metoclopramide 10 MG/2 ML Vial IV (20:06)
[2022-03-07 20:12] LABS: White Blood Cells 0-5 SEEN /hpf (0-5)
[2022-03-07 20:13] LABS: Absolute Lymphocyte Count 1.51 X10^3/uL (0.83-4.51); Absolute Neutrophil Count 7.6 X10^3/uL (2.0-7.7); Basophil# 0.09 X10^3/uL; Basophil% 0.9 % (0-1); Eosinophil# 0.04 X10^3/uL; Eosinophils% 0.4 % (0-5); Hematocrit 42.6 % (37-47); Lymphocyte # 1.51 X10^3/ul (0.83-4.51); Lymphocyte % 15.2 % (19-41); Mean Corp Hgb Conc 32.9 g/dL (32-36); Mean Corpuscular Hgb 27.9 pg (27.0-32.0); Mean Corpuscular Volume 84.9 fL (81-99); Mean Platelet Vol. 11.3 fl (6.2-12.0); Monocyte% 7.1 % (0-10); NRBC Flagged by Analyzer 0 % (0-5); Neutrophil # 7.55 X10^3/uL (2.7-7.7); Neutrophil % 76.1 % (47-70); Platelet Count 227 K/mm3 (150-450); RBC Distribution Width CV 14.5 % (11.6-14.6); RBC Distribution Width SD 44.7 fl (35.1-43.9); Red Blood Count 5.02 M/mm3 (4.2-5.4); White Blood Count 9.9 K/mm3 (4.4-11.0)
--- NOTE | 2022-03-07 20:31 | EDS_ITS ---
HPI HPI - GI History of Present Illness Chief Complaint: Abd Pain Informant: patient Narrative Narrative: Patient is a 76-year-old female with history of multiple abdominal surgeries, small bowel obstruction, bleeding duodenal ulcers and nonalcoholic fatty liver disease presenting with abdominal pain. Patient developed worsening abdominal pain today. States it feels like when she was admitted 2 weeks ago (for partial small bowel obstruction). She is had one episode of vomiting and then dry heaves. She states she only vomited water. It happened after eating breakfast this morning. She has had increased pain in her epigastric region which radiates across her upper abdomen and into her back. She is also had a burning sensation in her stomach and burping. She denies any black or blood in her stool. States her bowel movements have been light brown. Last bowel movement was small and today. [facility] Medical History Arthritis Asthma Cholelithiasis and acute cholecystitis without obstruction Diabetes Diabetes mellitus type 2, uncomplicated Gastric reflux GERD (gastroesophageal reflux disease) History of diverticulitis History of steroid therapy History of stress test Hypertension IBS (irritable bowel syndrome) Leg cramps Non-smoker Obesity Partial small bowel obstruction Small bowel obstruction due to postoperative adhesions Wears contact lenses Wears glasses Home Medications amlodipine-benazepril 1 cap PO DAILY 07/15/16 [History Last Taken 02/22/22] bisoprolol fumarate 10 mg PO DAILY 07/15/16 [History Last Taken 02/22/22] glimepiride 4 mg PO BID 06/12/21 [History Last Taken 02/22/22] metformin 750 mg PO BID 06/12/21 [History Last Taken 02/22/22] acetaminophen [Tylenol] 650 mg PO Q4H PRN PRN #0 tab 06/14/21 [Rx Last Taken Unknown] ondansetron 4 mg PO Q8H PRN PRN #10 tab 11/19/21 [Rx Last Taken Unknown] Jardiance 10 mg PO DAILY 12/31/21 [History Last Taken 02/22/22] cholecalciferol (vitamin D3) [Vitamin D3] 50 mcg PO DAILY 12/31/21 [History Last Taken 02/22/22] Probiotic 10,000 mmu cells PO DAILY 02/07/22 [History Last Taken 02/22/22] pantoprazole 40 mg PO DAILY 02/22/22 [History Last Taken 02/22/22] sucralfate 1 g PO Q6H 02/22/22 [History Last Taken 02/22/22] ursodiol 300 mg PO BID 02/22/22 [History Last Taken 02/22/22] vitamin E 800 unit PO DAILY 02/22/22 [History Last Taken 02/22/22] Allergy/AdvReac Type Severity Reaction Status Date / Time adhesive Allergy Other Verified 03/07/22 19:20 Iodinated Contrast Media Allergy Hives Verified 03/07/22 19:20 [CONTRASTS] ciprofloxacin [From Cipro] AdvReac Mild nausea Verified 03/07/22 19:20 metronidazole [From Flagyl] AdvReac Mild nausea Verified 03/07/22 19:20 IVORY SOAP Allergy Rash Uncoded 03/07/22 19:20 Family History Mother Multiple sclerosis Father Heart disease Diabetes Surgical History H/O dilation and curettage H/O oophorectomy History of cardiac catheterization History of cholecystectomy S/P partial colectomy Status post left foot surgery Social History household members: family and other details: Patient lives with her daughter, son in law. Smoking Status: Never smoker alcohol intake: never substance use type: does not use seatbelt use: always ROS ROS ED Constitutional Constitutional ED: Denies chills or fever(s) ENT ENT ED: Denies rhinorrhea or sore throat Cardiovascular Cardiovascular: Denies chest pain Respiratory/Chest Respiratory/Chest: Denies cough or dyspnea Gastrointestinal Gastrointestinal: Reports abdominal pain, nausea and vomiting; Denies constipation, diarrhea or melena Genitourinary Genitourinary ED: Denies dysuria or hematuria Musculoskeletal Musculoskeletal: Denies myalgias Integumentary Denies rash Neurologic Neurologic: Denies headache(s) or weakness Psychiatric Psychiatric: Denies depression EXAM Physical Exam Const Vital Signs: 03/07/22 19:18 03/07/22 21:27 Temperature 97.0 F L Temperature Source Temporal Pulse Rate 90 72 Respiratory Rate 18 16 Blood Pressure 161/90 H 159/74 H Blood Pressure Mean 113 102 Pulse Ox 98 94 Oxygen Delivery Method Room Air Room Air Positive well nourished and well developed General Appearance ED: well developed HEENT Reports moist mucous membranes normocephalic and atraumatic Eyes PERRL Neck supple Resp normal respiratory effort Cardio regular rate, regular rhythm and no murmurs GI Auscultation: hypoactive bowel sounds Palpation: soft and tender epigastric; Negative for guarding or rebound tenderness present Back/Spine no CVA tenderness Extremity full ROM General Extremety ED: Negative for edema or tenderness General Extremity: Negative for edema Neuro moves all extremities Sensorium / Orientation: alert Motor Exam: Negative for general weakness Psych mental status grossly normal Skin no wounds Lesions: no lesions Rashes: no rashes MDM MDM MDM Narrative Medical decision making narrative: Patient evaluated for 1 day of upper abdominal pain. She is concerned it is her ulcers are causing her pain. She was admitted 2 weeks ago for partial small bowel obstruction as well. She does have an significant past medical history of abdominal surgeries. She denies any black or blood in her stool. Did have a bowel movement today. Has only had one episode of vomiting. Patient CBC is normal. CMP shows a very mild transaminitis which is nonspecific. Urinalysis is not consistent with infection but does have glucosuria. High since he troponin is 4. Her EKG is normal. Do not think this is referred cardiac pain. CT the abdomen and pelvis obtained which is concerning for small bowel obstruction with distal transition point. Other findings consistent with possible enteritis. Patient's case is discussed with surgery on-call, Dr. Clark, who is agreeable with admission here. We will attempt to treat medically. Patient is admitted to hospital service given patient's multiple comorbidities. Patient is hemodynamically stable in the ER. She not having vomiting, will defer NG tube at this time. Patient was given a dose of Reglan and morphine as well as IV fluids in the ER for symptom control. She does have improvement on repeat evaluation. Lab Data Attestation: I reviewed the patient's lab results. Labs: Laboratory Results - last 24 hr 03/07/22 03/07/22 03/07/22 20:00 20:10 20:10 WBC 9.9 RBC 5.02 Hgb 14.0 Hct 42.6 MCV 84.9 MCH 27.9 MCHC 32.9 RDW Std Deviation 44.7 H RDW Coeff of Raf 14.5 Plt Count 227 MPV 11.3 Immature Gran % (Auto) 0.300 Neut % (Auto) 76.1 H Lymph % (Auto) 15.2 L [place] % (Auto) 7.1 Eos % (Auto) 0.4 Baso % (Auto) 0.9 Absolute Neuts (auto) 7.6 Absolute Lymphs (auto) 1.51 Nucleated RBC % 0 Sodium 138 Potassium 3.6 Chloride 107 Carbon Dioxide 23.0 Anion Gap 8 BUN 14 Creatinine 0.94 Estim Creat Clear Calc 42.78 Est GFR (MDRD) Af Amer 75 Est GFR (MDRD) Non-Af 62 BUN/Creatinine Ratio 14.9 Glucose 180 H Calcium 9.6 Total Bilirubin 0.60 Direct Bilirubin 0.27 AST 61 H ALT 87 H Alkaline Phosphatase 101 Troponin I High Sens 4 Total Protein 7.6 Albumin 3.5 Globulin 4.1 Lipase 77 Urine Color Yellow Urine Clarity Clear Urine pH 5.0 Ur Specific [place] 1.010 Urine Protein Negative Urine Glucose (UA) 1000 H Urine Ketones 5 H Urine Occult Blood Negative Urine Nitrite Negative Urine Bilirubin Negative Urine Urobilinogen Normal Ur Leukocyte Esterase 25 H Urine RBC 0 SEEN Urine WBC 0-5 SEEN Ur Squamous Epith Cells 0 SEEN Urine Bacteria 0 SEEN Urine Mucus 0 SEEN Radiography Diagnostic Testing: Clinical Impression(s) from Imaging Studies Abdomen/Pelvis CT 03/07/22 19:52 IMPRESSION: Distal small bowel obstruction. Etiology uncertain possibly adhesions. Stranding adjacent to the small bowel in the region of the transition zone may reflect enteritis. Electronically Signed: Connie Wray MD at 20:50 EDT , Discharge Plan Dx/Rx/DC Orders Clinical Impression: SBO (small bowel obstruction), Abdominal pain Disposition Disposition: Acute Care Hospital [facility] Discharge Date/Time: 03/07/22 23:04
[2022-03-07 20:34] LABS: AST(SGOT) 61 U/L (15-37); Alanine Aminotransfer ALT/SGPT 87 U/L (13-56); Albumin, Serum 3.5 g/dL (3.2-5.0); Alkaline Phosphatase 101 U/L (45-117); Anion Gap 8 (5-15); BUN 14 mg/dL (7-18); BUN/Creat Ratio 14.9 RATIO (10-20); Bilirubin, Direct 0.27 mg/dL (0.00-0.30); Calcium,Total 9.6 mg/dL (8.5-10.1); Chloride 107 mmol/L (98-107); Creatinine, Serum 0.94 mg/dL (0.55-1.02); EST Glomerular Filtration Rate 62 mL/min (>60); Est Glom Filt Rate - Afr Amer 75 mL/min (>60); Estimated Creatinine Clearance 42.78 ml/min; Globulin 4.1 g/dL (2.2-4.2); Glucose 180 mg/dL (74-106); Lipase 77 U/L (73-393); Potassium 3.6 mmol/L (3.5-5.1); Protein, Total 7.6 g/dL (6.4-8.2); Sodium Level 138 mmol/L (136-145); Troponin-I HS 4 pg/mL (3.0-54.0)
[2022-03-07 21:27] VITALS: BP 159/74; PULSE 72; RESP 16; O2SAT 94
--- NOTE | 2022-03-07 21:37 | PCM.HP.STD ---
HPI - General General Date of Admission: 03/07/22 Date of Service: 03/07/22 Chief Complaint: Abdominal pain, N/V HPI Narrative The patient is a 76 y/o F w/ PMHx: IBS, HTN, HLD, GERD w/ Esophageal varices, Diabetes mellitus type II, Asthma, OA, Hx SBO with prior partial colectomy and several abdominal surgeries, recently discharged 02/23/22 following admission for partial SBO which resolved conservatively who now re-presents to the [facility] ED on 03/07/2022 with history of abdominal discomfort today, similar to presentation for recent partial small bowel obstruction with nausea and emesis with ongoing dry heaves starting after eating breakfast on morning on day of presentation with significant increase pain in the epigastric region with frequent belching prompting ED evaluation. She notes that her bowel movements have been light brown and that her last 1 was small and on day of presentation. Work-up in the ED included T 97, heart rate 90, BP 161/90, respiratory rate 18, 98% on room air, CBC with WC 9.9, hemoglobin 14, platelet 227 without marked shift, CMP with glucose 180, AST/ALT 61/87, lipase 77, troponin 4, UA without marked evidence of UTI, CT A/P w/ a distal small bowel obstruction possibly secondary adhesions with stranding adjacent to the small bowel in the region of the transition zone possibly reflective of enteritis. In the ED patient administered NS bolus, reglan and morphine. [facility] Medical History Arthritis Asthma Cholelithiasis and acute cholecystitis without obstruction Diabetes Diabetes mellitus type 2, uncomplicated Gastric reflux GERD (gastroesophageal reflux disease) History of diverticulitis History of steroid therapy History of stress test Hypertension IBS (irritable bowel syndrome) Leg cramps Non-smoker Obesity Partial small bowel obstruction Small bowel obstruction due to postoperative adhesions Wears contact lenses Wears glasses Home Medications amlodipine-benazepril 1 cap PO DAILY 07/15/16 [History Last Taken 02/22/22] bisoprolol fumarate 10 mg PO DAILY 07/15/16 [History Last Taken 02/22/22] glimepiride 4 mg PO BID 06/12/21 [History Last Taken 02/22/22] metformin 750 mg PO BID 06/12/21 [History Last Taken 02/22/22] acetaminophen [Tylenol] 650 mg PO Q4H PRN PRN #0 tab 06/14/21 [Rx Last Taken Unknown] ondansetron 4 mg PO Q8H PRN PRN #10 tab 11/19/21 [Rx Last Taken Unknown] Jardiance 10 mg PO DAILY 12/31/21 [History Last Taken 02/22/22] cholecalciferol (vitamin D3) [Vitamin D3] 50 mcg PO DAILY 12/31/21 [History Last Taken 02/22/22] Probiotic 10,000 mmu cells PO DAILY 02/07/22 [History Last Taken 02/22/22] pantoprazole 40 mg PO DAILY 02/22/22 [History Last Taken 02/22/22] sucralfate 1 g PO Q6H 02/22/22 [History Last Taken 02/22/22] ursodiol 300 mg PO BID 02/22/22 [History Last Taken 02/22/22] vitamin E 800 unit PO DAILY 02/22/22 [History Last Taken 02/22/22] Allergy/AdvReac Type Severity Reaction Status Date / Time adhesive Allergy Other Verified 03/07/22 19:20 Iodinated Contrast Media Allergy Hives Verified 03/07/22 19:20 [CONTRASTS] ciprofloxacin [From Cipro] AdvReac Mild nausea Verified 03/07/22 19:20 metronidazole [From Flagyl] AdvReac Mild nausea Verified 03/07/22 19:20 IVORY SOAP Allergy Rash Uncoded 03/07/22 19:20 Family History Mother Multiple sclerosis Father Heart disease Diabetes Surgical History H/O dilation and curettage H/O oophorectomy History of cardiac catheterization History of cholecystectomy S/P partial colectomy Status post left foot surgery Social History household members: family and other details: Patient lives with her daughter, son in law. Smoking Status: Never smoker alcohol intake: never substance use type: does not use seatbelt use: always ROS ROS Narrative Admission Review of Systems: CONSTITUTIONAL: No weight loss, fever, chills, + weakness or fatigue. HEENT: Eyes: No visual loss, blurred vision, double vision or yellow sclerae. Ears, Nose, Throat: No hearing loss, sneezing, congestion, runny nose or sore throat. SKIN: No rash or itching, lesions, wounds. CARDIOVASCULAR: No chest pain, chest pressure or chest discomfort, palpitations, edema, orthopnea, syncopal events. RESPIRATORY: No shortness of breath, cough or sputum, wheezing, hemoptysis. GASTROINTESTINAL: + anorexia, nausea, vomiting, abdominal pain, No diarrhea, melena, BRBPR. GENITOURINARY: No dysuria, frequency, urgency or retention. NEUROLOGICAL: No headache, dizziness, syncope, paralysis, ataxia, numbness or tingling in the extremities, focal weakness, change in bowel or bladder control, seizure. MUSCULOSKELETAL: + muscle, back pain, joint pain or stiffness. HEMATOLOGIC: No anemia, bleeding or bruising. LYMPHATICS: No enlarged nodes. No history of splenectomy. PSYCHIATRIC: No history of depression or anxiety. ENDOCRINOLOGIC: No reports of sweating, cold or heat intolerance. No polyuria or polydipsia. ALLERGIES: No history of asthma, hives, eczema or rhinitis. Vital Signs Vital Signs Vital Signs: 03/07/22 19:18 03/07/22 21:27 Temperature 97.0 F L Temperature Source Temporal Pulse Rate 90 72 Respiratory Rate 18 16 Blood Pressure 161/90 H 159/74 H Blood Pressure Mean 113 102 Pulse Ox 98 94 Oxygen Delivery Method Room Air Room Air Weight Weight: 205 lb Body Mass Index (BMI) 36.3 Physical Exam Narrative Physical Examination: General: Awake, alert, oriented x 3 and cooperative, seated upright in the ED bed, uncomfortable and fatigued appearing Skin: Normal color, normal turgor, no icterus, no cyanosis. HEENT: AT/NC, EOMI, PERRLA, moderately dry MM, no carotid bruits or JVD noted. Lungs: Diminished, greater bases, appropriate effort, no rales, ronchi or wheezing. Heart: Currently regular rate and rhythm; no gallop, rub audible. Abdomen: Soft, generalized discomfort, worse in the periumbilical and epigastric region, not markedly distended, absent bowel sounds, difficult to assess HSM secondary to pain. Extremities: No cyanosis, clubbing, or edema. Neurological: Patient awake, alert, oriented as noted, cognitive function intact; pupils equally reactive to light and accommodation, cranial nerves II-XII grossly normal, moving all 4 extremities, no focal deficits, strength moderately to severely global decrease secondary to acute presentation Psychiatric: Affect appears fatigued, uncomfortable, no acute evidence of depressive or anxiety feelings. Results Lab / Micro Data Result Diagrams: 03/07/22 20:10 03/07/22 20:10 Labs: Laboratory Results - last 24 hr 03/07/22 20:00: Urine Color Yellow, Urine Clarity Clear, Urine pH 5.0, Ur Specific [place] 1.010, Urine Protein Negative, Urine Glucose (UA) 1000 H, Urine Ketones 5 H, Urine Occult Blood Negative, Urine Nitrite Negative, Urine Bilirubin Negative, Urine Urobilinogen Normal, Ur Leukocyte Esterase 25 H, Urine RBC 0 SEEN, Urine WBC 0-5 SEEN, Ur Squamous Epith Cells 0 SEEN, Urine Bacteria 0 SEEN, Urine Mucus 0 SEEN 03/07/22 20:10: Sodium 138, Potassium 3.6, Chloride 107, Carbon Dioxide 23.0, Anion Gap 8, BUN 14, Creatinine 0.94, Estim Creat Clear Calc 42.78, Est GFR (MDRD) Af Amer 75, Est GFR (MDRD) Non-Af 62, BUN/Creatinine Ratio 14.9, Glucose 180 H, Calcium 9.6, Total Bilirubin 0.60, Direct Bilirubin 0.27, AST 61 H, ALT 87 H, Alkaline Phosphatase 101, Troponin I High Sens 4, Total Protein 7.6, Albumin 3.5, Globulin 4.1, Lipase 77 03/07/22 20:10: WBC 9.9, RBC 5.02, Hgb 14.0, Hct 42.6, MCV 84.9, MCH 27.9, MCHC 32.9, RDW Std Deviation 44.7 H, RDW Coeff of Raf 14.5, Plt Count 227, MPV 11.3, Immature Gran % (Auto) 0.300, Neut % (Auto) 76.1 H, Lymph % (Auto) 15.2 L, [place] % (Auto) 7.1, Eos % (Auto) 0.4, Baso % (Auto) 0.9, Absolute Neuts (auto) 7.6, Absolute Lymphs (auto) 1.51, Nucleated RBC % 0 Radiology Impression Abdomen/Pelvis CT 03/07/22 19:52 IMPRESSION: Distal small bowel obstruction. Etiology uncertain possibly adhesions. Stranding adjacent to the small bowel in the region of the transition zone may reflect enteritis. Electronically Signed: Connie Wray MD at 20:50 EDT , Assessment & Plan Assessment/Plan (1) SBO (small bowel obstruction): PLAN: The patient is a 76 y/o F w/ PMHx: IBS, HTN, HLD, GERD w/ Esophageal varices, Diabetes mellitus type II, Asthma, OA, Hx SBO with prior partial colectomy and several abdominal surgeries, recently discharged 02/23/22 following admission for partial SBO which resolved conservatively who now re-presents to the [facility] ED on 03/07/2022 with history of abdominal discomfort today, similar to presentation for recent partial small bowel obstruction with nausea and emesis with ongoing dry heaves starting after eating breakfast on morning on day of presentation with significant increase pain in the epigastric region with frequent belching prompting ED evaluation. #1. Abdominal pain, nausea, emesis w/ SBO: We will admit to medical surgical floor, maintain IV fluids, if any worsening pain/nausea/emesis will per discussion with patient and family place NG tube to low intermittent wall suction, maintain on IV PPI, strict I&Os, as needed pain regimen, general surgery consulted, plan repeat KUB in AM. #2. Esophageal varices, severe duodenal gastric reflux: Patient with recent 02/12/2022 EGD with grade 1 esophageal varices likely secondary to cardiopulmonary disease, erythematous mucosa in the stomach, multiple oozing duodenal ulcers, severe duodenal gastric reflux with biopsies obtained per gastroenterology with recommendation at that time for sucralfate and Protonix. Will maintain on IV PPI. #3. Diabetes mellitus type II: Hold oral home regimen, maintain n.p.o. status, every 6 hours Accu-Cheks with insulin sliding scale. #4. Hypertension: Holding oral regimen given presentation #1, PRN IV hydrlaazine in interim. #5. Nonalcoholic state hepatitis with chronically elevated LFTs: Patient status post prior liver biopsy 05/2021 with extensive macro and microvascular steatosis not consistent with cirrhosis, admission AST/ALT 61/87, similar to prior, will continue to monitor LFTs, resume ursodiol once patient is allowed oral intake. #6. Obesity: Weight loss and lifestyle changes encouraged. #7. DVT prophylaxis: SCDs, Lovenox. Charges/Coding Visit Charges Inpatient E&M: 78675 Init Hosp L3
[2022-03-07 21:52] VITALS: BP 159/74; PULSE 75; RESP 14; TEMP 36.4; O2SAT 95
[2022-03-07 23:11] VITALS: BMI 36.7
[2022-03-07 23:23] VITALS: BP 138/89; PULSE 74; RESP 18; TEMP 36.4; O2SAT 92
[2022-03-07] MEDS: 0.9% Normal Saline 1,000 ML 100 ML IV (23:34)
[2022-03-07] MEDS: Ondansetron 4 MG/2 ML Vial IV (23:34)
[2022-03-07 23:56] LABS: Bedside Glucose 139 mg/dL (74-106)
[2022-03-08 05:15] VITALS: BP 136/64; PULSE 69; RESP 18; TEMP 36.6; O2SAT 93
[2022-03-08 05:40] LABS: Bedside Glucose 140 mg/dL (74-106)
--- NOTE | 2022-03-08 05:55 | RAD_ITS ---
STUDY: X-RAY - ABDOMEN/PELVIS REASON FOR EXAM: Female, 76 years old. SBO TECHNIQUE: AP supine portable. 2 images. 4:54 AM. COMPARISON: Abdominal x-rays 02/23/2022. CT abdomen pelvis 03/07/2022.. FINDINGS: Mildly dilated segment of small bowel centrally in the abdomen. There is stool and air in the colon. Sensitivity for free air limited on supine view. Lung bases not well assessed due to the technique. RAD/Abdomen Single View (Portable) IMPRESSION: Mildly dilated small bowel centrally. This may be ileus or partial obstruction. Electronically Signed: Connie Wray MD at 6:06 EDT ,
[2022-03-08 07:11] LABS: Absolute Lymphocyte Count 1.42 X10^3/uL (0.83-4.51); Absolute Neutrophil Count 5.2 X10^3/uL (2.0-7.7); Basophil# 0.05 X10^3/uL; Basophil% 0.7 % (0-1); Eosinophil# 0.05 X10^3/uL; Eosinophils% 0.7 % (0-5); Hemoglobin 13.1 g/dL (12.0-15.0); Lymphocyte # 1.42 X10^3/ul (0.83-4.51); Lymphocyte % 19.3 % (19-41); Mean Corpuscular Hgb 27.3 pg (27.0-32.0); Mean Corpuscular Volume 85.6 fL (81-99); Mean Platelet Vol. 12.4 fl (6.2-12.0); Monocyte# 0.66 X10^3/uL; NRBC Flagged by Analyzer 0 % (0-5); Neutrophil # 5.15 X10^3/uL (2.7-7.7); Platelet Count 212 K/mm3 (150-450); RBC Distribution Width CV 14.5 % (11.6-14.6); RBC Distribution Width SD 45.4 fl (35.1-43.9); Red Blood Count 4.79 M/mm3 (4.2-5.4); White Blood Count 7.4 K/mm3 (4.4-11.0)
[2022-03-08 07:32] LABS: ALB/GLOB Ratio 0.9 RATIO (0.9-2.4); Albumin, Serum 3.3 g/dL (3.2-5.0); BUN 13 mg/dL (7-18); BUN/Creat Ratio 15.4 RATIO (10-20); Calcium,Total 8.8 mg/dL (8.5-10.1); Creatinine, Serum 0.84 mg/dL (0.55-1.02); EST Glomerular Filtration Rate 70 mL/min (>60); Est Glom Filt Rate - Afr Amer 84 mL/min (>60); Estimated Creatinine Clearance 47.87 ml/min; Globulin 3.7 g/dL (2.2-4.2); Glucose 124 mg/dL (74-106)
[2022-03-08 07:33] LABS: AST(SGOT) 73 U/L (15-37); Alanine Aminotransfer ALT/SGPT 99 U/L (13-56); Alkaline Phosphatase 87 U/L (45-117); Anion Gap 7 (5-15); Chloride 107 mmol/L (98-107); Potassium 3.8 mmol/L (3.5-5.1); Sodium Level 139 mmol/L (136-145)
[2022-03-08 07:40] VITALS: O2SAT 93
[2022-03-08 09:52] VITALS: BP 151/68; PULSE 72; RESP 16; TEMP 36.7; O2SAT 93
--- NOTE | 2022-03-08 10:18 | CON.PCM.SX_ITS ---
Assessment & Plan Assessment/Plan (1) SBO (small bowel obstruction): PLAN: Patient denies abdominal pain and passing flatus, if tolerates clear liquids she can be discharged home She complains of chronic intermittent abdominal pain - I have recommended that she follow up with her PCP and surgeon. HPI Consult Data Date of Consult: 03/08/22 HPI Narrative HPI Narrative: JASON JONES, is a 76 F who presents with one day history of abdominal pain, nausea and emesis. Patient had recently been discharged from hospital for same above presentation, diagnosed with partial small bowel obstruction and recovered with IV hydration, NPO, and analgesics - no NG tube placed. Patient presents today with similar symptoms as previous. She had recent EGD/colonoscopy by Dr. Patel in January 2022. She had also been admitted in December 2021 for partial SBO which also resolved without surgery. She had undergone xlap/DIANN by Dr. Luque on 06/12/2021. [facility] Medical History Arthritis Asthma Cholelithiasis and acute cholecystitis without obstruction Diabetes Diabetes mellitus type 2, uncomplicated Gastric reflux GERD (gastroesophageal reflux disease) History of diverticulitis History of steroid therapy History of stress test Hypertension IBS (irritable bowel syndrome) Leg cramps Non-smoker Obesity Partial small bowel obstruction Small bowel obstruction due to postoperative adhesions Wears contact lenses Wears glasses Home Medications amlodipine-benazepril 1 cap PO DAILY 07/15/16 [History Last Taken 02/22/22] bisoprolol fumarate 10 mg PO DAILY 07/15/16 [History Last Taken 02/22/22] glimepiride 4 mg PO BID 06/12/21 [History Last Taken 02/22/22] metformin 750 mg PO BID 06/12/21 [History Last Taken 02/22/22] acetaminophen [Tylenol] 650 mg PO Q4H PRN PRN #0 tab 06/14/21 [Rx Last Taken Unknown] ondansetron 4 mg PO Q8H PRN PRN #10 tab 11/19/21 [Rx Last Taken Unknown] Jardiance 10 mg PO DAILY 12/31/21 [History Last Taken 02/22/22] cholecalciferol (vitamin D3) [Vitamin D3] 50 mcg PO DAILY 12/31/21 [History Last Taken 02/22/22] Probiotic 10,000 mmu cells PO DAILY 02/07/22 [History Last Taken 02/22/22] pantoprazole 40 mg PO DAILY 02/22/22 [History Last Taken 02/22/22] sucralfate 1 g PO Q6H 02/22/22 [History Last Taken 02/22/22] ursodiol 300 mg PO BID 02/22/22 [History Last Taken 02/22/22] vitamin E 800 unit PO DAILY 02/22/22 [History Last Taken 02/22/22] Allergy/AdvReac Type Severity Reaction Status Date / Time adhesive Allergy Other Verified 03/07/22 19:20 Iodinated Contrast Media Allergy Hives Verified 03/07/22 19:20 [CONTRASTS] ciprofloxacin [From Cipro] AdvReac Mild nausea Verified 03/07/22 19:20 metronidazole [From Flagyl] AdvReac Mild nausea Verified 03/07/22 19:20 IVORY SOAP Allergy Rash Uncoded 03/07/22 19:20 Family History Mother Multiple sclerosis Father Heart disease Diabetes Surgical History H/O dilation and curettage H/O oophorectomy History of cardiac catheterization History of cholecystectomy S/P partial colectomy Status post left foot surgery Social History household members: family and other details: Patient lives with her daughter, son in law. Smoking Status: Never smoker alcohol intake: never substance use type: does not use seatbelt use: always ROS Constitutional Constitutional: Reports fatigue; Denies fever(s) or weight loss Cardiovascular Cardiovascular: Denies chest pain at rest Respiratory/Chest Respiratory/Chest: Denies dyspnea or hemoptysis Gastrointestinal Gastrointestinal: Reports abdominal pain, nausea and vomiting Genitourinary Genitourinary: Denies hematuria Musculoskeletal Musculoskeletal: Reports back pain; Denies abnormal gait Integumentary Integumentary: Denies jaundice Neurologic Neurologic: Denies loss of vision Physical Exam Const alert and oriented x3 General Appearance: cooperative HEENT normocephalic Eyes Eyes Narrative: right pupil smaller than left, sclera clear Neck supple Resp normal respiratory effort Effort and Inspection: able to speak in complete sentences Cardio Rate: regular rate GI soft to palpation and non-tender Extremity normal to inspection Skin General Skin Exam: Negative for jaundice Neuro Speech: speech normal Psych affect normal Lab / Micro Data Result Diagrams: 03/08/22 05:33 03/08/22 05:33 Labs: Laboratory Results - last 24 hr 03/07/22 20:00: Urine Color Yellow, Urine Clarity Clear, Urine pH 5.0, Ur Specific [place] 1.010, Urine Protein Negative, Urine Glucose (UA) 1000 H, Urine Ketones 5 H, Urine Occult Blood Negative, Urine Nitrite Negative, Urine Bilirubin Negative, Urine Urobilinogen Normal, Ur Leukocyte Esterase 25 H, Urine RBC 0 SEEN, Urine WBC 0-5 SEEN, Ur Squamous Epith Cells 0 SEEN, Urine Bacteria 0 SEEN, Urine Mucus 0 SEEN 03/07/22 20:10: Sodium 138, Potassium 3.6, Chloride 107, Carbon Dioxide 23.0, Anion Gap 8, BUN 14, Creatinine 0.94, Estim Creat Clear Calc 42.78, Est GFR (MDRD) Af Amer 75, Est GFR (MDRD) Non-Af 62, BUN/Creatinine Ratio 14.9, Glucose 180 H, Calcium 9.6, Total Bilirubin 0.60, Direct Bilirubin 0.27, AST 61 H, ALT 87 H, Alkaline Phosphatase 101, Troponin I High Sens 4, Total Protein 7.6, Albumin 3.5, Globulin 4.1, Lipase 77 03/07/22 20:10: WBC 9.9, RBC 5.02, Hgb 14.0, Hct 42.6, MCV 84.9, MCH 27.9, MCHC 32.9, RDW Std Deviation 44.7 H, RDW Coeff of Raf 14.5, Plt Count 227, MPV 11.3, Immature Gran % (Auto) 0.300, Neut % (Auto) 76.1 H, Lymph % (Auto) 15.2 L, [place] % (Auto) 7.1, Eos % (Auto) 0.4, Baso % (Auto) 0.9, Absolute Neuts (auto) 7.6, Absolute Lymphs (auto) 1.51, Nucleated RBC % 0 03/07/22 23:43: POC Glucose 139 H 03/08/22 05:26: POC Glucose 140 H 03/08/22 05:33: WBC 7.4, RBC 4.79, Hgb 13.1, Hct 41.0, MCV 85.6, MCH 27.3, MCHC 32.0, RDW Std Deviation 45.4 H, RDW Coeff of Raf 14.5, Plt Count 212, MPV 12.4 H , Immature Gran % (Auto) 0.300, Neut % (Auto) 70.0, Lymph % (Auto) 19.3, [place] % (Auto) 9.0, Eos % (Auto) 0.7, Baso % (Auto) 0.7, Absolute Neuts (auto) 5.2, Absolute Lymphs (auto) 1.42, Nucleated RBC % 0 03/08/22 05:33: Sodium 139, Potassium 3.8, Chloride 107, Carbon Dioxide 25.0, Anion Gap 7, BUN 13, Creatinine 0.84, Estim Creat Clear Calc 47.87, Est GFR (MDRD) Af Amer 84, Est GFR (MDRD) Non-Af 70, BUN/Creatinine Ratio 15.4, Glucose 124 H, Calcium 8.8, Total Bilirubin 0.80, AST 73 H, ALT 99 H, Alkaline Phosphatase 87, Total Protein 7.0, Albumin 3.3, Globulin 3.7, Albumin/Globulin Ratio 0.9 Radiology Impression Abdomen/Pelvis CT 03/07/22 19:52 IMPRESSION: Distal small bowel obstruction. Etiology uncertain possibly adhesions. Stranding adjacent to the small bowel in the region of the transition zone may reflect enteritis. Electronically Signed: Connie Wray MD at 20:50 EDT , KUB X-Ray 03/08/22 05:55 IMPRESSION: Mildly dilated small bowel centrally. This may be ileus or partial obstruction. Electronically Signed: Connie Wray MD at 6:06 EDT ,
[2022-03-08] MEDS: 0.9% Normal Saline 1,000 ML 100 ML IV (10:50)
--- NOTE | 2022-03-08 11:05 | CASEMGMT ---
JUDE AUGUSTINE assessment: Face to Face with patient for initial transition planning/care coordination assessment. JUDE AUGUSTINE introduced self and role at [facility], pt voices understanding and consents to assessment. Pt is sitting up in bed in no distress . Pt is A/Ox4 and answers all questions appropriately. Care providers, pharmacy, and demographics verified. Presentation: Pt c/o abd pain that radiates to her upper back. pt states sees Dr. Patel who states DM med is causing ulcers, N/V Admitting dx: SBO PCP: Mateo Specialists: TOBI Patel Preferred Pharmacy: [facility] Insurance: [employer] Prescription Benefit: [employer] Living Will/HPOA: Pt does have LW/HPOA and is aware that they are on file at [facility]. Pt's daughter, Martha Cardenas, is HPOA. LNOK: Martha Cardenas, daughter/HPOA Living Arrangements: Pt lives with daughter on main level of 2 story home and states no concerns at home. Pt is independent with ADL's. Transportation: Pt drives self and states no transportation concerns. DME/HHC: Pt states no current DME or need for any further DME. Pt states no hx of HHC or SNF. Pt states no concerns with going home at time of discharge. Pt is retired. Pt states does not smoke cigarettes or drink ETOH. Pt states no concerns/needs. CM to follow for any further discharge planning/needs. Advised pt to ask for CM if any further questions/concerns/needs arise, voices understanding. Pt Goal: Home Plan[place] JUDE AUGUSTINE
[2022-03-08 12:25] LABS: Bedside Glucose 164 mg/dL (74-106)
--- NOTE | 2022-03-08 13:00 | DS.PCM_ITS ---
Providers Date of Admission: 03/07/22 Date of Discharge: 03/08/22 Primary Care Physician: Dr. Abraham Galindo MD Consultations 03/07/22 23:09 Consult: General Surgery Routine Consulting Provider: Martha Clark Reason for Consult: SBO EMERGENT Consult: No MD Notified: Yes Date Notified: 03/07/22 Time Notified: 21:35 Method of Notification: per ED. Reason For Visit: SBO Diagnosis Discharge Diagnosis (1) SBO (small bowel obstruction): Status: Acute Code(s): K56.609 - Unspecified intestinal obstruction, unspecified as to partial versus complete obstruction Plan: 1. Small bowel obstruction #2 type 2 diabetes #3 essential hypertension Medications at Discharge Home Medications amlodipine-benazepril 1 cap PO DAILY 07/15/16 bisoprolol fumarate 10 mg PO DAILY 07/15/16 glimepiride 4 mg PO BID 06/12/21 metformin 750 mg PO BID 06/12/21 acetaminophen [Tylenol] 650 mg PO Q4H PRN PRN #0 tab 06/14/21 ondansetron 4 mg PO Q8H PRN PRN #10 tab 11/19/21 Jardiance 10 mg PO DAILY 12/31/21 cholecalciferol (vitamin D3) [Vitamin D3] 50 mcg PO DAILY 12/31/21 Probiotic 10,000 mmu cells PO DAILY 02/07/22 pantoprazole 40 mg PO DAILY 02/22/22 sucralfate 1 g PO Q6H 02/22/22 ursodiol 300 mg PO BID 02/22/22 vitamin E 800 unit PO DAILY 02/22/22 Hospital Course Operations None Procedures None Summary of Care Provided Minutes Spent on Discharge: 32 Hospital Course: 76-year-old white female was seen in the emergency room at [facility] with complaints of abdominal pain x24 hours. Patient has been admitted to the hospital here for partial small bowel obstruction approximately 2 weeks prior. Patient complains of increased pain in her epigastric region which radiates into her back and across her upper abdomen. Labs obtained in the emergency room show a normal white blood cell count at 9.9, chemistry panel was remarkable for a glucose of 180, AST was elevated at 61, ALT was elevated at 87. Urinalysis was remarkable for glucose of 1000, there were some urine ketones, no white cells or red cells were seen and there was no bacteria seen. CT of the abdomen and pelvis showed a distal small bowel obstruction. Patient was admitted to [place] [address], she was given fluids and was seen by general surgery. Patient's symptoms resolved and surgery felt that she could be discharged home. On 03/08/2022, patient was seen and examined: On examination she appeared in good health and spirits, she does not appear to be in any distress. Vital signs as documented. Skin warm and dry and without overt rashes. Neck without JVD, thyroid appears normal, trachea is midline, neck is supple. Lungs clear, normal air movement was noted. Heart exam notable for regular rhythm, normal sounds and absence of murmurs, rubs or gallops. Abdomen unremarkable and without evidence of organomegaly, masses, or abdominal aortic enlargement, bowel sounds are present in all 4 quadrants, no abdominal tenderness was noted. Extremities nonedematous, no cyanosis was noted, no clubbing was noted. Neuro: Cranial nerves II through XII are grossly intact, no focal motor deficits were noted, sensation to light touch and pinprick is intact, motor exam 5/5 throughout. Psych: Patient is alert and oriented x3, she does not appear anxious or depressed, she does not appear agitated. On 03/08/2022, patient was discharged home in stable condition Weight / BMI Weight Weight: 94.1 kg Body Mass Index (BMI) 36.7 ABG / Lab / Microbiology Data Result Diagrams: 03/08/22 05:33 03/08/22 05:33 Laboratory: Laboratory Results - last 24 hr 03/08/22 05:33: Sodium 139, Potassium 3.8, Chloride 107, Carbon Dioxide 25.0, Anion Gap 7, BUN 13, Creatinine 0.84, Estim Creat Clear Calc 47.87, Est GFR (MDRD) Af Amer 84, Est GFR (MDRD) Non-Af 70, BUN/Creatinine Ratio 15.4, Glucose 124 H, Calcium 8.8, Total Bilirubin 0.80, AST 73 H, ALT 99 H, Alkaline Phosphatase 87, Total Protein 7.0, Albumin 3.3, Globulin 3.7, Albumin/Globulin Ratio 0.9 03/08/22 12:21: POC Glucose 164 H D/C Instructions Discharge Diet: 1800 Calorie Control Diet Weight Bearing Status: Full weight bearing Meaningful Use Info Meaningful Use Diagnoses (Choose all that apply): None applicable Discharge Plan Admission Admit Date/Time: 03/07/22 21:34 Primary Reason for Your Visit: small bowel obstruction Attending Provider: Jose Massey Primary Care Provider: Abraham Galindo Consulting Providers: Martha Clark Discharge Orders/Prescriptions Prescriptions: Continued bisoprolol fumarate 10 MG tablet 10 mg PO DAILY RF: 0 amlodipine-benazepril 1 EACH capsule 1 cap PO DAILY RF: 0 glimepiride 4 mg tablet 4 mg PO BID RF: 0 metformin 750 mg tablet extended release 24 hr 750 mg PO BID RF: 0 acetaminophen [Tylenol] 325 mg Tablet 650 mg PO Q4H PRN PRN (Reason: PAIN 1-10/ FEVER) Qty: 0 RF: 0 ondansetron 4 MG tablet 4 mg PO Q8H PRN PRN (Reason: Nausea) Qty: 10 RF: 0 Jardiance 10 mg tablet 10 mg PO DAILY RF: 0 cholecalciferol (vitamin D3) [Vitamin D3] 50 mcg (2,000 unit) Capsule 50 mcg PO DAILY RF: 0 Probiotic 10 billion cell Capsule 10,000 mmu cells PO DAILY RF: 0 sucralfate 1 gram tablet 1 g PO Q6H RF: 0 pantoprazole 40 mg tablet,delayed release (DR/EC) 40 mg PO DAILY RF: 0 ursodiol 300 mg capsule 300 mg PO BID RF: 0 vitamin E 400 unit capsule 800 unit PO DAILY RF: 0 Referrals / Follow Up: Abraham Galindo MD [Primary Care Provider] - Within 1 Week Care Physician,No Primary [NON-STAFF] - Disposition Disposition (needs filled in before D/C Order can be placed): Home, Self Care Charges/Coding Visit Charges Inpatient E&M: 53521 Disch Hosp
--- NOTE | 2022-03-08 13:17 | NURSING ---
Pt ate clear liquid diet one hour ago and has no symptoms. This nurse will notify Dr. Massey.
--- NOTE | 2022-03-08 13:48 | PCM.DC ---
Discharge Instructions Diet Discharge Diet: 1800 Calorie Control Diet Activity Discharge Activity: Return to Normal Activity Weight Bearing Status: Full weight bearing Follow Up Care Test Results: Test results from this visit will be discussed in further detail at your follow-up appointment, if applicable. Discharge Plan Admission Admit Date/Time: 03/07/22 21:34 Primary Reason for Your Visit: small bowel obstruction Attending Provider: Jose aMssey Primary Care Provider: Care Physician,No Primary Consulting Providers: Martha Clark Discharge Orders/Prescriptions Prescriptions: Continued bisoprolol fumarate 10 MG tablet 10 mg PO DAILY RF: 0 amlodipine-benazepril 1 EACH capsule 1 cap PO DAILY RF: 0 glimepiride 4 mg tablet 4 mg PO BID RF: 0 metformin 750 mg tablet extended release 24 hr 750 mg PO BID RF: 0 acetaminophen [Tylenol] 325 mg Tablet 650 mg PO Q4H PRN PRN (Reason: PAIN 1-10/ FEVER) Qty: 0 RF: 0 ondansetron 4 MG tablet 4 mg PO Q8H PRN PRN (Reason: Nausea) Qty: 10 RF: 0 Jardiance 10 mg tablet 10 mg PO DAILY RF: 0 cholecalciferol (vitamin D3) [Vitamin D3] 50 mcg (2,000 unit) Capsule 50 mcg PO DAILY RF: 0 Probiotic 10 billion cell Capsule 10,000 mmu cells PO DAILY RF: 0 sucralfate 1 gram tablet 1 g PO Q6H RF: 0 pantoprazole 40 mg tablet,delayed release (DR/EC) 40 mg PO DAILY RF: 0 ursodiol 300 mg capsule 300 mg PO BID RF: 0 vitamin E 400 unit capsule 800 unit PO DAILY RF: 0 Referrals / Follow Up: Abraham Galindo MD [STAFF PHYSICIAN] - Within 1 Week Care Physician,No Primary [Primary Care Provider] - Disposition Disposition (needs filled in before D/C Order can be placed): Home, Self Care
[2022-03-08 14:44] VITALS: BP 149/90; PULSE 78; RESP 18; TEMP 36.8; O2SAT 99
== END 2022-03-08 14:50 | disposition home or self-care (01) | DRG 389 ==
LOC: ED 21:42 → MS3 22:36
PROVIDERS: Admitting Provider Family Medicine; Emergency Provider Emergency Medicine; PCP Family Medicine; Visit Provider Internal Medicine
DX: K56.51 Intestinal adhesions [bands], with partial obstruction (principal); I85.10 Secondary esophageal varices without bleeding; K75.9 Inflammatory liver disease, unspecified; E11.9 Type 2 diabetes mellitus without complications; E78.5 Hyperlipidemia, unspecified; I10 Essential (primary) hypertension; K21.9 Gastro-esophageal reflux disease without esophagitis; K58.9 Irritable bowel syndrome, unspecified; G89.29 Other chronic pain; E66.9 Obesity, unspecified; Z68.36 Body mass index [BMI] 36.0-36.9, adult; Z90.49 Acquired absence of other specified parts of digestive tract; Z79.84 Long term (current) use of oral hypoglycemic drugs; Z79.899 Other long term (current) drug therapy
CPT/HCPCS: 36415; 74018; 74176; 80048; 80053; 80076; 81001; 82962; 83690; 84484; 85025; 99251; 99285; J7030; A4216; G0463; J2405

== ENCOUNTER → 2022-04-07 | Outpatient (CLI) | payer MEDICARE, SELFPAY ==
[2022-04-07 15:53] LABS: Anion Gap 7 (5-15); BUN 15 mg/dL (7-18); BUN/Creat Ratio 16.3 RATIO (10-20); Calcium,Total 9.3 mg/dL (8.5-10.1); Chloride 108 mmol/L (98-107); Cholesterol 162 mg/dL (200); Creatinine, Serum 0.92 mg/dL (0.55-1.02); EST Glomerular Filtration Rate 63 mL/min (>60); Est Glom Filt Rate - Afr Amer 77 mL/min (>60); Glucose 129 mg/dL (74-106); High Density Lipoprotein 49 mg/dL; Potassium 3.8 mmol/L (3.5-5.1); Sodium Level 139 mmol/L (136-145); Triglycerides 106 mg/dL; Very Low Density Lipoprotein 21 mg/dL (5-40)
[2022-04-07 16:29] LABS: Hemoglobin A1c 7.6 % (3.8-5.6)
== END | disposition home or self-care (01) ==
LOC: MFPLAB 11:13
PROVIDERS: PCP Family Medicine; Visit Provider Family Medicine
DX: I10 Essential (primary) hypertension (principal); E11.65 Type 2 diabetes mellitus with hyperglycemia
CPT/HCPCS: 36415; 80048; 80061; 83036

== ENCOUNTER 2022-04-09 17:39 | Inpatient (IN) | payer MEDICARE, SELFPAY ==
[2022-04-09 17:40] VITALS: BP 141/107; PULSE 62; RESP 18; TEMP 36.7; O2SAT 97; BMI 36.5
--- NOTE | 2022-04-09 17:50 | CT_ITS ---
STUDY: CT ABDOMEN AND PELVIS WITHOUT CONTRAST REASON FOR EXAM: Female, 77 years old. abd pain, nausea and vomiting RADIATION DOSAGE (If Supplied By Facility): CTDIvol = ( 16.60 ) mGy, DLP = ( 833.69 ) mGycm TECHNIQUE: Transaxial images were obtained from the dome of the diaphragm to the symphysis pubis without oral contrast, and without intravenous contrast. Sagittal and coronal images were reconstructed. Individualized dose optimization techniques were used for this CT. COMPARISON: 03/07/2022 FINDINGS: The visualized lung bases are unremarkable. The visualized portions of the heart are within normal limits. There is decreased attenuation of the liver consistent with steatosis. Cholecystectomy. Normal spleen. Normal pancreas. Normal bilateral adrenal glands. Normal right kidney. Normal left kidney. Normal visualized stomach. Small duodenal diverticulum. Dilated fluid-filled bowel in the lower abdomen with diameter measuring to 3.8 cm extends into the lower anterior abdominal wall eventration (image 146 series 2, image 111 series 602) with relatively decompressed bowel more distal in the segment of abdominal wall eventration. Transition point thought to be evident on image 33 of series 601. The distal small bowel and colon are nondilated with fecal residue noted. No colon wall thickening. Surgical anastomosis of the rectum. There is non-visualization of the appendix. There is diffuse atherosclerotic calcification of the abdominal aorta, without a demonstrated aneurysm. Normal inferior vena cava. Normal retroperitoneum. Normal urinary bladder. Normal abdominal wall. Grade 1 spondylolysis at L5-S1 due to L5 spondylolysis. CT/Abdomen/Pelvis without Cont IMPRESSION: Partial small bowel obstruction with transition point in lower anterior abdominal wall eventration, likely secondary to adhesions. Electronically Signed: Mehdi Slaughter MD ([place]) at 18:40 EDT ,
--- NOTE | 2022-04-09 17:51 | EX.ED.DYSGE1 ---
HPI History of Present Illness Chief Complaint: Abd Pain Informant: patient Onset/Context/Timing Onset: Today Current Severity: Moderate Maximum Severity: Moderate Narrative Narrative: Patient present secondary to abdominal pain with nausea and vomiting. Patient has had prior small bowel obstructions and is concerned she may be obstructed again. Symptoms started at 130 this morning and she is been vomiting since 8 AM. She does report that she is passing a small amount of gas. Last bowel movement was yesterday morning. She denies fever or chills. [facility] Medical History (Updated 04/09/22 @ 22:[address] Suze Person MD) Arthritis Asthma Bleeding ulcer Cholelithiasis and acute cholecystitis without obstruction Constipation Diabetes Diabetes mellitus type 2, uncomplicated Duodenogastric reflux of bile Gastric reflux GERD (gastroesophageal reflux disease) History of diverticulitis History of steroid therapy History of stress test Hypertension IBS (irritable bowel syndrome) Leg cramps NAFLD (nonalcoholic fatty liver disease) Non-smoker Obesity Partial small bowel obstruction Small bowel obstruction due to postoperative adhesions Wears contact lenses Wears glasses Home Medications amlodipine-benazepril 1 cap PO DAILY 07/15/16 [History Last Taken 04/09/22] bisoprolol fumarate 10 mg PO DAILY 07/15/16 [History Last Taken 04/09/22] glimepiride 4 mg PO DAILY 06/12/21 [History Last Taken 04/09/22] metformin 750 mg PO BID 06/12/21 [History Last Taken 04/09/22] acetaminophen [Tylenol] 650 mg PO Q4H PRN PRN #0 tab 06/14/21 [Rx Last Taken Unknown] ondansetron 4 mg PO Q8H PRN PRN #10 tab 11/19/21 [Rx Last Taken Unknown] Jardiance 10 mg PO DAILY 12/31/21 [History Last Taken 04/09/22] cholecalciferol (vitamin D3) [Vitamin D3] 50 mcg PO QHS 12/31/21 [History Last Taken 04/08/22] Probiotic 10,000 mmu cells PO DAILY 02/07/22 [History Last Taken 04/09/22] dicyclomine 20 mg PO BID 04/09/22 [History Last Taken 04/09/22] omeprazole 20 mg PO DAILY 04/09/22 [History Last Taken 04/09/22] polyethylene glycol 3350 [Miralax] 17 g PO DAILY 04/09/22 [History Last Taken 04/09/22] vitamin E (dl, acetate) 360 mg PO DAILY 04/09/22 [History Last Taken 04/09/22] Allergy/AdvReac Type Severity Reaction Status Date / Time adhesive Allergy Other Verified 04/09/22 17:52 Iodinated Contrast Media Allergy Hives Verified 04/09/22 17:52 [CONTRASTS] ciprofloxacin [From Cipro] AdvReac Mild nausea Verified 04/09/22 17:52 metronidazole [From Flagyl] AdvReac Mild nausea Verified 04/09/22 17:52 IVORY SOAP Allergy Rash Uncoded 04/09/22 17:52 Family History Mother Multiple sclerosis Father Heart disease Diabetes Surgical History H/O dilation and curettage H/O oophorectomy History of cardiac catheterization History of cholecystectomy S/P partial colectomy Status post left foot surgery Social History household members: family and other details: Patient lives with her daughter, son in law. Smoking Status: Never smoker alcohol intake: never substance use type: does not use seatbelt use: always ROS ROS ED Constitutional Constitutional ED: Denies chills or fever(s) Eyes Eyes: Denies change in vision ENT ENT ED: Denies sore throat Cardiovascular Cardiovascular: Denies chest pain Respiratory/Chest Respiratory/Chest: Denies cough or dyspnea Gastrointestinal Gastrointestinal: Reports abdominal pain, nausea and vomiting; Denies diarrhea Genitourinary Genitourinary ED: Denies dysuria Musculoskeletal Musculoskeletal: Denies back pain or neck pain Integumentary Denies rash Neurologic Neurologic: Denies headache(s) or weakness Allergic/Immunologic Allergic/Immunologic ED: Denies urticaria EXAM Physical Exam Const Vital Signs: 04/09/22 17:40 04/09/22 19:54 Temperature 98.1 F 98.0 F Temperature Source Temporal Temporal Pulse Rate 62 73 Respiratory Rate 18 28 H Blood Pressure 141/107 H 133/94 H Blood Pressure Mean 118 107 Pulse Ox 97 95 Oxygen Delivery Method Room Air Room Air Positive well nourished and well developed General Appearance ED: well developed Eyes PERRL and EOMs intact bilaterally Neck supple Chest Wall inspection of chest normal and palpation of chest normal Resp normal respiratory effort and clear to auscultation bilaterally Cardio regular rate and regular rhythm GI GI Narrative: Mild diffuse tenderness palpation. No guarding or rebound. Hypoactive but present bowel sounds are noted. Palpation: soft Extremity normal to inspection Neuro oriented x3 and no sensory deficits noted Sensorium / Orientation: alert Motor Exam: strength 5/5 throughout Psych Mood & Affect: anxious Skin no rashes or lesions noted MDM MDM MDM Narrative Medical decision making narrative: Patient given morphine and Zofran for pain and nausea. Lab work obtained along with a CT flank. Lab Data Attestation: I reviewed the patient's lab results. Labs: Laboratory Results - last 24 hr 04/09/22 04/09/22 17:57 17:57 WBC 12.5 H RBC 5.65 H Hgb 15.1 H Hct 47.0 MCV 83.2 MCH 26.7 L MCHC 32.1 RDW Std Deviation 42.8 RDW Coeff of Raf 14.3 Plt Count 262 MPV 11.3 Immature Gran % (Auto) 0.500 Neut % (Auto) 86.9 H Lymph % (Auto) 7.7 L [place] % (Auto) 4.5 Eos % (Auto) 0.0 Baso % (Auto) 0.4 Absolute Neuts (auto) 10.9 H Absolute Lymphs (auto) 0.96 Nucleated RBC % 0 Sodium 136 Potassium 4.0 Chloride 103 Carbon Dioxide 22.0 Anion Gap 11 BUN 14 Creatinine 1.04 H Estim Creat Clear Calc 38.07 Est GFR (MDRD) Af Amer 66 Est GFR (MDRD) Non-Af 55 L BUN/Creatinine Ratio 13.5 Glucose 199 H Calcium 9.6 Total Bilirubin 0.70 Direct Bilirubin 0.28 AST 44 H ALT 69 H Alkaline Phosphatase 95 Total Protein 7.9 Albumin 3.7 Globulin 4.2 Lipase 50 L Radiography Diagnostic Testing: Clinical Impression(s) from Imaging Studies Abdomen/Pelvis CT 04/09/22 17:50 IMPRESSION: Partial small bowel obstruction with transition point in lower anterior abdominal wall eventration, likely secondary to adhesions. Electronically Signed: Medhi Slaughter MD ([place]) at 18:40 EDT , Treatment and Re-Evaluation Narrative: CT scan reveals partial small bowel obstruction with transition point in the lower abdomen. Lab work significant for white count 12.5 and hemoglobin concentrated at 15.1. On repeat evaluation patient resting much more comfortably. She has not had any further vomiting in the emergency room. I spoke with Dr. Fisher, on-call for surgery who will be in to evaluate her. Discharge Plan Dx/Rx/DC Orders Clinical Impression: Partial obstruction of small intestine Disposition Disposition: Acute Care Hospital [facility] Discharge Date/Time: 04/09/22 21:12
[2022-04-09 18:08] LABS: Absolute Lymphocyte Count 0.96 X10^3/uL (0.83-4.51); Absolute Neutrophil Count 10.9 X10^3/uL (2.0-7.7); Basophil# 0.05 X10^3/uL; Basophil% 0.4 % (0-1); Hemoglobin 15.1 g/dL (12.0-15.0); Lymphocyte # 0.96 X10^3/ul (0.83-4.51); Lymphocyte % 7.7 % (19-41); Mean Corp Hgb Conc 32.1 g/dL (32-36); Mean Corpuscular Hgb 26.7 pg (27.0-32.0); Mean Corpuscular Volume 83.2 fL (81-99); Mean Platelet Vol. 11.3 fl (6.2-12.0); Monocyte# 0.56 X10^3/uL; Monocyte% 4.5 % (0-10); NRBC Flagged by Analyzer 0 % (0-5); Neutrophil # 10.85 X10^3/uL (2.7-7.7); Neutrophil % 86.9 % (47-70); Platelet Count 262 K/mm3 (150-450); RBC Distribution Width CV 14.3 % (11.6-14.6); RBC Distribution Width SD 42.8 fl (35.1-43.9); Red Blood Count 5.65 M/mm3 (4.2-5.4); White Blood Count 12.5 K/mm3 (4.4-11.0)
[2022-04-09 18:24] LABS: AST(SGOT) 44 U/L (15-37); Alanine Aminotransfer ALT/SGPT 69 U/L (13-56); Albumin, Serum 3.7 g/dL (3.2-5.0); Alkaline Phosphatase 95 U/L (45-117); Anion Gap 11 (5-15); BUN 14 mg/dL (7-18); BUN/Creat Ratio 13.5 RATIO (10-20); Bilirubin, Direct 0.28 mg/dL (0.00-0.30); Calcium,Total 9.6 mg/dL (8.5-10.1); Chloride 103 mmol/L (98-107); Creatinine, Serum 1.04 mg/dL (0.55-1.02); EST Glomerular Filtration Rate 55 mL/min (>60); Est Glom Filt Rate - Afr Amer 66 mL/min (>60); Estimated Creatinine Clearance 38.07 ml/min; Globulin 4.2 g/dL (2.2-4.2); Glucose 199 mg/dL (74-106); Lipase 50 U/L (73-393); Protein, Total 7.9 g/dL (6.4-8.2); Sodium Level 136 mmol/L (136-145)
[2022-04-09] MEDS: Ondansetron 4 MG/2 ML Vial IV (18:26)
[2022-04-09] MEDS: 0.9% Normal Saline 1,000 ML 150 ML IV (18:26)
[2022-04-09] MEDS: Morphine 4 MG/ML Syringe IV (18:27)
[2022-04-09 19:54] VITALS: BP 133/94; PULSE 73; RESP 28; TEMP 36.7; O2SAT 95
--- NOTE | 2022-04-09 20:43 | PN.HOSP_ITS ---
Documented by User: Adelina Byers NP-C 04/09/22 21:09 Subjective Subjective Patient seen and examined. Patient sitting in bed no distress noted. Patient states that her abdominal pain has improved following administration of morphine in the ER. Patient states that this is the fourth time that she has been in the ER for abdominal pain in the past 5 months and has a history of small bowel obstruction and diverticulitis. Objective Data Objective Data Vital Signs: Vital Signs Temp Pulse Resp BP Pulse Ox 98.0 F 73 28 H 133/94 H 95 04/09/22 19:54 04/09/22 19:54 04/09/22 19:54 04/09/22 19:54 04/09/22 19:54 Oxygen Delivery Method Room Air Weight: 206 lb Body Mass Index (BMI) 36.5 Lab / Micro Data Result Diagrams: 04/09/22 17:57 04/09/22 17:57 Labs: Laboratory Results - last 24 hr 04/09/22 17:57: WBC 12.5 H, RBC 5.65 H, Hgb 15.1 H, Hct 47.0, MCV 83.2, MCH 26.7 L, MCHC 32.1, RDW Std Deviation 42.8, RDW Coeff of Raf 14.3, Plt Count 262, MPV 11.3, Immature Gran % (Auto) 0.500, Neut % (Auto) 86.9 H, Lymph % (Auto) 7.7 L, [place] % (Auto) 4.5, Eos % (Auto) 0.0, Baso % (Auto) 0.4, Absolute Neuts (auto) 10.9 H, Absolute Lymphs (auto) 0.96, Nucleated RBC % 0 04/09/22 17:57: Sodium 136, Potassium 4.0, Chloride 103, Carbon Dioxide 22.0, Anion Gap 11, BUN 14, Creatinine 1.04 H, Estim Creat Clear Calc 38.07, Est GFR (MDRD) Af Amer 66, Est GFR (MDRD) Non-Af 55 L, BUN/Creatinine Ratio 13.5, Glucose 199 H, Calcium 9.6, Total Bilirubin 0.70, Direct Bilirubin 0.28, AST 44 H, ALT 69 H, Alkaline Phosphatase 95, Total Protein 7.9, Albumin 3.7, Globulin 4.2, Lipase 50 L Radiography Diagnostic Testing: Radiology Impression Abdomen/Pelvis CT 04/09/22 17:50 IMPRESSION: Partial small bowel obstruction with transition point in lower anterior abdominal wall eventration, likely secondary to adhesions. Electronically Signed: Mehdi Slaughter MD ([place]) at 18:40 EDT , Physical Exam Const alert, oriented x3 and no apparent distress HEENT head/scalp atraumatic Head and Scalp: normocephalic Eyes conjunctivae normal and no scleral icterus Neck no lymphadenopathy and supple General: trachea midline Resp normal respiratory effort, normal air movement and clear to auscultation bilaterally Effort and Inspection: able to speak in complete sentences and symmetric chest movement Cardio regular rate, regular rhythm, S1 normal heart sound, S2 normal heart sound and p eripheral pulses 2+ throughout GI normal to inspection, nondistended, normoactive bowel sounds Auscultation: hypoactive bowel sounds Palpation: tender Extremity normal to inspection, full ROM and no clubbing, cyanosis or edema Peripheral Pulses: Yes pulses 2+ throughout Skin no rashes or lesions noted, no wounds and skin turgor normal Neuro oriented x3, moves all extremities, no focal motor deficits and no sensory deficits noted Sensorium / Orientation: awake and alert Psych affect normal Assessment & Plan Assessment/Plan (1) Diabetes mellitus type 2, uncomplicated: QUALIFIERS: Diabetes mellitus prison insulin use: without rn progressive care unit use Qualified Code(s): E11.9 - Type 2 diabetes mellitus without compli cations (2) Hypertension: QUALIFIERS: Hypertension type: essential hypertension Qualified Code(s): I10 - Essential (primary) hypertension (3) IBS (irritable bowel syndrome): QUALIFIERS: Irritable bowel syndrome type: unspecified Qualified Code(s): K58.9 - Irritable bowel syndrome without diarrhea (4) Partial small bowel obstruction: PLAN: 1. Partial small bowel obstruction -Dr. Fisher admitting, requesting consult for medical management of patient's chronic diseases 2. Hypertension -Will hold patient's p.o. medications at this time as patient will likely be n.p.o. -Scheduled IV Vasotec and IV metoprolol ordered for blood pressure management -As needed hydralazine ordered -Vital signs per protocol, currently stable 3. Diabetes mellitus type 2 -Will hold patient's p.o. antidiabetic regimen due to n.p.o. status -Q6H blood sugars with sliding scale insulin ordered 4. Irritable bowel syndrome -Will hold oral regimen at this time 5. GERD -Will continue patient's Pantoprazole in IV form DVT prophylaxis-SCDs we will hold off on pharmacological prophylaxis pending surgical eval This patient was seen by DANIEL Ware under the supervision of 30 minutes spent in clinical coordination of patient's plan of care. Documented by User: Dr. Julius Guallpa MD 04/09/22 21:22 Objective Data Lab / Micro Data Result Diagrams: 04/09/22 17:57 04/09/22 17:57 Charges/Coding Addendum Addendum: Patient was seen and examined independently. I agree with assessment and plan by DANIEL Ware Patient is a 77-year-old female with a significant history of hypertension; diabetes mellitus; and cholecystectomy who presents emergency department with excruciating lower abdominal pain that radiated to her back. She described the pain as cramping and burning. Her pain is episodic. Her pain is aggravated by eating spicy food and dairy products. Morphine that she received at the emergency department help with her pain. She reported nausea and vomiting. Her pain was sudden onset and started a day before presentation. At the emergency department she was found to have small bowel obstruction. Internal medicine service has been consulted to manage chronic medical conditions which includes hypertension and blood pressures. Physical exam: General: Well-nourished, well-developed. Head: Normocephalic, atraumatic, no tenderness Eyes: Vision is grossly intact. EOMI ENT, no trauma, moist mucous membranes, no rhinorrhea Neck: Nontender, full range of motion, no spinal tenderness, deformities, step- off CVS: Regular rate and rhythm. S1-S2 present. No murmur, gallop or rub. Respiratory : clear to auscultation bilaterally, chest wall nontender, no wheezing Abdomen: Soft, nontender, nondistended, normal bowel sounds, no masses : Deferred Back: Nontender, no CVA tenderness, no midline spinal tenderness, deformities, step-offs Extremities: Nontender full range of motion, no trauma Skin: Normal color, no trauma, abrasions Neuro: Alert, oriented, cranial nerves II through XII grossly intact. Psychiatry: Normal mood. Normal affect. Not depressed. Not anxious. Hypertension Blood pressure is not within goal In the setting of patient with small bowel obstruction patient will be NPO. Hold all oral medication including blood pressure medication. Patient is on home beta-blockers; dihydropyridine calcium channel blockers and LOUISE inhibitor. As scheduled IV low-dose metoprolol and Vasotec low-dose IV ordered. Trend blood pressure and adjust blood pressure medications. Diabetes mellitus Patient with hyperglycemia on presentation Patient is on home metformin; Jardiance and glimepiride. Hold all oral hypoglycemic regimen. Accu-Chek every 6 hours with correction scale insulin while n.p.o. ordered. GERD On home pantoprazole p.o. In the setting of n.p.o. status changed to IV Protonix. Small bowel obstruction Abdomen pelvis CT was visualized and independently interpreted. CBC reviewed showed mild leukocytosis of 12.5 with neutrophilia of 86.9% and lymphopenia of 7.7%. Trend CBC. Trend BMP. Management by primary. Time spent in seeing patient and coordinating care was 30 minutes. Visit Charges Inpatient E&M: 65491 Subs Hosp L2
[2022-04-09 21:14] VITALS: BMI 36.3
--- NOTE | 2022-04-09 21:23 | PCM.HP.STD ---
[facility] - General General Date of Admission: 04/09/22 HPI Narrative JASON JONES, is a 77 F who presents to [facility] with complaints of acute onset abdominal pain that is associated with nausea and vomiting. She states the pain started at 1:30 this morning and gradually became associated with inability to tolerate p.o. intake. These are very familiar symptoms to her as she has had multiple small bowel obstructions over the years. She is well-known to our surgery service and unfortunately has required multiple recent admissions. Patient states that her abdominal pain today largely replicated which she is experienced previously, however, she notes that there is more radiation into her back. She rates this at a 8 or 9 out of 10 in intensity. She does note that she has continued to pass a little bit of flatus from below?including during her ED stay?but she has also been hiccuping frequently. Currently she denies any significant nausea and states that her pain is well controlled and a 3 or 4 out of 10 with the pain medication provided. ED work-up is notable for mild leukocytosis and CT imaging concerning for partial small bowel obstruction with evidence of a transition zone in the distal small bowel. Patient has a remote history of a sigmoid colon resection via an open laparotomy. More recently, she has undergone laparoscopic cholecystectomy with Dr. Nicholson and a diagnostic laparoscopy with lysis of adhesions with Dr. Luque in 2020. Beyond these general surgical procedures, she reports a history of a oophorectomy with gynecology. [facility] Medical History (Updated 04/09/22 @ 21:[address] Dmitriy Fisher MD) Arthritis Asthma Bleeding ulcer Cholelithiasis and acute cholecystitis without obstruction Constipation Diabetes Diabetes mellitus type 2, uncomplicated Duodenogastric reflux of bile Gastric reflux GERD (gastroesophageal reflux disease) History of diverticulitis History of steroid therapy History of stress test Hypertension IBS (irritable bowel syndrome) Leg cramps NAFLD (nonalcoholic fatty liver disease) Non-smoker Obesity Partial small bowel obstruction Small bowel obstruction due to postoperative adhesions Wears contact lenses Wears glasses Home Medications amlodipine-benazepril 1 cap PO DAILY 07/15/16 [History Last Taken 02/22/22] bisoprolol fumarate 10 mg PO DAILY 07/15/16 [History Last Taken 02/22/22] glimepiride 4 mg PO BID 06/12/21 [History Last Taken 02/22/22] metformin 750 mg PO BID 06/12/21 [History Last Taken 02/22/22] acetaminophen [Tylenol] 650 mg PO Q4H PRN PRN #0 tab 06/14/21 [Rx Last Taken Unknown] ondansetron 4 mg PO Q8H PRN PRN #10 tab 11/19/21 [Rx Last Taken Unknown] Jardiance 10 mg PO DAILY 12/31/21 [History Last Taken 02/22/22] cholecalciferol (vitamin D3) [Vitamin D3] 50 mcg PO DAILY 12/31/21 [History Last Taken 02/22/22] Probiotic 10,000 mmu cells PO DAILY 02/07/22 [History Last Taken 02/22/22] vitamin E (dl, acetate) 180 mg (400 unit) capsule See Rx Instructions .ROUTE .COMPLEX #60 capsule 03/10/22 [Rx Last Taken Unknown] pantoprazole 40 mg tablet,delayed release 40 mg PO DAILY #90 tab 04/03/22 [Rx Last Taken Unknown] ursodiol 300 mg capsule 300 mg PO BID #180 cap 04/03/22 [Rx Last Taken Unknown] dicyclomine 20 mg PO BID 04/09/22 [History Last Taken Unknown] Allergy/AdvReac Type Severity Reaction Status Date / Time adhesive Allergy Other Verified 04/09/22 17:52 Iodinated Contrast Media Allergy Hives Verified 04/09/22 17:52 [CONTRASTS] ciprofloxacin [From Cipro] AdvReac Mild nausea Verified 04/09/22 17:52 metronidazole [From Flagyl] AdvReac Mild nausea Verified 04/09/22 17:52 IVORY SOAP Allergy Rash Uncoded 04/09/22 17:52 Family History Mother Multiple sclerosis Father Heart disease Diabetes Surgical History H/O dilation and curettage H/O oophorectomy History of cardiac catheterization History of cholecystectomy S/P partial colectomy Status post left foot surgery Social History household members: family and other details: Patient lives with her daughter, son in law. Smoking Status: Never smoker alcohol intake: never substance use type: does not use seatbelt use: always Vital Signs Vital Signs Vital Signs: 04/09/22 17:40 04/09/22 19:54 Temperature 98.1 F 98.0 F Temperature Source Temporal Temporal Pulse Rate 62 73 Respiratory Rate 18 28 H Blood Pressure 141/107 H 133/94 H Blood Pressure Mean 118 107 Pulse Ox 97 95 Oxygen Delivery Method Room Air Room Air Weight Weight: 205 lb 4.006 oz Body Mass Index (BMI) 36.3 Physical Exam Const alert and oriented x3 Constitutional Narrative: Minimal distress, mild shallow breathing General Appearance: cooperative Resp Resp Narrative: Shallow inspirations GI GI Narrative: Nondistended, multiple surgical scars including a well-healed midline laparotomy extending from the umbilicus inferiorly. Soft, mildly tender to palpation in the left lower quadrant. Results Lab / Micro Data Result Diagrams: 04/09/22 17:57 04/09/22 17:57 Labs: Laboratory Results - last 24 hr 04/09/22 17:57: WBC 12.5 H, RBC 5.65 H, Hgb 15.1 H, Hct 47.0, MCV 83.2, MCH 26.7 L, MCHC 32.1, RDW Std Deviation 42.8, RDW Coeff of Raf 14.3, Plt Count 262, MPV 11.3, Immature Gran % (Auto) 0.500, Neut % (Auto) 86.9 H, Lymph % (Auto) 7.7 L, [place] % (Auto) 4.5, Eos % (Auto) 0.0, Baso % (Auto) 0.4, Absolute Neuts (auto) 10.9 H, Absolute Lymphs (auto) 0.96, Nucleated RBC % 0 04/09/22 17:57: Sodium 136, Potassium 4.0, Chloride 103, Carbon Dioxide 22.0, Anion Gap 11, BUN 14, Creatinine 1.04 H, Estim Creat Clear Calc 38.07, Est GFR (MDRD) Af Amer 66, Est GFR (MDRD) Non-Af 55 L, BUN/Creatinine Ratio 13.5, Glucose 199 H, Calcium 9.6, Total Bilirubin 0.70, Direct Bilirubin 0.28, AST 44 H, ALT 69 H, Alkaline Phosphatase 95, Total Protein 7.9, Albumin 3.7, Globulin 4.2, Lipase 50 L Radiology Impression Abdomen/Pelvis CT 04/09/22 17:50 IMPRESSION: Partial small bowel obstruction with transition point in lower anterior abdominal wall eventration, likely secondary to adhesions. Electronically Signed: Mehdi Slaughter MD ([place]) at 18:40 EDT , Assessment & Plan Assessment/Plan (1) Partial small bowel obstruction: PLAN: This is a 77-year-old female with multiple comorbidities and a rather extensive past surgical history who presents with a recurrent small bowel obstruction. Positively, patient states that she continues to pass flatus and her nausea is improved. However, her CT of the abdomen pelvis shows dilated small bowel transitioning to normal caliber small bowel in the area of her abdominal wall eventration. Given the absence of nausea, we will hold off placing a nasogastric tube and with her passing flatus, I have prescribed a suppository x1. We will trial conservative management for return of bowel function. I briefly discussed with both the patient and her daughter, referral to a tertiary center on an elective basis for consideration of possible minimally invasive hernia repair. While I do not suspect this wide-mouthed centration is a concern for incarcerating/strangulating small bowel, and has repeatedly been an area for bowel entrapment. Although patient underwent diagnostic laparoscopy with lysis of adhesion, her small bowel obstructions recurred shortly thereafter, and I am hesitant to follow the same clinical course without alteration of the clinical plan. Neuro: As needed morphine Pulm/CV: Incentive spirometry, scheduled IV metoprolol per hospitalist service FEN/GI: We will monitor electrolytes closely with daily labs while patient is n.p.o., n.p.o., hold off NG tube placement for now, suppository x1, may consider small bowel follow-through tomorrow a.m. Heme/ID: Trend daily CBC, no indication for IV antibiotic therapy Endo: Hospitalists consulted for assistance with management of patient's diabetes diagnosis Proph: SCDs, hold on chemoprophylaxis Dispo: Admit to inpatient status Charges/Coding Visit Charges Inpatient E&M: 79970 Init Hosp L2
[2022-04-09 21:27] VITALS: BP 144/60; PULSE 77; RESP 20; TEMP 37; O2SAT 98
[2022-04-09] MEDS: 0.9% Normal Saline 1,000 ML 125 ML IV (21:52)
[2022-04-09 22:20] LABS: Bedside Glucose 144 mg/dL (74-106)
[2022-04-09 23:23] VITALS: BP 143/61; PULSE 77
[2022-04-09] MEDS: Metoprolol Tartrate 5 MG/5 ML Vial 2.5 MG IV (23:23)
[2022-04-09] MEDS: Enalaprilat 1.25 MG/ML Vial 0.625 MG IV (23:24)
[2022-04-09 23:25] VITALS: PULSE 75
[2022-04-09] MEDS: 0.9% Saline Lock 10 ML Syringe IV (23:27)
[2022-04-09] MEDS: Bisacodyl 10 MG Suppository RC (23:28)
[2022-04-10] VITALS (8 sets, daily range): BP systolic 130–163; BP diastolic 66–84; PULSE 61–74; RESP 16–18; TEMP 36.4–36.9; O2SAT 95–97
[2022-04-10] MEDS: 0.9% Normal Saline 1,000 ML 125 ML IV (06:15)
[2022-04-10 06:25] LABS: Absolute Lymphocyte Count 1.54 X10^3/uL (0.83-4.51); Absolute Neutrophil Count 5.7 X10^3/uL (2.0-7.7); Basophil# 0.05 X10^3/uL; Basophil% 0.6 % (0-1); Eosinophil# 0.04 X10^3/uL; Eosinophils% 0.5 % (0-5); Hematocrit 40.7 % (37-47); Hemoglobin 13.4 g/dL (12.0-15.0); Lymphocyte # 1.54 X10^3/ul (0.83-4.51); Mean Corp Hgb Conc 32.9 g/dL (32-36); Mean Corpuscular Hgb 27.7 pg (27.0-32.0); Mean Corpuscular Volume 84.3 fL (81-99); Mean Platelet Vol. 12.7 fl (6.2-12.0); Monocyte# 0.78 X10^3/uL; Monocyte% 9.6 % (0-10); NRBC Flagged by Analyzer 0 % (0-5); Neutrophil # 5.65 X10^3/uL (2.7-7.7); Neutrophil % 69.9 % (47-70); Platelet Count 232 K/mm3 (150-450); RBC Distribution Width CV 14.3 % (11.6-14.6); RBC Distribution Width SD 43.8 fl (35.1-43.9); Red Blood Count 4.83 M/mm3 (4.2-5.4); White Blood Count 8.1 K/mm3 (4.4-11.0)
[2022-04-10 06:26] LABS: Bedside Glucose 111 mg/dL (74-106)
[2022-04-10] MEDS: Metoprolol Tartrate 5 MG/5 ML Vial 2.5 MG IV ×2 (06:47→12:12)
[2022-04-10 06:48] LABS: Anion Gap 6 (5-15); BUN 13 mg/dL (7-18); BUN/Creat Ratio 15.9 RATIO (10-20); Calcium,Total 8.7 mg/dL (8.5-10.1); Chloride 111 mmol/L (98-107); Creatinine, Serum 0.82 mg/dL (0.55-1.02); EST Glomerular Filtration Rate 72 mL/min (>60); Est Glom Filt Rate - Afr Amer 87 mL/min (>60); Estimated Creatinine Clearance 48.28 ml/min; Glucose 92 mg/dL (74-106); Magnesium 1.7 mg/dL (1.6-2.6); Potassium 3.6 mmol/L (3.5-5.1); Sodium Level 142 mmol/L (136-145)
[2022-04-10] MEDS: 0.9% Saline Lock 10 ML Syringe IV (06:48)
[2022-04-10] MEDS: Enalaprilat 1.25 MG/ML Vial 0.625 MG IV ×2 (06:48→12:10)
[2022-04-10 06:55] LABS: Phosphorus 3.5 mg/dL (2.5-4.9)
--- NOTE | 2022-04-10 07:48 | PCM.PN.HOSP ---
Subjective Subjective Abdomen feeling better. Has not eaten yet. Objective Data Objective Data Vital Signs: Vital Signs Temp Pulse Resp BP Pulse Ox 36.5 C L 69 16 140/71 H 97 04/10/22 06:46 04/10/22 06:47 04/10/22 06:46 04/10/22 06:47 04/10/22 06:46 Oxygen Delivery Method Room Air Weight: 93.1 kg Body Mass Index (BMI) 36.3 Intake & Output: Intake and Output for Last 24 Hours 04/08/22 04/09/22 04/10/22 23:59 23:59 23:59 Intake Total 615 / 615 1000 / 1000 Balance 615 / 615 1000 / 1000 Lab / Micro Data Result Diagrams: 04/10/22 05:02 04/10/22 05:02 Labs: Laboratory Results - last 24 hr 04/09/22 17:57: WBC 12.5 H, RBC 5.65 H, Hgb 15.1 H, Hct 47.0, MCV 83.2, MCH 26.7 L, MCHC 32.1, RDW Std Deviation 42.8, RDW Coeff of Raf 14.3, Plt Count 262, MPV 11.3, Immature Gran % (Auto) 0.500, Neut % (Auto) 86.9 H, Lymph % (Auto) 7.7 L, [place] % (Auto) 4.5, Eos % (Auto) 0.0, Baso % (Auto) 0.4, Absolute Neuts (auto) 10.9 H, Absolute Lymphs (auto) 0.96, Nucleated RBC % 0 04/09/22 17:57: Sodium 136, Potassium 4.0, Chloride 103, Carbon Dioxide 22.0, Anion Gap 11, BUN 14, Creatinine 1.04 H, Estim Creat Clear Calc 38.07, Est GFR (MDRD) Af Amer 66, Est GFR (MDRD) Non-Af 55 L, BUN/Creatinine Ratio 13.5, Glucose 199 H, Calcium 9.6, Total Bilirubin 0.70, Direct Bilirubin 0.28, AST 44 H, ALT 69 H, Alkaline Phosphatase 95, Total Protein 7.9, Albumin 3.7, Globulin 4.2, Lipase 50 L 04/09/22 22:16: POC Glucose 144 H 04/10/22 05:02: WBC 8.1, RBC 4.83, Hgb 13.4, Hct 40.7, MCV 84.3, MCH 27.7, MCHC 32.9, RDW Std Deviation 43.8, RDW Coeff of Raf 14.3, Plt Count 232, MPV 12.7 H, Immature Gran % (Auto) 0.400, Neut % (Auto) 69.9, Lymph % (Auto) 19.0, [place] % (Auto) 9.6, Eos % (Auto) 0.5, Baso % (Auto) 0.6, Absolute Neuts (auto) 5.7, Absolute Lymphs (auto) 1.54, Nucleated RBC % 0 04/10/22 05:02: Sodium 142, Potassium 3.6, Chloride 111 H, Carbon Dioxide 25.0, Anion Gap 6, BUN 13, Creatinine 0.82, Estim Creat Clear Calc 48.28, Est GFR (MDRD) Af Amer 87, Est GFR (MDRD) Non-Af 72, BUN/Creatinine Ratio 15.9, Glucose 92, Calcium 8.7, Magnesium 1.7 04/10/22 05:02: Phosphorus 3.5 04/10/22 06:17: POC Glucose 111 H Radiography Diagnostic Testing: Radiology Impression Abdomen/Pelvis CT 04/09/22 17:50 IMPRESSION: Partial small bowel obstruction with transition point in lower anterior abdominal wall eventration, likely secondary to adhesions. Electronically Signed: Mehdi Slaughter MD ([place]) at 18:40 EDT Reading Location ID and State: [address] [place] [address] , Service support , Physical Exam Const alert and no apparent distress Resp normal respiratory effort, no retractions, no use of accessory muscles and clear to auscultation bilaterally Cardio regular rate, regular rhythm, S1 normal heart sound and S2 normal heart sound GI normal to inspection, nondistended, normoactive bowel sounds, soft to palpation, non-tender and non-distended Extremity normal to inspection Assessment & Plan Assessment/Plan (1) Partial small bowel obstruction: PLAN: 1. pSBO recurrent general surgery managing CLD 2. HTN stable currently on enalaprilat resume amlodipine/benazepril when can adequately take PO. 3. DM2 fair control resume Jardiance, glimepiride and metformin when diet able to be advanced currently on SSI 4. VTE prophylaxis: LMWH Charges/Coding Visit Charges Inpatient E&M: 69356 Subs Hosp L2
[2022-04-10] MEDS: Magnesium Sulfate 4gm/100mL 4 GM/100 ML IV.SOLN. IV (10:20)
--- NOTE | 2022-04-10 11:35 | CASEMGMT ---
RN DAVIDE assessment: Face to Face with patient for initial transition planning/care coordination assessment. RN CM introduced self and role at [facility], pt voices understanding and consents to assessment. Pt is sitting up in bed in no distress. Pt is A/Ox4 and answers all questions appropriately. Care providers, pharmacy, and demographics verified. Admitting Dx: PSBO PCP: Mateo Specialists: Friend, GI Preferred Pharmacy: [facility] Insurance: [facility] Prescription Benefit: Yes Living Will/HPOA: Pt does have LW/HPOA and is aware that they are on file at [facility]. Pt's daughter, Martha Cardenas, is DPOA. LNOK: Martha Cardenas, daughter/DPOA Living Arrangements: Pt lives with daughter on main level of 2 story home and states no concerns at home. Pt is independent with ADL's. Transportation: Pt drives self and states no transportation concerns. DME/HHC: Pt states no current DME or need for any further DME. Pt states no hx of HHC or SNF. Pt states she feels weak now but denies need for any therapy at home. Pt states no concerns with going home at time of discharge. Pt states no concerns/needs. CM to follow for any further discharge planning/needs. Advised pt to ask for CM if any further questions/concerns/needs arise, voices understanding. Pt Goal: Home Plan: Home
--- NOTE | 2022-04-10 11:58 | CHAPLAIN ---
Type of Pastoral Visit _x__ Initial Visit ___ Follow-up Visit ___ On-call Visit ___ General Patient Visit ___ Spiritual Assessment ___ Family Conference ___ Bereavement ___ Rapid Response ___ Code Blue ___ Other (describe below) Pastoral Care Referral From _x__ Patient ___ Family ___ Nurse ___ Physician ___ Network Systems Consultant ___ Copyright Expert ___ Other (describe below) Sacrament/Intervention _x__ Active listening ___ Anointing ___ Methodist ___ Bereavement ___ Communion ___ Stephanie exploration ___ ___ Life review _x__ Prayer ___ Reconciliation ___ Sacrament of Sick ___ Supportive presence ___ Wedding ___ Other (describe below) Pastoral Comments this is a repeat situation for patient and she remembers this developmental therapist; pt states not much you can do but pray and I believe that helps; prayer and presence given
[2022-04-10] MEDS: Insulin Lispro 100 UNIT/ML INSULN.PEN SC (12:26)
--- NOTE | 2022-04-10 12:34 | PCM.PN.SRG ---
Subjective Subjective Patient is a 77 y/o F I am following in conjunction with Dr. Fisher. Patient states she has passed flatus and had multiple bowel movements. She denies nausea, vomiting. She feels hungry. Objective Data Objective Data Vital Signs: Vital Signs Temp Pulse Resp BP Pulse Ox 98.4 F 64 18 146/68 H 96 04/10/22 10:26 04/10/22 12:12 04/10/22 10:26 04/10/22 10:26 04/10/22 10:26 Oxygen Delivery Method Room Air Weight: 205 lb 4.006 oz Body Mass Index (BMI) 36.3 Intake & Output: Intake and Output for Last 24 Hours 04/08/22 04/09/22 04/10/22 23:59 23:59 23:59 Intake Total 615 / 615 1110 / 1110 Balance 615 / 615 1110 / 1110 Lab / Micro Data Result Diagrams: 04/10/22 05:02 04/10/22 05:02 Labs: Laboratory Results - last 24 hr 04/09/22 17:57: WBC 12.5 H, RBC 5.65 H, Hgb 15.1 H, Hct 47.0, MCV 83.2, MCH 26.7 L, MCHC 32.1, RDW Std Deviation 42.8, RDW Coeff of Raf 14.3, Plt Count 262, MPV 11.3, Immature Gran % (Auto) 0.500, Neut % (Auto) 86.9 H, Lymph % (Auto) 7.7 L, [place] % (Auto) 4.5, Eos % (Auto) 0.0, Baso % (Auto) 0.4, Absolute Neuts (auto) 10.9 H, Absolute Lymphs (auto) 0.96, Nucleated RBC % 0 04/09/22 17:57: Sodium 136, Potassium 4.0, Chloride 103, Carbon Dioxide 22.0, Anion Gap 11, BUN 14, Creatinine 1.04 H, Estim Creat Clear Calc 38.07, Est GFR (MDRD) Af Amer 66, Est GFR (MDRD) Non-Af 55 L, BUN/Creatinine Ratio 13.5, Glucose 199 H, Calcium 9.6, Total Bilirubin 0.70, Direct Bilirubin 0.28, AST 44 H, ALT 69 H, Alkaline Phosphatase 95, Total Protein 7.9, Albumin 3.7, Globulin 4.2, Lipase 50 L 04/09/22 22:16: POC Glucose 144 H 04/10/22 05:02: WBC 8.1, RBC 4.83, Hgb 13.4, Hct 40.7, MCV 84.3, MCH 27.7, MCHC 32.9, RDW Std Deviation 43.8, RDW Coeff of Raf 14.3, Plt Count 232, MPV 12.7 H, Immature Gran % (Auto) 0.400, Neut % (Auto) 69.9, Lymph % (Auto) 19.0, [place] % (Auto) 9.6, Eos % (Auto) 0.5, Baso % (Auto) 0.6, Absolute Neuts (auto) 5.7, Absolute Lymphs (auto) 1.54, Nucleated RBC % 0 04/10/22 05:02: Sodium 142, Potassium 3.6, Chloride 111 H, Carbon Dioxide 25.0, Anion Gap 6, BUN 13, Creatinine 0.82, Estim Creat Clear Calc 48.28, Est GFR (MDRD) Af Amer 87, Est GFR (MDRD) Non-Af 72, BUN/Creatinine Ratio 15.9, Glucose 92, Calcium 8.7, Magnesium 1.7 04/10/22 05:02: Phosphorus 3.5 04/10/22 06:17: POC Glucose 111 H Radiography Diagnostic Testing: Radiology Impression Abdomen/Pelvis CT 04/09/22 17:50 IMPRESSION: Partial small bowel obstruction with transition point in lower anterior abdominal wall eventration, likely secondary to adhesions. Electronically Signed: Mehdi Slaughter MD ([place]) at 18:40 EDT , Physical Exam GI soft to palpation and non-tender GI Narrative: Obese abdomen. Non-distended Auscultation: hypoactive bowel sounds Assessment & Plan Assessment/Plan (1) Partial small bowel obstruction: PLAN: Resolved partial bowel obstruction Advance to clear liquids then full liquids if tolerating labs reviewed with Dr. Fisher Replace magnesium Probably discharge later today Follow-up as needed as an outpatient Charges/Coding Visit Charges Inpatient E&M: 52093 Subs Hosp L1
[2022-04-10 12:46] LABS: Bedside Glucose 150 mg/dL (74-106)
--- NOTE | 2022-04-10 15:07 | PCM.DC ---
Discharge Instructions Diet Discharge Diet: Light diet - advance as tolerated (If become bloated, please return to clear liquids for a few days ) Activity Discharge Activity: Return to Normal Activity Lifting Restrictions: None Follow Up Care Please Follow Up With: Dmitriy Fisher MD When: 2 weeks. Please call [phone] for an appointment. Test Results: Test results from this visit will be discussed in further detail at your follow-up appointment, if applicable. Discharge Plan Admission Admit Date/Time: 04/09/22 21:07 Primary Reason for Your Visit: Partial small bowel obstruction Attending Provider: Bill Wright Primary Care Provider: Abraham Galindo Consulting Providers: Julius Guallpa Discharge Orders/Prescriptions Prescriptions: Continued bisoprolol fumarate 10 MG tablet 10 mg PO DAILY RF: 0 amlodipine-benazepril 1 EACH capsule 1 cap PO DAILY RF: 0 glimepiride 4 mg tablet 4 mg PO DAILY RF: 0 metformin 750 mg tablet extended release 24 hr 750 mg PO BID RF: 0 acetaminophen [Tylenol] 325 mg Tablet 650 mg PO Q4H PRN PRN (Reason: PAIN 1-10/ FEVER) Qty: 0 RF: 0 ondansetron 4 MG tablet 4 mg PO Q8H PRN PRN (Reason: Nausea) Qty: 10 RF: 0 Jardiance 10 mg tablet 10 mg PO DAILY RF: 0 cholecalciferol (vitamin D3) [Vitamin D3] 50 mcg (2,000 unit) Capsule 50 mcg PO QHS RF: 0 Probiotic 10 billion cell Capsule 10,000 mmu cells PO DAILY RF: 0 dicyclomine 20 mg tablet 20 mg PO BID RF: 0 polyethylene glycol 3350 [Miralax] 17 gram Powder In Packet 17 g PO DAILY RF: 0 omeprazole 20 mg capsule,delayed release(DR/EC) 20 mg PO DAILY RF: 0 vitamin E (dl, acetate) 180 mg (400 unit) capsule 360 mg PO DAILY RF: 0 Referrals / Follow Up: Dmitriy Fisher MD [STAFF PHYSICIAN] - Within 2 Weeks (Please contact our office for a follow-up in [address] Fisher to discuss future plan) Abraham Galindo MD [Primary Care Provider] - Disposition Disposition (needs filled in before D/C Order can be placed): Home, Self Care
== END 2022-04-10 16:07 | disposition home or self-care (01) | DRG 390 ==
LOC: ED 18:09 → MS3 21:30
PROVIDERS: Hospitalist; Admitting Provider Surgery; Emergency Provider Emergency Medicine; PCP Family Medicine
DX: K56.690 Other partial intestinal obstruction (principal); E11.9 Type 2 diabetes mellitus without complications; K21.9 Gastro-esophageal reflux disease without esophagitis; K58.9 Irritable bowel syndrome, unspecified; I10 Essential (primary) hypertension; J45.909 Unspecified asthma, uncomplicated; Z79.84 Long term (current) use of oral hypoglycemic drugs; Z79.899 Other long term (current) drug therapy; E66.9 Obesity, unspecified; Z68.36 Body mass index [BMI] 36.0-36.9, adult
CPT/HCPCS: 36415; 74176; 80048; 80061; 80076; 82962; 83036; 83690; 83735; 84100; 85025; 99251; 99285; J7030; A4216; G0463; J2405

== ENCOUNTER 2022-04-22 02:11 | Inpatient (IN) | payer MEDICARE, SELFPAY ==
[2022-04-22] VITALS (10 sets, daily range): BP systolic 136–181; BP diastolic 54–83; PULSE 65–111; RESP 16–24; TEMP 35.8–37.1; O2SAT 93–99; BMI 37.0; BMI 38.3
--- NOTE | 2022-04-22 02:35 | CT_ITS ---
STUDY: CT ABDOMEN AND PELVIS WITH CONTRAST REASON FOR EXAM: Female, 77 years old. sbo RADIATION DOSAGE (If Supplied By Facility): CTDIvol = ( 16.62 ) mGy, DLP = ( 1294.31 ) mGycm TECHNIQUE: Transaxial images were obtained from the dome of the diaphragm to the symphysis pubis without oral contrast. IV 100mL Isovue-300 was administered. Sagittal and coronal images were reconstructed. Individualized dose optimization techniques were used for this CT. COMPARISON: CT abdomen pelvis 04/09/2022. FINDINGS: LOWER CHEST: Dependent atelectasis in the lung bases. Mild cardiomegaly. Small hiatal hernia. LIVER: Unremarkable. GALLBLADDER/BILE DUCTS: Gallbladder not identified presumed surgically absent. PANCREAS: Unremarkable. SPLEEN: Unremarkable. ADRENAL GLANDS: Unremarkable. KIDNEYS / URETERS: Unremarkable. BOWEL / MESENTERY: Lower abdominal wall hernia versus laxity/pannus containing small bowel with similar configuration to the prior. Moderately dilated short segment of small bowel in the lower abdomen extending into this pannus. Distal small bowel decreased caliber with abrupt transition in the right lower abdomen just to the right of midline. There is mild stranding in the adjacent mesentery and small amount of adjacent fluid. Configuration is similar to the prior study although the proximal small bowel is less dilated on the current study. Mild fluid distended colon nondilated. APPENDIX: Not identified. PERITONEUM: No free air. No free fluid. VESSELS: Abdominal aorta is normal caliber. RETROPERITONEUM: Unremarkable. REPRODUCTIVE ORGANS: Unremarkable. BLADDER: Unremarkable. ABDOMINAL WALL: Small hernia right abdominal wall just lateral to the abdominal rectus muscle at the level of the umbilicus, contains only fat, no bowel. BONES: Bilateral pars defects at L5 with grade 1 spondylolisthesis L5-S1 and degenerative changes. No acute abnormality. OTHER: None. CT/Abdomen/Pelvis W IV Cont ONLY IMPRESSION: Distal small bowel obstruction at least partial small bowel obstruction. Etiology uncertain, likely adhesions. Electronically Signed: Connie Wray MD at 4:20 EDT ,
--- NOTE | 2022-04-22 02:37 | EDS_ITS ---
HPI HPI - GI History of Present Illness Chief Complaint: Nausea/Vomiting Informant: patient Abdominal Pain/Flank Pain Onset: Today Context: Gradual Onset Timing: Continuous Quality: Aching Location: Diffuse Current Severity: Moderate Maximum Severity: Moderate Worsened by: Nothing Relieved by: Nothing Nausea/Vomiting/Emesis GI Symptom: Positive for Nausea and Vomiting Onset: Today Severity: Mild Diarrhea/Melena/Hematochezia GI Symptom: Negative for Diarrhea, Melena and Hematochezia Associated Symptoms Associated Symptoms: Negative for Dysuria, Frequency, Hematuria and Urgency Narrative Narrative: 77-year-old female history of diabetes, irritable bowel, small bowel obstructions in the past. Was admitted for 1 about 2 weeks ago. She has a known hernia which she has been referred to have that repaired. She has had a prior partial colectomy due to diverticulitis. She has had a prior cholecystectomy. No prior hernia repairs. States that she has had nausea vomiting abdominal pain since around 8 PM Thursday night. Similar to her prior bowel obstructions. She denies any fever or dysuria. No melena. Prior similar symptoms: Yes Recent Illness/Hospitalization: Yes PFSH COUNTS INCLUDE 234 BEDS AT THE [facility] Medical History Arthritis Asthma Bleeding ulcer Cholelithiasis and acute cholecystitis without obstruction Constipation Diabetes Diabetes mellitus type 2, uncomplicated Duodenogastric reflux of bile Gastric reflux GERD (gastroesophageal reflux disease) History of diverticulitis History of steroid therapy History of stress test Hypertension IBS (irritable bowel syndrome) Leg cramps NAFLD (nonalcoholic fatty liver disease) Non-smoker Obesity Partial obstruction of small intestine Partial small bowel obstruction Small bowel obstruction due to postoperative adhesions Wears contact lenses Wears glasses Home Medications amlodipine-benazepril 1 cap PO DAILY 07/15/16 [History Last Taken 04/09/22] bisoprolol fumarate 10 mg PO DAILY 07/15/16 [History Last Taken 04/09/22] glimepiride 4 mg PO DAILY 06/12/21 [History Last Taken 04/09/22] metformin 750 mg PO BID 06/12/21 [History Last Taken 04/09/22] acetaminophen [Tylenol] 650 mg PO Q4H PRN PRN #0 tab 06/14/21 [Rx Last Taken Unknown] ondansetron 4 mg PO Q8H PRN PRN #10 tab 11/19/21 [Rx Last Taken Unknown] Jardiance 10 mg PO DAILY 12/31/21 [History Last Taken 04/09/22] cholecalciferol (vitamin D3) [Vitamin D3] 50 mcg PO QHS 12/31/21 [History Last Taken 04/08/22] Probiotic 10,000 mmu cells PO DAILY 02/07/22 [History Last Taken 04/09/22] dicyclomine 20 mg PO BID 04/09/22 [History Last Taken 04/09/22] omeprazole 20 mg PO DAILY 04/09/22 [History Last Taken 04/09/22] polyethylene glycol 3350 [Miralax] 17 g PO DAILY 04/09/22 [History Last Taken 04/09/22] vitamin E (dl, acetate) 360 mg PO DAILY 04/09/22 [History Last Taken 04/09/22] Allergy/AdvReac Type Severity Reaction Status Date / Time adhesive Allergy Other Verified 04/22/22 02:15 Iodinated Contrast Media Allergy Hives Verified 04/22/22 02:15 [CONTRASTS] ciprofloxacin [From Cipro] AdvReac Mild nausea Verified 04/22/22 02:15 metronidazole [From Flagyl] AdvReac Mild nausea Verified 04/22/22 02:15 IVORY SOAP Allergy Rash Uncoded 04/22/22 02:15 Family History Mother Multiple sclerosis Father Heart disease Diabetes Surgical History H/O dilation and curettage H/O oophorectomy History of cardiac catheterization History of cholecystectomy S/P partial colectomy Status post left foot surgery Social History household members: family and other details: Patient lives with her daughter, son in law. Smoking Status: Never smoker alcohol intake: never substance use type: does not use seatbelt use: always ROS ROS ED ROS Narrative Abdominal pain. Nausea vomiting. Review of Systems ROS Unobtainable: Denies due to encephalopathy Constitutional Constitutional ED: Denies fever(s) ENT ENT ED: Denies ear pain Cardiovascular Cardiovascular: Denies chest pain Respiratory/Chest Respiratory/Chest: Denies cough or dyspnea Gastrointestinal Gastrointestinal: Reports abdominal pain, nausea and vomiting; Denies constipation, diarrhea or melena Genitourinary Genitourinary ED: Denies dysuria Musculoskeletal Musculoskeletal: Denies myalgias Integumentary Denies rash Neurologic Neurologic: Denies headache(s) Psychiatric Psychiatric: Denies depression Endocrine Endocrinology: Denies polyuria Hematologic/Lymphatic Hematologic/Lymphatic: Denies easy bruising Allergic/Immunologic Allergic/Immunologic ED: Denies urticaria EXAM Physical Exam Narrative Exam Narrative: 77-year-old female complaint abdominal pain. Vital signs are stable afebrile. She does not look septic or toxic. H EENT exam unremarkable. Neck nontender. Lungs are clear. Heart regular rhythm no murmur. Rate about 110. Abdomen is distended. Diffusely tender. I do not feel any obvious hernia or mass. Clinically this may be an obstruction. She has decreased bowel sounds. Moving all 4 extremities. Calves are nontender. Neurologically she is awake and alert. Const Vital Signs: 04/22/22 02:16 Temperature 97.5 F L Temperature Source Oral Pulse Rate 111 H Respiratory Rate 24 H Blood Pressure 181/81 H Blood Pressure Mean 114 Pulse Ox 94 Oxygen Delivery Method Room Air Positive well nourished, well developed and obese; Negative for cachectic, contractures or unkempt General Appearance ED: well developed and NAD; Negative for unkempt, cachectic, contractures or pallor Nutritional Appearance: obese; Negative for cachectic HEENT Reports moist mucous membranes normocephalic and atraumatic Eyes PERRL and EOMs intact bilaterally Neck no lymphadenopathy, supple and no JVD General: Negative for tenderness Resp normal respiratory effort and clear to auscultation bilaterally Auscultation: Negative for rales, rhonchi or wheezes Cardio regular rhythm, S2 normal heart sound and no murmurs; Negative for regular rate Rate: tachycardic GI no masses; Negative for non-tender or non-distended Inspection: abdominal distention Auscultation: hypoactive bowel sounds; Negative for normoactive bowel sounds Palpation: soft and tender; Negative for guarding, rigid or rebound tenderness present Back/Spine no CVA tenderness General Back: Negative for CVA tenderness Extremity full ROM General Extremety ED: Negative for edema or tenderness General Extremity: Negative for edema Neuro moves all extremities Sensorium / Orientation: alert, oriented to person, oriented to place and oriented to time; Negative for orientation impaired, confused, lethargic or stuporous Motor Exam: strength 5/5 throughout Psych mental status grossly normal and thought process normal Appearance: Negative for unkempt Skin no wounds General Skin Exam: Negative for jaundice or pallor Lesions: no lesions Rashes: no rashes MDM MDM MDM Narrative Medical decision making narrative: 77-year-old female with prior abdominal surgeries and prior bowel obstructions with a partial colectomy in the past, hernia repairs and cholecystectomy. Complaining of abdominal pain and distention consistent with her prior bowel obstructions. CAT scan labs are pending. Treated with IV fluids, IV morphine and Zofran. Repeat exam patient is resting comfortably at 3:25 AM. She was treated with morphine and Zofran. She is also been free treated with Solu-Medrol and Benadryl due to hives in the past secondary to CT contrast. Then the CAT scan of her abdomen and pelvis will be performed. CAT scan shows a small bowel obstruction. Patient is resting comfortably on repeat exam 4:25 PM. Already spoken to the hospitalist she will be admitted. Lab Data Attestation: I reviewed the patient's lab results. Lab results narrative: CBC shows a white count of 14.6. H&H of 14.9 and 45. Electrolytes show a gap of 12. Normal BUN of 17 and creatinine of 1. Glucose 287. Lactic acid 3.0. Liver enzymes show an elevated ALT of 58, alkaline phosphatase of 121. Lipase is normal at 85. Labs: Laboratory Results - last 24 hr 04/22/22 04/22/22 04/22/22 02:39 02:39 02:45 WBC 14.6 H RBC 5.52 H Hgb 14.9 Hct 45.6 MCV 82.6 MCH 27.0 MCHC 32.7 RDW Std Deviation 43.6 RDW Coeff of Raf 14.6 Plt Count 254 MPV 11.7 Immature Gran % (Auto) 0.500 Neut % (Auto) 88.0 H Lymph % (Auto) 6.5 L [place] % (Auto) 4.5 Eos % (Auto) 0.1 Baso % (Auto) 0.4 Absolute Neuts (auto) 12.8 H Absolute Lymphs (auto) 0.95 Nucleated RBC % 0 Sodium 136 Potassium 3.6 Chloride 102 Carbon Dioxide 22.0 Anion Gap 12 BUN 17 Creatinine 1.00 Estim Creat Clear Calc 39.59 Est GFR (MDRD) Af Amer 69 Est GFR (MDRD) Non-Af 57 L BUN/Creatinine Ratio 17.0 Glucose 287 H Lactic Acid 3.0 H* Calcium 9.6 Total Bilirubin 0.60 AST 37 ALT 58 H Alkaline Phosphatase 121 H Total Protein 8.4 H Albumin 3.9 Globulin 4.5 H Albumin/Globulin Ratio 0.9 Lipase 85 Radiography Diagnostic Testing: Clinical Impression(s) from Imaging Studies Abdomen/Pelvis CT 04/22/22 02:35 IMPRESSION: Distal small bowel obstruction at least partial small bowel obstruction. Etiology uncertain, likely adhesions. Electronically Signed: Connie Wray MD at 4:20 EDT , Discharge Plan Dx/Rx/DC Orders Clinical Impression: Abdominal pain, Small bowel obstruction, partial, History of diabetes mellitus Disposition Disposition: Acute Care Hospital [facility]
[2022-04-22] MEDS: Ondansetron 4 MG/2 ML Vial IV (02:48)
[2022-04-22] MEDS: morphine 8 MG/ML Syringe IV (02:49)
[2022-04-22 02:50] LABS: Absolute Lymphocyte Count 0.95 X10^3/uL (0.83-4.51); Absolute Neutrophil Count 12.8 X10^3/uL (2.0-7.7); Basophil# 0.06 X10^3/uL; Basophil% 0.4 % (0-1); Eosinophil# 0.01 X10^3/uL; Eosinophils% 0.1 % (0-5); Hematocrit 45.6 % (37-47); Hemoglobin 14.9 g/dL (12.0-15.0); Lymphocyte # 0.95 X10^3/ul (0.83-4.51); Lymphocyte % 6.5 % (19-41); Mean Corp Hgb Conc 32.7 g/dL (32-36); Mean Corpuscular Volume 82.6 fL (81-99); Mean Platelet Vol. 11.7 fl (6.2-12.0); Monocyte# 0.66 X10^3/uL; Monocyte% 4.5 % (0-10); NRBC Flagged by Analyzer 0 % (0-5); Platelet Count 254 K/mm3 (150-450); RBC Distribution Width CV 14.6 % (11.6-14.6); RBC Distribution Width SD 43.6 fl (35.1-43.9); Red Blood Count 5.52 M/mm3 (4.2-5.4); White Blood Count 14.6 K/mm3 (4.4-11.0)
[2022-04-22] MEDS: DiphenhydrAMINE 50 MG/ML Syringe 25 MG IV (02:51)
[2022-04-22] MEDS: 0.9% Normal Saline 1,000 ML 125 ML IV (02:51)
[2022-04-22] MEDS: MethylPREDNISolone 125 MG/2 ML Vial IV (02:52)
[2022-04-22 03:12] LABS: ALB/GLOB Ratio 0.9 RATIO (0.9-2.4); AST(SGOT) 37 U/L (15-37); Alanine Aminotransfer ALT/SGPT 58 U/L (13-56); Albumin, Serum 3.9 g/dL (3.2-5.0); Alkaline Phosphatase 121 U/L (45-117); Anion Gap 12 (5-15); BUN 17 mg/dL (7-18); Calcium,Total 9.6 mg/dL (8.5-10.1); Chloride 102 mmol/L (98-107); EST Glomerular Filtration Rate 57 mL/min (>60); Est Glom Filt Rate - Afr Amer 69 mL/min (>60); Estimated Creatinine Clearance 39.59 ml/min; Globulin 4.5 g/dL (2.2-4.2); Glucose 287 mg/dL (74-106); Lipase 85 U/L (73-393); Potassium 3.6 mmol/L (3.5-5.1); Protein, Total 8.4 g/dL (6.4-8.2); Sodium Level 136 mmol/L (136-145)
--- NOTE | 2022-04-22 04:14 | HP.PCM.HOS_ITS ---
[facility] - General General Date of Admission: 04/22/22 HPI Narrative JASON JONES, is a 77 F with a significant history of abdominal hernia; multiple small bowel obstruction and multiple abdominal surgery presenting with excruciating middle to lower abdominal pain that started about 4 hours prior to presentation. Her pain started about 2 AM on the day of presentation while resting in bed. She described the pain as burning. Also the pain radiates to her back where she has an aching type of pain. She rated pain as 10 out of 10. There is no aggravating or ameliorating factors to the pain except that morphine that she received at the emergency department helped with the pain. Associated with her symptom is nausea and vomiting. Several hours before her pain started she had a small pasty bowel movement [facility] Medical History Arthritis Asthma Bleeding ulcer Cholelithiasis and acute cholecystitis without obstruction Constipation Diabetes Diabetes mellitus type 2, uncomplicated Duodenogastric reflux of bile Gastric reflux GERD (gastroesophageal reflux disease) History of diverticulitis History of steroid therapy History of stress test Hypertension IBS (irritable bowel syndrome) Leg cramps NAFLD (nonalcoholic fatty liver disease) Non-smoker Obesity Partial obstruction of small intestine Partial small bowel obstruction Small bowel obstruction due to postoperative adhesions Wears contact lenses Wears glasses Home Medications amlodipine-benazepril 1 cap PO DAILY 07/15/16 [History Last Taken 04/09/22] bisoprolol fumarate 10 mg PO DAILY 07/15/16 [History Last Taken 04/09/22] glimepiride 4 mg PO DAILY 06/12/21 [History Last Taken 04/09/22] metformin 750 mg PO BID 06/12/21 [History Last Taken 04/09/22] acetaminophen [Tylenol] 650 mg PO Q4H PRN PRN #0 tab 06/14/21 [Rx Last Taken Unknown] ondansetron 4 mg PO Q8H PRN PRN #10 tab 11/19/21 [Rx Last Taken Unknown] Jardiance 10 mg PO DAILY 12/31/21 [History Last Taken 04/09/22] cholecalciferol (vitamin D3) [Vitamin D3] 50 mcg PO QHS 12/31/21 [History Last Taken 04/08/22] Probiotic 10,000 mmu cells PO DAILY 02/07/22 [History Last Taken 04/09/22] dicyclomine 20 mg PO BID 04/09/22 [History Last Taken 04/09/22] omeprazole 20 mg PO DAILY 04/09/22 [History Last Taken 04/09/22] polyethylene glycol 3350 [Miralax] 17 g PO DAILY 04/09/22 [History Last Taken 04/09/22] vitamin E (dl, acetate) 360 mg PO DAILY 04/09/22 [History Last Taken 04/09/22] Allergy/AdvReac Type Severity Reaction Status Date / Time adhesive Allergy Other Verified 04/22/22 02:15 Iodinated Contrast Media Allergy Hives Verified 04/22/22 02:15 [CONTRASTS] ciprofloxacin [From Cipro] AdvReac Mild nausea Verified 04/22/22 02:15 metronidazole [From Flagyl] AdvReac Mild nausea Verified 04/22/22 02:15 IVORY SOAP Allergy Rash Uncoded 04/22/22 02:15 Family History Mother Multiple sclerosis Father Heart disease Diabetes Surgical History H/O dilation and curettage H/O oophorectomy History of cardiac catheterization History of cholecystectomy S/P partial colectomy Status post left foot surgery Social History household members: family and other details: Patient lives with her daughter, son in law. Smoking Status: Never smoker alcohol intake: never substance use type: does not use seatbelt use: always ROS ROS Narrative Pertinent positives and pertinent negatives as noted in HPI. All other systems were reviewed and are negative. Vital Signs Vital Signs Vital Signs: 04/22/22 02:16 Temperature 97.5 F L Temperature Source Oral Pulse Rate 111 H Respiratory Rate 24 H Blood Pressure 181/81 H Blood Pressure Mean 114 Pulse Ox 94 Oxygen Delivery Method Room Air Weight Weight: 94.9 kg Body Mass Index (BMI) 37.0 Physical Exam Narrative Physical exam: General: Well-nourished, well-developed. Head: Normocephalic, atraumatic, no tenderness Eyes: Vision is grossly intact. EOMI ENT, no trauma, moist mucous membranes, no rhinorrhea Neck: Nontender, full range of motion, no spinal tenderness, deformities, step- off CVS: Regular rate and rhythm. S1-S2 present. No murmur, gallop or rub. Respiratory : clear to auscultation bilaterally, chest wall nontender, no wheezing Abdomen: Protrusion at right periumbilical area. Soft, nontender, nondistended, normal bowel sounds, no masses : Deferred Back: Nontender, no CVA tenderness, no midline spinal tenderness, deformities, step-offs Extremities: Nontender full range of motion, no trauma Skin: Normal color, no trauma, abrasions Neuro: Alert, oriented, cranial nerves II through XII grossly intact. Psychiatry: Normal mood. Normal affect. Not depressed. Not anxious. Results Lab / Micro Data Result Diagrams: 04/22/22 02:39 04/22/22 02:39 Labs: Laboratory Results - last 24 hr 04/22/22 02:39: WBC 14.6 H, RBC 5.52 H, Hgb 14.9, Hct 45.6, MCV 82.6, MCH 27.0, MCHC 32.7, RDW Std Deviation 43.6, RDW Coeff of Raf 14.6, Plt Count 254, MPV 11.7, Immature Gran % (Auto) 0.500, Neut % (Auto) 88.0 H, Lymph % (Auto) 6.5 L, Lee % (Auto) 4.5, Eos % (Auto) 0.1, Baso % (Auto) 0.4, Absolute Neuts (auto) 12.8 H, Absolute Lymphs (auto) 0.95, Nucleated RBC % 0 04/22/22 02:39: Sodium 136, Potassium 3.6, Chloride 102, Carbon Dioxide 22.0, Anion Gap 12, BUN 17, Creatinine 1.00, Estim Creat Clear Calc 39.59, Est GFR (MDRD) Af Amer 69, Est GFR (MDRD) Non-Af 57 L, BUN/Creatinine Ratio 17.0, Glucose 287 H, Calcium 9.6, Total Bilirubin 0.60, AST 37, ALT 58 H, Alkaline Phosphatase 121 H, Total Protein 8.4 H, Albumin 3.9, Globulin 4.5 H, Albumin/Globulin Ratio 0.9, Lipase 85 04/22/22 02:45: Lactic Acid 3.0 H* Assessment & Plan Assessment/Plan (1) Small bowel obstruction, partial: PLAN: Small bowel obstruction Review of old records show the patient's last admission to the hospital for small bowel obstruction at our Hospital ([facility]) was from 04/09/2022 to 04/10/2022. Of note patient has umbilical hernia and that has been the nidus of previous bowel obstruction and per General Surgery previous notes patient is to go to a tertiary center for possible surgery. Patient reports having an upcoming surgery visit with Dr. Fisher (General surgery, [facility]) on 04/24/[address] of abdomen and pelvis was visualized independent in terpreted and I agree with with radiologist interpretation of at least partial small bowel obstruction. Supportive treatment with IV fluids; IV antiemetics with Zofran; and IV morphine for pain. CBC reviewed showed leukocytosis. Likely reactive. Trend CBC. General surgery consult Lactic acidosis Likely secondary to local ischemia. Trend lactic acid. Diabetes mellitus with nephropathy Patient with hyperglycemia on presentation Hold home oral hypoglycemic regimen. Accu-Chek every 6 hours of correction scale insulin ordered Hypertension urgency Systolic blood pressure more than 160 Blood pressure is not within goal Home p.o. meds held. Scheduled Vasotec; and needed hydralazine ordered. Trend blood pressure and adjust blood pressure medications. 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 Stable. Trend BMP DVT prophylaxis SCDs ordered. Charges/Coding Visit Charges Inpatient E&M: 45944 Init Hosp L3
[2022-04-22] MEDS: Insulin Lispro 100 UNIT/ML INSULN.PEN SC ×3 (06:32→17:43)
[2022-04-22] MEDS: Lactated Ringers 1,000 ML 75 ML IV (06:33)
[2022-04-22] MEDS: 0.9% Saline Lock 10 ML Syringe IV ×2 (06:35→17:43)
[2022-04-22] MEDS: Enalaprilat 1.25 MG/ML Vial IV ×3 (06:35→17:43)
[2022-04-22 06:46] LABS: Reflex Lactate? Y
[2022-04-22 06:51] LABS: Bedside Glucose 265 mg/dL (74-106)
--- NOTE | 2022-04-22 07:23 | EX.PCM.CON.S ---
Assessment & Plan Assessment/Plan (1) Small bowel obstruction, partial: PLAN: Patient developed another small bowel obstruction. She has had now a bowel obstruction in January and February and already earlier in March. All these resolved spontaneously. She currently believes that this 1 has resolved as well as she feels like things are moving through. I will continue to keep her n.p.o. for now and check on her later today and possibly start clear liquids if she has significant bowel function and abdominal pain has resolved fully. If the patient does not improve I recommend taking the patient for laparoscopy tomorrow or to lyse adhesions. I discussed this with her in detail. Patient also has an appointment in [address] Fisher to discuss possible hernia repair at a tertiary center. Mychal Luque MD Pager: [facility] [address] [place] [address], [address] [place] [address] Office: HPI Consult Data Date of Consult: 04/22/22 HPI Narrative HPI Narrative: JASON JONES, is a 77 F who presents with abdominal pain. Patient reports that this newest bout started yesterday. She is having lower abdominal pain and nausea and was not passing any flatus. She did have a liquid bowel movement in the emergency room. She is not currently nauseated. She feels like the bowel obstruction is already resolving. [facility] Medical History Arthritis Asthma Bleeding ulcer Cholelithiasis and acute cholecystitis without obstruction Constipation Diabetes Diabetes mellitus type 2, uncomplicated Duodenogastric reflux of bile Gastric reflux GERD (gastroesophageal reflux disease) History of diverticulitis History of steroid therapy History of stress test Hypertension IBS (irritable bowel syndrome) Leg cramps NAFLD (nonalcoholic fatty liver disease) Non-smoker Obesity Partial obstruction of small intestine Partial small bowel obstruction Small bowel obstruction due to postoperative adhesions Wears contact lenses Wears glasses Home Medications amlodipine-benazepril 1 cap PO DAILY 07/15/16 [History Last Taken 04/09/22] bisoprolol fumarate 10 mg PO DAILY 07/15/16 [History Last Taken 04/09/22] glimepiride 4 mg PO DAILY 06/12/21 [History Last Taken 04/09/22] metformin 750 mg PO BID 06/12/21 [History Last Taken 04/09/22] acetaminophen [Tylenol] 650 mg PO Q4H PRN PRN #0 tab 06/14/21 [Rx Last Taken Unknown] ondansetron 4 mg PO Q8H PRN PRN #10 tab 11/19/21 [Rx Last Taken Unknown] Jardiance 10 mg PO DAILY 12/31/21 [History Last Taken 04/09/22] cholecalciferol (vitamin D3) [Vitamin D3] 50 mcg PO QHS 12/31/21 [History Last Taken 04/08/22] Probiotic 10,000 mmu cells PO DAILY 02/07/22 [History Last Taken 04/09/22] dicyclomine 20 mg PO BID 04/09/22 [History Last Taken 04/09/22] omeprazole 20 mg PO DAILY 04/09/22 [History Last Taken 04/09/22] polyethylene glycol 3350 [Miralax] 17 g PO DAILY 04/09/22 [History Last Taken 04/09/22] vitamin E (dl, acetate) 360 mg PO DAILY 04/09/22 [History Last Taken 04/09/22] Allergy/AdvReac Type Severity Reaction Status Date / Time adhesive Allergy Other Verified 04/22/22 02:15 Iodinated Contrast Media Allergy Hives Verified 04/22/22 02:15 [CONTRASTS] ciprofloxacin [From Cipro] AdvReac Mild nausea Verified 04/22/22 02:15 metronidazole [From Flagyl] AdvReac Mild nausea Verified 04/22/22 02:15 IVORY SOAP Allergy Rash Uncoded 04/22/22 02:15 Family History Mother Multiple sclerosis Father Heart disease Diabetes Surgical History H/O dilation and curettage H/O oophorectomy History of cardiac catheterization History of cholecystectomy S/P partial colectomy Status post left foot surgery Social History household members: family and other details: Patient lives with her daughter, son in law. Smoking Status: Never smoker alcohol intake: never substance use type: does not use seatbelt use: always ROS Constitutional Constitutional: Denies anorexia or fatigue Eyes Eyes: Denies blurry vision ENT HEENT: Denies abnormal hearing Cardiovascular Cardiovascular: Denies chest pain Respiratory/Chest Respiratory/Chest: Denies cough Gastrointestinal Gastrointestinal: Reports abdominal pain and nausea; Denies constipation, diarrhea or vomiting Genitourinary Genitourinary: Denies change in urinary stream Musculoskeletal Musculoskeletal: Denies abnormal gait Integumentary Integumentary: Denies new lesions Neurologic Neurologic: Denies abnormal gait Psychiatric Psychiatric: Denies anxiety Endocrine Endocrinology: Denies flushing Hematologic/Lymphatic Hematologic/Lymphatic: Denies easy bleeding Physical Exam Const alert and oriented x3 HEENT normocephalic Eyes PERRL Neck full ROM Resp normal respiratory effort Cardio Rate: regular rate Rhythm: regular rhythm GI soft to palpation Inspection: abdominal distention Palpation: hernia ventral; Negative for guarding Extremity General Extremity: normal exam except as noted Skin no rashes or lesions noted Lab / Micro Data Result Diagrams: 04/22/22 02:39 04/22/22 02:39 Labs: Laboratory Results - last 24 hr 04/22/22 02:39: WBC 14.6 H, RBC 5.52 H, Hgb 14.9, Hct 45.6, MCV 82.6, MCH 27.0, MCHC 32.7, RDW Std Deviation 43.6, RDW Coeff of Arf 14.6, Plt Count 254, MPV 11.7, Immature Gran % (Auto) 0.500, Neut % (Auto) 88.0 H, Lymph % (Auto) 6.5 L, [place] % (Auto) 4.5, Eos % (Auto) 0.1, Baso % (Auto) 0.4, Absolute Neuts (auto) 12.8 H, Absolute Lymphs (auto) 0.95, Nucleated RBC % 0 04/22/22 02:39: Sodium 136, Potassium 3.6, Chloride 102, Carbon Dioxide 22.0, Anion Gap 12, BUN 17, Creatinine 1.00, Estim Creat Clear Calc 39.59, Est GFR (MDRD) Af Amer 69, Est GFR (MDRD) Non-Af 57 L, BUN/Creatinine Ratio 17.0, Glucose 287 H, Calcium 9.6, Total Bilirubin 0.60, AST 37, ALT 58 H, Alkaline Phosphatase 121 H, Total Protein 8.4 H, Albumin 3.9, Globulin 4.5 H, Albumin/Globulin Ratio 0.9, Lipase 85 04/22/22 02:45: Lactic Acid 3.0 H* 04/22/22 05:37: POC Glucose 265 H Radiology Impression Abdomen/Pelvis CT 04/22/22 02:35 IMPRESSION: Distal small bowel obstruction at least partial small bowel obstruction. Etiology uncertain, likely adhesions. Electronically Signed: Connie Wray MD at 4:20 EDT ,
[2022-04-22] MEDS: 0.9% Normal Saline 1,000 ML 75 ML IV ×2 (07:58→20:39)
--- NOTE | 2022-04-22 10:15 | CASEMGMT ---
RN DAVIDE Face to Face with patient for initial transition planning/care coordination assessment. RN CM introduced self and role at [facility]. Patient lying in bed, alert and oriented. Patient willing to participate in assessment and is able to answer all questions appropriately. Care providers, pharmacy, and demographics verified. Patient wishes to discharge home, denies need for home health at this time. Patient states she has no further needs or concerns at this time. CM to follow for discharge planning needs that may arise. PCP: Mateo Specialists: Friend, TOBI Preferred Pharmacy: [facility] Insurance: [employer] [facility] Prescription Benefit: yes Living Will/HPOA: none LNOK: daughter Living Arrangements: Patient lives with daughter in a 2 story home with bed and bath on first floor. Patient states she is independent at home. Transportation: self, daughter DME/HHC: Paitent denies DME in the home. Patient denies previous HHC or SNF. Disposition Plan: Patient to discharge home with family support and follow-up plans in place. Birdie HAAS, RN, CM
[2022-04-22 12:45] LABS: Bedside Glucose 253 mg/dL (74-106)
--- NOTE | 2022-04-22 14:33 | CHAPLAIN ---
Type of Pastoral Visit _x__ Initial Visit ___ Follow-up Visit ___ On-call Visit ___ General Patient Visit ___ Spiritual Assessment ___ Family Conference ___ Bereavement ___ Rapid Response ___ Code Blue ___ Other (describe below) Pastoral Care Referral From _x__ Patient ___ Family ___ Nurse ___ Physician ___ Welder Oxyhydrogen ___ Sodium Methylate Operator ___ Other (describe below) Sacrament/Intervention _x__ Active listening ___ Anointing ___ Caodaism ___ Bereavement ___ Communion ___ Stephanie exploration ___ ___ Life review _x__ Prayer ___ Reconciliation ___ Sacrament of Sick ___ Supportive presence ___ Wedding ___ Other (describe below) Pastoral Comments patient in obvious discomfort physically but also concerned emotionally due to repeat issues; pt welcomes presence and prayer for support
--- NOTE | 2022-04-22 14:48 | PN.HOSP_ITS ---
Hospitalist Note Mrs. Phan was admitted early this morning with a partial small bowel obstruction. The patient seems to have intermittent small bowel obstructions and just had a recent admission for this. She indicates she was to have follow- up with Dr. Fisher on 04/24/2022 to discuss surgical intervention at a tertiary center given the complex history in her abdomen but she has not made it to that appointment as of yet. This morning she states she has passed gas and had a bowel movement and has no further nausea or vomiting. She was evaluated by general surgery and to be maintained n.p.o. at this time with possible advancement to clear liquids later today. If the patient does not improve general surgery's plan is to take her for laparoscopy tomorrow on for lysis of adhesions. We will continue to clinically monitor the patient and see how she does. Overall at this time the patient seems to be improving and I do anticipate that she may be able to be discharged home with follow-up to see Dr. Fisher on the . Reevaluate in a.m.
[2022-04-22 19:26] LABS: Bedside Glucose 154 mg/dL (74-106)
[2022-04-23] MEDS: Enalaprilat 1.25 MG/ML Vial IV ×3 (00:33→11:17)
[2022-04-23] MEDS: 0.9% Saline Lock 10 ML Syringe IV ×2 (00:34→11:17)
[2022-04-23 00:46] LABS: Bedside Glucose 128 mg/dL (74-106)
[2022-04-23 04:02] VITALS: BP 135/63; PULSE 60; RESP 18; TEMP 36.7; O2SAT 95
[2022-04-23 04:31] LABS: Absolute Lymphocyte Count 1.68 X10^3/uL (0.83-4.51); Absolute Neutrophil Count 6.1 X10^3/uL (2.0-7.7); Basophil# 0.03 X10^3/uL; Basophil% 0.3 % (0-1); Eosinophil# 0.02 X10^3/uL; Eosinophils% 0.2 % (0-5); Hematocrit 38.7 % (37-47); Hemoglobin 12.6 g/dL (12.0-15.0); Lymphocyte # 1.68 X10^3/ul (0.83-4.51); Lymphocyte % 19.5 % (19-41); Mean Corp Hgb Conc 32.6 g/dL (32-36); Mean Corpuscular Hgb 27.5 pg (27.0-32.0); Mean Corpuscular Volume 84.3 fL (81-99); Mean Platelet Vol. 10.9 fl (6.2-12.0); Monocyte# 0.74 X10^3/uL; Monocyte% 8.6 % (0-10); NRBC Flagged by Analyzer 0 % (0-5); Neutrophil # 6.13 X10^3/uL (2.7-7.7); Neutrophil % 71.1 % (47-70); Platelet Count 214 K/mm3 (150-450); RBC Distribution Width CV 14.8 % (11.6-14.6); RBC Distribution Width SD 45.2 fl (35.1-43.9); Red Blood Count 4.59 M/mm3 (4.2-5.4); White Blood Count 8.6 K/mm3 (4.4-11.0)
[2022-04-23 04:53] LABS: Anion Gap 8 (5-15); BUN 16 mg/dL (7-18); BUN/Creat Ratio 18.1 RATIO (10-20); Calcium,Total 8.5 mg/dL (8.5-10.1); Chloride 111 mmol/L (98-107); Creatinine, Serum 0.88 mg/dL (0.55-1.02); EST Glomerular Filtration Rate 66 mL/min (>60); Est Glom Filt Rate - Afr Amer 80 mL/min (>60); Estimated Creatinine Clearance 44.99 ml/min; Glucose 125 mg/dL (74-106); Potassium 3.2 mmol/L (3.5-5.1); Sodium Level 141 mmol/L (136-145)
[2022-04-23 06:46] LABS: Bedside Glucose 123 mg/dL (74-106)
--- NOTE | 2022-04-23 07:19 | PCM.PN.SRG ---
Subjective Subjective Patient reports she has had 4 bowel movements. She is not having any abdominal pain this morning. She denies any nausea or vomiting. Objective Data Objective Data Vital Signs: Vital Signs Temp Pulse Resp BP Pulse Ox 98.0 F 60 18 135/63 H 95 04/23/22 04:02 04/23/22 04:02 04/23/22 04:02 04/23/22 04:02 04/23/22 04:02 Oxygen Flow Rate (L/min) 1 Oxygen Delivery Method Room Air Weight: 216 lb 7.903 oz Body Mass Index (BMI) 38.3 Intake & Output: Intake and Output for Last 24 Hours 04/21/22 04/22/22 04/23/22 23:59 23:59 23:59 Intake Total 2113.75 / 2113.75 50 / 50 Output Total 0 / 0 Balance 2113.75 / 2113.75 50 / Lab / Micro Data Result Diagrams: 04/23/22 04:06 04/23/22 04:06 Labs: Laboratory Results - last 24 hr 04/22/22 07:25: Lactic Acid 1.0 04/22/22 12:22: POC Glucose 253 H 04/22/22 17:39: POC Glucose 154 H 04/23/22 00:36: POC Glucose 128 H 04/23/22 04:06: WBC 8.6, RBC 4.59, Hgb 12.6, Hct 38.7, MCV 84.3, MCH 27.5, MCHC 32.6, RDW Std Deviation 45.2 H, RDW Coeff of Raf 14.8 H, Plt Count 214, MPV 10.9, Immature Gran % (Auto) 0.300, Neut % (Auto) 71.1 H, Lymph % (Auto) 19.5, [place] % (Auto) 8.6, Eos % (Auto) 0.2, Baso % (Auto) 0.3, Absolute Neuts (auto) 6.1, Absolute Lymphs (auto) 1.68, Nucleated RBC % 0 04/23/22 04:06: Sodium 141, Potassium 3.2 L, Chloride 111 H, Carbon Dioxide 22.0, Anion Gap 8, BUN 16, Creatinine 0.88, Estim Creat Clear Calc 44.99, Est GFR (MDRD) Af Amer 80, Est GFR (MDRD) Non-Af 66, BUN/Creatinine Ratio 18.1, Glucose 125 H, Calcium 8.5 04/23/22 06:33: POC Glucose 123 H Physical Exam Const oriented x3 and no apparent distress Resp normal respiratory effort Cardio regular rate GI soft to palpation and non-tender Assessment & Plan Assessment/Plan (1) Small bowel obstruction, partial: PLAN: Patient is doing well and having bowel function. She is not having any abdominal pain. I will advance her to a regular diet. If she tolerates that she will follow-up with Dr. Fisher to discuss tertiary ventral hernia repair and lysis of adhesions. She has not tolerated diet I would recommend exploratory laparoscopy tomorrow. Mychal Luque MD Pager: [facility] [address] [place] [address], [address] [place] [address] Office:
[2022-04-23 09:15] VITALS: BP 129/58; PULSE 79; RESP 18; TEMP 36.5; O2SAT 95
--- NOTE | 2022-04-23 10:42 | DS.PCM_ITS ---
Providers Date of Admission: 04/22/22 Date of Discharge: 04/23/22 Primary Care Physician: Dr. Abraham Galindo MD Consultations 04/22/22 05:13 Consult: General Surgery Routine Consulting Provider: Mychal Luque Reason for Consult: SBO EMERGENT Consult: No MD Notified: Yes Date Notified: 04/22/22 Time Notified: 06:33 Method of Notification: Text Reason For Visit: SBO Diagnosis Discharge Diagnosis (1) Small bowel obstruction, partial: Status: Acute Code(s): K56.600 - Partial intestinal obstruction, unspecified as to cause Medications at Discharge Home Medications amlodipine-benazepril 1 cap PO DAILY 07/15/16 bisoprolol fumarate 10 mg PO DAILY 07/15/16 glimepiride 4 mg PO DAILY 06/12/21 metformin 750 mg PO BID 06/12/21 acetaminophen [Tylenol] 650 mg PO Q4H PRN PRN #0 tab 06/14/21 ondansetron 4 mg PO Q8H PRN PRN #10 tab 11/19/21 Jardiance 10 mg PO DAILY 12/31/21 cholecalciferol (vitamin D3) [Vitamin D3] 50 mcg PO QHS 12/31/21 Probiotic 10,000 mmu cells PO DAILY 02/07/22 dicyclomine 20 mg PO BID 04/09/22 omeprazole 20 mg PO DAILY 04/09/22 polyethylene glycol 3350 [Miralax] 17 g PO DAILY 04/09/22 vitamin E (dl, acetate) 360 mg PO DAILY 04/09/22 Hospital Course Operations None Procedures None Summary of Care Provided Minutes Spent on Discharge: 36 Hospital Course: Mrs. Osborne is a 77-year-old white female who presented to the emergency department [facility] on 04/22/2022 complaining of abdominal pain. This most recent episode of abdominal pain started the day prior to admission. Her pain was lower abdominal and was associated with nausea. She was not passing any flatus or have any significant bowel movements. She did have a little pure liquid bowel movement in the emergency department but nothing more substantial. She stated her symptoms were similar to previous bowel obstructions. General surgery was consulted and by the time they evaluated her she was feeling like her bowel obstruction was already resolving. She has a marked history of bowel obstructions and has had several admissions lately related to partial small bowel obstructions that apparently resolved fairly quickly. The patient indicates she has a follow-up with Dr. Fisher on 04/24/2022 to discuss higher risk surgery that would involve repair of a paramedian abdominal hernia that is suspicious for causing her intermittent bowel obstructions. The patient was initially treated conservatively placed on IV fluids and antiemetics were given. Her bowel obstruction resolved quite quickly and she was passing flatus and having stool by the late afternoon of 04/22/2022. She was started on clear liquid diet and advance to a full liquid diet with good tolerance. She received a regular diet on 04/23/2022 and had good tolerance with this and had a bowel movement shortly following. The patient's abdominal pain and nausea had subsequently resolved. She was reevaluated by general surgery and they cleared her for discharge home. We have asked her to have close follow-up with Dr. Fisher to discuss further surgical options with the hope that she has resolution of her frequent partial small bowel obstructions. She is to follow-up with him tomorrow on 04/24/2022. She was discharged home in stable condition with no medication changes on 04/23/2022. She is to follow-up with her primary care physician within the next 1 to 2 weeks. Discharge diagnoses: Recurrent partial small bowel obstruction Hypokalemia Leukocytosis-resolved Arthritis Asthma History of peptic ulcer disease DM-2 GERD History of diverticulitis status post colectomy Hypertension IBS Bautista Obesity Physical Exam Const alert, oriented x3 and no apparent distress Constitutional Narrative: Obese older white female lying in bed, appears comfortable nontoxic General Appearance: cooperative, comfortable, well kempt and well developed Orientation / Consciousness: awake Exam Limitations: no limitations Nutritional Appearance: obese HEENT normocephalic, head/scalp atraumatic, hearing grossly normal bilaterally and moist oral mucous membranes HEENT Narrative: Mallampati 3, dentition is poor with dentures in place, no thrush Eyes PERRL, EOMs intact bilaterally and conjunctivae normal Eyes Narrative: No scleral icterus Neck no lymphadenopathy, supple and no JVD Neck Narrative: Trachea midline, neck is short and thick, no noted thyroid enla rgement Resp normal respiratory effort, no retractions, no use of accessory muscles and clear to auscultation bilaterally Auscultation: Negative for crackles, rales, rhonchi or wheezes Cardio regular rate, regular rhythm, S1 normal heart sound, S2 normal heart sound, no murmurs, no rub, no gallops, no clicks and no JVD GI normal to inspection, nondistended, normoactive bowel sounds, soft to palpation, non-tender and non-distended GI Narrative: Patient has a right paramedian hernia that is soft and easily reducible at the present time, abdomen is somewhat protuberant due to obesity Extremity no clubbing, cyanosis or edema Extremity Narrative: Pedal pulses are 2+ Skin no rashes or lesions noted, no wounds, skin turgor normal and no jaundice Neuro oriented x3, CN's II-XII intact bilaterally, moves all extremities, no focal motor deficits and no sensory deficits noted Sensorium / Orientation: awake and alert Speech: speech normal Psych affect normal Psych Narrative: Very pleasant and appropriately interactive Weight / BMI Weight Weight: 98.2 kg Body Mass Index (BMI) 38.3 ABG / Lab / Microbiology Data Result Diagrams: 04/23/22 04:06 04/23/22 04:06 Laboratory: Laboratory Results - last 24 hr 04/22/22 12:22: POC Glucose 253 H 04/22/22 17:39: POC Glucose 154 H 04/23/22 00:36: POC Glucose 128 H 04/23/22 04:06: WBC 8.6, RBC 4.59, Hgb 12.6, Hct 38.7, MCV 84.3, MCH 27.5, MCHC 32.6, RDW Std Deviation 45.2 H, RDW Coeff of Raf 14.8 H, Plt Count 214, MPV 10.9, Immature Gran % (Auto) 0.300, Neut % (Auto) 71.1 H, Lymph % (Auto) 19.5, [place] % (Auto) 8.6, Eos % (Auto) 0.2, Baso % (Auto) 0.3, Absolute Neuts (auto) 6.1, Absolute Lymphs (auto) 1.68, Nucleated RBC % 0 04/23/22 04:06: Sodium 141, Potassium 3.2 L, Chloride 111 H, Carbon Dioxide 22.0, Anion Gap 8, BUN 16, Creatinine 0.88, Estim Creat Clear Calc 44.99, Est GFR (MDRD) Af Amer 80, Est GFR (MDRD) Non-Af 66, BUN/Creatinine Ratio 18.1, Glucose 125 H, Calcium 8.5 04/23/22 06:33: POC Glucose 123 H D/C Instructions Discharge Diet: Soft diet Discharge Activity: Return to Normal Activity Meaningful Use Info Meaningful Use Diagnoses (Choose all that apply): None applicable Discharge Plan Admission Admit Date/Time: 04/22/22 04:29 Primary Reason for Your Visit: Lower abdominal pain Attending Provider: Jyoti Do Primary Care Provider: Abraham Galindo Consulting Providers: Julius Guallpa ; Mychal Luque Discharge Orders/Prescriptions Prescriptions: Continued bisoprolol fumarate 10 MG tablet 10 mg PO DAILY RF: 0 amlodipine-benazepril 1 EACH capsule 1 cap PO DAILY RF: 0 glimepiride 4 mg tablet 4 mg PO DAILY RF: 0 metformin 750 mg tablet extended release 24 hr 750 mg PO BID RF: 0 acetaminophen [Tylenol] 325 mg Tablet 650 mg PO Q4H PRN PRN (Reason: PAIN 1-10/ FEVER) Qty: 0 RF: 0 ondansetron 4 MG tablet 4 mg PO Q8H PRN PRN (Reason: Nausea) Qty: 10 RF: 0 Jardiance 10 mg tablet 10 mg PO DAILY RF: 0 cholecalciferol (vitamin D3) [Vitamin D3] 50 mcg (2,000 unit) Capsule 50 mcg PO QHS RF: 0 Probiotic 10 billion cell Capsule 10,000 mmu cells PO DAILY RF: 0 dicyclomine 20 mg tablet 20 mg PO BID RF: 0 polyethylene glycol 3350 [Miralax] 17 gram Powder In Packet 17 g PO DAILY RF: 0 omeprazole 20 mg capsule,delayed release(DR/EC) 20 mg PO DAILY RF: 0 vitamin E (dl, acetate) 180 mg (400 unit) capsule 360 mg PO DAILY RF: 0 Referrals / Follow Up: Dmitriy Fisher MD [STAFF PHYSICIAN] - 04/24/22 12:45 pm (As previously scheduled) Abraham Galindo MD [Primary Care Provider] - 05/01/22 3:20 pm Disposition Disposition (needs filled in before D/C Order can be placed): Home, Self Care Charges/Coding Visit Charges Inpatient E&M: 98573 Disch Hosp
[2022-04-23] MEDS: Potassium Chloride Oral Tablet 20 MEQ 60 MEQ PO (11:11)
[2022-04-23] MEDS: Insulin Lispro 100 UNIT/ML INSULN.PEN SC (11:14)
[2022-04-23 11:46] LABS: Bedside Glucose 235 mg/dL (74-106)
--- NOTE | 2022-04-23 14:03 | PHA.DC.MR ---
Pharmacy Service has performed discharge medication reconciliation for this patient. The patient's discharge medication list was reviewed for discrepancies and discrepancies were resolved. Home Medications amlodipine-benazepril 1 cap PO DAILY 07/15/16 bisoprolol fumarate 10 mg PO DAILY 07/15/16 glimepiride 4 mg PO DAILY 06/12/21 metformin 750 mg PO BID 06/12/21 acetaminophen [Tylenol] 650 mg PO Q4H PRN PRN #0 tab 06/14/21 ondansetron 4 mg PO Q8H PRN PRN #10 tab 11/19/21 Jardiance 10 mg PO DAILY 12/31/21 cholecalciferol (vitamin D3) [Vitamin D3] 50 mcg PO QHS 12/31/21 Probiotic 10,000 mmu cells PO DAILY 02/07/22 dicyclomine 20 mg PO BID 04/09/22 omeprazole 20 mg PO DAILY 04/09/22 polyethylene glycol 3350 [Miralax] 17 g PO DAILY 04/09/22 vitamin E (dl, acetate) 360 mg PO DAILY 04/09/22
--- NOTE | 2022-04-23 14:52 | CASEMGMT ---
Pt has been tolerating diet and states no concerns with going home with family at discharge. SStsally ROQUE CM
[2022-04-23 15:15] VITALS: BP 150/67; PULSE 75; RESP 16; TEMP 36.5; O2SAT 97
== END 2022-04-23 15:55 | disposition home or self-care (01) | DRG 389 ==
LOC: ED 04:38 → PCU 04:47
PROVIDERS: Admitting Provider Hospitalist; Emergency Provider Emergency Medicine; PCP Family Medicine; Visit Provider Internal Medicine
DX: K56.600 Partial intestinal obstruction, unspecified as to cause (principal); E87.2 Acidosis; E11.22 Type 2 diabetes mellitus with diabetic chronic kidney disease; N18.32 Chronic kidney disease, stage 3b; E87.6 Hypokalemia; K42.9 Umbilical hernia without obstruction or gangrene; I16.0 Hypertensive urgency; I12.9 Hypertensive chronic kidney disease with stage 1 through stage 4 chronic kidney disease, or unspecified chronic kidney disease; K58.9 Irritable bowel syndrome, unspecified; M19.90 Unspecified osteoarthritis, unspecified site; K21.9 Gastro-esophageal reflux disease without esophagitis; E66.9 Obesity, unspecified; Z79.84 Long term (current) use of oral hypoglycemic drugs; Z68.38 Body mass index [BMI] 38.0-38.9, adult; Z79.899 Other long term (current) drug therapy
CPT/HCPCS: 36415; 74177; 80048; 80053; 82962; 83605; 83690; 85025; 99284; J7030; J7120; Q9967; A4216; J2405

== ENCOUNTER 2022-05-28 23:04 | Inpatient (IN) | payer MEDICARE, SELFPAY ==
[2022-05-28 23:04] VITALS: BP 161/108; PULSE 103; RESP 16; TEMP 36.6; O2SAT 99; BMI 36.3
--- NOTE | 2022-05-28 23:37 | EDS_ITS ---
HPI History of Present Illness Chief Complaint: Abd Pain Informant: patient and family Narrative Narrative: 77-year-old female with a history of recurrent small bowel obstructions presenting to the emergency room with abdominal pain and vomiting. Patient states that she has had similar symptoms every 2 to 4 weeks. She was referred to surgery at [facility] but states that he will take her health insurance. Today her symptoms began around 1600 hrs. She notes abdominal pain distention and vomiting. [facility] Medical History Arthritis Asthma Bleeding ulcer Cholelithiasis and acute cholecystitis without obstruction Constipation Diabetes Diabetes mellitus type 2, uncomplicated Duodenogastric reflux of bile Gastric reflux GERD (gastroesophageal reflux disease) History of diabetes mellitus History of diverticulitis History of steroid therapy History of stress test Hypertension IBS (irritable bowel syndrome) Leg cramps NAFLD (nonalcoholic fatty liver disease) Non-smoker Obesity Partial obstruction of small intestine Partial small bowel obstruction Small bowel obstruction due to postoperative adhesions Small bowel obstruction, partial Wears contact lenses Wears glasses Home Medications amlodipine 5 mg-benazepril 20 mg capsule 1 cap PO DAILY bp 07/15/16 [History Last Taken 04/09/22] bisoprolol fumarate 10 mg tablet 10 mg PO DAILY BLOOD PRESSURE 07/15/16 [History Last Taken 04/09/22] glimepiride 4 mg tablet 4 mg PO DAILY DM 06/12/21 [History Last Taken 04/09/22] metformin 750 mg tablet,extended release 24 hr 750 mg PO BID DM 06/12/21 [History Last Taken 04/09/22] acetaminophen 325 mg tablet (Tylenol) 650 mg PO Q4H PRN PRN PAIN 1-10/ FEVER #0 tabs 06/14/21 [Rx Last Taken Unknown] ondansetron 4 mg disintegrating tablet 4 mg PO Q8H PRN PRN Nausea #10 tabs 11/19/21 [Rx Last Taken Unknown] cholecalciferol (vitamin D3) 50 mcg (2,000 unit) capsule (Vitamin D3) 50 mcg PO QHS supplement 12/31/21 [History Last Taken 04/08/22] empagliflozin 10 mg tablet (Jardiance) 10 mg PO DAILY diabetes 12/31/21 [History Last Taken 04/09/22] Lactobacillus acidophilus 10 billion cell capsule (Probiotic) 10,000 mmu cells PO DAILY probiotic 02/07/22 [History Last Taken 04/09/22] dicyclomine 20 mg tablet 20 mg PO BID stomach 04/09/22 [History Last Taken 04/09/22] omeprazole 20 mg capsule,delayed release 20 mg PO DAILY stomach 04/09/22 [History Last Taken 04/09/22] polyethylene glycol 3350 17 gram oral powder packet (Miralax) 17 g PO DAILY laxative 04/09/22 [History Last Taken 04/09/22] vitamin E (dl, acetate) 180 mg (400 unit) capsule 360 mg PO DAILY supplement 04/09/22 [History Last Taken 04/09/22] Allergy/AdvReac Type Severity Reaction Status Date / Time adhesive Allergy Other Verified 05/28/22 23:06 Iodinated Contrast Media Allergy Hives Verified 05/28/22 23:06 [CONTRASTS] ciprofloxacin [From Cipro] AdvReac Mild nausea Verified 05/28/22 23:06 metronidazole [From Flagyl] AdvReac Mild nausea Verified 05/28/22 23:06 IVORY SOAP Allergy Rash Uncoded 05/28/22 23:06 Family History Mother Multiple sclerosis Father Heart disease Diabetes Surgical History H/O dilation and curettage H/O oophorectomy History of cardiac catheterization History of cholecystectomy History of exploratory laparotomy S/P partial colectomy Status post left foot surgery Social History household members: family and other details: Patient lives with her daughter, son in law. Smoking Status: Never smoker alcohol intake: never substance use type: does not use seatbelt use: always ROS ROS ED Constitutional Constitutional ED: Denies chills or weight loss Eyes Eyes: Denies change in vision or diplopia ENT ENT ED: Denies ear pain, rhinorrhea or sore throat Cardiovascular Cardiovascular: Denies chest pain, orthopnea, palpitations or racing heartbeat Respiratory/Chest Respiratory/Chest: Denies cough, dyspnea or orthopnea Gastrointestinal Gastrointestinal: Reports abdominal pain, nausea and vomiting; Denies constipation or diarrhea Genitourinary Genitourinary ED: Denies dysuria, hematuria or urinary frequency Musculoskeletal Musculoskeletal: Denies arthralgias or myalgias Integumentary Denies abscess or rash Neurologic Neurologic: Denies headache(s) or weakness Psychiatric Psychiatric: Denies anxiety, depression, suicidal ideation or suicidal thoughts Endocrine Endocrinology: Denies polydipsia, polyphagia or polyuria Allergic/Immunologic Allergic/Immunologic ED: Denies mouth swelling, tongue swelling or urticaria EXAM Physical Exam Const Vital Signs: 05/28/22 23:04 Temperature 97.8 F Temperature Source Temporal Pulse Rate 103 H Respiratory Rate 16 Blood Pressure 161/108 H Blood Pressure Mean 125 Pulse Ox 99 Oxygen Delivery Method Room Air Positive well nourished, well developed and obese General Appearance ED: well developed Nutritional Appearance: obese HEENT Reports normocephalic, head/scalp atraumatic and moist mucous membranes Eyes PERRL and EOMs intact bilaterally Neck no lymphadenopathy, supple and no JVD Resp normal respiratory effort and clear to auscultation bilaterally Cardio regular rate, regular rhythm and no murmurs GI Inspection: abdominal distention Auscultation: hypoactive bowel sounds Palpation: tender other (diffuse ttp); Negative for guarding or rebound tenderness present Back/Spine no CVA tenderness and normal ROM Extremity normal to inspection General Extremety ED: Negative for edema General Extremity: Negative for edema Neuro oriented x3 and CN's II-XII intact bilaterally Sensorium / Orientation: alert Motor Exam: strength 5/5 throughout Psych mental status grossly normal Mood & Affect: Negative for depressed or tearful Skin no rashes or lesions noted and no wounds MDM MDM MDM Narrative Medical decision making narrative: White count elevated 12.9 with a hemoglobin 15.5. Platelet count of 268. CMP with a creatinine 1.13. Lipase is 79. CT the abdomen pelvis is consistent with a small bowel obstruction with a transition point in the abdominal wall hernia. I spoke with the patient's surgeon Dr. Fisher. He recommends an NG tube placement and admission. If she follows her normal trend she should resolve with conservative treatment. I will speak with the hospitalist regarding admission Lab Data Attestation: I reviewed the patient's lab results. Labs: Laboratory Results - last 24 hr 05/28/22 05/28/22 23:20 23:20 WBC 12.9 H RBC 5.80 H Hgb 15.5 H Hct 47.0 MCV 81.0 MCH 26.7 L MCHC 33.0 RDW Std Deviation 45.0 H RDW Coeff of Raf 15.5 H Plt Count 268 MPV 11.6 Immature Gran % (Auto) 0.500 Neut % (Auto) 84.2 H Lymph % (Auto) 10.8 L [place] % (Auto) 3.8 Eos % (Auto) 0.2 Baso % (Auto) 0.5 Absolute Neuts (auto) 10.8 H Absolute Lymphs (auto) 1.39 Nucleated RBC % 0 Sodium 137 Potassium 4.0 Chloride 102 Carbon Dioxide 21.0 Anion Gap 14 BUN 17 Creatinine 1.13 H Estim Creat Clear Calc 35.04 Est GFR (MDRD) Af Amer 60 Est GFR (MDRD) Non-Af 50 L BUN/Creatinine Ratio 15.0 Glucose 221 H Calcium 10.2 H Total Bilirubin 0.70 AST 30 ALT 47 Alkaline Phosphatase 115 Total Protein 8.1 Albumin 3.9 Globulin 4.2 Albumin/Globulin Ratio 0.9 Lipase 79 Radiography Diagnostic Testing: Clinical Impression(s) from Imaging Studies Abdomen/Pelvis CT 05/29/22 23:36 IMPRESSION: 1. Small bowel obstruction with transition in the anterior lower abdominal wall defect. 2. Trace free fluid. 3. Additional chronic changes as above. Electronically Signed: Jericho Molina MD at 0:48 EDT , Discharge Plan Triage Chief Complaint: Abd Pain ED Provider: Can Nixon Dx/Rx/DC Orders Clinical Impression: Ventral hernia with bowel obstruction, Abdominal pain Prescriptions: No Action bisoprolol fumarate 10 MG tablet 10 mg PO DAILY amlodipine-benazepril 1 EACH capsule 1 cap PO DAILY Label Comments: 5-20 mg glimepiride 4 mg tablet 4 mg PO DAILY Label Comments: TAKE 1 TABLET BY MOUTH TWICE A DAY metformin 750 mg tablet extended release 24 hr 750 mg PO BID acetaminophen [Tylenol] 325 mg Tablet 650 mg PO Q4H PRN PRN (Reason: PAIN 1-10/ FEVER) Qty: 0 0RF ondansetron 4 MG tablet 4 mg PO Q8H PRN PRN (Reason: Nausea) Qty: 10 0RF Jardiance 10 mg tablet 10 mg PO DAILY cholecalciferol (vitamin D3) [Vitamin D3] 50 mcg (2,000 unit) Capsule 50 mcg PO QHS Probiotic 10 billion cell Capsule 10,000 mmu cells PO DAILY dicyclomine 20 mg tablet 20 mg PO BID Label Comments: TAKE 1 TABLET BY MOUTH TWICE A DAY polyethylene glycol 3350 [Miralax] 17 gram Powder In Packet 17 g PO DAILY omeprazole 20 mg capsule,delayed release(DR/EC) 20 mg PO DAILY vitamin E (dl, acetate) 180 mg (400 unit) capsule 360 mg PO DAILY Label Comments: TAKE 2 CAPSULES BY MOUTH EVERY DAY Primary Care Provider: Abraham Galindo Referrals: Abraham Galindo MD [Primary Care Provider] - Disposition Disposition: Acute Care Hospital [facility]
[2022-05-28] MEDS: Ondansetron 4 MG/2 ML Vial IV (23:51)
[2022-05-28] MEDS: 0.9% Normal Saline 1,000 ML 1000 ML IV (23:53)
[2022-05-28] MEDS: Morphine 4 MG/ML Syringe IV (23:53)
[2022-05-29] VITALS (8 sets, daily range): BP systolic 123–169; BP diastolic 52–92; PULSE 62–91; RESP 15–18; TEMP 36.4–37.2; O2SAT 91–97; BMI 36.6
[2022-05-29 00:01] LABS: Absolute Lymphocyte Count 1.39 X10^3/uL (0.83-4.51); Absolute Neutrophil Count 10.8 X10^3/uL (2.0-7.7); Basophil# 0.07 X10^3/uL; Basophil% 0.5 % (0-1); Eosinophil# 0.02 X10^3/uL; Eosinophils% 0.2 % (0-5); Hemoglobin 15.5 g/dL (12.0-15.0); Lymphocyte # 1.39 X10^3/ul (0.83-4.51); Lymphocyte % 10.8 % (19-41); Mean Corpuscular Hgb 26.7 pg (27.0-32.0); Mean Platelet Vol. 11.6 fl (6.2-12.0); Monocyte# 0.49 X10^3/uL; Monocyte% 3.8 % (0-10); NRBC Flagged by Analyzer 0 % (0-5); Neutrophil # 10.83 X10^3/uL (2.7-7.7); Neutrophil % 84.2 % (47-70); Platelet Count 268 K/mm3 (150-450); RBC Distribution Width CV 15.5 % (11.6-14.6); White Blood Count 12.9 K/mm3 (4.4-11.0)
[2022-05-29 00:24] LABS: ALB/GLOB Ratio 0.9 RATIO (0.9-2.4); AST(SGOT) 30 U/L (15-37); Alanine Aminotransfer ALT/SGPT 47 U/L (13-56); Albumin, Serum 3.9 g/dL (3.2-5.0); Alkaline Phosphatase 115 U/L (45-117); Anion Gap 14 (5-15); BUN 17 mg/dL (7-18); Calcium,Total 10.2 mg/dL (8.5-10.1); Chloride 102 mmol/L (98-107); Creatinine, Serum 1.13 mg/dL (0.55-1.02); EST Glomerular Filtration Rate 50 mL/min (>60); Est Glom Filt Rate - Afr Amer 60 mL/min (>60); Estimated Creatinine Clearance 35.04 ml/min; Globulin 4.2 g/dL (2.2-4.2); Glucose 221 mg/dL (74-106); Lipase 79 U/L (73-393); Protein, Total 8.1 g/dL (6.4-8.2); Sodium Level 137 mmol/L (136-145)
--- NOTE | 2022-05-29 01:05 | RAD_ITS ---
STUDY: X-RAY - ABDOMEN/PELVIS REASON FOR EXAM: Female, 77 years old. NG Insertion TECHNIQUE: AP upright view of the abdomen. COMPARISON: 03/08/2022 FINDINGS: Enteric tube terminates overlying the gastric body in satisfactory position. Atherosclerotic calcifications. No free air. Nonobstructive bowel gas pattern. No acute osseous abnormality. RAD/Abdomen Single View (Portable) IMPRESSION: Enteric tube in satisfactory position. Electronically Signed: Jericho Molina MD at 1:43 EDT ,
--- NOTE | 2022-05-29 01:35 | PCM.HP.STD ---
HPI - General General Date of Admission: 05/29/22 Date of Service: 05/29/22 Chief Complaint: N/V, abdominal distention, concern recurrent obstruction. HPI Narrative The patient is a 76 y/o F w/ PMHx: IBS, HTN, HLD, GERD w/ Esophageal varices, Diabetes mellitus type II, Asthma, OA, Hx SBO with prior partial colectomy and several abdominal surgeries with recent discharge 04/23/2022 following review current bowel obstruction who now represents to the [facility] ED on 05/29/22 with last bowel movement the day prior noted to be small and pasty with onset at approximately 4 PM on day prior to ED presentation bilateral lower quadrant abdominal pain described as a burning, diffusely, 9 out of 10 in severity with eventual onset nausea as well as emesis and sensation of distention prompting ED evaluation given similarity to her prior bowel obstruction presentations. She is currently pain-free following NG tube placement. She notes that she has been under evaluations with [facility] for possible noninvasive interventions given her recurrent bowel obstructions. Work-up in the ED included T97.8, heart rate 103, BP 161/108, respiratory rate 16, 99% on room air, CBC with WC 12.9, hemoglobin 15.5, platelet 268 with left shift, CMP with BUN/creatinine 17/1.13, glucose 221, lipase 79, hepatic profile unremarkable otherwise, CT abdomen pelvis with small bowel obstruction with transition in the anterior lower abdominal wall defect, trace free fluid and chronic changes. ED physician ordered NG tube placement with follow-up KUB. In the ED patient administered Zofran, morphine and normal saline 1 L bolus. ED physician did discuss case with general surgery, Dr. Fisher. [facility] Medical History Arthritis Asthma Bleeding ulcer Cholelithiasis and acute cholecystitis without obstruction Constipation Diabetes Diabetes mellitus type 2, uncomplicated Duodenogastric reflux of bile Gastric reflux GERD (gastroesophageal reflux disease) History of diabetes mellitus History of diverticulitis History of steroid therapy History of stress test Hypertension IBS (irritable bowel syndrome) Leg cramps NAFLD (nonalcoholic fatty liver disease) Non-smoker Obesity Partial obstruction of small intestine Partial small bowel obstruction Small bowel obstruction due to postoperative adhesions Small bowel obstruction, partial Wears contact lenses Wears glasses Home Medications amlodipine 5 mg-benazepril 20 mg capsule 1 cap PO DAILY bp 07/15/16 [History Last Taken 04/09/22] bisoprolol fumarate 10 mg tablet 10 mg PO DAILY BLOOD PRESSURE 07/15/16 [History Last Taken 04/09/22] glimepiride 4 mg tablet 4 mg PO DAILY DM 06/12/21 [History Last Taken 04/09/22] metformin 750 mg tablet,extended release 24 hr 750 mg PO BID DM 06/12/21 [History Last Taken 04/09/22] acetaminophen 325 mg tablet (Tylenol) 650 mg PO Q4H PRN PRN PAIN 1-10/ FEVER #0 tabs 06/14/21 [Rx Last Taken Unknown] ondansetron 4 mg disintegrating tablet 4 mg PO Q8H PRN PRN Nausea #10 tabs 11/19/21 [Rx Last Taken Unknown] cholecalciferol (vitamin D3) 50 mcg (2,000 unit) capsule (Vitamin D3) 50 mcg PO QHS supplement 12/31/21 [History Last Taken 04/08/22] empagliflozin 10 mg tablet (Jardiance) 10 mg PO DAILY diabetes 12/31/21 [History Last Taken 04/09/22] Lactobacillus acidophilus 10 billion cell capsule (Probiotic) 10,000 mmu cells PO DAILY probiotic 02/07/22 [History Last Taken 04/09/22] dicyclomine 20 mg tablet 20 mg PO BID stomach 04/09/22 [History Last Taken 04/09/22] omeprazole 20 mg capsule,delayed release 20 mg PO DAILY stomach 04/09/22 [History Last Taken 04/09/22] polyethylene glycol 3350 17 gram oral powder packet (Miralax) 17 g PO DAILY laxative 04/09/22 [History Last Taken 04/09/22] vitamin E (dl, acetate) 180 mg (400 unit) capsule 360 mg PO DAILY supplement 04/09/22 [History Last Taken 04/09/22] Allergy/AdvReac Type Severity Reaction Status Date / Time adhesive Allergy Other Verified 05/28/22 23:06 Iodinated Contrast Media Allergy Hives Verified 05/28/22 23:06 [CONTRASTS] ciprofloxacin [From Cipro] AdvReac Mild nausea Verified 05/28/22 23:06 metronidazole [From Flagyl] AdvReac Mild nausea Verified 05/28/22 23:06 IVORY SOAP Allergy Rash Uncoded 05/28/22 23:06 Family History Mother Multiple sclerosis Father Heart disease Diabetes Surgical History H/O dilation and curettage H/O oophorectomy History of cardiac catheterization History of cholecystectomy History of exploratory laparotomy S/P partial colectomy Status post left foot surgery Social History household members: family and other details: Patient lives with her daughter, son in law. Smoking Status: Never smoker alcohol intake: never substance use type: does not use seatbelt use: always ROS ROS Narrative Admission Review of Systems: CONSTITUTIONAL: No weight loss, fever, chills, + weakness or fatigue. HEENT: Eyes: No visual loss, blurred vision, double vision or yellow sclerae. Ears, Nose, Throat: No hearing loss, sneezing, congestion, runny nose or sore throat. SKIN: No rash or itching, lesions, wounds. CARDIOVASCULAR: No chest pain, chest pressure or chest discomfort, palpitations, edema, orthopnea, syncopal events. RESPIRATORY: No shortness of breath, cough or sputum, wheezing, hemoptysis. GASTROINTESTINAL: + anorexia, nausea, vomiting, abdominal pain, abdominal distention, No diarrhea, melena, BRBPR. GENITOURINARY: No dysuria, frequency, urgency or retention. NEUROLOGICAL: No headache, dizziness, syncope, paralysis, ataxia, numbness or tingling in the extremities, focal weakness, change in bowel or bladder control, seizure. MUSCULOSKELETAL: + muscle, back pain, joint pain or stiffness. HEMATOLOGIC: No anemia, bleeding or bruising. LYMPHATICS: No enlarged nodes. No history of splenectomy. PSYCHIATRIC: No history of depression or anxiety. ENDOCRINOLOGIC: No reports of sweating, cold or heat intolerance. No polyuria or polydipsia. ALLERGIES: No history of asthma, hives, eczema or rhinitis. Vital Signs Vital Signs Vital Signs: 05/28/22 23:04 Temperature 97.8 F Temperature Source Temporal Pulse Rate 103 H Respiratory Rate 16 Blood Pressure 161/108 H Blood Pressure Mean 125 Pulse Ox 99 Oxygen Delivery Method Room Air Weight Weight: 205 lb Body Mass Index (BMI) 36.3 Physical Exam Narrative Physical Examination: General: Awake, alert, oriented x 3 and cooperative, seated upright in the ED bed, uncomfortable and fatigued appearing, NG recently placed. Skin: Normal color, normal turgor, no icterus, no cyanosis. HEENT: AT/NC, EOMI, PERRLA, moderately dry MM, NGT recently placed, no carotid bruits or JVD noted. Lungs: Diminished, greater bases, appropriate effort, no rales, ronchi or wheezing. Heart: Regular rate and rhythm; no gallop, rub audible. Abdomen: Soft, BL LQ mild TTP, notes improved s/p recent NGT placement, no rebound or guarding, not markedly distended, absent bowel sounds, difficult to assess HSM secondary to discomfort and habitus. Extremities: No cyanosis, clubbing, or edema. Neurological: Patient awake, alert, oriented as noted, cognitive function intact; pupils equally reactive to light and accommodation, cranial nerves II-XII grossly normal, moving all 4 extremities, no focal deficits, strength moderately globally decreased secondary to acute presentation Psychiatric: Affect appears fatigued, uncomfortable, no acute evidence of depressive or anxiety feelings. Results Lab / Micro Data Result Diagrams: 05/28/22 23:20 05/28/22 23:20 Labs: Laboratory Results - last 24 hr 05/28/22 23:20: WBC 12.9 H, RBC 5.80 H, Hgb 15.5 H, Hct 47.0, MCV 81.0, MCH 26.7 L, MCHC 33.0, RDW Std Deviation 45.0 H, RDW Coeff of Raf 15.5 H, Plt Count 268, MPV 11.6, Immature Gran % (Auto) 0.500, Neut % (Auto) 84.2 H, Lymph % (Auto) 10.8 L, Hudson % (Auto) 3.8, Eos % (Auto) 0.2, Baso % (Auto) 0.5, Absolute Neuts (auto) 10.8 H, Absolute Lymphs (auto) 1.39, Nucleated RBC % 0 05/28/22 23:20: Sodium 137, Potassium 4.0, Chloride 102, Carbon Dioxide 21.0, Anion Gap 14, BUN 17, Creatinine 1.13 H, Estim Creat Clear Calc 35.04, Est GFR (MDRD) Af Amer 60, Est GFR (MDRD) Non-Af 50 L, BUN/Creatinine Ratio 15.0, Glucose 221 H, Calcium 10.2 H, Total Bilirubin 0.70, AST 30, ALT 47, Alkaline Phosphatase 115, Total Protein 8.1, Albumin 3.9, Globulin 4.2, Albumin/Globulin Ratio 0.9, Lipase 79 Radiology Impression Abdomen/Pelvis CT 05/29/22 23:36 IMPRESSION: 1. Small bowel obstruction with transition in the anterior lower abdominal wall defect. 2. Trace free fluid. 3. Additional chronic changes as above. Electronically Signed: Jericho Molina MD at 0:48 EDT , Assessment & Plan Assessment/Plan (1) SBO (small bowel obstruction): PLAN: Plan The patient is a 76 y/o F w/ PMHx: IBS, HTN, HLD, GERD w/ Esophageal varices, Diabetes mellitus type II, Asthma, OA, Hx SBO with prior partial colectomy and several abdominal surgeries with recent discharge 04/23/2022 following review current bowel obstruction who now represents to the [facility] ED on 05/29/22 with last bowel movement the day prior noted to be small and pasty with onset at approximately 4 PM on day prior to ED presentation bilateral lower quadrant abdominal pain described as a burning, diffusely, 9 out of 10 in severity with eventual onset nausea as well as emesis and sensation of distention prompting ED evaluation given similarity to her prior bowel obstruction presentations. #1.? Abdominal pain, nausea, emesis w/ SBO: We will admit to medical surgical floor, maintain IV fluids, continue NGT placement per ED, maintain on IV PPI, strict I&Os, as needed pain regimen, general surgery consulted, plan repeat KUB in AM. As noted will obtain accu checks q 6 hours, low threshold to transition to dextrose formulation if BS low. #2.? Hx Esophageal varices, Hx severe duodenal gastric reflux: Patient with recent 02/12/2022 EGD with grade 1 esophageal varices likely secondary to cardiopulmonary disease, erythematous mucosa in the stomach, multiple oozing duodenal ulcers, severe duodenal gastric reflux with biopsies obtained per gastroenterology with recommendation at that time for sucralfate and Protonix.?Will maintain on IV PPI. #3.? Diabetes mellitus type II: Hold oral home regimen, maintain NPO status, every 6 hours Accu-Cheks with insulin sliding scale. #4.? Hypertension: Holding oral regimen given presentation #1, PRN IV hydralazine in interim. #5.? Nonalcoholic state hepatitis with chronically elevated LFTs: Patient status post prior liver biopsy 05/2021 with extensive macro and microvascular steatosis not consistent with cirrhosis, admission AST/ALT , improved. #6.? Obesity: Weight loss and lifestyle changes encouraged. #7.? DVT prophylaxis: SCDs, Lovenox. Charges/Coding Visit Charges Inpatient E&M: 58881 Init Hosp L3
[2022-05-29] MEDS: 0.9% Normal Saline 1,000 ML 100 ML IV ×2 (03:03→14:39)
[2022-05-29] MEDS: Morphine 4 MG/ML Syringe IV (03:19)
[2022-05-29 05:51] LABS: Absolute Lymphocyte Count 1.03 X10^3/uL (0.83-4.51); Absolute Neutrophil Count 7.3 X10^3/uL (2.0-7.7); Basophil# 0.06 X10^3/uL; Basophil% 0.7 % (0-1); Hematocrit 42.7 % (37-47); Hemoglobin 13.8 g/dL (12.0-15.0); Lymphocyte # 1.03 X10^3/ul (0.83-4.51); Lymphocyte % 11.7 % (19-41); Mean Corp Hgb Conc 32.3 g/dL (32-36); Mean Corpuscular Hgb 26.6 pg (27.0-32.0); Mean Corpuscular Volume 82.4 fL (81-99); Mean Platelet Vol. 11.1 fl (6.2-12.0); Monocyte% 4.6 % (0-10); NRBC Flagged by Analyzer 0 % (0-5); Neutrophil # 7.26 X10^3/uL (2.7-7.7); Neutrophil % 82.7 % (47-70); Platelet Count 233 K/mm3 (150-450); RBC Distribution Width CV 15.6 % (11.6-14.6); RBC Distribution Width SD 46.9 fl (35.1-43.9); Red Blood Count 5.18 M/mm3 (4.2-5.4); White Blood Count 8.8 K/mm3 (4.4-11.0)
--- NOTE | 2022-05-29 05:55 | RAD_ITS ---
STUDY: X-RAY - ABDOMEN/PELVIS REASON FOR EXAM: Female, 77 years old. SBO TECHNIQUE: Single AP view of the abdomen / pelvis. COMPARISON: Comparison is made with prior study dated 05/29/2022 at 1:20 AM. FINDINGS: The tip of the nasogastric tube is seen within the body of the stomach. Mild residual small bowel dilatation in the upper abdomen. Moderate amount of fecal material is seen in the colon. The visualized liver, spleen and kidneys are grossly normal in size and morphology. Normal soft tissue structures. There are diffuse degenerative changes of the visualized lumbar spine. RAD/Abdomen Single View (Portable) IMPRESSION: The tip of the nasogastric tube is in the body of the stomach. Mild residual small bowel dilatation in the epigastric region. Electronically Signed: Nato Kelsey MD at 12:45 EDT ,
[2022-05-29 06:32] LABS: ALB/GLOB Ratio 0.8 RATIO (0.9-2.4); AST(SGOT) 27 U/L (15-37); Alanine Aminotransfer ALT/SGPT 44 U/L (13-56); Albumin, Serum 3.4 g/dL (3.2-5.0); Alkaline Phosphatase 97 U/L (45-117); Anion Gap 10 (5-15); BUN 14 mg/dL (7-18); Calcium,Total 9.1 mg/dL (8.5-10.1); Chloride 105 mmol/L (98-107); Creatinine, Serum 0.88 mg/dL (0.55-1.02); EST Glomerular Filtration Rate 67 mL/min (>60); Est Glom Filt Rate - Afr Amer 81 mL/min (>60); Estimated Creatinine Clearance 44.99 ml/min; Glucose 191 mg/dL (74-106); Protein, Total 7.4 g/dL (6.4-8.2); Sodium Level 139 mmol/L (136-145)
[2022-05-29] MEDS: Insulin Lispro 100 UNIT/ML INSULN.PEN SC ×2 (06:34→16:23)
[2022-05-29 06:41] LABS: Bedside Glucose 165 mg/dL (74-106)
--- NOTE | 2022-05-29 09:04 | RAD_ITS ---
CLINICAL HISTORY: Female, 77 years old. Small bowel obstruction. PROCEDURE: GASTROGRAFIN small bowel follow-through examination. Single image was obtained. TECHNIQUE: (All elements of maximal sterile barrier technique followed, including US elements as applicable) GASTROGRAFIN was introduced through the indwelling nasogastric tube. Contrast is seen in the stomach and proximal jejunum. There is evidence of a 3.8 cm x 4.8 cm diverticulum in the second portion of the duodenum. RAD/Small Bowel Series Only IMPRESSION: Duodenal diverticulum. Electronically Signed: Nato Kelsey MD at 14:01 EDT ,
[2022-05-29] MEDS: 0.9% Saline Lock 10 ML Syringe IV (10:23)
--- NOTE | 2022-05-29 11:31 | CON.PCM.SX_ITS ---
Assessment & Plan Assessment/Plan (1) SBO (small bowel obstruction): PLAN: This is a 77-year-old female with history of recurrent small bowel obstructions which seem to be related to adhesions. She has had a number of prior abdominal surgeries?including a diagnostic laparoscopy with lysis of adhesions by Dr. Luque a year ago. She is required multiple hospitalizations for these obstructive episodes, but has managed to resolve each of them conservatively. Still, we have had a number of discussions around how to mitigate her risk for future hospitalizations. I attempted to make a referral to a tertiary facility in [place] for consideration of a minimally invasive hernia repair. This was a recommendation Ms. Osborne was rather enthusiastic about, however, her insurance was not accepted at that facility and this momentum was dropped. I have offered to Ms. Osborne today the options of conservative management versus repeat diagnostic laparoscopy with adhesiolysis versus open laparotomy with adhesiolysis and hernia repair. At this time Ms. Osborne wishes to avoid surgery this admission and would like to see if she can resolve her obstruction conservatively and then be referred to a tertiary facility for consideration of a minimally invasive hernia repair. Therefore, we have ordered a small bowel series and will continue to trend patient's abdominal exam. Should she passed the small bowel series, I will plan to remove her nasogastric tube and begin her on a liquid diet. HPI Consult Data Date of Consult: 05/29/22 HPI Narrative Reason for Consultation: Small bowel obstruction HPI Narrative: JASON OSBORNE, is a 77 F who presents to [facility] with complaints of acute onset swelling, abdominal discomfort, and nausea and vomiti ng. She is well-known to me from 2 prior hospitalizations for small bowel obstruction. She was actually managed by Dr. Luque during her last hospital stay, but then followed up with me as an outpatient where we set her up for referral to [place] for consideration of a minimally invasive hernia repair. She states she waited 2 and half weeks for a response from that referral only to find out that her insurance was not going to cover a consultation visit and the work-up was dropped at that point. She states that to that point she felt well and was experiencing regular function. It was yesterday when she was visiting a pet store that she was overcome with a hot flash and profound nausea/abdominal pain. When this sensation did not lever, she sought evaluation in our emergency department. There she was put through imaging and lab testing which showed air-fluid levels and evidence of an obstruction similar to prior episodes as well as a mild leukocytosis with a CBC. After I was consulted from the emergency room, I recommended placement of a nasogastric tube which was placed and appears to be in good position per follow- up KUB imaging. Patient denies any return of bowel function at this time, but does state that her abdominal pain and nausea/vomiting are much improved. [facility] Medical History (Updated 05/29/22 @ 03:31 by Deirdre Haskins) Arthritis Asthma Bleeding ulcer Cholelithiasis and acute cholecystitis without obstruction Constipation Diabetes Diabetes mellitus type 2, uncomplicated Duodenogastric reflux of bile Gastric reflux GERD (gastroesophageal reflux disease) History of diabetes mellitus History of diverticulitis History of steroid therapy History of stress test Hypertension IBS (irritable bowel syndrome) Leg cramps Migraines NAFLD (nonalcoholic fatty liver disease) Non-smoker Obesity Partial obstruction of small intestine Partial small bowel obstruction Rheumatoid arthritis Small bowel obstruction due to postoperative adhesions Small bowel obstruction, partial Wears contact lenses Wears glasses Home Medications amlodipine 5 mg-benazepril 20 mg capsule 1 cap PO DAILY bp 07/15/16 [History Last Taken 04/09/22] bisoprolol fumarate 10 mg tablet 10 mg PO DAILY BLOOD PRESSURE 07/15/16 [History Last Taken 04/09/22] glimepiride 4 mg tablet 4 mg PO DAILY DM 06/12/21 [History Last Taken 04/09/22] metformin 750 mg tablet,extended release 24 hr 750 mg PO BID DM 06/12/21 [History Last Taken 04/09/22] acetaminophen 325 mg tablet (Tylenol) 650 mg PO Q4H PRN PRN PAIN 1-10/ FEVER #0 tabs 06/14/21 [Rx Last Taken Unknown] ondansetron 4 mg disintegrating tablet 4 mg PO Q8H PRN PRN Nausea #10 tabs 11/19/21 [Rx Last Taken Unknown] cholecalciferol (vitamin D3) 50 mcg (2,000 unit) capsule (Vitamin D3) 50 mcg PO QHS supplement 12/31/21 [History Last Taken 04/08/22] empagliflozin 10 mg tablet (Jardiance) 10 mg PO DAILY diabetes 12/31/21 [History Last Taken 04/09/22] Lactobacillus acidophilus 10 billion cell capsule (Probiotic) 10,000 mmu cells PO DAILY probiotic 02/07/22 [History Last Taken 04/09/22] dicyclomine 20 mg tablet 20 mg PO BID stomach 04/09/22 [History Last Taken 04/09/22] omeprazole 20 mg capsule,delayed release 20 mg PO DAILY stomach 04/09/22 [History Last Taken 04/09/22] polyethylene glycol 3350 17 gram oral powder packet (Miralax) 17 g PO DAILY laxative 04/09/22 [History Last Taken 04/09/22] vitamin E (dl, acetate) 180 mg (400 unit) capsule 360 mg PO DAILY supplement 04/09/22 [History Last Taken 04/09/22] Allergy/AdvReac Type Severity Reaction Status Date / Time adhesive Allergy Other Verified 05/28/22 23:06 Iodinated Contrast Media Allergy Hives Verified 05/28/22 23:06 [CONTRASTS] ciprofloxacin [From Cipro] AdvReac Mild nausea Verified 05/28/22 23:06 metronidazole [From Flagyl] AdvReac Mild nausea Verified 05/28/22 23:06 IVORY SOAP Allergy Rash Uncoded 05/28/22 23:06 Family History Mother Multiple sclerosis Father Heart disease Diabetes Surgical History H/O dilation and curettage H/O oophorectomy History of cardiac catheterization History of cholecystectomy History of exploratory laparotomy S/P partial colectomy Status post left foot surgery Social History household members: family and other details: Patient lives with her daughter, son in law. Smoking Status: Never smoker alcohol intake: never substance use type: does not use seatbelt use: always Physical Exam Const alert, oriented x3 and no apparent distress General Appearance: cooperative Resp normal respiratory effort GI GI Narrative: Minimally distended, hernia present along lower abdomen is soft and reducible. Patient is nontender to palpation x4 quadrants. Nasogastric tube in place with output of bilious content. Lab / Micro Data Result Diagrams: 05/29/22 05:34 05/29/22 05:34 Labs: Laboratory Results - last 24 hr 05/28/22 23:20: WBC 12.9 H, RBC 5.80 H, Hgb 15.5 H, Hct 47.0, MCV 81.0, MCH 26.7 L, MCHC 33.0, RDW Std Deviation 45.0 H, RDW Coeff of Raf 15.5 H, Plt Count 268, MPV 11.6, Immature Gran % (Auto) 0.500, Neut % (Auto) 84.2 H, Lymph % (Auto) 10.8 L, Marshall % (Auto) 3.8, Eos % (Auto) 0.2, Baso % (Auto) 0.5, Absolute Neuts (auto) 10.8 H, Absolute Lymphs (auto) 1.39, Nucleated RBC % 0 05/28/22 23:20: Sodium 137, Potassium 4.0, Chloride 102, Carbon Dioxide 21.0, Anion Gap 14, BUN 17, Creatinine 1.13 H, Estim Creat Clear Calc 35.04, Est GFR (MDRD) Af Amer 60, Est GFR (MDRD) Non-Af 50 L, BUN/Creatinine Ratio 15.0, Glucose 221 H, Calcium 10.2 H, Total Bilirubin 0.70, AST 30, ALT 47, Alkaline Phosphatase 115, Total Protein 8.1, Albumin 3.9, Globulin 4.2, Albumin/Globulin Ratio 0.9, Lipase 79 05/29/22 05:34: WBC 8.8, RBC 5.18, Hgb 13.8, Hct 42.7, MCV 82.4, MCH 26.6 L, MCHC 32.3, RDW Std Deviation 46.9 H, RDW Coeff of Raf 15.6 H, Plt Count 233, MPV 11.1, Immature Gran % (Auto) 0.300, Neut % (Auto) 82.7 H, Lymph % (Auto) 11.7 L, Marshall % (Auto) 4.6, Eos % (Auto) 0.0, Baso % (Auto) 0.7, Absolute Neuts (auto) 7.3, Absolute Lymphs (auto) 1.03, Nucleated RBC % 0 05/29/22 05:34: Sodium 139, Potassium 4.0, Chloride 105, Carbon Dioxide 24.0, Anion Gap 10, BUN 14, Creatinine 0.88, Estim Creat Clear Calc 44.99, Est GFR (MDRD) Af Amer 81, Est GFR (MDRD) Non-Af 67, BUN/Creatinine Ratio 16.0, Glucose 191 H, Calcium 9.1, Total Bilirubin 0.50, AST 27, ALT 44, Alkaline Phosphatase 97, Total Protein 7.4, Albumin 3.4, Globulin 4.0, Albumin/Globulin Ratio 0.8 L 05/29/22 06:31: POC Glucose 165 H Radiology Impression KUB X-Ray 05/29/22 01:05 IMPRESSION: Enteric tube in satisfactory position. Electronically Signed: Jericho Molina MD at 1:43 EDT , Abdomen/Pelvis CT 05/29/22 23:36 IMPRESSION: 1. Small bowel obstruction with transition in the anterior lower abdominal wall defect. 2. Trace free fluid. 3. Additional chronic changes as above. Electronically Signed: Jericho Molina MD at 0:48 EDT , Charges/Coding Visit Charges Inpatient E&M: 57185 Subs Hosp L2
[2022-05-29] MEDS: Ondansetron 4 MG/2 ML Vial IV (11:44)
[2022-05-29 11:46] LABS: Bedside Glucose 124 mg/dL (74-106)
--- NOTE | 2022-05-29 13:20 | CASEMGMT ---
RN CM Face to Face with patient for initial transition planning/care coordination assessment. RN CM introduced self and role at [facility]. Patient lying in bed, alert and oriented. Patient willing to participate in assessment and is able to answer all questions appropriately. Care providers, pharmacy, and demographics verified. Patient wishes to discharge home, denies need for home health at this time. Patient states she has no further needs or concerns at this time. CM to follow for discharge planning needs that may arise. PCP: [facility] Specialists: Friend, GI; Natalia, surgeon Preferred Pharmacy: [email or web address] Insurance: [employer] Prescription Benefit: yes Living Will/HPOA: none LNOK: Daughter, BRIAN Living Arrangements: Patient lives with daughter and BRIAN in a 2 story home with bed and bath on first floor, 6-8 steps and railing to enter the home. Patient states she is independent at home. Transportation: self, daughter DME/HHC: Patient denies DME or previous HHC Disposition Plan: Patient to discharge home with family support and follow-up plans in place. Birdie HAAS, RN, CM
--- NOTE | 2022-05-29 13:23 | PCM.PN.HOSP ---
Documented by User: Shaina Mitchell AUTOMATIC RIVETING MACHINE OPERATOR, AUTOMATIC RIVETING MACHINE OPERATOR-C 05/29/22 13:39 Subjective Subjective Patient seen and examined. Reports 4-5 bowel movements following small bowel follow-through. States her abdomen feels flatter. Reports some mild nausea, denies emesis. Denies abdominal pain. Objective Data Objective Data Vital Signs: Vital Signs Temp Pulse Resp BP Pulse Ox O2 Del Method 97.7 F L 79 18 154/68 H 96 Room Air 05/29/22 09:20 05/29/22 09:20 05/29/22 09:20 05/29/22 09:20 05/29/22 09:20 05/29/22 10:21 Oxygen Delivery Method Room Air Weight: 206 lb 9.17 oz Body Mass Index (BMI) 36.6 Intake & Output: Intake and Output for Last 24 Hours 05/27/22 05/28/22 05/29/22 23:59 23:59 23:59 Intake Total 1300 / 1300 Output Total 200 / 200 Balance 1100 / 1100 Lab / Micro Data Result Diagrams: 05/29/22 05:34 05/29/22 05:34 Labs: Laboratory Results - last 24 hr 05/28/22 23:20: WBC 12.9 H, RBC 5.80 H, Hgb 15.5 H, Hct 47.0, MCV 81.0, MCH 26.7 L, MCHC 33.0, RDW Std Deviation 45.0 H, RDW Coeff of Raf 15.5 H, Plt Count 268, MPV 11.6, Immature Gran % (Auto) 0.500, Neut % (Auto) 84.2 H, Lymph % (Auto) 10.8 L, [place] % (Auto) 3.8, Eos % (Auto) 0.2, Baso % (Auto) 0.5, Absolute Neuts (auto) 10.8 H, Absolute Lymphs (auto) 1.39, Nucleated RBC % 0 05/28/22 23:20: Sodium 137, Potassium 4.0, Chloride 102, Carbon Dioxide 21.0, Anion Gap 14, BUN 17, Creatinine 1.13 H, Estim Creat Clear Calc 35.04, Est GFR (MDRD) Af Amer 60, Est GFR (MDRD) Non-Af 50 L, BUN/Creatinine Ratio 15.0, Glucose 221 H, Calcium 10.2 H, Total Bilirubin 0.70, AST 30, ALT 47, Alkaline Phosphatase 115, Total Protein 8.1, Albumin 3.9, Globulin 4.2, Albumin/Globulin Ratio 0.9, Lipase 79 05/29/22 05:34: WBC 8.8, RBC 5.18, Hgb 13.8, Hct 42.7, MCV 82.4, MCH 26.6 L, MCHC 32.3, RDW Std Deviation 46.9 H, RDW Coeff of Raf 15.6 H, Plt Count 233, MPV 11.1, Immature Gran % (Auto) 0.300, Neut % (Auto) 82.7 H, Lymph % (Auto) 11.7 L, [place] % (Auto) 4.6, Eos % (Auto) 0.0, Baso % (Auto) 0.7, Absolute Neuts (auto) 7.3, Absolute Lymphs (auto) 1.03, Nucleated RBC % 0 05/29/22 05:34: Sodium 139, Potassium 4.0, Chloride 105, Carbon Dioxide 24.0, Anion Gap 10, BUN 14, Creatinine 0.88, Estim Creat Clear Calc 44.99, Est GFR (MDRD) Af Amer 81, Est GFR (MDRD) Non-Af 67, BUN/Creatinine Ratio 16.0, Glucose 191 H, Calcium 9.1, Total Bilirubin 0.50, AST 27, ALT 44, Alkaline Phosphatase 97, Total Protein 7.4, Albumin 3.4, Globulin 4.0, Albumin/Globulin Ratio 0.8 L 05/29/22 06:31: POC Glucose 165 H 05/29/22 11:41: POC Glucose 124 H Radiography Diagnostic Testing: Radiology Impression KUB X-Ray 05/29/22 01:05 IMPRESSION: Enteric tube in satisfactory position. Electronically Signed: Jericho Molina MD at 1:43 EDT , KUB X-Ray 05/29/22 05:55 IMPRESSION: The tip of the nasogastric tube is in the body of the stomach. Mild residual small bowel dilatation in the epigastric region. Electronically Signed: Nato Kelsey MD at 12:45 EDT , Abdomen/Pelvis CT 05/29/22 23:36 IMPRESSION: 1. Small bowel obstruction with transition in the anterior lower abdominal wall defect. 2. Trace free fluid. 3. Additional chronic changes as above. Electronically Signed: Jericho Molina MD at 0:48 EDT , Physical Exam Const alert, oriented x3 and no apparent distress Orientation / Consciousness: awake, oriented to person, oriented to place and oriented to time HEENT normocephalic Mouth: dry mucous membranes Eyes PERRL, EOMs intact bilaterally and conjunctivae normal Neck no lymphadenopathy Resp normal respiratory effort and clear to auscultation bilaterally Cardio regular rate, regular rhythm and no murmurs Peripheral Pulses: pulses 2+ throughout GI normal to inspection, nondistended, normoactive bowel sounds GI Narrative: Mild distention, nontender Extremity normal to inspection Skin no rashes or lesions noted Lesions: no lesions Rashes: no rashes Trauma: no lacerations or abrasions Neuro CN's II-XII intact bilaterally, no focal motor deficits, no sensory deficits noted and deep tendon reflexes 2+ bilaterally Psych mental status grossly normal and affect normal Assessment & Plan Assessment/Plan (1) SBO (small bowel obstruction): PLAN: Plan 1. 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 History of prior abdominal surgeries. Management per surgery. Patient currently requesting conservative management as opposed to surgery at this time. Small bowel series ordered. Clear liquid diet pending repeat small bowel series. 2. History of esophageal varices, history severe duodenal gastric reflux-continue PPI. Continue outpatient follow-up. 3. Type 2 diabetes mellitus-oral regimen on hold. Accu-Cheks with sliding scale insulin. 4. Hypertension-stable, home regimen currently on hold. 5. Nonalcoholic steatohepatitis-continue outpatient follow-up with GI. DVT prophylaxis-Lovenox subcu. This patient was seen by DANIEL Escalante under the supervision of Dr. Gonzalez. Time spent examining patient, reviewing data and subsequent management of care: 16 minutes Documented by User: Dr. Wicho Gonzalez MD 05/29/22 17:40 Subjective Subjective Patient seen and examined. Reports 4-5 bowel movements following small bowel follow-through. States her abdomen feels flatter. Reports some mild nausea, denies emesis. Denies abdominal pain. Follow-up for small bowel obstruction. Patient did not pass flatus for last 2 days, abdominal distention nausea and vomiting. Patient had NG tube. Admission patient had 4-5 BMs after of Gastrografin follow-through Objective Data Lab / Micro Data Result Diagrams: 05/29/22 05:34 05/29/22 05:34 Labs: Laboratory Results - last 24 hr 05/28/22 23:20: WBC 12.9 H, RBC 5.80 H, Hgb 15.5 H, Hct 47.0, MCV 81.0, MCH 26.7 L, MCHC 33.0, RDW Std Deviation 45.0 H, RDW Coeff of Raf 15.5 H, Plt Count 268, MPV 11.6, Immature Gran % (Auto) 0.500, Neut % (Auto) 84.2 H, Lymph % (Auto) 10.8 L, [place] % (Auto) 3.8, Eos % (Auto) 0.2, Baso % (Auto) 0.5, Absolute Neuts (auto) 10.8 H, Absolute Lymphs (auto) 1.39, Nucleated RBC % 0 05/28/22 23:20: Sodium 137, Potassium 4.0, Chloride 102, Carbon Dioxide 21.0, Anion Gap 14, BUN 17, Creatinine 1.13 H, Estim Creat Clear Calc 35.04, Est GFR (MDRD) Af Amer 60, Est GFR (MDRD) Non-Af 50 L, BUN/Creatinine Ratio 15.0, Glucose 221 H, Calcium 10.2 H, Total Bilirubin 0.70, AST 30, ALT 47, Alkaline Phosphatase 115, Total Protein 8.1, Albumin 3.9, Globulin 4.2, Albumin/Globulin Ratio 0.9, Lipase 79 05/29/22 05:34: WBC 8.8, RBC 5.18, Hgb 13.8, Hct 42.7, MCV 82.4, MCH 26.6 L, MCHC 32.3, RDW Std Deviation 46.9 H, RDW Coeff of Raf 15.6 H, Plt Count 233, MPV 11.1, Immature Gran % (Auto) 0.300, Neut % (Auto) 82.7 H, Lymph % (Auto) 11.7 L, [place] % (Auto) 4.6, Eos % (Auto) 0.0, Baso % (Auto) 0.7, Absolute Neuts (auto) 7.3, Absolute Lymphs (auto) 1.03, Nucleated RBC % 0 05/29/22 05:34: Sodium 139, Potassium 4.0, Chloride 105, Carbon Dioxide 24.0, Anion Gap 10, BUN 14, Creatinine 0.88, Estim Creat Clear Calc 44.99, Est GFR (MDRD) Af Amer 81, Est GFR (MDRD) Non-Af 67, BUN/Creatinine Ratio 16.0, Glucose 191 H, Calcium 9.1, Total Bilirubin 0.50, AST 27, ALT 44, Alkaline Phosphatase 97, Total Protein 7.4, Albumin 3.4, Globulin 4.0, Albumin/Globulin Ratio 0.8 L 05/29/22 06:31: POC Glucose 165 H 05/29/22 11:41: POC Glucose 124 H Physical Exam Narrative In the morning, patient had mild abdominal distention/bloating. Mild right lower quadrant pain. NG aspirate gastric plus bilious mixed content. Physical exam General: Alert, Oriented x3, Cooperative HEENT: Atraumatic, PERRLA, EOMI, Normocephalic Oral: No Gingival or Mucosal Lesions/ Ulcerations Neck: Supple, No JVD, Negative Carotid Bruits Lungs: Air entry diminished in bilateral lung bases. No crepitation/rhonchi Cardiovascular: Regular rate, Regular Rhythm, Normal S1, Normal S2, No murmurs Abdomen: Bowel Sounds sluggish, soft, mild tenderness predominantly right lower quadrant. Mild distention. : No renal angle tenderness. No suprapubic tenderness. Extremities: No edema, Capillary Refill Less than 3 Seconds Skin: No rashes, No breakdown Musculoskeletal: No Tenderness to Palpation of Joints or Extremities Neurological: Cranial nerves II-XII grossly intact, DTR 2+/4 and Symmetrical, Neuro grossly intact Psych/Mental Status: Flat affect. Assessment & Plan Assessment/Plan (1) SBO (small bowel obstruction): PLAN: Plan 1. 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 History of prior abdominal surgeries. Management per surgery. Patient currently requesting conservative management as opposed to surgery at this time. Small bowel series ordered. Clear liquid diet pending repeat small bowel series. 2. History of esophageal varices, history severe duodenal gastric reflux-continue PPI. Continue outpatient follow-up. 3. Type 2 diabetes mellitus-oral regimen on hold. Accu-Cheks with sliding scale insulin. 4. Hypertension-stable, home regimen currently on hold. 5. Nonalcoholic steatohepatitis-continue outpatient follow-up with GI. DVT prophylaxis-Lovenox subcu. This patient was seen by DANIEL Escalante under the supervision of Dr. Gonzalez. Time spent examining patient, reviewing data and subsequent management of care: 16 minutes This patient was seen in conjunction with Shaina PATRICIO. I have independently interviewed and examined the patient and reviewed pertinent history, examination findings, laboratory and plan of management. I have reviewed the note and agree with the documented findings with the few additional points. 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 Patient had exploratory laparotomy with adhesiolysis for partial small bowel obstruction in May 2021. Patient is on conservative management. Patient moved bowel after Gastrografin small bowel series. Patient wants conservative management. History of esophageal varices, severe GERD continue PPI Other comorbidities includes type 2 diabetes mellitus, hypertension and nonalcoholic steatohepatitis as mentioned above. I have discussed my assessment with Shaina PATRICIO and orders have been reviewed. Charges/Coding Visit Charges Inpatient E&M: 46797 Subs Hosp L2
[2022-05-29] MEDS: Bisoprolol Fumarate 5 MG Tablet 10 MG PO (16:25)
[2022-05-29] MEDS: Lisinopril 20 MG Tablet PO (16:25)
[2022-05-29] MEDS: amLODIPine 5 MG Tablet PO (16:25)
[2022-05-29 16:50] LABS: Bedside Glucose 170 mg/dL (74-106)
[2022-05-29] MEDS: Pantoprazole Sodium 40 MG Tablet PO (22:28)
[2022-05-29 23:06] LABS: Bedside Glucose 125 mg/dL (74-106)
--- NOTE | 2022-05-29 23:36 | CT_ITS ---
STUDY: CT ABDOMEN AND PELVIS WITHOUT CONTRAST REASON FOR EXAM: Female, 77 years old. sbo RADIATION DOSAGE (If Supplied By Facility): CTDIvol = ( 18.69 ) mGy, DLP = ( 957.20 ) mGycm TECHNIQUE: Transaxial images were obtained from the dome of the diaphragm to the symphysis pubis without oral contrast, and without intravenous contrast. Sagittal and coronal images were reconstructed. Individualized dose optimization techniques were used for this CT. COMPARISON: CT abdomen pelvis 04/22/2022 FINDINGS: LOWER CHEST: Coronary artery calcifications. LIVER: Hepatic nodularity, suggestive of cirrhosis. GALLBLADDER/BILE DUCTS: Normal. PANCREAS: Normal. SPLEEN: Normal. ADRENAL GLANDS: Normal. KIDNEYS/URETERS/BLADDER: Normal. RETROPERITONEUM/AORTA: Mild atherosclerotic calcifications. BOWEL/MESENTERY: Mildly dilated small bowel loops with transition involving the anterior lower abdominal wall defect containing multiple bowel loops and trace free fluid. Distal small bowel diverticulosis without discrete evidence of acute diverticulitis. Status post sigmoidectomy with reanastomosis, similar compared to the prior. Duodenal diverticulum measuring 3.5 cm. APPENDIX: Identified and normal. PERITONEUM: Normal. REPRODUCTIVE ORGANS: Normal. BONES/SOFT TISSUES: Bilateral L5 pars defects and grade 1 anterolisthesis L5 on S1. No acute osseous abnormality. OTHER: None. CT/Abdomen/Pelvis without Cont IMPRESSION: 1. Small bowel obstruction with transition in the anterior lower abdominal wall defect. 2. Trace free fluid. 3. Additional chronic changes as above. Electronically Signed: Jericho Molina MD at 0:48 EDT ,
[2022-05-30] MEDS: 0.9% Normal Saline 1,000 ML 100 ML IV (00:55)
[2022-05-30 04:12] VITALS: BP 122/51; PULSE 67; RESP 16; TEMP 36.4; O2SAT 92
[2022-05-30 06:40] LABS: Absolute Lymphocyte Count 1.48 X10^3/uL (0.83-4.51); Absolute Neutrophil Count 2.7 X10^3/uL (2.0-7.7); Basophil# 0.06 X10^3/uL; Basophil% 1.2 % (0-1); Eosinophil# 0.09 X10^3/uL; Eosinophils% 1.8 % (0-5); Hematocrit 38.6 % (37-47); Hemoglobin 12.1 g/dL (12.0-15.0); Lymphocyte # 1.48 X10^3/ul (0.83-4.51); Lymphocyte % 30.2 % (19-41); Mean Corp Hgb Conc 31.3 g/dL (32-36); Mean Corpuscular Hgb 26.1 pg (27.0-32.0); Mean Corpuscular Volume 83.4 fL (81-99); Mean Platelet Vol. 10.7 fl (6.2-12.0); Monocyte# 0.55 X10^3/uL; Monocyte% 11.2 % (0-10); NRBC Flagged by Analyzer 0 % (0-5); Neutrophil # 2.71 X10^3/uL (2.7-7.7); Neutrophil % 55.4 % (47-70); Platelet Count 173 K/mm3 (150-450); RBC Distribution Width SD 47.9 fl (35.1-43.9); Red Blood Count 4.63 M/mm3 (4.2-5.4); White Blood Count 4.9 K/mm3 (4.4-11.0)
[2022-05-30 07:04] LABS: Anion Gap 7 (5-15); BUN 11 mg/dL (7-18); BUN/Creat Ratio 13.6 RATIO (10-20); Calcium,Total 8.7 mg/dL (8.5-10.1); Chloride 110 mmol/L (98-107); Creatinine, Serum 0.81 mg/dL (0.55-1.02); EST Glomerular Filtration Rate 73 mL/min (>60); Est Glom Filt Rate - Afr Amer 89 mL/min (>60); Estimated Creatinine Clearance 48.88 ml/min; Glucose 135 mg/dL (74-106); Potassium 3.3 mmol/L (3.5-5.1); Sodium Level 141 mmol/L (136-145)
[2022-05-30 07:05] LABS: Bedside Glucose 115 mg/dL (74-106)
[2022-05-30 07:48] VITALS: O2SAT 97
--- NOTE | 2022-05-30 09:03 | PN.SURG_ITS ---
Subjective Subjective Patient seen and examined during AM rounds. She reports that she is feeling much better. She describes some soreness of her abdomen, but states this is likely due to her retching prior to presentation. She confirms ongoing bowel function. She also confirms a strong appetite. Objective Data Objective Data Vital Signs: Vital Signs Temp Pulse Resp BP Pulse Ox O2 Del Method 97.5 F L 67 16 122/51 H 97 Room Air 05/30/22 04:12 05/30/22 04:12 05/30/22 04:12 05/30/22 04:12 05/30/22 07:48 05/30/22 07:48 Oxygen Delivery Method Room Air Weight: 208 lb 5.389 oz Body Mass Index (BMI) 36.6 Intake & Output: Intake and Output for Last 24 Hours 05/28/22 05/29/22 05/30/22 23:59 23:59 23:59 Intake Total 2800 / 3040 1480 / 1480 Output Total 200 / 200 Balance 2600 / 2840 1480 / 1480 Lab / Micro Data Result Diagrams: 05/30/22 06:03 05/30/22 06:03 Labs: Laboratory Results - last 24 hr 05/29/22 11:41: POC Glucose 124 H 05/29/22 16:23: POC Glucose 170 H 05/29/22 22:30: POC Glucose 125 H 05/30/22 06:03: WBC 4.9, RBC 4.63, Hgb 12.1, Hct 38.6, MCV 83.4, MCH 26.1 L, MCHC 31.3 L, RDW Std Deviation 47.9 H, RDW Coeff of Raf 16.0 H, Plt Count 173, MPV 10.7, Immature Gran % (Auto) 0.200, Neut % (Auto) 55.4, Lymph % (Auto) 30.2, [place] % (Auto) 11.2 H, Eos % (Auto) 1.8, Baso % (Auto) 1.2 H, Absolute Neuts (auto) 2.7, Absolute Lymphs (auto) 1.48, Nucleated RBC % 0 05/30/22 06:03: Sodium 141, Potassium 3.3 L, Chloride 110 H, Carbon Dioxide 24.0, Anion Gap 7, BUN 11, Creatinine 0.81, Estim Creat Clear Calc 48.88, Est GFR (MDRD) Af Amer 89, Est GFR (MDRD) Non-Af 73, BUN/Creatinine Ratio 13.6, Glucose 135 H, Calcium 8.7 05/30/22 06:30: POC Glucose 115 H Radiography Diagnostic Testing: Radiology Impression KUB X-Ray 05/29/22 05:55 IMPRESSION: The tip of the nasogastric tube is in the body of the stomach. Mild residual small bowel dilatation in the epigastric region. Electronically Signed: Nato Kelsey MD at 12:45 EDT , Small Bowel X-Ray 05/29/22 09:04 IMPRESSION: Duodenal diverticulum. Electronically Signed: Nato Kelsey MD at 14:01 EDT , Physical Exam Const oriented x3 and no apparent distress GI GI Narrative: Nondistended, soft, nontender to palpation x4 quadrants Assessment & Plan Assessment/Plan (1) SBO (small bowel obstruction): PLAN: This is a 77-year-old female with history of recurrent small bowel obstructions which seem to be related to adhesions. She has had a number of prior abdominal surgeries?including a diagnostic laparoscopy with lysis of adhesions by Dr. Luque a year ago. Patient was adamant that we avoid surgery for this admission so yesterday we initiated a small bowel series. Patient passed this prior to her first film at 6 hours and her nasogastric tube was discontinued. She tolerated a diet advancement to liquids yesterday. She has experienced ongoing bowel function and expresses a stronger appetite today. I have advanced her diet again to a low fiber restriction and advised her to continue this rather indefinitely. If she tolerates this, she may be discharged. A referral has been made for the [facility] through our outwy tient clinic so patient may be evaluated for possible minimally invasive hernia repair.
[2022-05-30] MEDS: amLODIPine 5 MG Tablet PO (09:45)
[2022-05-30] MEDS: Pantoprazole Sodium 40 MG Tablet PO (09:46)
[2022-05-30 10:30] VITALS: BP 137/67; PULSE 67; RESP 18; TEMP 36.6; O2SAT 98
--- NOTE | 2022-05-30 10:40 | DCINST_ITS ---
Discharge Instructions Diet Discharge Diet: Light diet - advance as tolerated and - (Low fiber diet) Activity Discharge Activity: Return to Normal Activity Dressing / Incision Call your doctor if you observe: Inability to have a bowel movement Follow Up Care Test Results: Test results from this visit will be discussed in further detail at your follow- up appointment, if applicable. Discharge Plan Admission Admit Date/Time: 05/29/22 02:17 Primary Reason for Your Visit: Small bowel obstruction Attending Provider: Wicho Gonzalez Primary Care Provider: Abraham Galindo Consulting Providers: Dmitriy Fisher ; Manasa Lima Discharge Orders/Prescriptions Prescriptions: Continued bisoprolol fumarate 10 MG tablet 10 mg PO DAILY amlodipine-benazepril 1 EACH capsule 1 cap PO DAILY Label Comments: 5-20 mg glimepiride 4 mg tablet 4 mg PO DAILY Label Comments: TAKE 1 TABLET BY MOUTH TWICE A DAY metformin 750 mg tablet extended release 24 hr 750 mg PO BID acetaminophen [Tylenol] 325 mg Tablet 650 mg PO Q4H PRN PRN (Reason: PAIN 1-10/ FEVER) Qty: 0 0RF ondansetron 4 MG tablet 4 mg PO Q8H PRN PRN (Reason: Nausea) Qty: 10 0RF Jardiance 10 mg tablet 10 mg PO DAILY cholecalciferol (vitamin D3) [Vitamin D3] 50 mcg (2,000 unit) Capsule 50 mcg PO QHS Probiotic 10 billion cell Capsule 10,000 mmu cells PO DAILY dicyclomine 20 mg tablet 20 mg PO BID Label Comments: TAKE 1 TABLET BY MOUTH TWICE A DAY polyethylene glycol 3350 [Miralax] 17 gram Powder In Packet 17 g PO DAILY omeprazole 20 mg capsule,delayed release(DR/EC) 20 mg PO DAILY vitamin E (dl, acetate) 180 mg (400 unit) capsule 360 mg PO DAILY Label Comments: TAKE 2 CAPSULES BY MOUTH EVERY DAY Referrals / Follow Up: Dmitriy Fisher MD [STAFF PHYSICIAN] - In 1 Week (Dr. Fisher office working on r eferral for patient. ) Abraham Galindo MD [Primary Care Provider] - In 1 Week Disposition Disposition (needs filled in before D/C Order can be placed): Home, Self Care
--- NOTE | 2022-05-30 11:29 | PCM.DC.SUM ---
Documented by User: Shaina Mitchell NP, ANALYTICS DIRECTOR-C 05/30/22 11:38 Providers Date of Admission: 05/29/22 Date of Discharge: 05/30/22 Primary Care Physician: Dr. Abraham Galindo MD Consultations 05/29/22 02:39 Consult: General Surgery Routine Consulting Provider: Dmitriy Fisher Reason for Consult: SBO, recurrent EMERGENT Consult: No MD Notified: Yes Date Notified: 05/29/22 Time Notified: 02:19 Method of Notification: per ED Reason For Visit: SBO Diagnosis Discharge Diagnosis (1) SBO (small bowel obstruction): Status: Acute Code(s): K56.609 - Unspecified intestinal obstruction, unspecified as to partial versus complete obstruction Medications at Discharge Home Medications amlodipine 5 mg-benazepril 20 mg capsule 1 cap PO DAILY bp 07/15/16 bisoprolol fumarate 10 mg tablet 10 mg PO DAILY BLOOD PRESSURE 07/15/16 glimepiride 4 mg tablet 4 mg PO DAILY DM 06/12/21 metformin 750 mg tablet,extended release 24 hr 750 mg PO BID DM 06/12/21 acetaminophen 325 mg tablet (Tylenol) 650 mg PO Q4H PRN PRN PAIN 1-10/ FEVER #0 tabs 06/14/21 ondansetron 4 mg disintegrating tablet 4 mg PO Q8H PRN PRN Nausea #10 tabs 11/19/21 cholecalciferol (vitamin D3) 50 mcg (2,000 unit) capsule (Vitamin D3) 50 mcg PO QHS supplement 12/31/21 empagliflozin 10 mg tablet (Jardiance) 10 mg PO DAILY diabetes 12/31/21 Lactobacillus acidophilus 10 billion cell capsule (Probiotic) 10,000 mmu cells PO DAILY probiotic 02/07/22 dicyclomine 20 mg tablet 20 mg PO BID stomach 04/09/22 omeprazole 20 mg capsule,delayed release 20 mg PO DAILY stomach 04/09/22 polyethylene glycol 3350 17 gram oral powder packet (Miralax) 17 g PO DAILY laxative 04/09/22 vitamin E (dl, acetate) 180 mg (400 unit) capsule 360 mg PO DAILY supplement 04/09/22 Hospital Course Operations None Procedures None Summary of Care Provided Hospital Course: Patient is a 77-year-old female admitted 05/29/2022 due to nausea, vomiting, abdominal distention. 1. 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 History of prior abdominal surgeries.? Surgery consulted during admission.? Patient currently requesting conservative management as opposed to surgery at this time.? Small bowel obstruction resolved at this time, tolerating diet. Low fiber diet at discharge per surgery recommendations. Dr. Fisher office to assist patient with referral for ongoing management. Follow up with surgery in 1 week. 2.? History of esophageal varices, history severe duodenal gastric reflux-continue PPI.? Continue outpatient follow-up. 3. Type 2 diabetes mellitus-continue home oral regimen. 4. Hypertension-stable, continue home regimen. 5. Nonalcoholic steatohepatitis-continue outpatient follow-up with GI. Physical Exam Const alert, oriented x3 and no apparent distress Orientation / Consciousness: awake, oriented to person, oriented to place and oriented to time HEENT normocephalic Mouth: dry mucous membranes Eyes PERRL, EOMs intact bilaterally and conjunctivae normal Neck no lymphadenopathy Resp normal respiratory effort and clear to auscultation bilaterally Cardio regular rate, regular rhythm and no murmurs Peripheral Pulses: pulses 2+ throughout GI normal to inspection, nondistended, normoactive bowel sounds GI Narrative: Mild distention, nontender Extremity normal to inspection Skin no rashes or lesions noted Lesions: no lesions Rashes: no rashes Trauma: no lacerations or abrasions Neuro CN's II-XII intact bilaterally, no focal motor deficits, no sensory deficits noted and deep tendon reflexes 2+ bilaterally Psych mental status grossly normal and affect normal Patient seen and examined prior to discharge. Physical assessment as noted above. Patient is stable for discharge with follow up recommendations as noted above. This patient was seen by DANIEL Escalante under the supervision of Dr. Gonzalez. Time spent examining patient, reviewing data and subsequent management of care: 23 minutes Weight / BMI Weight Weight: 208 lb 5.389 oz Body Mass Index (BMI) 36.6 ABG / Lab / Microbiology Data Result Diagrams: 05/30/22 06:03 05/30/22 06:03 Laboratory: Laboratory Results - last 24 hr 05/29/22 11:41: POC Glucose 124 H 05/29/22 16:23: POC Glucose 170 H 05/29/22 22:30: POC Glucose 125 H 05/30/22 06:03: WBC 4.9, RBC 4.63, Hgb 12.1, Hct 38.6, MCV 83.4, MCH 26.1 L, MCHC 31.3 L, RDW Std Deviation 47.9 H, RDW Coeff of Raf 16.0 H, Plt Count 173, MPV 10.7, Immature Gran % (Auto) 0.200, Neut % (Auto) 55.4, Lymph % (Auto) 30.2, [place] % (Auto) 11.2 H, Eos % (Auto) 1.8, Baso % (Auto) 1.2 H, Absolute Neuts (auto) 2.7, Absolute Lymphs (auto) 1.48, Nucleated RBC % 0 05/30/22 06:03: Sodium 141, Potassium 3.3 L, Chloride 110 H, Carbon Dioxide 24.0, Anion Gap 7, BUN 11, Creatinine 0.81, Estim Creat Clear Calc 48.88, Est GFR (MDRD) Af Amer 89, Est GFR (MDRD) Non-Af 73, BUN/Creatinine Ratio 13.6, Glucose 135 H, Calcium 8.7 05/30/22 06:30: POC Glucose 115 H Radiography Diagnostic Testing: Radiology Impression KUB X-Ray 05/29/22 05:55 IMPRESSION: The tip of the nasogastric tube is in the body of the stomach. Mild residual small bowel dilatation in the epigastric region. Electronically Signed: Nato Kelsey MD at 12:45 EDT , Small Bowel X-Ray 05/29/22 09:04 IMPRESSION: Duodenal diverticulum. Electronically Signed: Nato Kelsey MD at 14:01 EDT , D/C Instructions Discharge Diet: Light diet - advance as tolerated and - (Low fiber diet) Call your doctor if you observe: Inability to have a bowel movement Meaningful Use Info Meaningful Use Diagnoses (Choose all that apply): None applicable Discharge Plan Admission Admit Date/Time: 05/29/22 02:17 Primary Reason for Your Visit: Small bowel obstruction Attending Provider: Wicho Gonzalez Primary Care Provider: Abraham Galindo Consulting Providers: Dmitriy Fisher ; Manasa Lima Discharge Orders/Prescriptions Prescriptions: Continued bisoprolol fumarate 10 MG tablet 10 mg PO DAILY amlodipine-benazepril 1 EACH capsule 1 cap PO DAILY Label Comments: 5-20 mg glimepiride 4 mg tablet 4 mg PO DAILY Label Comments: TAKE 1 TABLET BY MOUTH TWICE A DAY metformin 750 mg tablet extended release 24 hr 750 mg PO BID acetaminophen [Tylenol] 325 mg Tablet 650 mg PO Q4H PRN PRN (Reason: PAIN 1-10/ FEVER) Qty: 0 0RF ondansetron 4 MG tablet 4 mg PO Q8H PRN PRN (Reason: Nausea) Qty: 10 0RF Jardiance 10 mg tablet 10 mg PO DAILY cholecalciferol (vitamin D3) [Vitamin D3] 50 mcg (2,000 unit) Capsule 50 mcg PO QHS Probiotic 10 billion cell Capsule 10,000 mmu cells PO DAILY dicyclomine 20 mg tablet 20 mg PO BID Label Comments: TAKE 1 TABLET BY MOUTH TWICE A DAY polyethylene glycol 3350 [Miralax] 17 gram Powder In Packet 17 g PO DAILY omeprazole 20 mg capsule,delayed release(DR/EC) 20 mg PO DAILY vitamin E (dl, acetate) 180 mg (400 unit) capsule 360 mg PO DAILY Label Comments: TAKE 2 CAPSULES BY MOUTH EVERY DAY Referrals / Follow Up: Dmitriy Fisher MD [STAFF PHYSICIAN] - In 1 Week (Dr. Fisher office working on referral for patient. ) Abraham Galindo MD [Primary Care Provider] - In 1 Week Disposition Disposition (needs filled in before D/C Order can be placed): Home, Self Care Documented by User: Dr. Wicho Gonzalez MD 05/30/22 12:49 Providers Date of Admission: 05/29/22 Reason For Visit: SBO Diagnosis Discharge Diagnosis (1) SBO (small bowel obstruction): Status: Acute Code(s): K56.609 - Unspecified intestinal obstruction, unspecified as to partial versus complete obstruction Medications at Discharge Home Medications amlodipine 5 mg-benazepril 20 mg capsule 1 cap PO DAILY bp 07/15/16 bisoprolol fumarate 10 mg tablet 10 mg PO DAILY BLOOD PRESSURE 07/15/16 glimepiride 4 mg tablet 4 mg PO DAILY DM 06/12/21 metformin 750 mg tablet,extended release 24 hr 750 mg PO BID DM 06/12/21 acetaminophen 325 mg tablet (Tylenol) 650 mg PO Q4H PRN PRN PAIN 1-10/ FEVER #0 tabs 06/14/21 ondansetron 4 mg disintegrating tablet 4 mg PO Q8H PRN PRN Nausea #10 tabs 11/19/21 cholecalciferol (vitamin D3) 50 mcg (2,000 unit) capsule (Vitamin D3) 50 mcg PO QHS supplement 12/31/21 empagliflozin 10 mg tablet (Jardiance) 10 mg PO DAILY diabetes 12/31/21 Lactobacillus acidophilus 10 billion cell capsule (Probiotic) 10,000 mmu cells PO DAILY probiotic 02/07/22 dicyclomine 20 mg tablet 20 mg PO BID stomach 04/09/22 omeprazole 20 mg capsule,delayed release 20 mg PO DAILY stomach 04/09/22 polyethylene glycol 3350 17 gram oral powder packet (Miralax) 17 g PO DAILY laxative 04/09/22 vitamin E (dl, acetate) 180 mg (400 unit) capsule 360 mg PO DAILY supplement 04/09/22 Hospital Course Summary of Care Provided Hospital Course: Patient is a 77-year-old female admitted 05/29/2022 due to nausea, vomiting, abdominal distention. 1. 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 History of prior abdominal surgeries.? Surgery consulted during admission.? Patient currently requesting conservative management as opposed to surgery at this time.? Small bowel obstruction resolved at this time, tolerating diet. Low fiber diet at discharge per surgery recommendations. Dr. Fisher office to assist patient with referral for ongoing management. Follow up with surgery in 1 week. 2.? History of esophageal varices, history severe duodenal gastric reflux-continue PPI.? Continue outpatient follow-up. 3. Type 2 diabetes mellitus-continue home oral regimen. 4. Hypertension-stable, continue home regimen. 5. Nonalcoholic steatohepatitis-continue outpatient follow-up with GI. This patient was seen in conjunction with Shaina PATRICIO.? I have independently interviewed and examined the patient and reviewed pertinent history, examination findings, laboratory and plan of management.? I have? reviewed the note and agree with the documented findings with the few? additional points. 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 Patient had exploratory laparotomy with adhesiolysis for partial small bowel obstruction in May 2021.? Patient is on conservative management.? Patient moved bowel after Gastrografin small bowel series.? Patient small bowel obstruction resolved with conservative management NG tube suction, IV fluid and Gastrografin small bowel series. Small bowel series showed duodenal diverticulum. Patient discharged home and advised to follow-up with Dr. Fisher in 1 week. History of esophageal varices, severe GERD continue PPI Other comorbidities includes type 2 diabetes mellitus, hypertension and nonalcoholic steatohepatitis as mentioned above. I have discussed my assessment with Shaina PATRICIO and orders have been reviewed. Discharge medication reconciliation done. Discharge follow-up instructions completed. Discharge process discussed with the patient and all questions were answered to patient's satisfaction. Total time spent, exact 35 minutes on discharge meds reconciliation, examination, coordination of care with nurses and ancillary staff, review of imaging and blood test and discussion with the patient on follow-up instructions. Clinical Impression(s) from Imaging Studies KUB X-Ray 05/29/22 01:05 IMPRESSION: Enteric tube in satisfactory position. Electronically Signed: Jericho Molina MD at 1:43 EDT , KUB X-Ray 05/29/22 05:55 IMPRESSION: The tip of the nasogastric tube is in the body of the stomach. Mild residual small bowel dilatation in the epigastric region. Electronically Signed: Nato Kelsey MD at 12:45 EDT , Small Bowel X-Ray 05/29/22 09:04 IMPRESSION: Duodenal diverticulum. Electronically Signed: Nato Kelsey MD at 14:01 EDT , Abdomen/Pelvis CT 05/29/22 23:36 IMPRESSION: 1. Small bowel obstruction with transition in the anterior lower abdominal wall defect. 2. Trace free fluid. 3. Additional chronic changes as above. Electronically Signed: Jericho Molina MD at 0:48 EDT , Physical Exam Const alert, oriented x3 and no apparent distress Orientation / Consciousness: awake, oriented to person, oriented to place and oriented to time HEENT normocephalic Mouth: dry mucous membranes Eyes PERRL, EOMs intact bilaterally and conjunctivae normal Neck no lymphadenopathy Resp normal respiratory effort and clear to auscultation bilaterally Cardio regular rate, regular rhythm and no murmurs Peripheral Pulses: pulses 2+ throughout GI normal to inspection, nondistended, normoactive bowel sounds GI Narrative: Mild distention, nontender Extremity normal to inspection Skin no rashes or lesions noted Lesions: no lesions Rashes: no rashes Trauma: no lacerations or abrasions Neuro CN's II-XII intact bilaterally, no focal motor deficits, no sensory deficits noted and deep tendon reflexes 2+ bilaterally Psych mental status grossly normal and affect normal Patient seen and examined prior to discharge. Physical assessment as noted above. Patient is stable for discharge with follow up recommendations as noted above. This patient was seen by DANIEL Escalante under the supervision of Dr. Gonzalez. Time spent examining patient, reviewing data and subsequent management of care: 23 minutes Physical Exam Narrative Patient had for 5 good bowel movement last evening. Started on regular diet. Abdominal distention is relieved. NG tube was removed yesterday. Physical exam General: Alert, Oriented x3, Cooperative HEENT: Atraumatic, PERRLA, EOMI, Normocephalic Oral: No Gingival or Mucosal Lesions/ Ulcerations Neck: Supple, No JVD, Negative Carotid Bruits Lungs: Air entry diminished in bilateral lung bases. No crepitation/rhonchi Cardiovascular: Regular rate, Regular Rhythm, Normal S1, Normal S2, No murmurs Abdomen: Bowel Sounds good, soft, no tenderness or distention. : No renal angle tenderness. No suprapubic tenderness. Extremities: No edema, Capillary Refill Less than 3 Seconds Skin: No rashes, No breakdown Musculoskeletal: No Tenderness to Palpation of Joints or Extremities Neurological: Cranial nerves II-XII grossly intact, DTR 2+/4 and Symmetrical, Neuro grossly intact Psych/Mental Status: Flat affect. ABG / Lab / Microbiology Data Result Diagrams: 05/30/22 06:03 05/30/22 06:03 Discharge Plan Admission Admit Date/Time: 05/29/22 02:17 Primary Reason for Your Visit: Small bowel obstruction Attending Provider: Wicho Gonzalez Primary Care Provider: Abraham Galindo Consulting Providers: Dmitriy Fisher ; Manasa Lima Discharge Orders/Prescriptions Prescriptions: Continued bisoprolol fumarate 10 MG tablet 10 mg PO DAILY amlodipine-benazepril 1 EACH capsule 1 cap PO DAILY Label Comments: 5-20 mg glimepiride 4 mg tablet 4 mg PO DAILY Label Comments: TAKE 1 TABLET BY MOUTH TWICE A DAY metformin 750 mg tablet extended release 24 hr 750 mg PO BID acetaminophen [Tylenol] 325 mg Tablet 650 mg PO Q4H PRN PRN (Reason: PAIN 1-10/ FEVER) Qty: 0 0RF ondansetron 4 MG tablet 4 mg PO Q8H PRN PRN (Reason: Nausea) Qty: 10 0RF Jardiance 10 mg tablet 10 mg PO DAILY cholecalciferol (vitamin D3) [Vitamin D3] 50 mcg (2,000 unit) Capsule 50 mcg PO QHS Probiotic 10 billion cell Capsule 10,000 mmu cells PO DAILY dicyclomine 20 mg tablet 20 mg PO BID Label Comments: TAKE 1 TABLET BY MOUTH TWICE A DAY polyethylene glycol 3350 [Miralax] 17 gram Powder In Packet 17 g PO DAILY omeprazole 20 mg capsule,delayed release(DR/EC) 20 mg PO DAILY vitamin E (dl, acetate) 180 mg (400 unit) capsule 360 mg PO DAILY Label Comments: TAKE 2 CAPSULES BY MOUTH EVERY DAY Referrals / Follow Up: Dmitriy Fisher MD [STAFF PHYSICIAN] - In 1 Week (Dr. Fisher office working on referral for patient. ) Abraham Galindo MD [Primary Care Provider] - In 1 Week Disposition Disposition (needs filled in before D/C Order can be placed): Home, Self Care Charges/Coding Visit Charges Inpatient E&M: 79463 Disch Hosp
[2022-05-30] MEDS: Insulin Lispro 100 UNIT/ML INSULN.PEN SC (11:33)
[2022-05-30] MEDS: Potassium Chloride Oral Tablet 20 MEQ 40 MEQ PO (11:40)
[2022-05-30 11:45] LABS: Bedside Glucose 203 mg/dL (74-106)
[2022-05-30] MEDS: Lisinopril 20 MG Tablet PO (12:02)
[2022-05-30] MEDS: Bisoprolol Fumarate 5 MG Tablet 10 MG PO (12:26)
--- NOTE | 2022-05-30 13:47 | NURSING ---
Reviewed charting with Krys ROQUE
== END 2022-05-30 13:13 | disposition home or self-care (01) | DRG 390 ==
LOC: ED 05-29 01:22 → PCU 05-29 02:25
PROVIDERS: Nurse Practitioner Family; Admitting Provider Family Medicine; Emergency Provider Emergency Medicine; PCP Family Medicine; Visit Provider Internal Medicine
DX: K56.50 Intestinal adhesions [bands], unspecified as to partial versus complete obstruction (principal); E11.9 Type 2 diabetes mellitus without complications; K75.81 Nonalcoholic steatohepatitis (NASH); K56.609 Unspecified intestinal obstruction, unspecified as to partial versus complete obstruction; K56.51 Intestinal adhesions [bands], with partial obstruction; K58.9 Irritable bowel syndrome, unspecified; I10 Essential (primary) hypertension; E78.5 Hyperlipidemia, unspecified; K43.9 Ventral hernia without obstruction or gangrene; J45.909 Unspecified asthma, uncomplicated; K21.9 Gastro-esophageal reflux disease without esophagitis; K57.10 Diverticulosis of small intestine without perforation or abscess without bleeding; Z79.84 Long term (current) use of oral hypoglycemic drugs; E66.9 Obesity, unspecified; Z68.36 Body mass index [BMI] 36.0-36.9, adult
CPT/HCPCS: 36415; 74018; 74176; 74250; 80048; 80053; 82962; 83690; 85025; 97802; 99285; J7030; A4216; J2405